=== PATIENT | male | born 1950 | race Caucasian/White ===

== ENCOUNTER → 2016-12-31 | Outpatient (CLI) | payer MEDICARE, BC ==
[2016-12-31 12:16] VITALS: BP 145/52; PULSE 52; RESP 18; TEMP 97.7
--- NOTE | 2016-12-31 12:39 | P.PN ---
Progress Note - Text This is a 66-year-old male with history of lumbar spondylosis and chronic lower back pain. The pain radiates down both legs to the knee level bilaterally. The patient was diagnosed recently with legionnaire disease and he had to stay in the hospital for 6 days. His pain is well controlled with [place] 7.5 mg 4 times a day. He does not show any drug-seeking behavior at this time he also denies any increasing sedation or any suicidal thoughts. I will give him prescription for 2 months of his [place] today and we will see him then. PQRS measures: 1-Patient's medications are documented in the chart. 2-Tobacco use is negative, counseling given 3-Patient has had a pneumococcal vaccine. 4-Advanced care planning discussed 5-Opioid contract signed with the patient. 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 8-Patient's weight was measured, and body mass index ABOVE the normal limits, and counseling was done. Patient instructed to follow up with PCP. 9-Patient WAS NOT identified as an unhealthy alcohol user.
== END | disposition home or self-care (01) ==
LOC: PNWHC3 11:53
PROVIDERS: ATTEND Anesthesiology
DX: M47.896 Other spondylosis, lumbar region (principal); Z79.899 Other long term (current) drug therapy
CPT/HCPCS: 99211

== ENCOUNTER → 2017-02-25 | Outpatient (CLI) | payer MEDICARE, BC ==
[2017-02-25 12:17] VITALS: BP 135/80; PULSE 57; RESP 16; TEMP 98.3
--- NOTE | 2017-02-25 12:27 | P.PN ---
Progress Note - Text This is a 67-year-old male with history of chronic lower back pain with radiation to the lower extremities down to the knee level bilaterally. Patient is diagnosed with lumbar spondylosis and lumbar degenerative disc disease. He has a history of severe infections after surgeries and the last one was after his back surgery which caused sepsis and patient had to stay in the ICU for quite sometime afterwards. His pain at this point is well controlled with [place] up to 4 times a day. He denies any side effects to [place] he also denies any suicidal thoughts. He does not show any drug-seeking behavior. He denies any bowel or bladder dysfunction. The patient has been stable on his pain medications and that's why I'm going to give him prescription for 2 months of [place].
== END ==
LOC: PNWHC3 11:48
PROVIDERS: ATTEND Anesthesiology
DX: M51.36 Other intervertebral disc degeneration, lumbar region (principal); M47.816 Spondylosis without myelopathy or radiculopathy, lumbar region
CPT/HCPCS: 99211

== ENCOUNTER → 2017-04-22 | Outpatient (CLI) | payer MEDICARE, BC ==
[2017-04-22 11:47] VITALS: BP 102/61; PULSE 61; RESP 20
--- NOTE | 2017-04-22 12:12 | P.PN ---
Progress Note - Text This is a 67-year-old male with history of lumbar failed back surgery syndrome the patient's pain starts from his mid back and down to the upper thighs. The patient denies any paresthesia in the lower extremities or any weakness. He denies any bowel or bladder dysfunction. The patient denies any weight loss or any nocturnal pain. The patient is prone to infections and he had severe infection after his back surgery and had to be admitted to the ICU for few weeks. The patient is afraid of getting any injections in his back cause of this risk of infection. His pain is relatively managed by [place] 7.5 mg 3 times a day. The patient does not show any drug-seeking behavior he also does not show any oversedation symptoms. He came with his today and he denies any suicidal thoughts or depression. I'll give the patient 2 prescriptions for 90 pills of [place] each and we'll see him back 2 months from now.
== END | disposition home or self-care (01) ==
LOC: PNWHC3 11:27
PROVIDERS: ATTEND Anesthesiology
DX: M54.9 Dorsalgia, unspecified (principal); Z98.890 Other specified postprocedural states
CPT/HCPCS: 99211

== ENCOUNTER → 2017-06-17 | Outpatient (CLI) | payer MEDICARE, BC ==
[2017-06-17 11:59] VITALS: BP 122/72; PULSE 62; RESP 20; TEMP 98.3
--- NOTE | 2017-06-17 12:09 | P.PN ---
Progress Note - Text Patient returns for followup for back pain with radiation to legs. Last year, patient recently underwent surgery for an infection in his back at [facility] and was admitted to inpatient rehab for several weeks and is now concerned to have any interventional procedures for his back pain secondary to this severe infection. That said, he is having worsening knee pain and is going to see Dr. Allen this coming Saturday. Patient denies adverse drug effects from medications. Today, pt denies new-onset weakness, bowel/bladder incontinence, or any other signs or symptoms of cauda equina syndrome. There are no signs of acute intoxication, and no indications of medication diversion or overuse. In addition to above, 13-point review of systems is also negative for chest pain , shortness of breath, changes in vision, changes in hearing, new onset weakness , abdominal pain, diarrhea, extreme fatigue, malaise, fever, skin changes, homicidal or suicidal ideation, or bowel or bladder incontinence. Vital Signs: Reviewed in EMR Gen: WDWN, AAOx3, NAD, morbidly obese, uses cane for walking HEENT: NCAT, EOMI, hearing grossly normal Pulm: resp unlabored Abd: soft, NT, ND, obese Neck: supple, trachea midline ROM in flexion lumbar spine: reduced ROM in extension lumbar spine: reduced Lumbar paravertebral tenderness: +, R > L Facet loading: ++ bilateral SI joint tenderness: neg bilaterally Jose's test: + R side Straight leg raise: not performed Neuro: CN II-XII grossly intact, muscle strength lower extremities PRESERVED Imaging: Reviewed in EMR Assessment: 1. lumbar spondylosis without myelopathy 2. morbid obesity 3. chronic pain syndrome Plan: 1. Explanation: Opioid and psychological risk scores were reviewed. Diagnoses , prognoses, and multiple treatment options including but not limited to physical therapy, interventional therapies, adjuvant medical therapies, narcotic medication therapies, and surgery were discussed with the patient and all questions were answered to the patient's satisfaction. 2. Opioid agreement: Patient has previously signed narcotic agreement, and was orally counseled to not overuse, abuse, divert, or cell medications, and to take them as prescribed by only 1 healthcare provider. The patient was also counseled to store opioid medications in a safe and preferably locked location. Patient was also counseled against driving while using narcotic medications and also to not use alcohol or any illicit or recreational drugs. The patient verbalized understanding that lack of compliance with any of the above and likely result in failure to renew narcotic prescriptions, possible discharge from the clinic, and possible legal ramifications thereafter if indicated. 3. Counseling: The patient was counseled extensively on BODY MASS INDEX, EXERCISE. Specifically, the patient was instructed regarding the importance of weight control and exercise in the context of both chronic pain and overall health. 4. Procedures: None 5. Consultations: None 6. Investigations: None 7. Medications: [place] 7.5 #90 with one refill 8. Disposition: f/u for re-eval in 8 weeks PQRS measures: 1-Patient's medications are documented in the chart. 2-Tobacco use is negative 3-Patient has not had a pneumococcal vaccine. 4-Advanced care planning discussed, patient unable to give. 5-Opioid contract signed with the patient. 6-Pain positive, follow-up visit or procedure scheduled 7-Patient's blood pressure measured and documented, and patient will follow up with the primary care due to hypertension. 8-Patient's weight was measured, and body mass index ABOVE the normal limits, and counseling was done. Patient instructed to follow up with PCP. 9-Patient WAS NOT identified as an unhealthy alcohol user.
== END | disposition home or self-care (01) ==
LOC: PNWHC3 11:34
PROVIDERS: ATTEND Anesthesiology
DX: M47.816 Spondylosis without myelopathy or radiculopathy, lumbar region (principal); E66.01 Morbid (severe) obesity due to excess calories; G89.4 Chronic pain syndrome; Z79.899 Other long term (current) drug therapy; Z79.891 Long term (current) use of opiate analgesic
CPT/HCPCS: 80307; G0480 ×2; G0463; 80356; 80364; 99211

== ENCOUNTER → 2017-06-28 | Outpatient (CLI) | payer MEDICARE, BC ==
--- NOTE | 2017-06-28 11:25 | US ---
"EXAMINATION TYPE: US gallbladder DATE OF EXAM: 06/28/2017 COMPARISON: NONE CLINICAL HISTORY: Cholecystitis. RUQ pain x 3 days EXAM MEASUREMENTS: Liver Length: 16.6 cm Gallbladder Wall: 0.30 cm CBD: 0.80 cm Right Kidney: 11.7 x 4.3 x 4.3 cm Pancreas: Obscured by bowel gas Liver: Increased attenuation Gallbladder: Cholelithiasis visualized in neck non mobile Evidence for sonographic Wu's sign: Yes CBD: dilated Right Kidney: No hydronephrosis or masses seen Cholelithiasis visualized in gallbladder neck non mobile The pancreas is obscured. The liver is normal in size without evidence of biliary dilatation. There is increased attenuation of the liver and is likely fatty infiltrated. There are nonmobile gallstones within the neck of the gallbladder. The gallbladder wall measures 3 mm . The distal common hepatic duct measures 5 mm. There is a positive sonographic Wu's sign. The right kidney is normal. IMPRESSION: CHOLELITHIASIS AND POSSIBLE ACUTE CHOLECYSTITIS. A Yellow message has been communicated to Cuate Mcguire MD via the [employer] | Critical Result sy stem on 06/28/2017 11:22 AM, Message ID [id number]."
== END | disposition home or self-care (01) ==
LOC: RADUSMAIN 09:56
PROVIDERS: ATTEND Internal Medicine Interventional Cardiology
DX: K80.20 Calculus of gallbladder without cholecystitis without obstruction (principal)
CPT/HCPCS: 76705

== ENCOUNTER → 2017-07-01 | Outpatient (CLI) | payer MEDICARE, BC | END | disposition home or self-care (01) | LOC: LABPAT 13:17 | PROVIDERS: ATTEND Orthopaedic Surgery | DX: Z01.812 Encounter for preprocedural laboratory examination (principal) | CPT/HCPCS: 87070 ==

== ENCOUNTER 2017-07-16 08:00 | Inpatient (IN) | payer MEDICARE, BC ==
[2017-08-09 11:01] VITALS: BMI 49.8
--- NOTE | 2017-08-12 09:34 | HP ---
HISTORY AND PHYSICAL CHIEF COMPLAINT: Left knee pain. 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 He notes his knee gives out. He has had previous injections with minimal relief. He is taking [place] and ambulating with a cane. PAST MEDICAL HISTORY: Significant for atrial fibrillation, hypertension, arthritis, and obesity. PAST SURGICAL HISTORY: Significant for previous lumbar surgery. CURRENT MEDICATIONS: 1. Gabapentin. 2. Lopressor. 3. Cyclobenzaprine. 4. Lotensin. 5. Spironolactone. 6. Coumadin. 7. [place]. ALLERGIES: He has a sensitivity to OXYCONTIN, however, no candace drug allergies. FAMILY HISTORY: Significant for heart disease and cancer. SOCIAL HISTORY: Negative for current tobacco or alcohol use. REVIEW OF SYSTEMS: Sixteen-point review of systems otherwise reviewed and is noncontributory. PHYSICAL EXAMINATION: On examination, the patient is approximately 5 feet, 7 inches, 315 pounds of endomorphic habitus. HEENT exam is nonfocal. Neck is supple. He has painless passive motion of the left hip. Straight leg raise is negative. Active motion left knee is - 12 to 105 degrees of flexion. He has a moderate effusion. He is tender about the medial joint line. Collaterals are stable, Leonor's negative. Austyn's is equivocal. His distal neurovascular exam appears intact in the left lower extremity. Weightbearing notch lateral and Merchant views of the left knee obtained in the office show severe medial and patellofemoral compartment narrowing. IMPRESSION: 1. Left knee severe medial and patellofemoral compartment osteoarthrosis. 2. Increased body mass index. 3. History of atrial fibrillation. RECOMMENDATIONS: I talked to the patient at length regarding his treatment options. At this point, he opts to proceed with surgery. We will plans to proceed with total knee arthroplasty. Risks and benefits were discussed at length in layman's terms. We will institute his Coumadin therapy postoperatively. The patient underwent preoperative medical evaluation by Dr. Adame. MMYAAL / HILARY: [id number] /
[2017-08-13] MEDS ORDERED: ceFAZolin 3 GM in SODIUM CHLORIDE 0.9% 100 ML IVPB ONE (05:00)
[2017-08-13] MEDS ORDERED: TRANEXAMIC ACID 1,000 MG in SODIUM CHLORIDE 0.9% 100 ML IVPB ONE ×4 (05:00)
[2017-08-13] MEDS ORDERED: ACETAMINOPHEN TAB 500 MG TAB PO ONE (05:00)
[2017-08-13] MEDS ORDERED: MELOXICAM 7.5 MG TAB PO ONE (05:00)
[2017-08-13] MEDS ORDERED: DEXAMETHASONE SOD PHOSPHATE 10 MG/ML 1 ML VIAL IV ONE (05:25)
[2017-08-13] MEDS ORDERED: ONDANSETRON 4 MG/2 ML VIAL IVP ONE (05:25)
[2017-08-13] MEDS ORDERED: SCOPOLAMINE 1.5MG/72HR PATCH TRANSDERM ONE (05:25)
[2017-08-13] MEDS ORDERED: MIDAZOLAM 2 MG/2 ML VIAL IV PRN (05:25)
[2017-08-13] MEDS: LACTATED RINGERS 1,000 ML IV SCH (11:38)
[2017-08-13] MEDS ORDERED: LIDOCAINE 1% 20 ML VIAL (10MG/ML) FOR IV START INTRADERMA ONE (11:39)
[2017-08-13 12:14] LABS: INR 1.3 (<1.2); Prothrombin Time 12.4 sec (9.0-12.0)
[2017-08-13] MEDS ORDERED: ROPIVACAINE 246.25 MG, EPINEPHrine 0.5 MG, KETOROLAC 30 MG, cloNIDine HCL/PF 80 MCG, WA... MISCELLANE ONE ×5 (14:15)
[2017-08-13] MEDS ORDERED: MAGNESIUM HYDROXIDE 2,400 MG/10 ML CUP PO PRN (14:22)
[2017-08-13] MEDS ORDERED: HYDROcodone/APAP 7.5-325MG 1 EACH TAB PO PRN (14:22)
[2017-08-13] MEDS ORDERED: NALOXONE 0.4 MG/ML 1 ML VIAL IV PRN (14:22)
[2017-08-13] MEDS ORDERED: hydrOXYzine PAMOATE 25 MG CAP PO PRN (14:22)
[2017-08-13] MEDS ORDERED: ONDANSETRON 4 MG/2 ML VIAL IVP PRN (14:22)
[2017-08-13] MEDS ORDERED: PHENYLEPHRINE-0.9% NACL SYG 1 MG/10 ML SYRINGE ONE (14:28)
[2017-08-13] MEDS ORDERED: MIDAZOLAM 2 MG/2 ML VIAL ONE (14:28)
[2017-08-13] MEDS ORDERED: ePHEDrine SULFATE/0.9% NACL/PF 50 MG/5 ML SYRINGE IV ONE (14:28)
[2017-08-13] MEDS ORDERED: fentaNYL (PF) 50 MCG/ML 2 ML AMP ONE (14:28)
[2017-08-13] MEDS ORDERED: LIDOCAINE 1% INJ 10MG/ML (20 ML MDV) ONE (14:28)
[2017-08-13] MEDS ORDERED: PROPOFOL 10 MG/ML 20 ML VIAL IV ONE (14:28)
[2017-08-13] MEDS ORDERED: SUCCINYLCHOLINE CHLORIDE VIAL 200 MG/10 ML VIAL IV ONE (14:28)
[2017-08-13] MEDS ORDERED: ROPIVACAINE 1,100 MG, SODIUM CHLORIDE 0.9% 330 ML MISCELLANE PRN ×2 (14:54)
--- NOTE | 2017-08-13 14:55 | P.ONQ ---
Anesthesiology Proc Note - PNB - Peripheral Nerve Block Performed Left Adductor Canal Indication: Acute Post-Operative Pain, Dx/Pain Location, Requested by physician (Dr Terry) Sedation Type: Sedate with meaningful contact maintained Preparation: Sterile Dressing Position: Supine Catheter: Indwelling Needle Types: Other (see comment) (Gideon) Needle Size: 100mm (4") Needle Gauge: 18 Technique: Ultrasound Injectate: 0.5% Ropivacaine (see comment for volume) (22cc) Blood Aspirated: No Pain Paresthesia on Injection Noted: No Resistance on Injection: Normal Events: Uneventful and Well Tolerated
[2017-08-13] MEDS ORDERED: LACTATED RINGERS 1,000 ML IV ONE ×2 (15:17→16:32)
--- NOTE | 2017-08-13 17:13 | P.OP ---
Date of Procedure: 08/13/17 Preoperative Diagnosis: Left knee severe tricompartmental osteoarthrosis-primary Postoperative Diagnosis: Same Procedure(s) Performed: Left total knee apvyrzkyjfzr-vkfloqhq-bmgvrorlxte/rotating platform Implants: Depuy TC3 size 5 cemented femoral component, size 4 cemented tibial component, 10 mm articular surface, 38 mm cemented patellar component. Anesthesia: GETA, regional, local Surgeon: Matthieu Terry Pediatric Oncologist #1: Everardo Franco Estimated Blood Loss (ml): 100 Pathology: other (Bone fragments) Condition: stable Disposition: PACU Indications for Procedure: The patient's a 67-year-old male who presents with progressive left knee pain secondary to osteoarthrosis despite conservative measures. A discussion of the risks and benefits of operative intervention versus continued conservative measures was made with the patient. He opted to proceed with surgery. Operative risks to include infection, neurovascular injury, development of blood clots, possible component loosening, possible component failure need for subsequent procedures was discussed. With his high body mass, he was instructed he was at higher risk for complication. Informed consent was obtained. Operative Findings: As below Description of Procedure: The patient was brought to the operating room, and after induction of general anesthesia the left lower extremity was prepped and draped in normal fashion. The tourniquet was inflated to 270 mmHg. A longitudinal incision extending 3 finger breaths above this. Pole of patella extending to the medial aspect the tibial tubercle was then made. The skin and subcutaneous tissues were divided sharply. Electrocautery was used for hemostasis. A medial parapatellar arthrotomy was performed. The medial soft tissues to include the superficial and deep portions of the medial collateral ligament as well as the medial hamstring tendons were elevated subperiosteally. I did carefully remove the proximal medial tibial osteophytes. The patella was everted. A portion of the retropatellar fat pad was excised. The anterior cruciate ligament was sacrificed. A starting hole was made in the distal femur 1 cm anterior to the posterior cruciate ligament origin. An intramedullary guide was then gently inserted planning on 5 valgus distal cut with 9 mm distal resection. The cutting block was pinned in place. The distal cut was then made. The posterior referencing sizing guide was utilized. A felt size 5 was most appropriate. 3 of external rotation was built into the system and verified off the trans-epicondylar axis and the posterior condyles. The cutting block was pinned in place. The anterior, posterior, and chamfer cuts were then made. The bone fragments were removed. The box cutting guide was then placed. The box cut was made with a sagittal saw. The bone fragment was removed in one piece. The trial size 5 femoral components placed and was fully seated. There was good anterior to posterior and medial to lateral fit. The trial was then removed. Attention was then paid towards preparing the proximal tibia. An extra medullary guide was utilized in line with the tibial shaft and second metatarsal distally. I planned on 0 posterior slope. Upon on 2 mm resection from the medial compartment. The cutting block was pinned in place. The proximal tibial cut was then made. The bone was removed one fragment. This is felt to be inadequate therefore an additional 2 mm was resected utilizing the cutting block. The tibia sized most appropriate size 4. The remnants of the medial and lateral menisci were excised the capsule junction with electrocautery. The posterior osteophytes of the distal femur were carefully removed with curved osteotome. The tibia was prepared in the appropriate rotation with the appropriate drill and keel punch. I planned on additional 30 mm of tibial stem. The trial component was then placed. It was fully seated. The femoral components placed along with a 10 mm articular surface. I was able to obtain full flexion and extension with good stability with varus and valgus stress. It was a rotating platform articular surface. Attention was then paid towards preparing the patella. A patella reamer was utilized taking this down to 14 mm bone stock. A good flush cut was made. The patella sized most appropriately 30 mm. Peg holes were drilled. The trial components placed. The knee was taken through range of motion. I had good patellofemoral tracking with no hands technique. The trial components were then removed. The bony surfaces were prepared with pulsatile lavage and dried. The posterior soft tissues were injected with ropivacaine. The tibial component was then cemented in placed and was fully seated. Excess cement was removed. The femoral component cemented placed and was fully seated. Excess cement was removed. The trial articular surface was placed and the knee was put in full extension. The patella component was cemented in place. After the cement had sufficiently hardened, the knee was again taken through range of motion. Again I was able to obtain full flexion and extension with good stability with varus and valgus stress. The trial articular surface was removed and the final 10 mm articular surface placed. Care was taken to avoid any soft tissue interposition. Pulsatile lavage was again utilized. The medial parapatellar arthrotomy was closed with #2 Ethibond suture. The tourniquet was deflated with approximately 70 minutes total tourniquet time. Final hemostasis was obtained with electrocautery. The subcutaneous tissues were reapproximated with interrupted 2 -0 Vicryl sutures. The skin was reprepped with 3-0 subcuticular strata fix suture. Skin tape and adhesive was applied. A sterile dressing was applied. The patient was awoken from general anesthesia and transferred to recovery room in good condition. Blood loss was estimated at 100 mL. No complications were incurred. Sponge and needle counts were correct at the end the case.
[2017-08-13] MEDS: HYDROmorphone 1 MG/ML 1 ML SYRINGE IVP PRN ×3 (17:32→22:46)
--- NOTE | 2017-08-13 17:53 | XR ---
EXAMINATION TYPE: XR knee limited LT DATE OF EXAM: 08/13/2017 COMPARISON: NONE HISTORY: Postop knee surgery TECHNIQUE: 2 views FINDINGS: There is a left knee prosthesis. Components appear in anatomic position. There is an anteri or drain. IMPRESSION: No complicating process seen.
[2017-08-13] MEDS: HYDROcodone/APAP 7.5-325MG 1 EACH TAB PO PRN (20:22)
[2017-08-13] MEDS: GABAPENTIN 300 MG CAP PO SCH (22:37)
[2017-08-13] MEDS: METOPROLOL TARTRATE 50 MG TAB PO SCH (22:37)
[2017-08-13] MEDS: SENNOSIDES-DOCUSATE SODIUM 1 EACH TAB PO SCH (22:40)
[2017-08-13] MEDS: ceFAZolin 3 GM in SODIUM CHLORIDE 0.9% 100 ML IVPB SCH (23:06)
[2017-08-14] MEDS: HYDROcodone/APAP 7.5-325MG 1 EACH TAB PO PRN ×3 (03:46→17:42)
[2017-08-14] MEDS: LACTATED RINGERS 1,000 ML IV SCH (05:48)
[2017-08-14] MEDS: ceFAZolin 3 GM in SODIUM CHLORIDE 0.9% 100 ML IVPB SCH (05:48)
[2017-08-14] MEDS: ALBUTEROL NEBULIZED 2.5 MG/3 ML INHALATION PRN ×2 (07:07→19:58)
[2017-08-14] MEDS: traMADol 50 MG TAB PO PRN ×3 (07:41→20:26)
[2017-08-14 07:46] LABS: Basophils % (A) 0 %; CH 28.7; CHCM 31.1; Eosinophils % (A) 0 %; HCT 42.6 % (39.0-53.0); HDW 2.38; Hypochromasia Slight; Luc % (Auto) 1; Lymphocytes % (A) 5 %; MCH 28.4 pg (25.0-35.0); MCHC 30.5 g/dL (31.0-37.0); MCV 92.9 fL (80.0-100.0); Mean Platelet Volume 8.1; Monocytes # (A) 1.1 k/uL (0-1.0); Monocytes % (A) 6 %; Neutrophils # (A) 17.3 k/uL (1.3-7.7); Neutrophils % (A) 88 %; RBC 4.58 m/uL (4.30-5.90); RDW 14.8 % (11.5-15.5); WBC 19.6 k/uL (3.8-10.6); WBC (Perox) 18.84
[2017-08-14 07:59] LABS: INR 1.2 (<1.2); Prothrombin Time 12.3 sec (9.0-12.0)
--- NOTE | 2017-08-14 08:26 | P.PN ---
Progress Note - Text The patient is status post left adductor canal catheter placement. The catheter was placed for postoperative pain control, status post total left arthroplasty. Ropivacaine 0.2% is infusing at 8 mLs per hour. The patient has no complaints of left lower extremity numbness or weakness. Patient's VAS score is 0-1 -10. Assessment: Patient's adductor canal catheter is in place and working appropriately. Plan: continue infusion and adjust it as needed.
[2017-08-14] MEDS: HYDROmorphone 1 MG/ML 1 ML SYRINGE IVP PRN ×2 (09:10→15:52)
[2017-08-14] MEDS: GABAPENTIN 300 MG CAP PO SCH ×2 (09:20→20:22)
[2017-08-14] MEDS: METOPROLOL TARTRATE 50 MG TAB PO SCH ×4 (09:20→22:12)
[2017-08-14] MEDS: FAMOTIDINE 20 MG TAB PO SCH (09:20)
[2017-08-14] MEDS: TAMSULOSIN 0.4 MG CAP.ER.24H PO SCH ×2 (09:20→14:03)
[2017-08-14 11:27] VITALS: RESP 16
--- NOTE | 2017-08-14 11:29 | P.PN ---
Subjective Principal diagnosis: Status post left total knee arthroplasty Patient is seen today resting in his hospital chair, he appears comfortable. Patient's is present. He states the pain is controlled at this time. He has ambulated with therapy. Urinary catheters been discontinued. Patient denies any lightheadedness, headaches, chest pain, shortness of breath, fever or chills, abdominal discomfort. Objective - Vital Signs Vital signs: Vital Signs Temp 98.1 F 08/14/17 11:25 Pulse 70 08/14/17 11:25 Resp 16 08/14/17 11:25 BP 122/83 08/14/17 11:25 Pulse Ox 97 08/14/17 07:35 Intake & Output 08/13/17 08/14/17 08/14/17 18:59 06:59 18:59 Intake Total 2500 600 236 Output Total 855 530 450 Balance 1645 70 -214 Weight 146.51 kg Intake: IV 2500 600 Lactated Ringers 1,000 ml 600 @ 50 mls/hr IV .Q20H GIANA Rx#:[id number] Oral 236 Output: Drainage 175 250 Left Knee 175 250 Urine 350 280 450 Uretheral (Miranda) 280 450 Estimated Blood Loss 330 Other: Voiding Method Indwelling Catheter Indwelling Catheter - Exam Left lower extremity: Incision is clean, dry and intact. No ecchymosis present around the knee itself. Calf soft, no tenderness with palpation. Plantar flexion, dorsiflexion , EHL, FHL are intact. Sensory exam to light touch throughout the extremity is intact. Dorsal pedis pulses 2+ - Labs CBC & Chem 7: 08/14/17 06:58 Labs: Abnormal Lab Results - Last 24 Hours (Table) 08/13/17 08/14/17 08/14/17 Range/Units 11:32 06:58 06:58 WBC 19.6 H (3.8-10.6) k/uL MCHC 30.5 L (31.0-37.0) g/dL Neutrophils # 17.3 H (1.3-7.7) k/uL Monocytes # 1.1 H (0-1.0) k/uL PT 12.4 H 12.3 H (9.0-12.0) sec INR 1.3 H 1.2 H (<1.2) Assessment and Plan Plan: Assessment: 1. Postop day #1 status post left total knee arthroplasty Plan: 1. Pain control, continue use of oral medication 2. Continue therapy and use of CPM 3. Encourage incentive spirometry 4. Daily dressing changes/ice and elevate 5. GI and DVT prophylaxis, continue use of Coumadin 6. Medical recommendations 7. Discharge planning: Patient may be discharged home today, likely tomorrow Time with Patient: Less than 30
--- NOTE | 2017-08-14 11:31 | P.DS ---
Providers Date of admission: 08/13/17 10:44 Expected date of discharge: 08/15/17 Attending physician: Matthieu Terry Consults: 08/13/17 14:27 Consult Physician Routine Consulting Provider: Jan Trejo Consult Reason/Comments: Medical Management Do you want consulting provider notified?: Yes Primary care physician: La Adame Hospital Course: Date of admission: 08/13/2017 Date of discharge: 08/15/2017 Admission diagnosis: Status post left total knee arthroplasty Discharge diagnosis: Same Attending physician: Dr. Terry Surgical procedures: Left total knee arthroplasty Brief history: Patient is a 67-year-old male with a history of progressive primary left knee has arthritis. At this point patient has failed conservative treatment measures and has opted to proceed with a elective left total knee arthroplasty. Hospital course: Details of patient's surgery can be found in operative report. Patient tolerated the procedure well and was subsequently transported to orthopedic floor. Patient's orthopeidc and medical care was provided daily. Patient had daily laboratory tests performed for evaluation of overall blood counts. Patient had daily physical therapy to include strengthening range of motion as well as education with walker ambulation. Patient had daily CPM usage as part of their physical therapy program. Patient was treated with Coumadin for their postoperative DVT prophylaxis during their inpatient stay. Patient was noted to have a relatively uneventful postoperative course. Patient reported satisfactory pain control with oral pain medications by postoperative day 0. Patient showed satisfactory progress with physical therapy. Patient moved steadily through the program and had no difficulty meeting the goals by postoperative day 2. Given patient's otherwise satisfactory course and having met physical therapy goals, plan is to discharge patient home on postoperative day 2. Discharge condition/disposition: Patient will be discharged home in stable condition. Discharge medications: Instructions are given on resumption of patient's normal daily medications per primary care recommendation, in addition patient will be prescribed [place] 7.5 mg/325 mg, tramadol 50 mg, Colace 100 mg. Discharge instructions: 1. Wound care and infection precautions, keep incision dry and covered while showering, no lotions, creams, moisturizers. No soaking, tubs, pools, hottubs. Do not scrub over the incision. 2. Weight-bear as tolerated with walker / cane until follow-up. 3. Ice and elevate when necessary. Do not exceed 20 minutes per hour with ice pack. 4. Utilize compression sleeve until seen at first follow up appointment. 5. Visiting nursing care. 6. Home physical therapy including home CPM. 7. Pain meds and anticoagulants per prescription. 8. Pain medication has potential to cause constipation. Increase oral fluid and fiber intake. Contact primary care provider if you have not had a bowel movement within 48 hours after discharge 9. No anti-inflammatory medication until discussed at first post operative visit, this including Motrin, Aleve, Mobic, Diclofenac. 10. Follow up in office at 2 weeks postop with Sarath Franco PA-C 11. Follow up with your primary care doctor 7-10 days after discharge. 12. Contact [facility] with any questions, . Procedures: Left total knee arthroplasty Patient Condition at Discharge: Good Plan - Discharge Summary New Discharge Prescriptions: New Docusate [Colace] 100 mg PO DAILY #30 capsule HYDROcodone/APAP 7.5-325MG [[place] 7.5] 1 - 2 each PO Q6HR PRN #60 tab PRN Reason: Pain traMADol HCl [Ultram] 50 mg PO Q6H PRN #40 tab PRN Reason: Pain No Action Tamsulosin [Flomax] 0.4 mg PO BID@0700,1300 Gabapentin [Neurontin] 300 mg PO BID Metoprolol Tartrate [Lopressor] 50 mg PO TID Spironolactone-Hctz 25-25Mg [Aldactazide 25-25 MG] 1 tab PO DAILY Cyclobenzaprine [Flexeril] 10 mg PO HS Warfarin [Coumadin] 5 mg PO HS Cholecalciferol [Vitamin D3] 1,000 unit PO DAILY Albuterol Nebulized [Ventolin Nebulized] 2.5 mg INHALATION RT-BID PRN PRN Reason: Shortness Of Breath Benazepril HCl [Lotensin] 40 mg PO DAILY Ascorbic Acid [Vitamin C] 1,000 mg PO DAILY Discharge Medication List Albuterol Nebulized [Ventolin Nebulized] 2.5 mg INHALATION RT-BID PRN 05/24/15 [ History] Cholecalciferol [Vitamin D3] 1,000 unit PO DAILY 05/24/15 [History] Cyclobenzaprine [Flexeril] 10 mg PO HS 05/24/15 [History] Gabapentin [Neurontin] 300 mg PO BID 05/24/15 [History] Metoprolol Tartrate [Lopressor] 50 mg PO TID 05/24/15 [History] Spironolactone-Hctz 25-25Mg [Aldactazide 25-25 MG] 1 tab PO DAILY 05/24/15 [ History] Tamsulosin [Flomax] 0.4 mg PO BID@0700,1300 05/24/15 [History] Warfarin [Coumadin] 5 mg PO HS 05/24/15 [History] Benazepril HCl [Lotensin] 40 mg PO DAILY 10/21/15 [History] Ascorbic Acid [Vitamin C] 1,000 mg PO DAILY 08/09/17 [History] Docusate [Colace] 100 mg PO DAILY #30 capsule 08/15/17 [Rx] HYDROcodone/APAP 7.5-325MG [[place] 7.5] 1 - 2 each PO Q6HR PRN #60 tab 08/15/17 [ Rx] traMADol HCl [Ultram] 50 mg PO Q6H PRN #40 tab 08/15/17 [Rx] Follow up Appointment(s)/Referral(s): [facility], [NON-STAFF] - Everardo Franco PAC [PHYSICIAN [employer]ITIES MANAGER] - 08/30/17 1:50 pm Activity/Diet/Wound Care/Special Instructions: Orthopedic Discharge Instructions: 1. Wound care and infection precautions, [keep incision dry and covered while showering], no lotions, creams, moisturizers. No soaking, pools, hot tubs. Do not scrub over incision. 2. Weight-bear [as tolerated] with walker / cane until follow-up. 3. Ice and elevate when necessary. Do not exceed 20 minutes per hour with ice pack. 4. Utilize compression sleeve until seen at first follow up appointment. 5. Visiting nursing care. 6. Home physical therapy [including home CPM]. 7. Pain meds and anticoagulants per prescription. 8. Pain medication has potential to cause constipation. Increase oral fluid and fiber intake. Contact primary care provider if you have not had a bowel movement within 48 hours after discharge. 9. No anti-inflammatory medication until discussed at first post operative visit, this including Motrin, Aleve, Mobic, Diclofenac. 10. Follow up in office at 2 weeks postop with Sarath Franco PA-C 11. Follow up with your primary care doctor 7-10 days after discharge. 12. Contact [facility] with any questions, . Discharge Disposition: HOME WITH HOME HEALTH SERVICES
--- NOTE | 2017-08-14 15:21 | P.CONS ---
History of Present Illness - Reason for Consult Leukocytosis, atrial fibrillation - History of Present Illness Patient is 67-year-old male came in for elective left knee arthroplasty, patient does have history of atrial fibrillation rate controlled without any beta blockers. R any other rate control medications patient is" and 5 mg at home which is being held for surgery. Patient will be resumed on Coumadin today patient denied any fever, chills, nausea, vomiting, dysuria patient does have leukocytosis secondary to surgery no other labs are available Will opt and a basic metabolic profile and CBC tomorrow repeat INR tomorrow patient will be restarted back on family runs of Coumadin medications were reviewed and holding of antihypertensive medications to prevent perioperative hypotension. Review of Systems REVIEW OF SYSTEMS: CONSTITUTIONAL: No fever, no malaise, no fatigue. HEENT: No recent visual problems or hearing problems. Denied any sore throat. CARDIOVASCULAR: No chest pain, orthopnea, PND, no palpitations, no syncope. PULMONARY: No shortness of breath, no cough, no hemoptysis. GASTROINTESTINAL: No diarrhea, no nausea, no vomiting, no abdominal pain. Normoactive bowel sounds. NEUROLOGICAL: No headaches, no weakness, no numbness. HEMATOLOGICAL: Denies any bleeding or petechiae. GENITOURINARY: Denies any burning micturition, frequency, or urgency. MUSCULOSKELETAL/RHEUMATOLOGICAL: Denies any joint pain, swelling, or any muscle pain. ENDOCRINE: Denies any polyuria or polydipsia. The rest of the 14-point review of systems is negative. Past Medical History Past Medical History: Atrial Fibrillation, Coronary Artery Disease (CAD), Heart Failure, Hypertension, Prostate Disorder, Rheumatoid Arthritis (RA), Sleep Apnea /CPAP/BIPAP Additional Past Medical History / Comment(s): CARDIOMYOPATHY, History of Any Multi-Drug Resistant Organisms: None Reported Past Surgical History: Back Surgery, Cholecystectomy, Heart Catheterization, Tonsillectomy Additional Past Surgical History / Comment(s): britton cataract-LENS IMPLANTS,right HAND SX, DETACTHED RETINA LT EYE- tc 10/2016 Past Anesthesia/Blood Transfusion Reactions: No Reported Reaction Past Psychological History: No Psychological Hx Reported Smoking Status: Former smoker Past Alcohol Use History: Occasional Additional Past Alcohol Use History / Comment(s): SMOKED CIGARS- X 25 YEARS QUIT 1998 Past Drug Use History: None Reported - Past Family History Father Family Medical History: Cancer Additional Family Medical History / Comment(s): lung cancer,brain tumor Mother Family Medical History: Cancer, Myocardial Infarction ([place]) Additional Family Medical History / Comment(s): skin cancer Medications and Allergies Home Medications Medication Instructions Recorded Confirmed Type Albuterol Nebulized [Ventolin 2.5 mg INHALATION RT-BID PRN 05/24/15 08/13/17 History Nebulized] Cholecalciferol [Vitamin D3] 1,000 unit PO DAILY 05/24/15 08/13/17 History Cyclobenzaprine [Flexeril] 10 mg PO HS 05/24/15 08/13/17 History Gabapentin [Neurontin] 300 mg PO BID 05/24/15 08/13/17 History Metoprolol Tartrate [Lopressor] 50 mg PO TID 05/24/15 08/13/17 History Spironolactone-Hctz 25-25Mg 1 tab PO DAILY 05/24/15 08/13/17 History [Aldactazide 25-25 MG] Tamsulosin [Flomax] 0.4 mg PO BID@0700,1300 05/24/15 08/13/17 History Warfarin [Coumadin] 5 mg PO HS 05/24/15 08/13/17 History Benazepril HCl [Lotensin] 40 mg PO DAILY 10/21/15 08/13/17 History Ascorbic Acid [Vitamin C] 1,000 mg PO DAILY 08/09/17 08/13/17 History Hydrocodone/Acetaminophen [[place] 1 tab PO TID PRN #90 tab 08/12/17 08/13/17 Rx 7.5-325] Allergies Allergy/AdvReac Type Severity Reaction Status Date / Time oxycodone HCl AdvReac Confusion Verified 08/13/17 15:51 [From OxyContin] Physical Exam Vitals: Vital Signs Temp Pulse Pulse Pulse Resp BP Pulse Ox 08/14/17 14:46 98.0 F 72 16 110/71 95 08/14/17 11:25 98.1 F 70 16 122/83 08/14/17 07:35 98.3 F 66 18 116/72 97 08/14/17 07:19 92 08/14/17 07:07 92 08/14/17 04:00 16 08/14/17 01:28 98.0 F 81 17 129/78 96 08/14/17 00:00 16 08/13/17 20:20 97 113/57 08/13/17 20:05 106 H 108/65 08/13/17 20:00 16 08/13/17 19:50 90 104/60 08/13/17 19:35 97 124/71 08/13/17 19:20 107 H 127/69 08/13/17 19:19 93 L 08/13/17 19:05 94 142/82 08/13/17 18:50 98 103/86 08/13/17 18:35 98.3 F 96 16 124/92 96 08/13/17 18:00 97 18 1365/64 93 L 08/13/17 17:45 93 16 129/65 92 L 08/13/17 17:30 97 16 128/60 92 L 08/13/17 17:15 97.2 F L 90 20 134/66 92 L Intake and Output 08/14/17 08/14/17 08/14/17 06:59 14:59 22:59 Intake Total 400 236 Output Total 530 450 Balance -130 -214 Intake: IV 400 Lactated Ringers 1,000 ml 400 @ 50 mls/hr IV .Q20H [facility] Rx#:[id number] Oral 236 Output: Drainage 250 Left Knee 250 Urine 280 450 Uretheral (Miranda) 280 450 Other: Voiding Method Indwelling Catheter PHYSICAL EXAMINATION: GENERAL: The patient is alert and oriented x3, not in any acute distress. Well developed, well nourished. HEENT: Pupils are round and equally reacting to light. EOMI. No scleral icterus. No conjunctival pallor. Normocephalic, atraumatic. No pharyngeal erythema. No thyromegaly. CARDIOVASCULAR: S1 and S2 present. No murmurs, rubs, or gallops. PULMONARY: Chest is clear to auscultation, no wheezing or crackles. ABDOMEN: Soft, nontender, nondistended, normoactive bowel sounds. No palpable organomegaly. MUSCULOSKELETAL: Deferred to orthopedic surgery. EXTREMITIES: No cyanosis, clubbing, or pedal edema. NEUROLOGICAL: Gross neurological examination did not reveal any focal deficits. SKIN: No rashes. Results CBC & Chem 7: 08/14/17 06:58 Labs: Abnormal Lab Results - Last 24 Hours (Table) 08/14/17 08/14/17 Range/Units 06:58 06:58 WBC 19.6 H (3.8-10.6) k/uL MCHC 30.5 L (31.0-37.0) g/dL Neutrophils # 17.3 H (1.3-7.7) k/uL Monocytes # 1.1 H (0-1.0) k/uL PT 12.3 H (9.0-12.0) sec INR 1.2 H (<1.2) Assessment and Plan Plan: #1 leukocytosis: There are no signs or symptoms of infection probably reactive in nature secondary to surgery no further intervention at this point of time. #2 atrial fibrillation presently rate controlled. Continue same dose of Coumadin at 5 mg as reordered again. #3 hypertension hold off and if his medications to prevent perioperative hypotension. #4 patient was history of can start failure not in acute exacerbation a lot of any chest x-ray IV fluids will be discussed in your. #5 morbid obesity and sleep apnea uses CPAP machine which need to be continued. 6 Benign prostatic hypertrophy
[2017-08-14] MEDS ORDERED: WARFARIN 5 MG TAB PO SCH (18:00)
[2017-08-14] MEDS ORDERED: WARFARIN 7.5 MG TAB PO ONE (18:00)
[2017-08-14] MEDS: SENNOSIDES-DOCUSATE SODIUM 1 EACH TAB PO SCH (20:22)
[2017-08-15] MEDS: HYDROcodone/APAP 7.5-325MG 1 EACH TAB PO PRN ×3 (01:08→13:27)
[2017-08-15] MEDS: traMADol 50 MG TAB PO PRN ×2 (06:01→12:15)
[2017-08-15 07:18] VITALS: BP 122/70; TEMP 97.4
[2017-08-15] MEDS: ALBUTEROL NEBULIZED 2.5 MG/3 ML INHALATION PRN (07:25)
[2017-08-15 07:44] LABS: CHCM 32.1; HCT 37.8 % (39.0-53.0); HDW 2.41; HGB 12.1 gm/dL (13.0-17.5); MCV 90.9 fL (80.0-100.0); Mean Platelet Volume 7.7; RBC 4.16 m/uL (4.30-5.90); RDW 14.6 % (11.5-15.5); WBC 12.4 k/uL (3.8-10.6)
[2017-08-15 07:49] LABS: INR 1.3 (<1.2); Prothrombin Time 12.4 sec (9.0-12.0)
[2017-08-15 07:50] VITALS: PULSE 84
[2017-08-15] MEDS: TAMSULOSIN 0.4 MG CAP.ER.24H PO SCH ×2 (07:52→12:15)
[2017-08-15] MEDS: METOPROLOL TARTRATE 50 MG TAB PO SCH (07:53)
[2017-08-15] MEDS: GABAPENTIN 300 MG CAP PO SCH (07:54)
[2017-08-15] MEDS: FAMOTIDINE 20 MG TAB PO SCH (07:54)
[2017-08-15 07:55] LABS: Anion Gap 8 mmol/L; Blood Urea Nitrogen 23 mg/dL (9-20); Calcium 8.7 mg/dL (8.4-10.2); Carbon Dioxide 25 mmol/L (22-30); Chloride 102 mmol/L (98-107); Glucose 88 mg/dL (74-99); Non-African American GFR(MDRD) >60 (>60 ml/min/1.73 sqM); Potassium 4.8 mmol/L (3.5-5.1); Sodium 135 mmol/L (137-145)
[2017-08-15] MEDS ORDERED: SPIRONOLACTONE-HCTZ 25-25MG 1 EACH TAB PO SCH (09:00)
--- NOTE | 2017-08-15 10:36 | P.PN ---
Subjective Principal diagnosis: Status post left total knee arthroplasty Patient is seen today resting in his hospital chair, he appears comfortable. Patient's is present. He states the pain is controlled at this time. Patient denies any lightheadedness, headaches, chest pain, shortness of breath, fever or chills, abdominal discomfort. Objective - Vital Signs Vital signs: Vital Signs Temp 97.4 F L 08/15/17 07:00 Pulse 84 08/15/17 07:35 Resp 16 08/15/17 07:00 BP 122/70 08/15/17 07:00 Pulse Ox 98 08/15/17 07:00 Intake & Output 08/14/17 08/15/17 08/15/17 18:59 06:59 18:59 Intake Total 336 850 Output Total 700 600 Balance -364 250 Intake: IV 100 Lactated Ringers 1,000 ml 100 @ 50 mls/hr IV .Q20H [facility] Rx#:[id number] Oral 236 850 Output: Urine 700 600 Uretheral (Miranda) 450 Other: Voiding Method Indwelling Catheter # Voids 2 - Exam Left lower extremity: Incision is clean, dry and intact. No ecchymosis present around the knee itself. Calf soft, no tenderness with palpation. Plantar flexion, dorsiflexion , EHL, FHL are intact. Sensory exam to light touch throughout the extremity is intact. Dorsal pedis pulses 2+ - Labs CBC & Chem 7: 08/15/17 06:49 08/15/17 06:49 Labs: Abnormal Lab Results - Last 24 Hours (Table) 08/15/17 08/15/17 08/15/17 Range/Units 06:49 06:49 06:49 WBC 12.4 H (3.8-10.6) k/uL RBC 4.16 L (4.30-5.90) m/uL Hgb 12.1 L (13.0-17.5) gm/dL Hct 37.8 L (39.0-53.0) % PT 12.4 H (9.0-12.0) sec INR 1.3 H (<1.2) Sodium 135 L (137-145) mmol/L BUN 23 H (9-20) mg/dL Assessment and Plan Plan: Assessment: 1. Postop day #2 status post left total knee arthroplasty Plan: 1. Pain control, continue use of oral medication 2. Continue therapy and use of CPM 3. Encourage incentive spirometry 4. Daily dressing changes/ice and elevate 5. GI and DVT prophylaxis, continue use of Coumadin 6. Medical recommendations 7. Discharge planning: Patient will be discharged home today Time with Patient: Less than 30
--- NOTE | 2017-08-15 13:52 | P.PN ---
Subjective Patient is 67-year-old male came in for elective left knee arthroplasty, no overnight events and patient is being discharged in discharge medication to constipation was reviewed. Patient denied any chest pain, nausea, vomiting, dysuria. Objective - Vital Signs Vital signs: Vital Signs Temp 97.4 F L 08/15/17 07:00 Pulse 84 08/15/17 07:35 Resp 16 08/15/17 07:00 BP 122/70 08/15/17 07:00 Pulse Ox 98 08/15/17 07:00 Intake & Output 08/14/17 08/15/17 08/15/17 18:59 06:59 18:59 Intake Total 336 850 Output Total 700 600 Balance -364 250 Intake: IV 100 Lactated Ringers 1,000 ml 100 @ 50 mls/hr IV .Q20H [facility] Rx#:[id number] Oral 236 850 Output: Urine 700 600 Uretheral (Miranda) 450 Other: Voiding Method Indwelling Catheter # Voids 2 - Exam GENERAL: The patient is alert and oriented x3, not in any acute distress. Well developed, well nourished. HEENT: Pupils are round and equally reacting to light. EOMI. No scleral icterus. No conjunctival pallor. Normocephalic, atraumatic. No pharyngeal erythema. No thyromegaly. CARDIOVASCULAR: S1 and S2 present. No murmurs, rubs, or gallops. PULMONARY: Chest is clear to auscultation, no wheezing or crackles. ABDOMEN: Soft, nontender, nondistended, normoactive bowel sounds. No palpable organomegaly. MUSCULOSKELETAL: Deferred to orthopedic surgery. EXTREMITIES: No cyanosis, clubbing, or pedal edema. NEUROLOGICAL: Gross neurological examination did not reveal any focal deficits. SKIN: No rashes. - Labs CBC & Chem 7: 08/15/17 06:49 08/15/17 06:49 Labs: Abnormal Lab Results - Last 24 Hours (Table) 08/15/17 08/15/17 08/15/17 Range/Units 06:49 06:49 06:49 WBC 12.4 H (3.8-10.6) k/uL RBC 4.16 L (4.30-5.90) m/uL Hgb 12.1 L (13.0-17.5) gm/dL Hct 37.8 L (39.0-53.0) % PT 12.4 H (9.0-12.0) sec INR 1.3 H (<1.2) Sodium 135 L (137-145) mmol/L BUN 23 H (9-20) mg/dL Assessment and Plan Plan: #1 leukocytosis: There are no signs or symptoms of infection probably reactive in nature secondary to surgery no further intervention at this point of time. #2 atrial fibrillation presently rate controlled. Continue same dose of Coumadin at 5 mg and INR in about 3 days #3 hypertension hold off and if his medications to prevent perioperative hypotension. #5 morbid obesity and sleep apnea uses CPAP machine which need to be continued. 6 Benign prostatic hypertrophy
== END 2017-08-15 13:50 | disposition home health service (06) | DRG 470 ==
LOC: 2ORMAIN 08-13 10:44 → 3SUR 08-13 17:22
PROVIDERS: ADMIT Orthopaedic Surgery; ATTEND Orthopaedic Surgery
PROC: 0SRD0J9 Replacement of Left Knee Joint with Synthetic Substitute, Cemented, Open Approach (ICD-10-PCS; principal; 2017-08-13 13:00)
DX: M17.12 Unilateral primary osteoarthritis, left knee (principal); I11.0 Hypertensive heart disease with heart failure; I42.9 Cardiomyopathy, unspecified; I50.9 Heart failure, unspecified; D72.829 Elevated white blood cell count, unspecified; G47.30 Sleep apnea, unspecified; I25.10 Atherosclerotic heart disease of native coronary artery without angina pectoris; I48.91 Unspecified atrial fibrillation; M06.9 Rheumatoid arthritis, unspecified; Z96.1 Presence of intraocular lens; M19.90 Unspecified osteoarthritis, unspecified site; Z79.01 Long term (current) use of anticoagulants; Z79.899 Other long term (current) drug therapy; Z80.1 Family history of malignant neoplasm of trachea, bronchus and lung; Z80.8 Family history of malignant neoplasm of other organs or systems; Z82.49 Family history of ischemic heart disease and other diseases of the circulatory system; Z87.891 Personal history of nicotine dependence
CPT/HCPCS: 80048; 85025; 85027; 85610; 88300; 94640

== ENCOUNTER → 2017-08-12 | Outpatient (CLI) | payer MEDICARE, BC ==
[2017-08-12 13:42] LABS: Basophils # (A) 0.1 k/uL (0-0.2); Basophils % (A) 1 %; CH 28.2; CHCM 30.9; Eosinophils # (A) 0.3 k/uL (0-0.7); Eosinophils % (A) 2 %; HCT 45.5 % (39.0-53.0); HDW 2.42; HGB 14.4 gm/dL (13.0-17.5); Hypochromasia Slight; Luc # (Auto) 0.13; Luc % (Auto) 1; Lymphocytes # (A) 1.2 k/uL (1.0-4.8); Lymphocytes % (A) 10 %; MCHC 31.6 g/dL (31.0-37.0); MCV 91.8 fL (80.0-100.0); Monocytes # (A) 0.6 k/uL (0-1.0); Monocytes % (A) 5 %; Neutrophils # (A) 10.2 k/uL (1.3-7.7); Neutrophils % (A) 82 %; RBC 4.96 m/uL (4.30-5.90); RDW 13.7 % (11.5-15.5); WBC 12.5 k/uL (3.8-10.6); WBC (Perox) 12.25
[2017-08-12 13:58] LABS: INR 1.2 (<1.2); Prothrombin Time 11.8 sec (9.0-12.0)
[2017-08-12 14:14] LABS: Potassium 4.7 mmol/L (3.5-5.1)
== END | disposition home or self-care (01) ==
LOC: LABPAT 12:45
PROVIDERS: ATTEND Orthopaedic Surgery
DX: Z01.812 Encounter for preprocedural laboratory examination (principal); M17.12 Unilateral primary osteoarthritis, left knee; Z79.01 Long term (current) use of anticoagulants
CPT/HCPCS: 80051; 85025; 85610; 85730

== ENCOUNTER → 2017-08-12 | Outpatient (CLI) | payer MEDICARE, BC ==
[2017-08-12 13:34] VITALS: BP 115/71; PULSE 75; RESP 16; TEMP 98.2
--- NOTE | 2017-08-12 13:49 | P.PN ---
Progress Note - Text Patient returns for followup for back pain with radiation to legs. Last year, patient recently underwent surgery for an infection in his back at [facility] and was admitted to inpatient rehab for several weeks and is now concerned to have any interventional procedures for his back pain secondary to this severe infection. That said, patient is having R TKA tomorrow with Dr. Terry and is here for follow-up for medical management. Patient denies adverse drug effects from medications. Today, pt denies new-onset weakness, bowel/bladder incontinence, or any other signs or symptoms of cauda equina syndrome. There are no signs of acute intoxication, and no indications of medication diversion or overuse. In addition to above, 13-point review of systems is also negative for chest pain , shortness of breath, changes in vision, changes in hearing, new onset weakness , abdominal pain, diarrhea, extreme fatigue, malaise, fever, skin changes, homicidal or suicidal ideation, or bowel or bladder incontinence. Vital Signs: Reviewed in EMR Gen: WDWN, AAOx3, NAD, morbidly obese, uses cane for walking HEENT: NCAT, EOMI, hearing grossly normal Pulm: resp unlabored Abd: soft, NT, ND, obese Neck: supple, trachea midline ROM in flexion lumbar spine: reduced ROM in extension lumbar spine: reduced Lumbar paravertebral tenderness: +, R > L Facet loading: ++ bilateral SI joint tenderness: neg bilaterally Neuro: CN II-XII grossly intact, muscle strength lower extremities PRESERVED; decreased ROM R knee secondary to pain Imaging: Reviewed in EMR Assessment: 1. lumbar spondylosis without myelopathy 2. morbid obesity 3. chronic pain syndrome 4. knee OA Plan: 1. Explanation: Opioid and psychological risk scores were reviewed. Diagnoses , prognoses, and multiple treatment options including but not limited to physical therapy, interventional therapies, adjuvant medical therapies, narcotic medication therapies, and surgery were discussed with the patient and all questions were answered to the patient's satisfaction. 2. Opioid agreement: Patient has previously signed narcotic agreement, and was orally counseled to not overuse, abuse, divert, or cell medications, and to take them as prescribed by only 1 healthcare provider. The patient was also counseled to store opioid medications in a safe and preferably locked location. Patient was also counseled against driving while using narcotic medications and also to not use alcohol or any illicit or recreational drugs. The patient verbalized understanding that lack of compliance with any of the above and likely result in failure to renew narcotic prescriptions, possible discharge from the clinic, and possible legal ramifications thereafter if indicated. 3. Counseling: The patient was counseled extensively on BODY MASS INDEX, EXERCISE. Specifically, the patient was instructed regarding the importance of weight control and exercise in the context of both chronic pain and overall health. 4. Procedures: None 5. Consultations: None 6. Investigations: None 7. Medications: [place] 7.5 #120 for first month (told patient not to get medications from Dr. Terry) and #90 for second month 8. Disposition: f/u for re-eval in 8 weeks PQRS measures: 1-Patient's medications are documented in the chart. 2-Tobacco use is negative 3-Patient has not had a pneumococcal vaccine. 4-Advanced care planning discussed, patient unable to give. 5-Opioid contract signed with the patient. 6-Pain positive, follow-up visit or procedure scheduled 7-Patient's blood pressure measured and documented, and patient will follow up with the primary care due to hypertension. 8-Patient's weight was measured, and body mass index ABOVE the normal limits, and counseling was done. Patient instructed to follow up with PCP. 9-Patient WAS NOT identified as an unhealthy alcohol user.
== END | disposition home or self-care (01) ==
LOC: PNWHC3 13:20
PROVIDERS: ATTEND Anesthesiology
DX: M47.816 Spondylosis without myelopathy or radiculopathy, lumbar region (principal); E66.01 Morbid (severe) obesity due to excess calories; M17.9 Osteoarthritis of knee, unspecified; G89.4 Chronic pain syndrome; Z79.899 Other long term (current) drug therapy
CPT/HCPCS: 99211

== ENCOUNTER → 2017-10-07 | Outpatient (CLI) | payer MEDICARE, BC ==
[2017-10-07 12:21] VITALS: BP 119/65; PULSE 75; RESP 16; TEMP 97.8
--- NOTE | 2017-10-08 05:35 | P.PN ---
Subjective Progress Note Date: 10/07/17 This is 67 years old male with a history of severe and chronic pain,with lumbar spondylosis, and osteoarthritis of the left knee, status post left total knee replacement done in August 2017, patient continued to have low back pain and knee pain, he is on [place] 7.5/325 every 8 hours, and he is taking prescription for Neurontin 300 mg twice a day and Flexeril 10 mg daily at bedtime from his primary care, he was given prescription for Ultram 50 mg every [address] Mcleod to treat his knee pain after the knee replacement surgery, he denies any side effect of the medication he denies any excessive drowsiness or sleepiness and he denies any suicidal ideation and he reported the current medication helping him to control his pain Objective - Vital Signs Vital signs: Vital Signs Temp 97.8 F 10/07/17 12:17 Pulse 75 10/07/17 12:17 Resp 16 10/07/17 12:17 BP 119/65 10/07/17 12:17 Pulse Ox 95 10/07/17 12:17 Intake & Output 10/07/17 10/07/17 10/08/17 06:59 18:59 06:59 Weight 145.15 kg - Exam Physical Examinations : 1-Constitutiona : Cooperative , not in acute distress . 2-HEENT : nech ; supple , no Lymphadenopathy , normal thyroid size . eyes : no ptosis , no icterus, no photophobia . ENT : normal of hearing , normal oropharynx , no Thrush . 3- Respiratory : Chest clear to auscultations Bilaterally , no wheezing , no Rhonchi . 4- Cardiovascular : regular rate and rhythem , S1 , S2 , no S3 , no S4. 5- Gastrointestinal : abdomen soft no tenderness , bowel sounds positive all four quadrents , no organomegally . 6- Genitourinary : Defferred . 7- neurologic : Cranial nerve II to XII intact , no focal neurological deffecit . 8-psychatric : alert , oriented X 3 , appropriate affect , intact judgment and insight . 9-Lymphatic : no Lymphadenopathy . 10- musculoskeltal : , Lumber spine = normal moter stegnth lower extremities ,thigh and legs .5/5 Assessment and Plan Assessment: Assessment and plan= chronic low back pain secondary to lumbar degenerative disc disease , lumbar spondylosis with lumbar facet arthropathy , Chronic left knee pain status post left total knee arthroplasty chronic and current use of high-risk medication (opioids) Patient denies any side effects of the current pain medication and the current treatment/medication ML and the patient to do activity of daily living , Diagnoses, prognosis, treatment options, including but not limited to physical therapy, medication management, interventional therapies, and surgery, were discussed with the patient All the questions answered Patient signed the narcotic agreement, and he was orally counseled, not to overuse, not to abuse, not to Divert , not tp sell pain medication, and to take it as prescribed only, Patient was counseled not to drive or operate heavy equipment while using narcotic medication, and advised not to use alcohol or any Illicit drugs while using the narcotis, the patient's verbalized understanding that lack of compliance with any of the above instructions and will likely to cause discharge from the pain service, not to renew his narcotic prescriptions Medication managements= patient will be given prescription refills for 1-[place] 7.5/325 every 8 hours dispense 90 with 1 refill 2-patient getting prescription refill for Neurontin 300 mg twice a day and Flexeril 10 mg daily at bedtime from his primary care Interventional pain management = none Follow-up= 2 months ,
== END ==
LOC: PNWHC3 11:33
PROVIDERS: ATTEND Specialist
DX: M51.36 Other intervertebral disc degeneration, lumbar region (principal); M47.816 Spondylosis without myelopathy or radiculopathy, lumbar region; M46.86 Other specified inflammatory spondylopathies, lumbar region; M25.562 Pain in left knee; Z79.891 Long term (current) use of opiate analgesic; Z96.652 Presence of left artificial knee joint; Z79.899 Other long term (current) drug therapy
CPT/HCPCS: 99211

== ENCOUNTER → 2017-12-03 | Outpatient (CLI) | payer MEDICARE, BC ==
--- NOTE | 2017-12-03 13:08 | P.PN ---
Subjective Progress Note Date: 12/03/17 This is follow-up visit for this patient with a history of severe and chronic low back pain secondary to lumbar degenerative disc diseases , and also patient had severe left knee pain status post left total knee replacement, 2 months ago, of left knee pain and also severe low back pain patient had electives of the lumbar spine and had surgical interventions on his lumbar spine Patients currently on 1- norco 7.5/325 every 6 hours 2- neurontin 300 mg twice a 3- flexeril 10 mg q hs Patient denies any side effects of the medication, denies excessive drowsiness or sleepiness, denies suicidal ideation, and reports that the current pain medication is helping To control the pain and improve activity of daily living Patient denies any motor or sensory deficit , patient denies any fever or night sweats, denies any change in the bowel movements or urination Physical Examinations : 1-Constitutiona : Cooperative , not in acute distress . 2-HEENT : nech ; supple , no Lymphadenopathy , no Thyromegaly , normal thyroid size . eyes : no ptosis , no icterus, no photophobia . ENT : normal of hearing , normal oropharynx , no Thrush . 3- Respiratory : Chest clear to auscultations Bilaterally , no wheezing , no Rhonchi . 4- Cardiovascular : irregular rate and rhythem , S1 , S2 , no S3 , no S4. 5- Gastrointestinal : abdomen soft no tenderness , bowel sounds positive all four quadrents , no organomegally . 6- Genitourinary : Defferred . 7- neurologic : Cranial nerve II to XII intact , no focal neurological deffecit . 8-psychatric : alert , oriented X 3 , appropriate affect , intact judgment and insight . 9-Lymphatic : no Lymphadenopathy . 10- musculoskeltal : exams of the Lumber spine = motor strength lower extremities ,thigh and legs .5/5 deep tendon reflexes : normal Knee Jerk , normal ankle Jerk . lumber facet Loading Test positive strait leg raising test positive at 30 degree , RT ,LT , Fabere test positive RT and positive LT . Range of motion: Range of motion in flexion of the lumbar spine 30 degrees Range of motion range of motion of extension of the lumbar spine 10 Sever tenderness over the Sacroiliac joint on the Right , and Left side flexsion ,and extension of the left knee associated with pain Assessment and plan = Chronic low back pain secondary to lumbar degenerative disc disease , lumbar spondylosis with facet arthropathy without myelopathy , chronic and current use of high-risk medication (Opioids). The patient was counseled about risk of opioid use, psychological risk associated with opioids and was orally counseled to not overuse , divert,or sell dictations to take medications as prescribed only , and to restore medication in safe location , and the patient counseled against driving while using narcotic medications, and also not to use alcohol or any illicit recreational drugs, the patient's verbalized understanding that the lack of compliance will result in failure to renew narcotic prescription and possible discharge from the clinic - diagnoses, prognosis, and treatment options including but not limited to physical therapy, surgical interventions, interventional therapies , and medication management including narcotics and adjuvant medication were discussed with the patient and all the questions answered , refill for him 0.5/325 every 6 hours dispense 90 with 1 refill given Objective - Vital Signs Vital signs: Vital Signs Temp Pulse 95 12/03/17 12:36 Resp 20 12/03/17 12:36 BP 119/58 12/03/17 12:36 Pulse Ox 97 12/03/17 12:36 Intake & Output 12/02/17 12/03/17 12/03/17 18:59 06:59 18:59 Weight 147.418 kg
[2017-12-04 23:04] VITALS: BP 119/58; PULSE 95; RESP 20
== END | disposition home or self-care (01) ==
LOC: PNWHC3 11:53
PROVIDERS: ATTEND Specialist
DX: M51.36 Other intervertebral disc degeneration, lumbar region (principal); M47.816 Spondylosis without myelopathy or radiculopathy, lumbar region; M46.86 Other specified inflammatory spondylopathies, lumbar region; M25.562 Pain in left knee; Z96.652 Presence of left artificial knee joint; Z79.891 Long term (current) use of opiate analgesic; Z79.899 Other long term (current) drug therapy
CPT/HCPCS: 99211

== ENCOUNTER → 2018-01-27 | Outpatient (CLI) | payer MEDICARE, BC ==
[2018-01-27 13:50] VITALS: BP 140/87; PULSE 115; RESP 20
--- NOTE | 2018-01-27 14:42 | P.PN ---
Subjective Progress Note Date: 01/27/18 This is follow-up visit for this patient with a history of severe and chronic low back pain secondary to lumbar degenerative disc disease, lumbar facet arthropathy, patient currently on [place] 7.5/325 every 6 hours , Flexeril 10 mg once a day (prescription from Dr Mckeon ) , and Neurontin 300 mg 3 times a day ( prescription from Dr. Mckeon ) Patient denies any side effects of the medication, denies excessive drowsiness or sleepiness, denies suicidal ideation, and reports that the current pain medication is helping To control the pain and improve activity of daily living . Patient denies any motor or sensory deficit, denies change in bowel movement or urination, patient denies any fever or night sweats and patient here for follow-up visit and medication refill Objective - Vital Signs Vital signs: Vital Signs Temp Pulse 115 H 01/27/18 13:40 Resp 20 01/27/18 13:40 BP 140/87 01/27/18 13:40 Pulse Ox 95 01/27/18 13:40 Intake & Output 01/26/18 01/27/18 01/27/18 18:59 06:59 18:59 Weight 149.685 kg - Exam Physical Examinations : 1-Constitutiona : Cooperative , not in acute distress . 2-HEENT : nech ; supple , no Lymphadenopathy , normal thyroid size . eyes : no ptosis , no icterus, no photophobia . ENT : normal of hearing , normal oropharynx , no Thrush . 3- Respiratory : Chest clear to auscultations Bilaterally , no wheezing , no Rhonchi . 4- Cardiovascular : regular rate and rhythem , S1 , S2 , no S3 , no S4. 5- Gastrointestinal : abdomen soft no tenderness , bowel sounds positive all four quadrents , no organomegally . 6- Genitourinary : Defferred . 7- neurologic : Cranial nerve II to XII intact , no focal neurological deffecit . 8-psychatric : alert , oriented X 3 , appropriate affect , intact judgment and insight . 9-Lymphatic : no Lymphadenopathy . 10- musculoskeltal : cervical spine = motor stregnth in the deltoid and biceps, , Lumber spine = normal moter stegnth lower extremities ,thigh and legs .5/5 deep tendon reflexes : normal Knee Jerk , normal ankle Jerk . lumber facet Loading Test positive strait leg raising test positive at 30 degree Right , positve at 30 degree Left Fabere test positive Right and positive Left Assessment and Plan Plan: Assessment and plan= chronic low back pain secondary to lumbar degenerative disc disease , lumbar spondylosis with lumbar facet arthropathy , chronic and current use of high-risk medication (opioids) Patient denies any side effects of the current pain medication and the current treatment/medication ML and the patient to do activity of daily living , Diagnoses, prognosis, treatment options, including but not limited to physical therapy, medication management, interventional therapies, and surgery, were discussed with the patient All the questions answered Patient signed the narcotic agreement, and he was orally counseled, not to overuse, not to abuse, not to Divert , not tp sell pain medication, and to take it as prescribed only, Patient was counseled not to drive or operate heavy equipment while using narcotic medication, and advised not to use any Illicit drugs while using the narcotis, the patient's verbalized understanding that lack of compliance with any of the above instructions and will likely to cause discharge from the pain service, not to renew his narcotic prescriptions Medication managements= patient will be given prescription refills for [place] 7.5/325 every 6 hours dispense 90 with 1 refill Also patient counseled about weight loss surgery goes patient extremely/ morbidly obese and he could benefit from bariatric surgery, this could , improve his low back pain , Time with Patient: Less than 30
== END | disposition home or self-care (01) ==
LOC: PNWHC3 13:13
PROVIDERS: ATTEND Specialist
DX: G89.29 Other chronic pain (principal); M51.36 Other intervertebral disc degeneration, lumbar region; M47.816 Spondylosis without myelopathy or radiculopathy, lumbar region; M46.86 Other specified inflammatory spondylopathies, lumbar region; Z79.899 Other long term (current) drug therapy; Z79.891 Long term (current) use of opiate analgesic
CPT/HCPCS: 99211

== ENCOUNTER → 2018-03-24 | Outpatient (CLI) | payer MEDICARE, BC ==
[2018-03-24 14:05] VITALS: BP 119/67; PULSE 86; RESP 20
--- NOTE | 2018-03-24 14:28 | P.PN ---
Subjective Progress Note Date: 03/24/18 This is follow-up visit for this patient with a history of severe and chronic low back pain secondary to lumbar degenerative disc disease, lumbar facet arthropathy, and failed back surgery syndrome and lumbar area , patient had the lumbar laminectomy surgery a few years ago and he developed an infection as a complication of the surgery and he has been on antibiotics for 2 months , he continued to have severe low back pain with radiation to the lower extremities , and continue to take Coumadin patient currently on [place] 7.5/325 every 6 hours ( Neurontin 300 mg 3 times a day and Flexeril 10 mg daily prescription from Dr. Mckeon ) Patient denies any side effects of the medication, denies excessive drowsiness or sleepiness, denies suicidal ideation, and reports that the current pain medication is helping To control the pain and improve activity of daily living . Patient denies any motor or sensory deficit, denies change in bowel movement or urination, patient denies any fever or night sweats and patient here for follow-up visit and medication refill Objective - Vital Signs Vital signs: Vital Signs Temp Pulse 86 03/24/18 14:01 Resp 20 03/24/18 14:01 BP 119/67 03/24/18 14:01 Pulse Ox 95 03/24/18 14:01 Intake & Output 03/23/18 03/24/18 03/24/18 18:59 06:59 18:59 Weight 149.685 kg - Exam Physical Examinations : 1-Constitutiona : Cooperative , not in acute distress . 2-HEENT : nech ; supple , no Lymphadenopathy , normal thyroid size . eyes : no ptosis , no icterus, no photophobia . ENT : normal of hearing , normal oropharynx , no Thrush . 3- Respiratory : Chest clear to auscultations Bilaterally , no wheezing , no Rhonchi . 4- Cardiovascular : irregular rate and rhythem , S1 , S2 , no S3 , no S4. 5- Gastrointestinal : abdomen soft no tenderness , bowel sounds positive all four quadrents , no organomegally . 6- Genitourinary : Defferred . 7- neurologic : Cranial nerve II to XII intact , no focal neurological deffecit . 8-psychatric : alert , oriented X 3 , appropriate affect , intact judgment and insight . 9-Lymphatic : no Lymphadenopathy . 10- musculoskeltal : , Lumber spine = normal moter stegnth lower extremities ,thigh and legs .5/5 deep tendon reflexes : normal Knee Jerk , normal ankle Jerk . lumber facet Loading Test positive strait leg raising test positive at 30 degree Right , positve at 30 degree Left Fabere test positive Right and positive Left Assessment and Plan Plan: Assessment and plan= chronic low back pain secondary to lumbar degenerative disc disease , lumbar spondylosis with lumbar facet arthropathy , failed back surgery syndrome and lumbar area chronic and current use of high-risk medication (opioids) Patient denies any side effects of the current pain medication and the current treatment/medication ML and the patient to do activity of daily living , Diagnoses, prognosis, treatment options, including but not limited to physical therapy, medication management, interventional therapies, and surgery, were discussed with the patient All the questions answered Patient signed the narcotic agreement, and he was orally counseled, not to overuse, not to abuse, not to Divert , not tp sell pain medication, and to take it as prescribed only, Patient was counseled not to drive or operate heavy equipment while using narcotic medication, and advised not to use alcohol or any Illicit drugs while using the narcotis, the patient's verbalized understanding that lack of compliance with any of the above instructions and will likely to cause discharge from the pain service, not to renew his narcotic prescriptions Medication managements= patient will be given prescription refills for [place] 7.502/18/1950 every 6 hours dispense 90 with 1 refill He'll continue to get prescription refill for neurontin 300 mg 3 times a day, and Flexeril 10 mg daily, Patient was counseled extensively about weight loss program/surgery, explained to the patient that his pain will improve funerals weight, patient is not a good candidate to have interventional pain procedures at this point because he is currently on Coumadin and he had a history of infection in the lumbar spine after the lumbar laminectomy surgery , Time with Patient: Less than 30
== END | disposition home or self-care (01) ==
LOC: PNWHC3 13:04
PROVIDERS: ATTEND Specialist
DX: G89.29 Other chronic pain (principal); M54.5 Low back pain; M96.1 Postlaminectomy syndrome, not elsewhere classified; M51.36 Other intervertebral disc degeneration, lumbar region; M47.816 Spondylosis without myelopathy or radiculopathy, lumbar region; M46.86 Other specified inflammatory spondylopathies, lumbar region; Z98.890 Other specified postprocedural states; Z79.891 Long term (current) use of opiate analgesic; Z76.0 Encounter for issue of repeat prescription
CPT/HCPCS: 99211

== ENCOUNTER → 2018-05-19 | Outpatient (CLI) | payer MEDICARE, BC ==
[2018-05-19 14:31] VITALS: BP 137/86; PULSE 93; RESP 18
--- NOTE | 2018-05-19 15:02 | P.PAINPG ---
Subjective Progress Note Date: 05/19/18 This is follow-up visit for this patient with a history of severe and chronic low back pain secondary to lumbar failed back surgery syndrome, lumbar facet arthropathy, Patient currently on Coumadin for A. fib, and patient had a history of infection in the lumbar area after his lumbar laminectomy surgery The patient currently on Pride 7.5/325 every 8 hours , Flexeril 10 mg daily and Neurontin 300 mg 3 times a day Patient denies any side effect of the medication , patient denies any excessive drowsiness or sleepiness, patient denies any suicidal ideation, Patient reported that the current medication is helping to control the pain and improve the activity of daily livings, Patient denies any motor or sensory deficit, denies any change in the bowel movement or urination, patient denies any fever or night sweats. Patient here today for follow-up visit and medication refill Objective - Vital Signs Vital signs: Vital Signs Temp Pulse 93 05/19/18 14:27 Resp 18 05/19/18 14:27 BP 137/86 05/19/18 14:27 Pulse Ox 96 05/19/18 14:27 Intake & Output 05/18/18 05/19/18 05/19/18 18:59 06:59 18:59 Weight 147.418 kg - EENT EENT Comment(s): Physical Examinations : 1-Constitutiona : Cooperative , not in acute distress . 2-HEENT : nech ; supple , no Lymphadenopathy , normal thyroid size . eyes : no ptosis , no icterus , no photophobia . ENT : normal of hearing , normal oropharynx , no Thrush . 3- Respiratory : Chest clear to auscultations Bilaterally , no wheezing , no Rhonchi . 4- Cardiovascular : regular rate and rhythem , S1 , S2 , no S3 , no S4. 5- Gastrointestinal : abdomen soft no tenderness , bowel sounds , no organomegally . 6- Genitourinary : Defferred . 7- neurologic : Cranial nerve II to XII intact , no focal neurological deffecit . 8-psychatric : alert , oriented X 3 , appropriate affect , intact judgment and insight . 9-Lymphatic : no Lymphadenopathy . 10- musculoskeltal : , Lumber spine = normal moter stegnth lower extremities ,thigh and legs .5/5 deep tendon reflexes : normal Knee Jerk , normal ankle Jerk . lumber facet Loading Test positive strait leg raising test positive at 30 degree Right , positve at 30 degree Left Fabere test positive Right and positive Left PQRS Measure Charge Sheet Measure #130: Documentation of Current Meds in Medical Chart: Patient's medications documented in chart Measure #226: Tobacco Use: Screen & Cessation Intervention: Pt screened for tobacco use AND intervention given Measure #111: Pneumonia Vaccination: Pneumococcal vaccine administered or previously received Measure #47: Advance Care Plan: Advance care planning discussed & documented, plan or surrogate given Measure #412: Opioid Treatment Agreement: Documented signed opioid trtmnt agreemnt min once during opioid trtmnt Measure #408: Opioid Therapy Follow-up Evaluation: Patient had f/u eval minimum every 3 months during opioid therapy Measure #317: Preventitive Care & Scrn High Bld Press & F/U: Normal blood pressure, f/u not required Measure #128: Body Mass Index (BMI) Screening & Follow-up: BMI documented ABOVE normal parameters - f/u documented Measure #131: Pain Assessment & Follow-up: Pain positive & plan documented, Follow-up scheduled Measure #431: Unhealthy Alcohol Use Preventative Care & Scrn: Patient not identified as an unhealthy alcohol user PQRS Narrative: Smoking Status Former smoker Do You Want the Pneumonia No Vaccine AT THIS TIME? Narcotic Agreement Date Signed 10/26/15 Blood Pressure 137/86 Pain Intensity [Lower Back] 5 Scale Used Numeric (1 - 10) Hx Alcohol Use (MH) Yes: OCC. Home Medications: Ambulatory Orders Albuterol Nebulized [Ventolin Nebulized] 2.5 mg INHALATION RT-BID PRN 05/24/15 Cholecalciferol [Vitamin D3] 1,000 unit PO DAILY 05/24/15 Cyclobenzaprine [Flexeril] 10 mg PO HS 05/24/15 Gabapentin [Neurontin] 300 mg PO BID 05/24/15 Metoprolol Tartrate [Lopressor] 50 mg PO TID 05/24/15 Spironolactone-Hctz 25-25Mg [Aldactazide 25-25 MG] 1 tab PO DAILY 05/24/15 Tamsulosin [Flomax] 0.4 mg PO BID@0700,1300 05/24/15 Warfarin [Coumadin] 5 mg PO HS 05/24/15 Benazepril HCl [Lotensin] 40 mg PO DAILY 10/21/15 Ascorbic Acid [Vitamin C] 1,000 mg PO DAILY 08/09/17 Docusate [Colace] 100 mg PO DAILY #30 capsule 08/15/17 HYDROcodone/APAP 7.5-325MG [Pride 7.5-325] 1 tab PO Q6HR PRN #90 tab 05/19/18 HYDROcodone/APAP 7.5-325MG [Pride 7.5-325] 1 tab PO Q6HR PRN #90 tab 05/19/18 Controlled Substance Measures - Controlled Substance Measures Is patient prescribed a controlled substance at discharge?: Yes When asked, does pt state using other controlled substances?: No If prescribed controlled substance>3 days was MAPS reviewed?: Yes If Rx opioid, was Start Talking consent form obtained?: Yes If opioid is for acute pain is fill amount 7 days or less?: No Was information provided regarding opioid addiction?: Yes
--- NOTE | 2018-05-19 15:07 | P.PN ---
Progress Note - Text Progress Note Date: 05/19/18 This is none done to the note dictated earlier= Assessment and plan= chronic low back pain secondary to lumbar failed back surgery syndrome , lumbar spondylosis with lumbar facet arthropathy . chronic and current use of high-risk medication (opioids) Patient denies any side effects of the current pain medication and the current treatment/medication helping the patient to do activity of daily living , Diagnoses, prognosis, treatment options, including but not limited to physical therapy, medication management, interventional therapies, and surgery, were discussed with the patient All the questions answered The narcotic consent was signed and patient agreed and understood the side effects and complications of opioid treatment. Patient signed the narcotic agreement, and was orally counseled, not to overuse, not to abuse, not to Divert , not tp sell pain medication, and to take it as prescribed only, Patient was counseled not to drive or operate heavy equipment while using narcotic medication, and advised not to use alcohol or any Illicit drugs while using the narcotis, the patient's verbalized understanding that lack of compliance with any of the above instructions, will likely to cause discharge from, the pain service, not to renew his narcotic prescriptions Medication managements= patient will be given prescription refills for [place] 7.5/325 every 6 hours dispense 90 with 1 refill Patient had a history of infection in the lumbar spine after his lumbar laminectomy surgery , any steroid injection in the lumbar area , it has the potential for lumbar infection of this reason we will try to avoid any interventions, also patient high-risk for pain management interventions because he had a history of atrial fibrillation and is currently on Coumadin ,
== END | disposition home or self-care (01) ==
LOC: PNWHC3 13:06
PROVIDERS: ATTEND Specialist
DX: G89.29 Other chronic pain (principal); M54.5 Low back pain; M96.1 Postlaminectomy syndrome, not elsewhere classified; M47.816 Spondylosis without myelopathy or radiculopathy, lumbar region; M46.86 Other specified inflammatory spondylopathies, lumbar region; I48.91 Unspecified atrial fibrillation; Z79.01 Long term (current) use of anticoagulants; Z98.890 Other specified postprocedural states; Z79.51 Long term (current) use of inhaled steroids; Z79.891 Long term (current) use of opiate analgesic; Z79.899 Other long term (current) drug therapy
CPT/HCPCS: 99211

== ENCOUNTER → 2018-07-14 | Outpatient (CLI) | payer MEDICARE, BC ==
--- NOTE | 2018-07-14 12:24 | P.PN ---
Progress Note - Text Progress Note Date: 07/14/18 Progress Note - Text Patient returns for followup for back pain with radiation to legs. Patient has had previous lumbar laminectomy and also reoperation secondary to infection. Patient does not want to proceed with any interventional procedures and is currently stable on his [place] 2-4 times a day as needed. Patient states VAS is a 4 out of 10 in severity rating into his legs bilaterally. Patient does not admit to any new symptoms. Today, pt denies new-onset weakness, bowel/bladder incontinence, or any other signs or symptoms of cauda equina syndrome. There are no signs of acute intoxication, and no indications of medication diversion or overuse. In addition to above, 13-point review of systems is also negative for chest pain , shortness of breath, changes in vision, changes in hearing, new onset weakness , abdominal pain, diarrhea, extreme fatigue, malaise, fever, skin changes, homicidal or suicidal ideation, or bowel or bladder incontinence. Vital Signs: Reviewed in EMR Gen: WDWN, AAOx3, NAD, morbidly obese, uses cane for walking HEENT: NCAT, EOMI, hearing grossly normal Pulm: resp unlabored Abd: soft, NT, ND, obese Neck: supple, trachea midline ROM in flexion lumbar spine: reduced ROM in extension lumbar spine: reduced Lumbar paravertebral tenderness: +, R > L Facet loading: ++ bilateral SI joint tenderness: neg bilaterally Gait: Antalgic gait Neuro: CN II-XII grossly intact, muscle strength lower extremities PRESERVED; decreased ROM R knee secondary to pain Imaging: Reviewed in EMR Assessment: 1. lumbar spondylosis without myelopathy 2. Lumbar postlaminectomy syndrome 3. chronic pain syndrome 4. knee OA 5. Morbid obesity Plan: 1. Explanation: Opioid and psychological risk scores were reviewed. Diagnoses , prognoses, and multiple treatment options including but not limited to physical therapy, interventional therapies, adjuvant medical therapies, narcotic medication therapies, and surgery were discussed with the patient and all questions were answered to the patient's satisfaction. 2. Opioid agreement: Patient has previously signed narcotic agreement, and was orally counseled to not overuse, abuse, divert, or cell medications, and to take them as prescribed by only 1 healthcare provider. The patient was also counseled to store opioid medications in a safe and preferably locked location. Patient was also counseled against driving while using narcotic medications and also to not use alcohol or any illicit or recreational drugs. The patient verbalized understanding that lack of compliance with any of the above and likely result in failure to renew narcotic prescriptions, possible discharge from the clinic, and possible legal ramifications thereafter if indicated. 3. Counseling: The patient was counseled extensively on BODY MASS INDEX, EXERCISE. Specifically, the patient was instructed regarding the importance of weight control and exercise in the context of both chronic pain and overall health. 4. Procedures: None 5. Consultations: None 6. Investigations: Maps reviewed and appropriate with patient history, and UDS to be done this patient visit 7. Medications: [place] 7.5 90 tablets with one refill 8. Disposition: f/u for re-eval in 8 weeks PQRS measures: 1-Patient's medications are documented in the chart. 2-Tobacco use is negative 3-Patient has not had a pneumococcal vaccine. 4-Advanced care planning discussed, patient unable to give. 5-Opioid contract signed with the patient. 6-Pain positive, follow-up visit or procedure scheduled 7-Patient's blood pressure measured and documented, and patient will follow up with the primary care due to hypertension. 8-Patient's weight was measured, and body mass index ABOVE the normal limits, and counseling was done. Patient instructed to follow up with PCP. 9-Patient WAS NOT identified as an unhealthy alcohol user.
[2018-07-14 12:25] VITALS: BP 122/68; PULSE 92; RESP 20
== END | disposition home or self-care (01) ==
LOC: PNWHC3 11:53
PROVIDERS: ATTEND Anesthesiology
DX: G89.4 Chronic pain syndrome (principal); M47.816 Spondylosis without myelopathy or radiculopathy, lumbar region; M96.1 Postlaminectomy syndrome, not elsewhere classified; M17.9 Osteoarthritis of knee, unspecified; E66.01 Morbid (severe) obesity due to excess calories; Z68.43 Body mass index [BMI] 50.0-59.9, adult; Z79.891 Long term (current) use of opiate analgesic
CPT/HCPCS: 80307; G0482; G0463; 99211

== ENCOUNTER → 2018-09-08 | Outpatient (CLI) | payer MEDICARE, BC ==
[2018-09-08 12:22] VITALS: BP 104/69; PULSE 82; RESP 16
--- NOTE | 2018-09-08 12:37 | P.PN ---
Subjective Progress Note Date: 09/08/18 This is a 68-year-old gentleman with history of failed back surgery syndrome and chronic lower back pain with radiation to both hips. He also has osteoarthritis in the right knee and he is waiting to have any joint replacement. His lower back pain is well controlled with 3 pills a day of [place] 7.5 mg. His last urine drug screen tested positive for alcohol and opioids. Today, pt denies new-onset weakness, bowel/bladder incontinence, or any other signs or symptoms of cauda equina syndrome. There are no signs of acute intoxication, and no indications of medication diversion or overuse. In addition to above, 13-point review of systems is also negative for chest pain , shortness of breath, changes in vision, changes in hearing, new onset weakness , abdominal pain, diarrhea, extreme fatigue, malaise, fever, skin changes, homicidal or suicidal ideation, or bowel or bladder incontinence. Vital Signs: Reviewed in EMR Gen: WDWN, AAOx3, NAD, morbidly obese, uses cane for walking HEENT: NCAT, EOMI, hearing grossly normal Pulm: resp unlabored Abd: soft, NT, ND, obese Neck: supple, trachea midline ROM in flexion lumbar spine: reduced ROM in extension lumbar spine: reduced Lumbar paravertebral tenderness: +, R > L Facet loading: ++ bilateral SI joint tenderness: neg bilaterally Gait: Antalgic gait Neuro: CN II-XII grossly intact, muscle strength lower extremities PRESERVED; decreased ROM R knee secondary to pain Imaging: Reviewed in EMR Assessment: 1. lumbar spondylosis without myelopathy 2. Lumbar postlaminectomy syndrome 3. chronic pain syndrome 4. knee OA 5. Morbid obesity Plan: 1. Explanation: Opioid and psychological risk scores were reviewed. Diagnoses , prognoses, and multiple treatment options including but not limited to physical therapy, interventional therapies, adjuvant medical therapies, narcotic medication therapies, and surgery were discussed with the patient and all questions were answered to the patient's satisfaction. 2. Opioid agreement: Patient has previously signed narcotic agreement, and was orally counseled to not overuse, abuse, divert, or cell medications, and to take them as prescribed by only 1 healthcare provider. The patient was also counseled to store opioid medications in a safe and preferably locked location. Patient was also counseled against driving while using narcotic medications and also to not use alcohol or any illicit or recreational drugs. The patient verbalized understanding that lack of compliance with any of the above and likely result in failure to renew narcotic prescriptions, possible discharge from the clinic, and possible legal ramifications thereafter if indicated. The patient was warned again and placed using any alcohol with his opioid treatment and he states that usually he is not a drinker and he has no explanation for last test results with positive alcohol in the urine drug screen , however her being more careful in the future. 3. Counseling: The patient was counseled extensively on BODY MASS INDEX, EXERCISE. Specifically, the patient was instructed regarding the importance of weight control and exercise in the context of both chronic pain and overall health. 4. Procedures: None 5. Consultations: None 6. Investigations: Maps reviewed and appropriate with patient history, and UDS to be done this patient visit 7. Medications: [place] 7.5 90 tablets with one refill 8. Disposition: f/u for re-eval in 8 weeks PQRS measures: 1-Patient's medications are documented in the chart. 2-Tobacco use is negative 3-Patient has not had a pneumococcal vaccine. 4-Advanced care planning discussed, patient unable to give. 5-Opioid contract signed with the patient. 6-Pain positive, follow-up visit or procedure scheduled 7-Patient's blood pressure measured and documented, and patient will follow up with the primary care due to hypertension. 8-Patient's weight was measured, and body mass index ABOVE the normal limits, and counseling was done. Patient instructed to follow up with PCP. 9-Patient WAS NOT identified as an unhealthy alcohol user. Objective - Vital Signs Vital signs: Vital Signs Temp Pulse 82 09/08/18 12:11 Resp 16 09/08/18 12:11 BP 104/69 09/08/18 12:11 Pulse Ox 94 L 09/08/18 12:11 Intake & Output 09/07/18 09/08/18 09/08/18 18:59 06:59 18:59 Weight 149.685 kg
== END | disposition home or self-care (01) ==
LOC: PNWHC3 11:32
PROVIDERS: ATTEND Anesthesiology
DX: G89.4 Chronic pain syndrome (principal); M96.1 Postlaminectomy syndrome, not elsewhere classified; M47.816 Spondylosis without myelopathy or radiculopathy, lumbar region; M17.9 Osteoarthritis of knee, unspecified; E66.01 Morbid (severe) obesity due to excess calories; Z68.43 Body mass index [BMI] 50.0-59.9, adult; Z79.891 Long term (current) use of opiate analgesic
CPT/HCPCS: 99211

== ENCOUNTER → 2018-11-03 | Outpatient (CLI) | payer MEDICARE, BC ==
[2018-11-03 12:26] VITALS: BP 129/83; PULSE 78; RESP 16
--- NOTE | 2018-11-03 12:52 | P.PN ---
Subjective Progress Note Date: 11/03/18 Principal diagnosis: Lumbar postlaminectomy syndrome Asif presents today for follow-up visit. He continues to have low back pain going down his left leg. He has had this pain for a few years and had lumbar spinal fusion. He continues to have pain over the left side of his hip going down into his left thigh. He reports he has minimal weakness in the left leg. He uses [place] 7.5 g 3 times per day as needed. He denies any side effects from the current medications. He reports the medication has significantly improved his pain and allow him to do activities of daily living. He continues to do physical therapy and is rehabbing his left knee. He had total knee replacement about 18 months ago. Objective - Vital Signs Vital signs: Vital Signs Temp Pulse 78 11/03/18 12:16 Resp 16 11/03/18 12:16 BP 129/83 11/03/18 12:16 Pulse Ox 94 L 11/03/18 12:16 Intake & Output 11/02/18 11/03/18 11/03/18 18:59 06:59 18:59 Weight 147.418 kg - Exam PHYSICAL EXAM: Constitutional: Awake and alert no distress, morbidly obese Cardiovascular exam: Regular rate, no lower extremity edema, palpable pulses bilaterally Respiratory exam: No audible wheezing, no accessory muscle usage Abdominal exam: Soft nontender Muscular skeletal exam: - Cervical spine: Nontender to palpation bilaterally. Range of motion is not limited. Spurling is negative bilateral. Facet loading is negative bilaterally - Lumbar spine: Decreased lumbar lordosis. Skin incisions are well-healed. Minimal tenderness to palpation bilateral. Patient has diminished range of motion in flexion and extension as well as lateral sidebending. Straight leg raise is positive on the left. Facet loading is negative. Tender over the left over the SI joints. Unable to perform Sidney gains on's test, SI Joint compression negative. Neuro exam: Normal sensation bilateral upper and lower extremities. Deep tendon reflexes are absent on the left knee secondary to knee surgery. 1+ left Achilles 1+ right leg Psychiatric exam: Cooperative, good insight Assessment and Plan Assessment: #1 lumbar postlaminectomy syndrome #2 lumbar radiculopathy #3 morbid obesity #4 opioid dependence Plan: Plan is to continue current medication regimen. I discussed the patient the risks and benefits of using opioid medications including dependence and the risk of overdose and . Patient signed a narcotics contract. The patient has signed an opioid start talking form. I discussed the patient a narcotics agreement and discussed that over the last year injection he had a call positive in his urine. On today's visit we will repeat the urine drug screen. I advised the patient that if we have multiple inconsistencies on his urine drug screens that we will no longer be able to prescribe him narcotic medications. I have refilled his medications for 2 months time. please follow-up on the results of the urine drug screen on the next visit
== END ==
LOC: PNWHC3 11:40
PROVIDERS: ATTEND Hospitalist
DX: M96.1 Postlaminectomy syndrome, not elsewhere classified (principal); M54.16 Radiculopathy, lumbar region; E66.01 Morbid (severe) obesity due to excess calories; Z79.891 Long term (current) use of opiate analgesic
CPT/HCPCS: 80307; G0482; G0463; 99211

== ENCOUNTER → 2019-01-01 | Outpatient (CLI) | payer MEDICARE, BC ==
[2019-01-01 11:21] VITALS: BP 122/79; PULSE 96; RESP 20
--- NOTE | 2019-01-01 11:59 | P.PAINPG ---
Subjective Progress Note Date: 01/01/19 This is follow-up visit for this patient with a history of severe and chronic low back pain secondary to lumbar failed back surgery syndrome, lumbar facet arthropathy, Patient currently on Coumadin for A. fib, and patient had a history of infection in the lumbar area after his lumbar laminectomy surgery The patient currently on [place] 7.5/325 every 8 hours , Flexeril 10 mg daily and Neurontin 300 mg twice a day Patient denies any side effect of the medication , patient denies any excessive drowsiness or sleepiness, patient denies any suicidal ideation, Patient reported that the current medication is helping to control the pain and improve the activity of daily livings, Patient denies any motor or sensory deficit, denies any change in the bowel movement or urination, patient denies any fever or night sweats. Patient here today for follow-up visit and medication refill Physical Examinations : 1-Constitutiona : Cooperative , not in acute distress . 2-HEENT : nech ; supple , no Lymphadenopathy , normal thyroid size . eyes : no ptosis , no icterus , no photophobia . ENT : normal of hearing , normal oropharynx , no Thrush . 3- Respiratory : Chest clear to auscultations Bilaterally , no wheezing , no Rhonchi . 4- Cardiovascular : regular rate and rhythem , S1 , S2 , no S3 , no S4. 5- Gastrointestinal : abdomen soft no tenderness , bowel sounds , no organomegally . 6- Genitourinary : Defferred . 7- neurologic : Cranial nerve II to XII intact , no focal neurological deffecit . 8-psychatric : alert , oriented X 3 , appropriate affect , intact judgment and insight . 9-Lymphatic : no Lymphadenopathy . 10- musculoskeltal : , Lumber spine = normal moter stegnth lower extremities ,thigh and legs .5/5 deep tendon reflexes : normal Knee Jerk , normal ankle Jerk . lumber facet Loading Test positive strait leg raising test positive at 30 degree Right , positve at 30 degree Left Fabere test positive Right and positive Left Assessment and plan= chronic low back pain secondary to lumbar degenerative postlaminectomy pain syndrome , lumbar spondylosis with lumbar facet arthropathy . chronic and current use of high-risk medication (opioids) Patient denies any side effects of the current pain medication and the current treatment/medication helping the patient to do activity of daily living , Diagnoses, prognosis, treatment options, including but not limited to physical therapy, medication management, interventional therapies, and surgery, were discussed with the patient All the questions answered The narcotic consent was signed and patient agreed and understood the side effects and complications of opioid treatment. Patient signed the narcotic agreement, and was orally counseled, not to overuse, not to abuse, not to Divert , not tp sell pain medication, and to take it as prescribed only, Patient was counseled not to drive or operate heavy equipment while using narcotic medication, and advised not to use alcohol or any Illicit drugs while using the narcotis. understanding that lack of compliance with any of the above instructions, will likely to cause discharge from, the pain service, not to renew his narcotic prescriptions MAPS Reviwed and it was apropriate . Medication managements= patient will be given prescription refills for [place] 7.5/325 every 8 hours dispense 90 with 1 refill, and Neurontin 300 mg twice a day dispense 60 with 1 refill Flexeril 10 mg daily at bedtime dispense 30 with one refill Patient scheduled to have diagnostic medial branch block lumbar area at L3 4/ L4-5 /L5-S1 , we used 25-gauge needle for the diagnostic test and as the patient does not have to hold his Coumadin, patient at increased risk of stroke . We'll hold only 1 time only have to do the radiofrequency , Objective - Vital Signs Vital signs: Vital Signs Temp Pulse 96 01/01/19 11:12 Resp 20 01/01/19 11:12 BP 122/79 01/01/19 11:12 Pulse Ox 94 L 01/01/19 11:12 Intake & Output 12/31/18 01/01/19 01/01/19 18:59 06:59 18:59 Weight 149.685 kg Assessment and Plan Time with Patient: Less than 30 PQRS Measure Charge Sheet Measure #130: Documentation of Current Meds in Medical Chart: Patient's medications documented in chart Measure #226: Tobacco Use: Screen & Cessation Intervention: Pt not a tobacco user Measure #111: Pneumonia Vaccination: Pneumococcal vaccine NOT administered or previously given Measure #47: Advance Care Plan: Advance care planning discussed & documented, pt chose/unable to give Measure #412: Opioid Treatment Agreement: Documented signed opioid trtmnt agreemnt min once during opioid trtmnt Measure #408: Opioid Therapy Follow-up Evaluation: Patient had f/u eval minimum every 3 months during opioid therapy Measure #317: Preventitive Care & Scrn High Bld Press & F/U: Normal blood pressure, f/u not required Measure #128: Body Mass Index (BMI) Screening & Follow-up: BMI documented ABOVE normal parameters - f/u documented Measure #131: Pain Assessment & Follow-up: Pain positive & plan documented, Follow-up scheduled Measure #431: Unhealthy Alcohol Use Preventative Care & Scrn: Patient not identified as an unhealthy alcohol user PQRS Narrative: Smoking Status Former smoker Do You Want the Pneumonia No Vaccine AT THIS TIME? Narcotic Agreement Date Signed 11/03/18 Blood Pressure 122/79 Pain Intensity [Bilateral 4 Lower Back] Hx Alcohol Use (MH) Yes: OCC. Home Medications: Ambulatory Orders Albuterol Nebulized [Ventolin Nebulized] 2.5 mg INHALATION RT-BID PRN 05/24/15 Cholecalciferol [Vitamin D3] 1,000 unit PO DAILY 05/24/15 Metoprolol Tartrate [Lopressor] 50 mg PO TID 05/24/15 Spironolactone-Hctz 25-25Mg [Aldactazide 25-25 MG] 1 tab PO DAILY 05/24/15 Tamsulosin [Flomax] 0.4 mg PO BID@0700,1300 05/24/15 Warfarin [Coumadin] 5 mg PO HS 05/24/15 Benazepril HCl [Lotensin] 40 mg PO DAILY 10/21/15 Ascorbic Acid [Vitamin C] 1,000 mg PO DAILY 08/09/17 Docusate [Colace] 100 mg PO DAILY #30 capsule 08/15/17 Cyclobenzaprine [Flexeril] 10 mg PO HS #30 tab 01/01/19 Gabapentin [Neurontin] 300 mg PO BID #60 cap 01/01/19 HYDROcodone/APAP 7.5-325MG [[place] 7.5-325] 1 tab PO Q6HR PRN #90 tab 01/01/19 HYDROcodone/APAP 7.5-325MG [[place] 7.5-325] 1 tab PO Q8H PRN 30 Days #90 tab Controlled Substance Measures - Controlled Substance Measures Is patient prescribed a controlled substance at discharge?: Yes When asked, does pt state using other controlled substances?: Yes If prescribed controlled substance>3 days was MAPS reviewed?: Yes If Rx opioid, was Start Talking consent form obtained?: Yes If opioid is for acute pain is fill amount 7 days or less?: No Was information provided regarding opioid addiction?: Yes
== END | disposition home or self-care (01) ==
LOC: PNWHC3 10:40
PROVIDERS: ATTEND Specialist
DX: G89.29 Other chronic pain (principal); M96.1 Postlaminectomy syndrome, not elsewhere classified; M47.816 Spondylosis without myelopathy or radiculopathy, lumbar region; M46.96 Unspecified inflammatory spondylopathy, lumbar region; I48.91 Unspecified atrial fibrillation; Z87.891 Personal history of nicotine dependence; Z98.890 Other specified postprocedural states; Z79.891 Long term (current) use of opiate analgesic; Z79.01 Long term (current) use of anticoagulants; Z79.899 Other long term (current) drug therapy
CPT/HCPCS: 99211

== ENCOUNTER → 2019-02-26 | Outpatient (CLI) | payer MEDICARE, BC ==
--- NOTE | 2019-02-26 11:28 | P.PN ---
Subjective Progress Note Date: 02/26/19 This is a 69-year-old gentleman with history of chronic lower back pain with radiation to the lower extremities down to the feet with numbness and tingling in no specific radicular distribution. The patient has been on Coumadin and recently was found to have cardiac valve problems and he is going to see his sack maker next week to decide the next step. The patient has been using [place] and interventional pain procedures to help control his pain. Today, pt denies new-onset weakness, bowel/bladder incontinence, or any other signs or symptoms of cauda equina syndrome. There are no signs of acute intoxication, and no indications of medication diversion or overuse. In addition to above, 13-point review of systems is also negative for chest pain, shortness of breath, changes in vision, changes in hearing, new onset weakness, abdominal pain, diarrhea, extreme fatigue, malaise, fever, skin changes, homicidal or suicidal ideation, or bowel or bladder incontinence. Vital Signs: Reviewed in EMR Gen: AAOx3, NAD HEENT: PERRLA,hearing grossly normal Pulm: resp unlabored Neck: supple, trachea midline Neuro exam of the lower extremities: Axial, normal muscle strength bilaterally Straight leg raising test: Jose's test: Range of motion of the lumbar spine: Facet loading test: Tenderness in the paravertebral musculature: Mild in the lumbar paravertebral area bilaterally Straight leg raising test negative bilaterally Neuro: CN II-XII grossly intact, Imaging: Reviewed in EMR/chart Assessment: Morbid obesity Coronary artery disease Coumadin therapy Lumbar postlaminectomy pain syndrome Plan: 1. Explanation: Opioid and psychological risk scores were reviewed. Diagnoses, prognoses, and multiple treatment options including but not limited to physical therapy, interventional therapies, adjuvant medical therapies, narcotic medication therapies, and surgery were discussed with the patient and all questions were answered to the patient's satisfaction. 2. Opioid agreement: Signed with the patient and the patient is warned not to use opioids while driving or before driving and not to combine opioids with benzodiazepines or alcohol. 3. Counseling: The patient was counseled extensively on SMOKING CESSATION, BODY MASS INDEX, EXERCISE. Specifically, the patient was instructed regarding the importance of smoking cessation, obesity, and exercise in the context of both chronic pain and overall health. 4. Procedures: The patient may benefit from getting caudal epidural steroid injection under fluoroscopic guidance 5. Consultations: None 6. Investigations: None 7. Medications: [place] 7.5 mg 3 times a day. 8. Disposition: Return to clinic in 8 weeks after the above-mentioned procedure as soon as possible 9. Maps were reviewed and were appropriate. Controlled Substance Measures Is patient prescribed a controlled substance at discharge?: Yes When asked, does pt state using other controlled substances?: No If prescribed controlled substance>3 days was MAPS reviewed?: Yes If Rx opioid, was Start Talking consent form obtained?: Yes If opioid is for acute pain is fill amount 7 days or less?: No Was information provided regarding opioid addiction?: Yes Objective - Vital Signs Vital signs: Intake & Output 02/25/19 02/26/19 02/26/19 18:59 06:59 18:59 Weight 149.685 kg
[2019-02-26 11:48] VITALS: RESP 18
[2019-02-26 11:58] VITALS: BP 135/67; PULSE 84
== END | disposition home or self-care (01) ==
LOC: PNWHC3 10:59
PROVIDERS: ATTEND Anesthesiology
DX: G89.29 Other chronic pain (principal); M96.1 Postlaminectomy syndrome, not elsewhere classified; E66.01 Morbid (severe) obesity due to excess calories; I25.10 Atherosclerotic heart disease of native coronary artery without angina pectoris; Z79.891 Long term (current) use of opiate analgesic; Z79.899 Other long term (current) drug therapy; Z79.01 Long term (current) use of anticoagulants; Z68.43 Body mass index [BMI] 50.0-59.9, adult
CPT/HCPCS: 99211

== ENCOUNTER 2019-03-16 08:16 | Day surgery (SDC) | payer MEDICARE, BC ==
[2019-03-11 14:32] VITALS: BMI 51.7
[2019-03-16 09:00] VITALS: RESP 16; TEMP 96.1
--- NOTE | 2019-03-16 09:49 | P.EN ---
Patient presented today for a caudal epidural steroid injection. He did not want sedation. When we rolled him over to his stomach on the procedure table patient was unable to lay there for even a second. He became dusky and was in excruciating pain and was very uncomfortable and requested to go off the table. No procedure was done today. Offered him sedation but he felt even with sedation he would not be able to stomach and associated general anesthetic. I explained to him that that was not a good option. He understood and was willing to forego the procedure. We'll see him back in the clinic
[2019-03-16 11:14] VITALS: BP 130/64; PULSE 87
== END 2019-03-16 10:09 | disposition home or self-care (01) ==
LOC: ORPAIN 08:16
PROVIDERS: ATTEND Hospitalist
DX: M96.1 Postlaminectomy syndrome, not elsewhere classified (principal); Z53.29 Procedure and treatment not carried out because of patient's decision for other reasons; E66.01 Morbid (severe) obesity due to excess calories; Z68.43 Body mass index [BMI] 50.0-59.9, adult

== ENCOUNTER → 2019-03-26 | Outpatient (CLI) | payer MEDICARE, BC ==
--- NOTE | 2019-03-27 15:22 | US ---
EXAMINATION TYPE: US scrotum with doppler. Grayscale and color Doppler Duplex imaging performed of chris gao scrotum. DATE OF EXAM: 03/26/2019 COMPARISON: NONE CLINICAL HISTORY: N50.819 testicular pain. Pain right groin and testicle for 1 -2 months EXAM MEASUREMENTS: TESTICLES: Right Testicle: 2.6 x 1.7 x 2.3 cm Left Testicle: 4.7 x 3.3 x 3.2 cm EPIDIDYMIS HEAD: Right Epididymis: 0.8 cm Left Epididymis: 1.6 cm Doppler performed to assess for testicular vascularity; color flow, vascular waveforms are present bi laterally Presence of hydroceles: fluid collection lateral to right testicle = 2.8cm and left testicle = 5.7c m *Right testicle appears small compared to left testicle IMPRESSION: Discordant testicular sizes, right testicular atrophy. There is a left-sided hydrocele.
== END | disposition home or self-care (01) ==
LOC: RADUSWWP 16:10
PROVIDERS: ATTEND Internal Medicine
DX: N50.0 Atrophy of testis (principal); N43.3 Hydrocele, unspecified; N50.819 Testicular pain, unspecified
CPT/HCPCS: 76870; 93975

== ENCOUNTER → 2019-04-23 | Outpatient (CLI) | payer MEDICARE, BC ==
[2019-04-23 11:11] VITALS: BP 91/58; PULSE 70; RESP 18
--- NOTE | 2019-04-29 08:18 | P.PN ---
Subjective Progress Note Date: 04/23/19 This is follow-up visit for this patient with a history of severe and chronic low back pain secondary to lumbar failed back surgery syndrome, lumbar spondylosis with facet arthropathy, Patient currently on Coumadin for A. fib, patient was scheduled to have a caudal epidural steroid injection at the procedure was canceled because patient became dusky when he was placed in prone position, and [facility] about his oxygenation The patient currently on [place] 7.5/325 every 8 hours , and Neurontin 300 mg every 8 hours Patient denies any side effect of the medication , patient denies any excessive drowsiness or sleepiness, patient denies any suicidal ideation, Patient reported that the current medication is helping to control the pain and improve the activity of daily livings, Patient denies any motor or sensory deficit, denies any change in the bowel movement or urination, patient denies any fever or night sweats. Patient here today for follow-up visit and medication refill Physical Examinations : 1-Constitutiona : Cooperative , not in acute distress . 2-HEENT : nech ; supple , no Lymphadenopathy , normal thyroid size . eyes : no ptosis , no icterus, no photophobia . ENT : normal of hearing , normal oropharynx , no Thrush . 3- Respiratory : Chest clear to auscultations Bilaterally , no wheezing , no Rhonchi . 4- Cardiovascular : regular rate and rhythem , S1 , S2 , no S3 , no S4. 5- Gastrointestinal : abdomen soft no tenderness , bowel sounds , no organomegally . 6- Genitourinary : Defferred . 7- neurologic : Cranial nerve II to XII intact , no focal neurological deffecit . 8-psychatric : alert , oriented X 3 , appropriate affect , intact judgment and insight . 9-Lymphatic : no Lymphadenopathy . 10- musculoskeltal : , Lumber spine = normal moter stegnth lower extremities ,thigh and legs .5/5 deep tendon reflexes : normal Knee Jerk , normal ankle Jerk . lumber facet Loading Test positive strait leg raising test positive at 30 degree Right , positve at 30 degree Left Fabere test positive Right and positive Left Assessment and plan= chronic low back pain secondary to lumbar postlaminectomy pain syndrome , lumbar spondylosis with lumbar facet arthropathy . chronic and current use of high-risk medication (opioids) Patient denies any side effects of the current pain medication and the current treatment/medication helping the patient to do activity of daily living , Diagnoses, prognosis, treatment options, including but not limited to physical therapy, medication management, interventional therapies, and surgery, were discussed with the patient All the questions answered The narcotic consent was signed and patient agreed and understood the side effects and complications of opioid treatment. Patient signed the narcotic agreement, and was orally counseled, not to overuse, not to abuse, not to Divert , not tp sell pain medication, and to take it as prescribed only, Patient was counseled not to drive or operate heavy equipment while using n arcotic medication, and advised not to use alcohol or any Illicit drugs while using the narcotis. understanding that lack of compliance with any of the above instructions, will likely to cause discharge from, the pain service, not to renew his narcotic prescriptions MAPS Reviwed and it was apropriate . Medication managements= patient will be given prescription refills for [place] 7.5/325 every 8 hours dispense 90 with 1 refill, and Neurontin 300 mg every 8 hours, with 1 refill Interventions= patient will be scheduled to have caudal epidural steroid injection with lysis of epidural adhesions PQRS Measure Charge Sheet Measure #130: Documentation of Current Meds in Medical Chart: Patient's medications documented in chart Measure #226: Tobacco Use: Screen & Cessation Intervention: Pt not a tobacco user Measure #111: Pneumonia Vaccination: Pneumococcal vaccine administered or previously given Measure #47: Advance Care Plan: Advance care planning discussed & documented, pt chose/unable to give Measure #412: Opioid Treatment Agreement: Documented signed opioid trtmnt agreemnt min once during opioid trtmnt Measure #408: Opioid Therapy Follow-up Evaluation: Patient had f/u eval minimum every 3 months during opioid therapy Measure #317: Preventitive Care & Scrn High Bld Press & F/U: Normal blood pressure, f/u not required Measure #128: Body Mass Index (BMI) Screening & Follow-up: BMI documented ABOVE normal parameters - f/u documented Measure #131: Pain Assessment & Follow-up: Pain positive & plan documented, Follow-up scheduled Measure #431: Unhealthy Alcohol Use Preventative Care & Scrn: Patient not identified as an unhealthy alcohol user PQRS Narrative: Objective - Vital Signs Vital signs: Vital Signs Temp Pulse 70 04/23/19 11:02 Resp 18 04/23/19 11:02 BP 91/58 04/23/19 11:02 Pulse Ox
== END ==
LOC: PNWHC3 10:43
PROVIDERS: ATTEND Specialist
DX: G89.29 Other chronic pain (principal); M96.1 Postlaminectomy syndrome, not elsewhere classified; M47.816 Spondylosis without myelopathy or radiculopathy, lumbar region; M46.96 Unspecified inflammatory spondylopathy, lumbar region; Z79.899 Other long term (current) drug therapy; Z79.891 Long term (current) use of opiate analgesic
CPT/HCPCS: 99211

== ENCOUNTER → 2019-06-18 | Outpatient (CLI) | payer MEDICARE, BC ==
[2019-06-18 13:10] VITALS: BP 117/80; PULSE 92; RESP 18
--- NOTE | 2019-06-19 13:38 | P.PAINPG ---
Subjective Progress Note Date: 06/18/19 This is follow-up visit for this patient with a history of severe and chronic low back pain secondary to lumbar failed back surgery syndrome, lumbar spondylosis with facet arthropathy, Patient currently on Coumadin for A. fib, patient was scheduled to have a caudal epidural steroid injection at the procedure was canceled because patient became dusky when he was placed in prone position, and there was concern about his oxygenation. Dr. Lee has scheduled for him to have the procedure very attempted on July 08. Today his pain is primarily in his lower back radiating to bilateral posterior thighs and calf's. Pain is worse with standing for greater than 10 minutes. The patient currently on [place] 7.5/325 every 8 hours , and Neurontin 300 mg every 8 hours Patient denies any side effect of the medication , patient denies any excessive drowsiness or sleepiness, patient denies any suicidal ideation, Patient reported that the current medication is helping to control the pain and improve the activity of daily livings, Patient denies any motor or sensory deficit, denies any change in the bowel movement or urination, patient denies any fever or night sweats. Physical exam: Vitals: Reviewed in EMR GENERAL: Well appearing, in no acute distress, morbidly obese, cane by his side. PSYCH: Mood and affect is appropriate. Awake, alert, and oriented SKIN: Skin color, texture, turgor normal, no rashes or lesions HEENT: Normocephalic, atraumatic. EOM intact CV: No pedal edema RESP: Respirations are unlabored, no audible wheezing GI: Abdomen non-distended MUSCULOSKELETAL: Bilateral lower extremity strength is normal and symmetric. No atrophy or tone abnormalities are noted. Lumbar spine: Straight leg raising in the sitting position is positive for radicular pain to 20 in bilateral lower extremities. Pain to palpation over the lumbar spine and paraspinous muscles bilaterally. Extremely limited lumbar flexion and extension, positive for pain with facet loading and back extension/rotation. Buttocks: pain to palpation over the PSIS, bilateral Sidney test positive Extremities: Peripheral joint ROM is full and pain free without obvious instability or laxity in all four extremities. No edema or skin discolorations noted. Gait: Gait is slow, antalgic NEUR: Bilateral lower extremity coordination and muscle stretch reflexes are physiologic and symmetric. Negative clonus bilaterally. No loss of sensation is noted. Assessment and plan= chronic low back pain secondary to lumbar postlaminectomy pain syndrome , lumbar spondylosis with lumbar facet arthropathy . chronic and current use of high-risk medication (opioids) Patient denies any side effects of the current pain medication and the current treatment/medication helping the patient to do activity of daily living , Diagnoses, prognosis, treatment options, including but not limited to physical therapy, medication management, interventional therapies, and surgery, were discussed with the patient All the questions answered The narcotic consent was signed and patient agreed and understood the side effects and complications of opioid treatment. Patient signed the narcotic agreement, and was orally counseled, not to overuse, not to abuse, not to Divert , not to sell pain medication, and to take it as prescribed only, Patient was counseled not to drive or operate heavy equipment while using narcotic medication, and advised not to use alcohol or any Illicit drugs while using the narcotics. understanding that lack of compliance with any of the above instructions, will likely to cause discharge from, the pain service, not to renew his narcotic prescriptions MAPS Reviewed and it was appropriate . Medication managements= patient will be given prescription refills for Custer 7.5/325 every 8 hours dispense 90 with 1 refill, and Neurontin 300 mg every 8 hours, with 1 refill Interventions= patient is scheduled to have caudal epidural steroid injection with lysis of epidural adhesions. He is currently on Coumadin which will have to be stopped 5 days before the procedure. The patient was instructed of this. Patient was educated on the importance of weight loss and exercise. Objective - Vital Signs Vital signs: Vital Signs Temp Pulse 92 06/18/19 13:02 Resp 18 06/18/19 13:02 BP 117/80 06/18/19 13:02 Pulse Ox 95 06/18/19 13:02 PQRS Measure Charge Sheet Measure #130: Documentation of Current Meds in Medical Chart: Patient's medications documented in chart Measure #47: Advance Care Plan: Advance care planning discussed & documented, pt chose/unable to give Measure #412: Opioid Treatment Agreement: Documented signed opioid trtmnt agreemnt min once during opioid trtmnt Measure #408: Opioid Therapy Follow-up Evaluation: Patient had f/u eval minimum every 3 months during opioid therapy Measure #317: Preventitive Care & Scrn High Bld Press & F/U: Normal blood pressure, f/u not required Measure #128: Body Mass Index (BMI) Screening & Follow-up: BMI documented ABOVE normal parameters - f/u documented Measure #131: Pain Assessment & Follow-up: Pain positive & plan documented, Follow-up scheduled Measure #431: Unhealthy Alcohol Use Preventative Care & Scrn: Patient not identified as an unhealthy alcohol user PQRS Narrative: Smoking Status Former smoker Narcotic Agreement Date Signed 11/03/18 Blood Pressure 117/80 Pain Intensity [Bilateral Hip] 4 Scale Used Numeric (1 - 10) Hx Alcohol Use (MH) Yes: OCC. Home Medications: Ambulatory Orders Albuterol Nebulized [Ventolin Nebulized] 2.5 mg INHALATION RT-BID PRN 05/24/15 Cholecalciferol [Vitamin D3 (25 Mcg = 1000 Iu)] 1,000 unit PO DAILY 05/24/15 Metoprolol Tartrate [Lopressor] 150 mg PO BID 05/24/15 Spironolactone-Hctz 25-25Mg [Aldactazide 25-25 MG] 1 tab PO DAILY 05/24/15 Tamsulosin [Flomax] 0.4 mg PO BID@0700,1300 05/24/15 Warfarin [Coumadin] 5 mg PO SUTUWETHFRSA 05/24/15 Benazepril HCl [Lotensin] 40 mg PO DAILY 10/21/15 Ascorbic Acid [Vitamin C] 1,000 mg PO DAILY 08/09/17 Furosemide [Lasix] 40 mg PO DAILY 02/26/19 Montelukast [Singulair] 10 mg PO DAILY 02/26/19 Atorvastatin [Lipitor] 20 mg PO DAILY 03/11/19 Budesonide-Formot 160-4.5 Mcg [Symbicort 160-4.5 Mcg Inhaler] 2 puff INHALATION BID 03/11/19 Ferrous Sulfate [Feosol] 325 mg PO DAILY 03/11/19 Omeprazole 20 mg PO DAILY 03/11/19 Warfarin [Coumadin] 7.5 mg PO MO 03/11/19 Cyclobenzaprine [Flexeril] 10 mg PO BID #60 tab 06/18/19 Gabapentin [Neurontin] 300 mg PO TID #90 cap 06/18/19 HYDROcodone/APAP 7.5-325MG [Custer 7.5-325] 1 tab PO Q8HR PRN #90 tab 06/18/19 HYDROcodone/APAP 7.5-325MG [Custer 7.5] 1 each PO Q8H PRN #90 tab 06/18/19 Controlled Substance Measures - Controlled Substance Measures Is patient prescribed a controlled substance at discharge?: Yes When asked, does pt state using other controlled substances?: No If prescribed controlled substance>3 days was MAPS reviewed?: Yes If Rx opioid, was Start Talking consent form obtained?: Yes If opioid is for acute pain is fill amount 7 days or less?: No Was information provided regarding opioid addiction?: Yes
== END | disposition home or self-care (01) ==
LOC: PNWHC3 11:54
PROVIDERS: ATTEND Anesthesiology
DX: G89.29 Other chronic pain (principal); M96.1 Postlaminectomy syndrome, not elsewhere classified; M47.816 Spondylosis without myelopathy or radiculopathy, lumbar region; M46.96 Unspecified inflammatory spondylopathy, lumbar region; Z87.891 Personal history of nicotine dependence; Z79.01 Long term (current) use of anticoagulants; Z79.891 Long term (current) use of opiate analgesic; Z79.899 Other long term (current) drug therapy
CPT/HCPCS: 99211

== ENCOUNTER 2019-07-08 07:19 | Day surgery (SDC) | payer MEDICARE, BC ==
[2019-07-03 12:19] VITALS: BMI 51.3
[2019-07-08] MEDS ORDERED: LIDOCAINE 1% 20 ML VIAL (10MG/ML) FOR IV START INTRADERMA ONE (07:45)
[2019-07-08] MEDS ORDERED: LACTATED RINGERS 1,000 ML IV ONE (07:45)
[2019-07-08 07:54] VITALS: TEMP 98.4
--- NOTE | 2019-07-08 09:02 | P.PCN ---
Date of Procedure: 07/08/19 Procedure(s) Performed: Patient was scheduled for caudal with lysis of adhesions today. Previous procedure was canceled because he became blue and uncomfortable while prone. Today the same procedure was scheduled. Patient thought that he would be more comfortable. Able to ambulate to the fluoroscopy table. However after he went prone he again turn blue. He also was in a tremendous amount of pain. Furthermore on examination of the caudal space he appears to have a chronic wound in the area. His family has been taking care of this but he has not shown this physician. Given both because of the patient and the chronic wound, the procedure was canceled. He will follow up in clinic for a medication refill. Cece Hernandez MD
[2019-07-08] MEDS ORDERED: IV FLUID CONTINUATION 600 ML IV ONE (09:05)
[2019-07-08 09:08] VITALS: BP 103/63; PULSE 87; RESP 18
== END 2019-07-08 09:31 | disposition home or self-care (01) ==
LOC: ORPAIN 07:19
PROVIDERS: ATTEND Student in an Organized Health Care Education/Training Program
DX: G96.12 Meningeal adhesions (cerebral) (spinal) (principal); M54.16 Radiculopathy, lumbar region; Z53.8 Procedure and treatment not carried out for other reasons; I48.91 Unspecified atrial fibrillation; I25.10 Atherosclerotic heart disease of native coronary artery without angina pectoris; I11.0 Hypertensive heart disease with heart failure; I50.9 Heart failure, unspecified; G47.30 Sleep apnea, unspecified; I42.9 Cardiomyopathy, unspecified; Z87.09 Personal history of other diseases of the respiratory system; Z79.01 Long term (current) use of anticoagulants; Z88.5 Allergy status to narcotic agent
CPT/HCPCS: 62264

== ENCOUNTER → 2019-07-24 | Outpatient (CLI) | payer MEDICARE, BC ==
[2019-07-24 17:20] LABS: African American GFR (CKD) 50.6 (60.0-200.0); BUN/Creat Ratio 18.75 Ratio (12.00-20.00); Calcium 9.4 mg/dL (8.7-10.3); Magnesium 2.1 mg/dL (1.5-2.4); Non-African American GFR(CKD) 43.6 (60.0-200.0); Potassium 3.7 mmol/L (3.5-5.5)
== END | disposition home or self-care (01) ==
LOC: LABWHC1 07:54
PROVIDERS: ATTEND Nurse Practitioner Adult Health
DX: I10 Essential (primary) hypertension (principal)
CPT/HCPCS: 36415; 80048; 83735

== ENCOUNTER → 2019-08-13 | Outpatient (CLI) | payer MEDICARE, BC ==
[2019-08-13 12:35] VITALS: BP 106/60; PULSE 90; RESP 18
--- NOTE | 2019-08-13 13:01 | P.PAINPG ---
Subjective Progress Note Date: 08/13/19 This is follow-up visit for this patient with a history of severe and chronic low back pain secondary to lumbar failed back surgery syndrome, lumbar spondylosis with facet arthropathy, Patient currently on Coumadin for A. fib, patient was scheduled to have a caudal epidural steroid injection at the procedure was canceled because patient became dusky when he was placed in prone position, and there was concern about his oxygenation. Today his pain is primarily in his lower back radiating to bilateral posterior thighs and calf's. Pain is worse with standing for greater than 10 minutes. The patient currently on [place] 7.5/325 every 8 hours , and Neurontin 300 mg every 8 hours Patient denies any side effect of the medication , patient denies any excessive drowsiness or sleepiness, patient denies any suicidal ideation, Patient reported that the current medication is not helping to control the pain and improve the activity of daily livings, the pain medication helping only partially Patient denies any motor or sensory deficit, denies any change in the bowel movement or urination, patient denies any fever or night sweats. Objective - Exam Physical Examinations : -Constitutiona : Cooperative , not in acute distress . -HEENT : nech : supple , no Lymphadenopathy , normal thyroid size . eyes : no ptosis , no icterus, no photophobia . - neurologic : Cranial nerve II to XII intact , no focal neurological deffecit . -psychatric : alert , oriented X 3 , appropriate affect , intact judgment and insight . -Lymphatic : no Lymphadenopathy . - musculoskeltal : Lumber spine moter stegnth lower extremities ,thigh and legs 4/5 Right side , 4/5 Left side deep tendon reflexes : normal Knee Jerk , normal ankle Jerk positive lumber facet Loading Test Range of motion of the lumbar spine Flexion 30 degrees, extension 10 degrees strait leg raising test , positive at 30 degree Fabere test positive RT Sever tenderness over the Sacroiliac joint on the R Assessment and Plan Plan: Assessment and plan= chronic low back pain secondary to lumbar failed back surgery syndrome . We were not able to do caudal epidural steroid injection with lysis of adhesions because patient became dusky and blue ,when we put him in prone position chronic and current use of high-risk medication (opioids) Patient continued to have pain on the current Patient denies any side effects of the current pain medication and the current treatment/medication helping the patient to do activity of daily living , Diagnoses, prognosis, treatment options, including but not limited to physical therapy, medication management, interventional therapies, and surgery, were discussed with the patient All the questions answered The narcotic consent was signed and patient agreed and understood the side effects and complications of opioid treatment. Patient signed the narcotic agreement, and was orally counseled, not to overuse, not to abuse, not to Divert , not tp sell pain medication, and to take it as prescribed only, Patient was counseled not to drive or operate heavy equipment while using narcotic medication, and advised not to use alcohol or any Illicit drugs while using the narcotis. understanding that lack of compliance with any of the above instructions, will likely to cause discharge from, the pain service, not to renew his narcotic prescriptions MAPS Reviwed and it was apropriate . Medication managements= patient will be given prescription refills for Flexeril 10 mg twice a day and Neurontin 600 mg 3 times a day, and we will increase Pl[place] to 10/325 every 8 hours. , Time with Patient: Less than 30 PQRS Measure Charge Sheet Measure #130: Documentation of Current Meds in Medical Chart: Patient's medications documented in chart Measure #226: Tobacco Use: Screen & Cessation Intervention: Pt not a tobacco user Measure #111: Pneumonia Vaccination: Pneumococcal vaccine NOT administered or previously given Measure #47: Advance Care Plan: Advance care planning discussed & documented, pt chose/unable to give Measure #412: Opioid Treatment Agreement: Documented signed opioid trtmnt agreemnt min once during opioid trtmnt Measure #408: Opioid Therapy Follow-up Evaluation: Patient had f/u eval minimum every 3 months during opioid therapy Measure #317: Preventitive Care & Scrn High Bld Press & F/U: Normal blood pressure, f/u not required Measure #128: Body Mass Index (BMI) Screening & Follow-up: BMI documented ABOVE normal parameters - f/u documented Measure #131: Pain Assessment & Follow-up: Pain positive & plan documented, Follow-up scheduled Measure #431: Unhealthy Alcohol Use Preventative Care & Scrn: Patient not identified as an unhealthy alcohol user PQRS Narrative: Smoking Status Former smoker Narcotic Agreement Date Signed 11/03/18 Hx Alcohol Use (MH) Yes: OCC. Home Medications: Ambulatory Orders Albuterol Nebulized [Ventolin Nebulized] 2.5 mg INHALATION RT-BID PRN 05/24/15 Cholecalciferol [Vitamin D3 (25 Mcg = 1000 Iu)] 1,000 unit PO DAILY 05/24/15 Metoprolol Tartrate [Lopressor] 100 mg PO TID 05/24/15 Spironolactone-Hctz 25-25Mg [Aldactazide 25-25 MG] 1 tab PO DAILY 05/24/15 Tamsulosin [Flomax] 0.4 mg PO BID@0700,1300 05/24/15 Benazepril HCl [Lotensin] 40 mg PO DAILY 10/21/15 Ascorbic Acid [Vitamin C] 1,000 mg PO DAILY 08/09/17 Furosemide [Lasix] 40 mg PO DAILY 02/26/19 Montelukast [Singulair] 10 mg PO DAILY 02/26/19 Atorvastatin [Lipitor] 20 mg PO DAILY 03/11/19 Budesonide-Formot 160-4.5 Mcg [Symbicort 160-4.5 Mcg Inhaler] 2 puff INHALATION BID 03/11/19 Ferrous Sulfate [Feosol] 325 mg PO DAILY 03/11/19 Omeprazole 20 mg PO DAILY 03/11/19 Cyclobenzaprine [Flexeril] 10 mg PO BID #60 tab 06/18/19 Gabapentin [Neurontin] 300 mg PO TID #90 cap 06/18/19 HYDROcodone/APAP 7.5-325MG [[place] 7.5-325] 1 tab PO Q4H PRN 07/03/19 Warfarin Sodium [Coumadin] 7.5 mg PO SUTUWETHFRSA 07/03/19 Warfarin [Coumadin] 11.25 mg PO MO 07/03/19 Controlled Substance Measures - Controlled Substance Measures Is patient prescribed a controlled substance at discharge?: Yes When asked, does pt state using other controlled substances?: No If prescribed controlled substance>3 days was MAPS reviewed?: Yes If Rx opioid, was Start Talking consent form obtained?: Yes If opioid is for acute pain is fill amount 7 days or less?: No Was information provided regarding opioid addiction?: Yes
== END | disposition home or self-care (01) ==
LOC: PNWHC3 11:26
PROVIDERS: ATTEND Specialist
DX: G89.29 Other chronic pain (principal); M96.1 Postlaminectomy syndrome, not elsewhere classified; M47.816 Spondylosis without myelopathy or radiculopathy, lumbar region; M46.96 Unspecified inflammatory spondylopathy, lumbar region; Z87.891 Personal history of nicotine dependence; Z79.01 Long term (current) use of anticoagulants; Z79.891 Long term (current) use of opiate analgesic; Z79.899 Other long term (current) drug therapy
CPT/HCPCS: 99211

== ENCOUNTER → 2019-09-08 | Outpatient (CLI) | payer MEDICARE, BC ==
[2019-09-08 11:12] LABS: Potassium 3.8 mmol/L (3.5-5.1)
[2019-09-08 11:14] LABS: HCT 43.4 % (39.0-53.0); HGB 14.1 gm/dL (13.0-17.5); MCHC 32.5 g/dL (31.0-37.0); MCV 89.1 fL (80.0-100.0); Mean Platelet Volume 6.3; Platelet Count 257 k/uL (150-450); RBC 4.87 m/uL (4.30-5.90); RDW 14.4 % (11.5-15.5); WBC 12.5 k/uL (3.8-10.6)
== END | disposition home or self-care (01) ==
LOC: LABPAT 09:22
PROVIDERS: ATTEND Internal Medicine Interventional Cardiology
DX: Z01.812 Encounter for preprocedural laboratory examination (principal); I50.22 Chronic systolic (congestive) heart failure
CPT/HCPCS: 36415; 80051; 82565; 84520; 85027

== ENCOUNTER → 2019-09-16 | Outpatient (CLI) | payer MEDICARE, BC | END | disposition home or self-care (01) | LOC: CPPFTMAIN 13:28 | PROVIDERS: ATTEND Internal Medicine Critical Care Medicine | DX: J44.9 Chronic obstructive pulmonary disease, unspecified (principal) | CPT/HCPCS: 94060; 94726; 94729 ==

== ENCOUNTER → 2019-09-17 | Day surgery (SDC) | payer MEDICARE, BC ==
[2019-09-16 08:59] VITALS: BMI 51.7
[~2019-09-17] MED LIST: ALPRAZolam 0.25 MG TAB PO PRN; ALPRAZolam 0.5 MG TAB PO PRN; ASPIRIN 325 MG TAB PO ONE; ATORVASTATIN 80 MG TAB PO ONE; HEPARIN SODIUM 1,000 UN/ML (10ML VL) IV ONE; HEPARIN SODIUM 1,000 UN/ML (10ML VL) ONE; HYDROmorphone 0.5 MG/0.5 ML SYRINGE IVP STA; IOPAMIDOL-370 125ML BTL INJ ONE; LIDOCAINE 1% INJ 10MG/ML (20 ML MDV) ONE; LIDOCAINE 1% INJ 10MG/ML (20 ML MDV) SQ ONE; MIDAZOLAM 2 MG/2 ML VIAL IVP ONE; NITROGLYCERIN SL TABS 0.4 MG TAB SUBLINGUAL PRN; RX INFO: IV CONTRAST WAS GIVEN 1 EACH MISC MISCELLANE PRN; SODIUM CHLORIDE 0.9% 1,000 ML IV SCH; SODIUM CHLORIDE 0.9% 1,000 ML in EMPTY BAG 1 BAG IV ONE; VERAPAMIL 2.5 MG/ML 2 ML AMP ONE; hydrALAZINE HCL 20 MG/ML 1 ML VIAL IVP STA
[2019-09-17 07:04] VITALS: TEMP 97.8
[2019-09-17 07:21] LABS: INR 1.6 (<1.2); Prothrombin Time 15.6 sec (9.0-12.0)
[2019-09-17] MEDS: VERAPAMIL SYRINGE (5 MG/10 ML) INTRAARTER ONE ×2 (08:02→08:12)
--- NOTE | 2019-09-17 08:27 | P.PCN ---
Date of Procedure: 09/17/19 Operative Findings: CARDIAC CATHETERIZATION PERFORMING PHYSICIAN: Cuate Mcguire MD, RPVI PROCEDURE PERFORMED: 1. Selective right and left coronary angiogram 2. Left heart catheterization INDICATION: This is a 69-year-old gentleman with chronic persistent atrial fibrillation who was diagnosed with cardiomyopathy. He underwent myocardial perfusion imaging stress test for increasing in the shortness of breath. That showed moderate ischemia involving the anterior wall of the LAD. Because of that heart catheterization was advised COMPLICATION: None APPROACH: Right radial artery LEVEL OF SEDATION: Moderate sedation length of 18 minutes PROCEDURE DESCRIPTION: After obtaining an informed consent, the patient was brought to cardiac geotechnical laboratory technician. Local anesthesia was performed using lidocaine subcutaneously. The right radial artery was cannulated using Seldinger technique, the guidewire passed easily, following that we advanced a 5-Qatari sheath dilator assembly, the wire and dilator were removed and sheath was flushed. Following that, 2 mg of verapamil along with 5000 unit heparin were given. Selective right and left coronary angiogram using a 6-Qatari JR4 and JL 3.5 catheters. Following that we did left heart catheterization using 6-Qatari pigtail catheter. The procedure was completed there was no complication. SELECTIVE CORONARY ANGIOGRAM: The right coronary artery: Is a large caliber vessel and a dominant vessel. Its angiographically normal distally bifurcates into PDA and PLV branches and both appeared to be angiographically normal. Left main: It is angiographically normal. Bifurcates into left circumflex and left anterior descending artery The left circumflex: Is a large caliber vessel. Its a codominant vessel. The left circumflex in the proximal and midportion appears to be angiographically normal and gives rises into the first and second obtuse marginal branches both appeared to be angiographically normal. Distally bifurcates into PDA and PLV branches and the PDA branch has mild disease only. The left anterior descending artery: Is angiographically normal. It does gives rises into the first and second diagonal branches and both appeared to be angiographically normal. HEMODYNAMICS: The LVEDP was about 24 mmHg. CONCLUSION: 1. 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 Elevated left ventricular end-diastolic pressure POSTPROCEDURE MANAGEMENT: Medical treatment Follow-up with the patient
[2019-09-17 08:44] VITALS: RESP 18
[2019-09-17 10:14] VITALS: BP 145/81; PULSE 74
== END ==
LOC: CATHCVL 05:42
PROVIDERS: ATTEND Internal Medicine Interventional Cardiology
DX: I25.10 Atherosclerotic heart disease of native coronary artery without angina pectoris (principal); I42.9 Cardiomyopathy, unspecified; I49.3 Ventricular premature depolarization; I48.19 Other persistent atrial fibrillation; I10 Essential (primary) hypertension; Z72.0 Tobacco use; E78.5 Hyperlipidemia, unspecified; G47.33 Obstructive sleep apnea (adult) (pediatric); E66.01 Morbid (severe) obesity due to excess calories; Z68.43 Body mass index [BMI] 50.0-59.9, adult; E78.00 Pure hypercholesterolemia, unspecified; Z79.01 Long term (current) use of anticoagulants; Z79.899 Other long term (current) drug therapy
CPT/HCPCS: 93458; 85610; J2250; J2001; J1644; Q9967

== ENCOUNTER → 2019-10-08 | Outpatient (CLI) | payer MEDICARE, BC ==
[2019-10-08 13:55] VITALS: BP 122/87; PULSE 70; RESP 18
--- NOTE | 2019-10-08 15:32 | P.PAINPG ---
Subjective Progress Note Date: 10/08/19 This is a follow-up visit for this 69-year-old male patient with a history of severe and chronic low back pain secondary to lumbar failed back surgery syndrome, lumbar spondylosis with facet arthropathy, Patient currently on Coumadin for A. fib, patient was scheduled to have a caudal epidural steroid injection at the procedure was canceled because patient became dusky when he was placed in prone position, and there was concern about his oxygenation. Today his pain is primarily in his right lower back and right lateral hip, radiating down lateral thigh, not past the knee.. Pain is worse with standing for greater than 10 minutes, better with sitting and medications. Pain is rated as 4-10/10.. The patient currently on Randolph 10/325 every 8 hours , and Neurontin 300 mg every 8 hours. Randolph was increased from 7.5 mg to 10 mg at the last visit. Patient denies any side effect of the medication , patient denies any excessive drowsiness or sleepiness, patient denies any suicidal ideation, Patient reported that the current medication is helping to control the pain and improve the activity of daily livings. Of note, he is morbidly obese, and reports that he has lost 25 pounds over the last few months. Patient denies any motor or sensory deficit, denies any change in the bowel movement or urination, patient denies any fever or night sweats. Review of systems is negative for chest pain, new onset weakness, numbness/tingling, abdominal pain, malaise, fever, night sweats, chills, homicidal or suicidal ideation, or bowel or bladder incontinence. He does endorse chronic shortness of breath and occasional dizziness. Physical exam: Vitals: Reviewed in EMR GENERAL: Well appearing, in no acute distress, morbidly obese PSYCH: Mood and affect is appropriate. Awake, alert, and oriented SKIN: Skin color, texture, turgor normal, no rashes or lesions HEENT: Normocephalic, atraumatic. EOM intact CV: No pedal edema RESP: Respirations are unlabored, no audible wheezing GI: Abdomen obese MUSCULOSKELETAL: Bilateral lower extremity strength is normal and symmetric. No atrophy or tone abnormalities are noted. Lumbar spine: No pain to palpation over the lumbar spine and paraspinous muscles. Tenderness to palpation over right iliac crest Buttocks: No pain to palpation over the PSIS, tenderness to palpation over right greater trochanter Extremities: Peripheral joint ROM is full and pain free without obvious instability or laxity in all four extremities. No edema or skin discolorations noted. Gait: Gait is slow, antalgic, he walks with a cane NEUR: No loss of sensation is noted. Cranial nerves are grossly intact. Assessment and Plan Plan: Assessment and plan= chronic low back pain secondary to lumbar failed back surgery syndrome . We were not able to do caudal epidural steroid injection with lysis of adhesions because patient became dusky when we put him in prone position chronic and current use of high-risk medication (opioids) Patient denies any side effects of the current pain medication and the current treatment/medication helping the patient to do activity of daily living , Diagnoses, prognosis, treatment options, including but not limited to physical therapy, medication management, interventional therapies, and surgery, were discussed with the patient All the questions answered The narcotic consent was signed and patient agreed and understood the side effects and complications of opioid treatment. Patient signed the narcotic agreement, and was orally counseled, not to overuse, not to abuse, not to Divert , not to sell pain medication, and to take it as prescribed only, Patient was counseled not to drive or operate heavy equipment while using narcotic medication, and advised not to use alcohol or any Illicit drugs while using the narcotics. understanding that lack of compliance with any of the above instructions, will likely to cause discharge from, the pain service, not to renew his narcotic prescriptions MAPS Reviewed and it was appropriate . Urine drug screen was ordered today. Medication managements= patient will be given prescription refills for Flexeril 10 mg twice a day, Randolph 10/325 every 8 hours, Neurontin was increased to 600 mg 3 times a day, titration schedule was provided. Patient was counseled on the importance of continued diet and exercise and weight loss. Procedures: We will schedule right greater trochanter bursa injection. Patient does not need to hold Coumadin for this procedure. We will plan on doing the procedure in the supine position as he cannot tolerate the prone position. PQRS Measure Charge Sheet Measure #130: Documentation of Current Meds in Medical Chart: Patient's medications documented in chart Measure #226: Tobacco Use: Screen & Cessation Intervention: Pt not a tobacco user Measure #111: Pneumonia Vaccination: Pneumococcal vaccine administered or previously received Measure #47: Advance Care Plan: Advance care planning discussed & documented, pt chose/unable to give Measure #412: Opioid Treatment Agreement: Documented signed opioid trtmnt agreemnt min once during opioid trtmnt Measure #408: Opioid Therapy Follow-up Evaluation: Patient had f/u eval minimum every 3 months during opioid therapy Measure #317: Preventitive Care & Scrn High Bld Press & F/U: Pre-hypertensive or hypertensive BP documented, pt will f/u with PCP Measure #128: Body Mass Index (BMI) Screening & Follow-up: BMI documented ABOVE normal parameters - f/u documented Measure #131: Pain Assessment & Follow-up: Pain positive & plan documented, Follow-up scheduled Measure #431: Unhealthy Alcohol Use Preventative Care & Scrn: Patient not identified as an unhealthy alcohol user PQRS Narrative: Smoking Status Former smoker Narcotic Agreement Date Signed 11/03/18 Pain Intensity [Lower Back] 4 Scale Used Numeric (1 - 10) Hx Alcohol Use (MH) Yes: OCC. Home Medications: Ambulatory Orders Albuterol Nebulized [Ventolin Nebulized] 2.5 mg INHALATION RT-BID PRN 05/24/15 Cholecalciferol [Vitamin D3 (25 Mcg = 1000 Iu)] 1,000 unit PO DAILY 05/24/15 Metoprolol Tartrate [Lopressor] 100 mg PO TID 05/24/15 Spironolactone-Hctz 25-25Mg [Aldactazide 25-25 MG] 1 tab PO QAM 05/24/15 Tamsulosin [Flomax] 0.4 mg PO BID@0700,1300 05/24/15 Ascorbic Acid [Vitamin C] 1,000 mg PO DAILY 08/09/17 Furosemide [Lasix] 40 mg PO QAM 02/26/19 Montelukast [Singulair] 10 mg PO DAILY 02/26/19 Atorvastatin [Lipitor] 20 mg PO QAM 03/11/19 Budesonide-Formot 160-4.5 Mcg [Symbicort 160-4.5 Mcg Inhaler] 2 puff INHALATION BID 03/11/19 Ferrous Sulfate [Iron (65 MG Elemental)] 325 mg PO DAILY 03/11/19 Omeprazole 20 mg PO QAM 03/11/19 Cyclobenzaprine [Flexeril] 10 mg PO BID #60 tab 08/13/19 Gabapentin [Neurontin] 300 mg PO TID #90 cap 08/13/19 HYDROcodone/APAP 10-325MG [Randolph 10-325] 1 tab PO Q8H PRN #90 tab 08/13/19 Warfarin [Coumadin] 2.5 mg PO MO 10/05/19 Warfarin [Coumadin] 5 mg PO SUTUWETHFRSA 10/05/19 Controlled Substance Measures - Controlled Substance Measures Is patient prescribed a controlled substance at discharge?: Yes When asked, does pt state using other controlled substances?: No If prescribed controlled substance>3 days was MAPS reviewed?: Yes If Rx opioid, was Start Talking consent form obtained?: Yes If opioid is for acute pain is fill amount 7 days or less?: No Was information provided regarding opioid addiction?: Yes
== END | disposition home or self-care (01) ==
LOC: PNWHC3 12:43
PROVIDERS: ATTEND Anesthesiology
DX: G89.29 Other chronic pain (principal); M96.1 Postlaminectomy syndrome, not elsewhere classified; Z87.891 Personal history of nicotine dependence; Z79.51 Long term (current) use of inhaled steroids; Z79.891 Long term (current) use of opiate analgesic; Z79.01 Long term (current) use of anticoagulants; Z79.899 Other long term (current) drug therapy; Z51.81 Encounter for therapeutic drug level monitoring
CPT/HCPCS: 80307; G0482; G0463; 99211

== ENCOUNTER 2019-10-14 08:47 | Day surgery (SDC) | payer MEDICARE, BC ==
[2019-10-13 08:50] VITALS: BMI 50.9
[2019-10-14 10:12] VITALS: TEMP 97.8
[2019-10-14] MEDS ORDERED: LACTATED RINGERS 1,000 ML IV ONE (10:21)
[2019-10-14] MEDS ORDERED: IV FLUID CONTINUATION 800 ML IV ONE (11:13)
--- NOTE | 2019-10-14 11:14 | P.PCN ---
Date of Procedure: 10/14/19 Procedure(s) Performed: Pre OP diagnoses=Right trochanteric bursitis . Postoperative diagnosis= Right trochanteric bursitis. Operation=Right trochanteric bursa steroid injection under fluoroscopy guidance.(The fluoroscopy images on file in Radiology department ) Anesthesia= local infiltration with lidocaine 1% 2 mL only (no IV sedation was given ). Complications= none . Description of the procedure= patient had history of severe low back pain and hip pain secondary to right trochanteric bursitis for this reason patient was a good candidate to have right trochanteric bursa steroid injection which hopefully it will help his pain, risks and benefits of the procedure including but not limited to risk of infection and bleeding and not complete pain relief and ALLERGIC reaction to medication discussed with the patient and the alternative also discussed with the patient and he agreed with the preceding taken to the operating room placed in prone position or standard monitors applied, the right hip area prepped with chlorhexidine 3 times, and under sterile technique using 25-gauge needle for skin and subcutaneous tissue infiltration was first admitted the right trochanteric bursa injection at 25- gauge Quincke-type spinal needle advanced slowly under fluoroscopy and placed in the right trochanteric bursa needle placement confirmed with AP and lateral view and after appropriate needle placement confirmed under fluoroscopy 5 ML of Ropivacaine 0.5% mixed with 80 mg of Depo-Medrol injected after negative aspiration for heme and there was no CSF and there was no paresthesia during the injection and needle removed and a dressing applied , patient tolerated the procedure well without any complication and he will follow up with the pain clinic in a few weeks and patient discharged home in stable condition
--- NOTE | 2019-10-14 11:43 | FL ---
EXAMINATION TYPE: FL guided pain mgmt statistic DATE OF EXAM: 10/14/2019 CLINICAL HISTORY: Low back and hip pain. TECHNIQUE: Fluoroscopy. COMPARISON: None. FINDINGS: Fluoroscopic guidance was provided during pain relief procedure performed by Dr. Houser . A total of 5 seconds of fluoroscopic time was utilized during the procedure and 1 spot images are acquired. Image acquired shows needle localization over an iliac bone. IMPRESSION: As Above.
[2019-10-14 11:46] VITALS: BP 97/63; PULSE 76; RESP 18
== END 2019-10-14 11:49 | disposition home or self-care (01) ==
LOC: ORPAIN 08:47
PROVIDERS: ATTEND Specialist
DX: M70.61 Trochanteric bursitis, right hip (principal); M96.1 Postlaminectomy syndrome, not elsewhere classified; I48.91 Unspecified atrial fibrillation; Z79.01 Long term (current) use of anticoagulants; Z88.5 Allergy status to narcotic agent
CPT/HCPCS: 77002; 20610; J1030

== ENCOUNTER 2019-10-28 08:33 | Day surgery (SDC) | payer MEDICARE, BC ==
[2019-10-28 10:15] VITALS: BP 112/62; PULSE 69; RESP 20; TEMP 97.3
== END 2019-10-28 10:31 | disposition home or self-care (01) ==
LOC: ORPAIN 08:33
PROVIDERS: ATTEND Anesthesiology
DX: M70.61 Trochanteric bursitis, right hip (principal); Z53.8 Procedure and treatment not carried out for other reasons; Z79.01 Long term (current) use of anticoagulants

== ENCOUNTER → 2019-12-03 | Outpatient (CLI) | payer MEDICARE, BC ==
[2019-12-03 12:23] VITALS: BP 109/70; PULSE 76; RESP 18
--- NOTE | 2019-12-04 08:04 | P.PAINPG ---
Subjective Progress Note Date: 12/03/19 This is a follow-up visit for this 69-year-old male patient with a history of severe and chronic low back pain secondary to lumbar failed back surgery syndrome, lumbar spondylosis with facet arthropathy, greater trochanter bursitis Patient currently on Coumadin for A. fib, patient underwent greater trochanter bursa injection on 10/14/2019, with no significant benefit. He was told to obtain hip x-rays and returns today for follow-up. Unfortunately, he cannot undergo procedures in the prone position due to prior episode of desaturation with prone positioning. Today his pain is primarily in his right lower back and right lateral hip, radiating down lateral thigh, not past the knee. Pain is worse with standing, walking, better with sitting, heat, ice and medications. Pain is rated as 6/10. The patient currently on Kelliher 10/325 every 8 hours , and Neurontin 600 mg every 8 hours, Flexeril 10 mg twice a day Patient denies any side effect of the medication , patient denies any excessive drowsiness or sleepiness, patient denies any suicidal ideation, Patient reported that the current medication is helping to control the pain and improve the activity of daily livings. Of note, he is morbidly obese, and reports that he is trying to lose weight. Patient denies any motor or sensory deficit, denies any change in the bowel movement or urination, patient denies any fever or night sweats. Review of systems is negative for chest pain, new onset weakness, numb ness/tingling, abdominal pain, malaise, fever, night sweats, chills, homicidal or suicidal ideation, or bowel or bladder incontinence. He does endorse chronic shortness of breath. Physical exam: Vitals: Reviewed in EMR GENERAL: Well appearing, in no acute distress, morbidly obese, sitting in wheelchair PSYCH: Mood and affect is appropriate. Awake, alert, and oriented SKIN: Skin color, texture, turgor normal, no rashes or lesions HEENT: Normocephalic, atraumatic. EOM intact CV: No pedal edema RESP: Respirations are unlabored, no audible wheezing GI: Abdomen obese MUSCULOSKELETAL: Bilateral lower extremity strength is normal and symmetric. No atrophy or tone abnormalities are noted. Lumbar spine: No pain to palpation over the lumbar spine and paraspinous muscles. Buttocks: No pain to palpation over the PSIS, FADIR test is positive on right side Extremities: Right hip adduction and abduction is limited due to pain. No edema or skin discolorations noted. Gait: Gait is slow, antalgic, he walks with a cane NEUR: No loss of sensation is noted. Cranial nerves are grossly intact. Imaging: Right hip x-ray done on 11/17/2019 shows probable moderate osteoarthritic changes in the right hip Assessment and Plan Plan: Assessment and plan= chronic low back pain secondary to lumbar failed back surgery syndrome . We were not able to do caudal epidural steroid injection with lysis of adhesions because patient became dusky when we put him in prone position chronic and current use of high-risk medication (opioids) Patient denies any side effects of the current pain medication and the current treatment/medication helping the patient to do activity of daily living , Diagnoses, prognosis, treatment options, including but not limited to physical therapy, medication management, interventional therapies, and surgery, were discussed with the patient All the questions answered The narcotic consent was signed and patient agreed and understood the side effects and complications of opioid treatment MAPS Reviewed and it was appropriate . Urine drug screen was reviewed today. Medication managements= patient will be given prescription refills for Flexeril 10 mg twice a day, Kelliher 10/325 every 8 hours, Neurontin 600 mg 3 times a day Patient was counseled on the importance of continued diet and exercise and weight loss. Procedures: We will schedule right intra-articular hip injection. Patient does not need to hold Coumadin for this procedure. We will plan on doing the procedure in the supine position as he cannot tolerate the prone position. Follow-up: For above-mentioned procedure and in 8 weeks for medication management PQRS Measure Charge Sheet Measure #130: Documentation of Current Meds in Medical Chart: Patient's medications documented in chart Measure #226: Tobacco Use: Screen & Cessation Intervention: Pt not a tobacco user Measure #111: Pneumonia Vaccination: Pneumococcal vaccine administered or previously received Measure #47: Advance Care Plan: Advance care planning discussed & documented, pt chose/unable to give Measure #412: Opioid Treatment Agreement: Documented signed opioid trtmnt agr eemnt min once during opioid trtmnt Measure #408: Opioid Therapy Follow-up Evaluation: Patient had f/u eval minimum every 3 months during opioid therapy Measure #317: Preventitive Care & Scrn High Bld Press & F/U: Blood pressure within normal limits, no follow-up required Measure #128: Body Mass Index (BMI) Screening & Follow-up: BMI documented ABOVE normal parameters - f/u documented Measure #131: Pain Assessment & Follow-up: Pain positive & plan documented, Follow-up scheduled Measure #431: Unhealthy Alcohol Use Preventative Care & Scrn: Patient not identified as an unhealthy alcohol user PQRS Measure Charge Sheet PQRS Narrative: Smoking Status Former smoker Narcotic Agreement Date Signed 11/03/18 Hx Alcohol Use (MH) Yes: OCC. Home Medications: Ambulatory Orders Albuterol Nebulized [Ventolin Nebulized] 2.5 mg INHALATION RT-BID PRN 05/24/15 Cholecalciferol [Vitamin D3 (25 Mcg = 1000 Iu)] 1,000 unit PO DAILY 05/24/15 Metoprolol Tartrate [Lopressor] 100 mg PO TID 05/24/15 Spironolactone-Hctz 25-25Mg [Aldactazide 25-25 MG] 1 tab PO QAM 05/24/15 Tamsulosin [Flomax] 0.4 mg PO BID@0700,1300 05/24/15 Ascorbic Acid [Vitamin C] 1,000 mg PO DAILY 08/09/17 Furosemide [Lasix] 40 mg PO QAM 02/26/19 Montelukast [Singulair] 10 mg PO DAILY 02/26/19 Atorvastatin [Lipitor] 20 mg PO QAM 03/11/19 Budesonide-Formot 160-4.5 Mcg [Symbicort 160-4.5 Mcg Inhaler] 2 puff INHALATION BID 03/11/19 Ferrous Sulfate [Iron (65 MG Elemental)] 65 mg PO DAILY 03/11/19 Omeprazole 20 mg PO QAM 03/11/19 Cyclobenzaprine [Flexeril] 10 mg PO BID #60 tab 08/13/19 Gabapentin [Neurontin] 300 mg PO TID #90 cap 08/13/19 Warfarin [Coumadin] 2.5 mg PO MO 10/05/19 Warfarin [Coumadin] 5 mg PO SUTUWETHFRSA 10/05/19 HYDROcodone/APAP 10-325MG [Kelliher 10-325] 1 tab PO Q8H PRN 10/28/19 Controlled Substance Measures - Controlled Substance Measures Is patient prescribed a controlled substance at discharge?: Yes When asked, does pt state using other controlled substances?: No If prescribed controlled substance>3 days was MAPS reviewed?: Yes If Rx opioid, was Start Talking consent form obtained?: Yes If opioid is for acute pain is fill amount 7 days or less?: No Was information provided regarding opioid addiction?: Yes
== END | disposition home or self-care (01) ==
LOC: PNWHC3 11:52
PROVIDERS: ATTEND Anesthesiology
DX: G89.29 Other chronic pain (principal); M96.1 Postlaminectomy syndrome, not elsewhere classified; Z79.891 Long term (current) use of opiate analgesic; Z87.891 Personal history of nicotine dependence; Z79.51 Long term (current) use of inhaled steroids; Z79.01 Long term (current) use of anticoagulants
CPT/HCPCS: 99211

== ENCOUNTER 2019-12-22 15:53 | Inpatient (IN) | payer MEDICARE, BC ==
[2019-12-22 17:45] LABS: HCT 42.8 % (39.0-53.0); HGB 13.5 gm/dL (13.0-17.5); MCH 28.3 pg (25.0-35.0); MCHC 31.4 g/dL (31.0-37.0); Mean Platelet Volume 7.2; Platelet Count 229 k/uL (150-450); RBC 4.76 m/uL (4.30-5.90); RDW 14.6 % (11.5-15.5); WBC 11.4 k/uL (3.8-10.6)
[2019-12-22 17:56] LABS: Calcium 8.8 mg/dL (8.4-10.2); Potassium 4.1 mmol/L (3.5-5.1)
[2019-12-22] MEDS ORDERED: ALBUTEROL NEBULIZED 2.5 MG/3 ML INHALATION PRN (18:10)
[2019-12-22 18:26] LABS: Creatine Kinase MB 1.5 ng/mL (0.0-2.4); Troponin I 0.025 ng/mL (0.000-0.034)
[2019-12-22 19:07] LABS: INR 2.6 (<1.2)
[2019-12-22 19:08] LABS: Prothrombin Time 25.1 sec (9.0-12.0)
[2019-12-22] MEDS: WARFARIN 5 MG TAB PO SCH (19:18)
[2019-12-22] MEDS: SYMBICORT 160-4.5 MCG INHALER INHALATION SCH (20:26)
[2019-12-22] MEDS: GABAPENTIN 300 MG CAP PO SCH (21:19)
[2019-12-22] MEDS: METOPROLOL TARTRATE 50 MG TAB PO SCH (21:19)
[2019-12-22] MEDS: CYCLOBENZAPRINE 10 MG TAB PO SCH (21:19)
[2019-12-22] MEDS: FUROSEMIDE 10 MG/ML 4 ML VIAL IV SCH (21:19)
[2019-12-23] MEDS: HYDROcodone/APAP 10-325MG 1 EACH TAB PO PRN ×3 (00:09→17:08)
[2019-12-23] MEDS: TAMSULOSIN 0.4 MG CAP.ER.24H PO SCH ×2 (06:01→12:10)
[2019-12-23 06:13] LABS: HCT 43.4 % (39.0-53.0); HGB 13.5 gm/dL (13.0-17.5); MCH 28.1 pg (25.0-35.0); MCHC 31.1 g/dL (31.0-37.0); MCV 90.5 fL (80.0-100.0); Mean Platelet Volume 7.3; Platelet Count 250 k/uL (150-450); RDW 14.7 % (11.5-15.5); WBC 10.7 k/uL (3.8-10.6)
[2019-12-23 06:45] LABS: Calcium 8.9 mg/dL (8.4-10.2); Potassium 3.9 mmol/L (3.5-5.1)
[2019-12-23] MEDS ORDERED: PANTOPRAZOLE 40 MG TABLET PO SCH (07:30)
[2019-12-23] MEDS: ALBUTEROL NEBULIZED 2.5 MG/3 ML INHALATION PRN ×2 (08:44→20:53)
[2019-12-23] MEDS: SYMBICORT 160-4.5 MCG INHALER INHALATION SCH ×2 (08:44→20:53)
[2019-12-23] MEDS ORDERED: ASCORBIC ACID 500 MG TAB PO SCH (09:00)
[2019-12-23 09:42] LABS: INR 2.5 (<1.2); Prothrombin Time 24.7 sec (9.0-12.0)
[2019-12-23] MEDS: ATORVASTATIN 20 MG TAB PO SCH (09:46)
[2019-12-23] MEDS: CHOLECALCIFEROL 1,000 UNIT TAB PO SCH (09:47)
[2019-12-23] MEDS: FUROSEMIDE 10 MG/ML 4 ML VIAL IV SCH ×2 (09:47→20:58)
[2019-12-23] MEDS: GABAPENTIN 300 MG CAP PO SCH ×3 (09:48→20:58)
[2019-12-23] MEDS: METOPROLOL TARTRATE 50 MG TAB PO SCH (09:48)
[2019-12-23] MEDS: SPIRONOLACTONE-HCTZ 25-25MG 1 EACH TAB PO SCH (09:52)
[2019-12-23] MEDS: MONTELUKAST 10 MG TAB PO SCH (09:52)
--- NOTE | 2019-12-23 10:21 | P.HPIM ---
History of Present Illness This is a pleasant 69 years old male with past medical history of her failure, atrial fibrillation on Coumadin, asthma, coronary artery disease, sleep apnea on CPAP, rheumatoid arthritis, prostate problem. Chronic kidney disease stage III. Obesity. Patient presents because of some dyspnea, associated with bloating and increased leg swelling over 2-3 weeks.. He went to see his midlevel provider Dr. Everett yesterday and he referred him to the hospital. Patient denies chest pain or abdominal pain or nausea vomiting. Patient is on chronic hypoxic respiratory failure on 4 L oxygen via nasal cannula. Vitals stable. WBC is 10.7 K, INR is 2.5. Creatinine is 1.4, With baseline 1.2-1.6. Review of Systems CONSTITUTIONAL: No fever, no malaise, no fatigue. HEENT: No recent visual problems or hearing problems. Denied any sore throat. CARDIOVASCULAR: No orthopnea, PND, no palpitations, no syncope. PULMONARY: no hemoptysis. GASTROINTESTINAL: No diarrhea, no nausea, no vomiting, no abdominal pain. Normoactive bowel sounds. NEUROLOGICAL: No headaches, no weakness, no numbness. HEMATOLOGICAL: Denies any bleeding or petechiae. GENITOURINARY: Denies any burning micturition, frequency, or urgency. MUSCULOSKELETAL/RHEUMATOLOGICAL: Denies any joint pain, swelling, or any muscle pain. ENDOCRINE: Denies any polyuria or polydipsia. Past Medical History Past Medical History: Atrial Fibrillation, Asthma, Coronary Artery Disease (CAD), Heart Failure, Hypertension, Prostate Disorder, Rheumatoid Arthritis (RA), Sleep Apnea/CPAP/BIPAP Additional Past Medical History / Comment(s): O2 at HS 2L, states "leaky valves" CARDIOMYOPATHY, left knee surgery, Legionerres dx 2016, History of Any Multi-Drug Resistant Organisms: MRSA Date of last positivie culture/infection: 2014 MDRO Source:: back Past Surgical History: Back Surgery, Cholecystectomy, Heart Catheterization, Orthopedic Surgery, Tonsillectomy Additional Past Surgical History / Comment(s): britton cataract-LENS IMPLANTS,right HAND SX, DETACTHED RETINA LT EYE- Left knee sx. cardioversion, PAIN CLINIC PROCEDURES Past Anesthesia/Blood Transfusion Reactions: No Reported Reaction Past Psychological History: No Psychological Hx Reported Smoking Status: Former smoker Past Alcohol Use History: Rare Additional Past Alcohol Use History / Comment(s): chews tobacco occasionally. SMOKED CIGARS- X 25 YEARS QUIT 1998 Past Drug Use History: None Reported - Past Family History Father Family Medical History: Cancer Additional Family Medical History / Comment(s): lung cancer,brain tumor Mother Family Medical History: Cancer, Myocardial Infarction ([place]) Additional Family Medical History / Comment(s): skin cancer Medications and Allergies Home Medications Medication Instructions Recorded Confirmed Type Cholecalciferol [Vitamin D3 (25 1,000 unit PO BID@1200,2100 05/24/15 12/22/19 History Mcg = 1000 Iu)] Spironolactone-Hctz 25-25Mg 1 tab PO QAM 05/24/15 12/22/19 History [Aldactazide 25-25 MG] Tamsulosin [Flomax] 0.4 mg PO BID@0700,1200 05/24/15 12/22/19 History Furosemide [Lasix] 40 mg PO QAM 02/26/19 12/22/19 History Montelukast [Singulair] 10 mg PO HS 02/26/19 12/22/19 History Atorvastatin [Lipitor] 20 mg PO QAM 03/11/19 12/22/19 History Budesonide-Formot 160-4.5 Mcg 2 puff INHALATION RT-BID 03/11/19 12/22/19 History [Symbicort 160-4.5 Mcg Inhaler] Ferrous Sulfate [Iron (65 MG 325 mg PO DAILY@1200 03/11/19 12/22/19 History Elemental)] Warfarin [Coumadin] 5 mg PO SUMOTUTHFRSA 10/05/19 12/22/19 History Warfarin [Coumadin] 7.5 mg PO WE 10/05/19 12/22/19 History HYDROcodone/APAP 10-325MG [[place] 1 tab PO Q8H PRN 10/28/19 12/22/19 History 10-325] Albuterol Sulfate [Ventolin HFA] 2 puff INHALATION RT-Q6H PRN 12/22/19 12/22/19 History Cyclobenzaprine [Flexeril] 10 mg PO BID@1200,2100 12/22/19 12/22/19 History Gabapentin 600 mg PO Q8H 12/22/19 12/22/19 History Metoprolol Tartrate [Lopressor] 100 mg PO TID 12/22/19 12/22/19 History Allergies Allergy/AdvReac Type Severity Reaction Status Date / Time oxycodone HCl AdvReac Confusion Verified 12/22/19 18:10 [From OxyContin] Physical Exam Vitals: Vital Signs Temp Pulse Pulse Resp BP Pulse Ox 12/23/19 08:51 88 12/23/19 08:40 80 12/23/19 08:22 81 123/76 12/23/19 07:58 97.3 F L 75 18 97/65 98 12/23/19 04:00 87 18 121/81 96 12/23/19 00:00 97.5 F L 66 19 110/70 98 12/22/19 20:00 98 F 63 19 141/85 98 Intake and Output 12/22/19 12/23/19 12/23/19 22:59 06:59 14:59 Intake Total 480 Output Total 1000 Balance -1000 480 Intake: Oral 480 Output: Urine 1000 Other: Voiding Method Toilet Toilet Urinal Urinal # Voids 1 Weight 160.77 kg 156.5 kg GENERAL: The patient is alert and oriented x3, not in any acute distress. Obese HEENT: Pupils are round and equally reacting to light. EOMI. No scleral icterus. No conjunctival pallor. Normocephalic, atraumatic. No pharyngeal erythema. No thyromegaly. CARDIOVASCULAR: S1 and S2 present. No murmurs, rubs, or gallops. -PULMONARY: Chest is clear to auscultation, no wheezing or crackles. Bilateral basal crepitation ABDOMEN: Soft, nontender, nondistended, normoactive bowel sounds. No palpable organomegaly. MUSCULOSKELETAL: No joint swelling or deformity. -EXTREMITIES: No cyanosis, clubbing,. Bilateral leg swelling with pitting edema NEUROLOGICAL: Gross neurological examination did not reveal any focal deficits. SKIN: No rashes. No petechiae Results CBC & Chem 7: 12/23/19 05:28 12/23/19 05:28 Labs: Abnormal Lab Results - Last 24 Hours (Table) 12/22/19 12/22/19 12/22/19 Range/Units 17:30 17:30 17:30 WBC 11.4 H (3.8-10.6) k/uL PT 25.1 H (9.0-12.0) sec INR 2.6 H (<1.2) Carbon Dioxide (22-30) mmol/L BUN 28 H (9-20) mg/dL Creatinine 1.35 H (0.66-1.25) mg/dL Glucose 116 H (74-99) mg/dL 12/23/19 12/23/19 12/23/19 Range/Units 05:28 05:28 09:18 WBC 10.7 H (3.8-10.6) k/uL PT 24.7 H (9.0-12.0) sec INR 2.5 H (<1.2) Carbon Dioxide 35 H (22-30) mmol/L BUN 27 H (9-20) mg/dL Creatinine 1.47 H (0.66-1.25) mg/dL Glucose 144 H (74-99) mg/dL Thrombosis Risk Factor Assmnt - Choose All That Apply Any of the Below Risk Factors Present?: Yes Each Factor Represents 1 point: Obesity (BMI >25) Other Risk Factors: Yes Each Risk Factor Represents 2 Points: Age 61-74 years Other congenital or acquired thrombophilia - If yes, enter type in comment: No Thrombosis Risk Factor Assessment Total Risk Factor Score: 3 Thrombosis Risk Factor Assessment Level: Moderate Risk Assessment and Plan Assessment: Acute and chronic systolic heart failure Atrial fibrillation, on Coumadin Chronic kidney disease, stage III History of coronary artery disease Sleep apnea on CPAP Rheumatoid arthritis Prostate disorder Assessment Plan: This is a pleasant 69 years old male who presents with CHF. Continue with diuretic. Cardiology consult. Monitor electrolytes. Check a bladder scan Labs and medication were reviewed.. Continue same treatment. Continue with symptomatic treatment. Resume home medication. Monitor lytes and vitals. DVT and GI prophylaxis. Further recommendations of the clinical course of the patient DVT prophylaxis: Warfarin GI Prophylaxis: Pepcid PT/OT: Pending
[2019-12-23] MEDS: FERROUS SULFATE 325 MG TAB PO SCH (12:10)
[2019-12-23] MEDS: CYCLOBENZAPRINE 10 MG TAB PO SCH ×2 (12:10→20:58)
[2019-12-23] MEDS ORDERED: MORPHINE SULFATE 4 MG/ML SYRINGE IVP PRN (12:12)
--- NOTE | 2019-12-23 12:48 | P.PN ---
Subjective Progress Note Date: 12/23/19 This is a 69-year-old gentleman who follows regularly with Dr. Everett in the office. He has known history of morbid obesity, persistent atrial fibrillation on oral anticoagulation with Coumadin, nonischemic cardiomyopathy, hypertension, he chews tobacco, patient underwent a cardiac catheterization in September 2019 which revealed minimal disease in the left circumflex. Patient developed bilateral lower extremity edema as well as significant increase in his abdominal girth and was experiencing progressively worsening shortness of breath, positive PND and orthopnea. For this reason he went to see Dr. Everett in the office and was subsequently admitted to the hospital for treatment of acute congestive heart failure. Patient was initiated on IV Lasix, he has diuresed well through the night last night, his weight today is down 4 kg from admission. Blood pressure 112/60 with a heart rate in the 80s, 97% on 3 L of oxygen. White blood cell count 10.7, hemoglobin 13.5, platelet count 250. Pro time 24.7 with an INR of 2.5. Sodium 141, potassium 3.9, BUN 27, creatinine 1.4. We will check a TSH level on the patient, obtain a morning EKG, change his beta joseph over to metoprolol succinate 100mg PO BID. continue to monitor the intake and output along with daily weights and daily lytes BUN and creatinine. Objective - Vital Signs Vital signs: Vital Signs Temp 97.7 F 12/23/19 12:00 Pulse 88 12/23/19 12:00 Resp 18 12/23/19 12:00 BP 113/59 12/23/19 12:00 Pulse Ox 97 12/23/19 12:00 Intake & Output 12/22/19 12/23/19 12/23/19 18:59 06:59 18:59 Intake Total 1280 Output Total 1000 Balance -1000 1280 Weight 160.77 kg 156.5 kg Intake: Oral 1280 Output: Urine 1000 Other: Voiding Method Toilet Toilet Urinal # Voids 1 - Exam PHYSICAL EXAMINATION: GENERAL: 69-year-old gentleman in no acute distress at the time of my examination HEENT: Head is atraumatic, normocephalic. Pupils equal, round. Sclera anicteric. Conjunctiva are clear. Mucous membranes of the mouth are moist. Neck is supple. There is no elevated jugular venous pressure. No carotid bruit is heard. HEART EXAMINATION: S1 and S2 irregularly irregular CHEST EXAMINATION: With reveal diminished air entry to bilateral bases ABDOMEN: Soft, obese, nontender. Bowel sounds are heard. No organomegaly noted. EXTREMITIES: 2+ peripheral pulses with 2-3+ evidence of peripheral edema and no calf tenderness noted. NEUROLOGIC patient is awake, alert and oriented 3 . . - Labs CBC & Chem 7: 12/23/19 05:28 12/23/19 05:28 Labs: Abnormal Lab Results - Last 24 Hours (Table) 12/22/19 12/22/19 12/22/19 Range/Units 17:30 17:30 17:30 WBC 11.4 H (3.8-10.6) k/uL PT 25.1 H (9.0-12.0) sec INR 2.6 H (<1.2) Carbon Dioxide (22-30) mmol/L BUN 28 H (9-20) mg/dL Creatinine 1.35 H (0.66-1.25) mg/dL Glucose 116 H (74-99) mg/dL 12/23/19 12/23/19 12/23/19 Range/Units 05:28 05:28 09:18 WBC 10.7 H (3.8-10.6) k/uL PT 24.7 H (9.0-12.0) sec INR 2.5 H (<1.2) Carbon Dioxide 35 H (22-30) mmol/L BUN 27 H (9-20) mg/dL Creatinine 1.47 H (0.66-1.25) mg/dL Glucose 144 H (74-99) mg/dL Assessment and Plan Plan: Assessment and plan #1 systolic congestive heart failure acute on chronic #2 nonischemic cardiomyopathy, patient underwent a cardiac catheterization in September of last year which revealed minimal disease in his left circumflex artery. #3 morbid obesity #4 hypertension #5 use of chewing tobacco and cigars #6 persistent atrial fibrillation on Coumadin for anticoagulation #7 obstructive sleep apnea Plan We will continue current dose of IV Lasix, discontinue the metoprolol tartrate and start the patient on metoprolol succinate 100 mg by mouth twice a day, check a TSH level, obtain morning EKG. Continue to monitor intake and output along with daily weights and daily lytes BUN and creatinine, daily PT/INR. DNP note has been reviewed, I agree with a documented findings and plan of care. Patient was seen and examined.
--- NOTE | 2019-12-23 13:03 | XR ---
EXAMINATION TYPE: XR shoulder complete LT DATE OF EXAM: 12/23/2019 COMPARISON: NONE HISTORY: Pain TECHNIQUE: Three views are submitted. FINDINGS: The osseous structures are intact. There is no acute fracture or dislocation. Arthropathy of the AC joint.. IMPRESSION: 1. AC joint arthropathy
[2019-12-23] MEDS: WARFARIN 5 MG TAB PO SCH (17:09)
[2019-12-23] MEDS ORDERED: WARFARIN 5 MG TAB PO SCH (18:00)
[2019-12-23] MEDS ORDERED: WARFARIN 2 MG TAB PO SCH (18:00)
[2019-12-23] MEDS ORDERED: WARFARIN 7.5 MG TAB PO SCH (18:00)
[2019-12-23] MEDS: FAMOTIDINE 20 MG/2 ML VIAL IV SCH (20:58)
[2019-12-23] MEDS: METOPROLOL SUCCINATE (ER) 100 MG TAB.ER.24H PO SCH (20:58)
[2019-12-23] MEDS ORDERED: POLYETHYLENE GLYCOL 3350 17 GM POWD.PACK PO PRN (21:39)
[2019-12-24] MEDS: HYDROcodone/APAP 10-325MG 1 EACH TAB PO PRN ×2 (03:52→23:22)
[2019-12-24] MEDS: TAMSULOSIN 0.4 MG CAP.ER.24H PO SCH ×2 (06:00→12:35)
[2019-12-24 06:31] LABS: Basophils # (A) 0.3 k/uL (0-0.2); Basophils % (A) 3 %; Eosinophils # (A) 0.3 k/uL (0-0.7); Eosinophils % (A) 3 %; HCT 44.6 % (39.0-53.0); HGB 13.9 gm/dL (13.0-17.5); INR 2.8 (<1.2); Lymphocytes % (A) 9 %; MCH 28.2 pg (25.0-35.0); MCHC 31.2 g/dL (31.0-37.0); MCV 90.4 fL (80.0-100.0); Mean Platelet Volume 7.2; Monocytes # (A) 0.9 k/uL (0-1.0); Monocytes % (A) 7 %; Neutrophils # (A) 8.7 k/uL (1.3-7.7); Neutrophils % (A) 76 %; Platelet Count 264 k/uL (150-450); Prothrombin Time 27.3 sec (9.0-12.0); RBC 4.94 m/uL (4.30-5.90); RDW 14.6 % (11.5-15.5); WBC 11.4 k/uL (3.8-10.6)
[2019-12-24 06:54] LABS: Calcium 8.9 mg/dL (8.4-10.2); Potassium 4.5 mmol/L (3.5-5.1)
[2019-12-24] MEDS: ALBUTEROL NEBULIZED 2.5 MG/3 ML INHALATION PRN ×2 (07:24→19:41)
[2019-12-24] MEDS: SYMBICORT 160-4.5 MCG INHALER INHALATION SCH ×2 (07:24→19:41)
[2019-12-24] MEDS: GABAPENTIN 300 MG CAP PO SCH ×3 (08:20→20:56)
[2019-12-24] MEDS: SPIRONOLACTONE-HCTZ 25-25MG 1 EACH TAB PO SCH (08:20)
[2019-12-24] MEDS: CHOLECALCIFEROL 1,000 UNIT TAB PO SCH (08:20)
[2019-12-24] MEDS: ATORVASTATIN 20 MG TAB PO SCH (08:20)
[2019-12-24] MEDS: METOPROLOL SUCCINATE (ER) 100 MG TAB.ER.24H PO SCH ×2 (08:20→20:56)
[2019-12-24] MEDS: MONTELUKAST 10 MG TAB PO SCH (08:20)
[2019-12-24] MEDS: FAMOTIDINE 20 MG/2 ML VIAL IV SCH (08:20)
[2019-12-24] MEDS: FUROSEMIDE 10 MG/ML 4 ML VIAL IV SCH ×2 (08:21→20:56)
[2019-12-24] MEDS: SENNOSIDES-DOCUSATE SODIUM 1 EACH TAB PO PRN ×2 (08:23→18:08)
[2019-12-24 08:47] LABS: Appearance,Urine Clear (Clear); Bilirubin,Urine Negative (Negative); Blood,Urine Negative (Negative); Color,Urine Yellow; Glucose,Urine (UA) Negative (Negative); Ketones,Urine Negative (Negative); Leukocyte Esterase,Urine Negative (Negative); Nitrite,Urine Negative (Negative); Protein,Urine Negative (Negative); Specific Gravity,Urine 1.016 (1.001-1.035); Urobilinogen,Urine <2.0 mg/dL (<2.0)
--- NOTE | 2019-12-24 11:46 | P.PN ---
Subjective This is a pleasant 69 years old male with past medical history of her failure, atrial fibrillation on Coumadin, asthma, coronary artery disease, sleep apnea on CPAP, rheumatoid arthritis, prostate problem. Chronic kidney disease stage III. Obesity. Patient presents because of some dyspnea, associated with bloating and increased leg swelling over 2-3 weeks.. 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 Everett yesterday and he referred him to the hospital. Patient denies chest pain or abdominal pain or nausea vomiting. Patient is on chronic hypoxic respiratory failure on 4 L oxygen via nasal cannula. Vitals stable. WBC is 10.7 K, INR is 2.5. Creatinine is 1.4, With baseline 1.2-1.6. 12/24/2019 Patient feels better,he is dyspneic but less than yesterday, he has less leg swelling. Patient looks like in negative balance. He still complaining from left shoulder pain with limitation in raising his arm above his head. Shoulder x-ray: Acromioclavicular joint arthropathy. Vitals are stable and he is saturating 94% on room air. His WBC is 11.4 K, INR is 2.8. Creatinine 1.4 which is at baseline. Electrolytes are within normal limits. Urine analysis is negative. TSH is high at 7.0, while free T4 is normal. ProBNP is 1770. Troponin is negative at 0.025. Patient is on Lasix 40 mg intravenously and is on warfarin. Patient is aware of his chronic kidney disease stage III. Review of Systems CONSTITUTIONAL: No fever, no malaise, no fatigue. HEENT: No recent visual problems or hearing problems. Denied any sore throat. CARDIOVASCULAR: No orthopnea, PND, no palpitations, no syncope. PULMONARY: no hemoptysis. GASTROINTESTINAL: No diarrhea, no nausea, no vomiting, no abdominal pain. Normoactive bowel sounds. NEUROLOGICAL: No headaches, no weakness, no numbness. HEMATOLOGICAL: Denies any bleeding or petechiae. GENITOURINARY: Denies any burning micturition, frequency, or urgency. MUSCULOSKELETAL/RHEUMATOLOGICAL: Denies any joint pain, swelling, or any muscle pain. ENDOCRINE: Denies any polyuria or polydipsia. Active Medications Generic Name Dose Route Start Last Admin Trade Name Freq PRN Reason Stop Dose Admin Hydrocodone Bitart/Acetaminophen 1 each 12/23/19 12:04 12/24/19 03:52 [place] 10 PO 1 each Q6H PRN Administration Moderate Pain Albuterol Sulfate 2.5 mg 12/22/19 18:33 12/24/19 07:24 Ventolin Nebulized INHALATION 2.5 mg RT-Q6H PRN Administration Shortness Of Breath Atorvastatin Calcium 20 mg 12/23/19 09:00 12/24/19 08:20 Lipitor PO 20 mg QAM GIANA Administration Budesonide/Formoterol Fumarate 2 puff 12/22/19 20:00 12/24/19 07:24 Symbicort 160-4.5 Mcg Inhaler INHALATION 2 puff RT-BID GIANA Administration Cholecalciferol 1,000 unit 12/23/19 09:00 12/24/19 08:20 Vitamin D3 (25 Mcg = 1000 Iu) PO 1,000 unit DAILY GIANA Administration Cyclobenzaprine HCl 10 mg 12/22/19 21:00 12/23/19 20:58 Flexeril PO 10 mg BID@1200,2100 GIANA Administration Famotidine 20 mg 12/23/19 21:00 12/24/19 08:20 Pepcid IV 20 mg DAILY GIANA Administration Ferrous Sulfate 325 mg 12/23/19 12:00 12/23/19 12:10 Feosol PO 325 mg DAILY@1200 GIANA Administration Furosemide 40 mg 12/22/19 21:00 12/24/19 08:21 Lasix IV 40 mg Q12HR GIANA Administration Gabapentin 600 mg 12/22/19 22:00 12/24/19 08:20 Neurontin PO 600 mg TID GIANA Administration HCTZ/Spironolactone 1 each 12/23/19 09:00 12/24/19 08:20 Aldactazide 25-25mg PO 1 each QAM GIANA Administration Metoprolol Succinate 100 mg 12/23/19 21:00 12/24/19 08:20 Toprol Xl PO 100 mg BID GIANA Administration Montelukast Sodium 10 mg 12/23/19 09:00 12/24/19 08:20 Singulair PO 10 mg DAILY GIANA Administration Morphine Sulfate 4 mg 12/23/19 12:12 12/23/19 18:55 Morphine Sulfate (Inj) IVP 4 mg Q4HR PRN Administration Pain Polyethylene Glycol 17 gm 12/23/19 21:39 Miralax PO DAILY PRN Constipation Senna/Docusate Sodium 1 each 12/23/19 21:39 12/24/19 08:23 Senokot-S PO 1 each BID PRN Administration Constipation Tamsulosin HCl 0.4 mg 12/23/19 07:00 12/24/19 06:00 Flomax PO 0.4 mg BID@0700,1300 [facility] Administration Warfarin Sodium 5 mg 12/22/19 18:30 12/23/19 17:09 Coumadin PO 5 mg SuMoTuThFrSa@1800 [facility] Administration Protocol Warfarin Sodium 5 mg 12/23/19 18:00 12/23/19 17:11 Coumadin PO 5 mg We@1800 [facility] Administration Protocol Warfarin Sodium 2 mg 12/23/19 18:00 12/23/19 17:09 Coumadin PO 2 mg We@1800 [facility] Administration Protocol Objective - Vital Signs Vital signs: Vital Signs Temp 97.8 F 12/24/19 11:25 Pulse 57 L 12/24/19 11:25 Resp 20 12/24/19 11:25 BP 120/81 12/24/19 11:25 Pulse Ox 94 L 12/24/19 11:25 Intake & Output 12/23/19 12/24/19 12/24/19 18:59 06:59 18:59 Intake Total 1880 230 Output Total 1400 300 Balance 1880 -1400 -70 Weight 152.4 kg Intake: Oral 1880 230 Output: Urine 1400 300 Other: Voiding Method Toilet Toilet # Voids 1 - Exam GENERAL: The patient is alert and oriented x3, not in any acute distress. Obese HEENT: Pupils are round and equally reacting to light. EOMI. No scleral icterus. No conjunctival pallor. Normocephalic, atraumatic. No pharyngeal erythema. No thyromegaly. CARDIOVASCULAR: S1 and S2 present. No murmurs, rubs, or gallops. -PULMONARY: Chest is clear to auscultation, no wheezing or crackles. Bilateral basal crepitation ABDOMEN: Soft, nontender, nondistended, normoactive bowel sounds. No palpable organomegaly. MUSCULOSKELETAL: No joint swelling or deformity. -EXTREMITIES: No cyanosis, clubbing,. Bilateral leg swelling with pitting edema NEUROLOGICAL: Gross neurological examination did not reveal any focal deficits. SKIN: No rashes. No petechiae - Labs CBC & Chem 7: 12/24/19 05:22 12/24/19 05:22 Labs: Abnormal Lab Results - Last 24 Hours (Table) 12/23/19 12/24/19 12/24/19 Range/Units 05:28 05:22 05:22 WBC (3.8-10.6) k/uL Neutrophils # (1.3-7.7) k/uL Basophils # (0-0.2) k/uL PT 27.3 H (9.0-12.0) sec INR 2.8 H (<1.2) Chloride 96 L (98-107) mmol/L Carbon Dioxide 37 H (22-30) mmol/L BUN 26 H (9-20) mg/dL Creatinine 1.46 H (0.66-1.25) mg/dL Glucose 144 H (74-99) mg/dL TSH 7.010 H (0.465-4.680) mIU/L 12/24/19 Range/Units 05:22 WBC 11.4 H (3.8-10.6) k/uL Neutrophils # 8.7 H (1.3-7.7) k/uL Basophils # 0.3 H (0-0.2) k/uL PT (9.0-12.0) sec INR (<1.2) Chloride (98-107) mmol/L Carbon Dioxide (22-30) mmol/L BUN (9-20) mg/dL Creatinine (0.66-1.25) mg/dL Glucose (74-99) mg/dL TSH (0.465-4.680) mIU/L Assessment and Plan Assessment: Acute and chronic systolic heart failure Atrial fibrillation, on Coumadin Chronic kidney disease, stage III Subclinical hypothyroidism History of coronary artery disease Sleep apnea on CPAP Rheumatoid arthritis Prostate disorder Assessment Plan: This is a pleasant 69 years old male who presents with CHF. Continue with diuretic. Cardiology consult. Monitor electrolytes. Check a bladder scan Labs and medication were reviewed.. Continue same treatment. Continue with symptomatic treatment. Resume home medication. Monitor lytes and vitals. DVT and GI prophylaxis. Further recommendations of the clinical course of the patient DVT prophylaxis: Warfarin GI Prophylaxis: Pepcid PT/OT: Pending
[2019-12-24] MEDS: CYCLOBENZAPRINE 10 MG TAB PO SCH ×2 (12:35→20:56)
[2019-12-24] MEDS: FERROUS SULFATE 325 MG TAB PO SCH (12:35)
[2019-12-24 14:24] VITALS: BMI 51.8
--- NOTE | 2019-12-24 17:45 | P.PN ---
Subjective Patient is a 69-year-old male with a past medical history of atrial fibrillation, nonischemic cardiomyopathy, hypertension and CAD who presented with complaints of worsening shortness of breath, PND and orthopnea. He was admitted for treatment of an acute CHF exacerbation. Yesterday we switched him to metoprolol 100 mg by mouth twice a day. He seems to have tolerated this well. He has been diuresing on IV Lasix, putting out quite a bit of urine but his weight does not reflect this. Patient seen and examined sitting up in the chair. States his breathing is getting better. He has been up walking around, denies any dizziness. Still has a lot of edema. No chest pain. Labs reviewed, WBC 11.4,, BUN 26, creatinine 1.46, stable from yesterday INR therapeutic, TSH was abnormal at 7 Patient is afebrile, pulse in the 50s, respirations 20, blood pressure 113/68, oxygen saturation 93% on room air Patient seen and examined resting comfortably in the chair, in no acute distress Breath sounds diminished bilaterally Heart is irregularly irregular, no audible murmurs 1+ pitting edema bilaterally Left arm is swollen as well Impression Acute on chronic Systolic CHF, diuresing on IV Lasix Nonischemic cardiomyopathy Mild nonobstructive CAD Obesity Hypertension, blood pressure well controlled Dyslipidemia Persistent atrial fibrillation, anticoagulated with Coumadin, rate controlled LILLIE Abnormal TSH Plan Continue IV Lasix, continue Lipitor, continue metoprolol 100 mg twice a day, continue spironolactonehydrochlorothiazide Anticoagulation with Coumadin Continue to monitor I AND O, daily weights, low sodium diet Management of abnormal TSH by medicine team Objective - Vital Signs Vital signs: Vital Signs Temp 98.4 F 12/24/19 15:17 Pulse 53 L 12/24/19 15:17 Resp 20 12/24/19 15:17 BP 113/68 12/24/19 15:17 Pulse Ox 93 L 12/24/19 15:17 Intake & Output 12/23/19 12/24/19 12/24/19 18:59 06:59 18:59 Intake Total 1880 460 Output Total 1800 3750 Balance 1880 -1800 -3290 Weight 152.4 kg 152.4 kg Intake: Oral 1879 460 Output: Urine 1800 3750 Other: Voiding Method Toilet Toilet # Voids 1 1 - Labs CBC & Chem 7: 12/24/19 05:22 12/24/19 05:22 Labs: Abnormal Lab Results - Last 24 Hours (Table) 12/24/19 12/24/19 12/24/19 Range/Units 05:22 05:22 05:22 WBC 11.4 H (3.8-10.6) k/uL Neutrophils # 8.7 H (1.3-7.7) k/uL Basophils # 0.3 H (0-0.2) k/uL PT 27.3 H (9.0-12.0) sec INR 2.8 H (<1.2) Chloride 96 L (98-107) mmol/L Carbon Dioxide 37 H (22-30) mmol/L BUN 26 H (9-20) mg/dL Creatinine 1.46 H (0.66-1.25) mg/dL Glucose 144 H (74-99) mg/dL
[2019-12-24] MEDS: WARFARIN 5 MG TAB PO SCH (18:06)
[2019-12-25] MEDS: TAMSULOSIN 0.4 MG CAP.ER.24H PO SCH ×2 (06:28→12:29)
[2019-12-25 07:57] LABS: INR 2.8 (<1.2); Prothrombin Time 27.4 sec (9.0-12.0)
[2019-12-25 08:05] LABS: Calcium 9.1 mg/dL (8.4-10.2); Potassium 3.9 mmol/L (3.5-5.1)
[2019-12-25] MEDS: GABAPENTIN 300 MG CAP PO SCH ×3 (08:17→21:00)
[2019-12-25] MEDS: FUROSEMIDE 10 MG/ML 4 ML VIAL IV SCH (08:17)
[2019-12-25] MEDS: HYDROcodone/APAP 10-325MG 1 EACH TAB PO PRN ×3 (08:18→21:00)
[2019-12-25] MEDS: FAMOTIDINE 20 MG TAB PO SCH (08:18)
[2019-12-25] MEDS: MONTELUKAST 10 MG TAB PO SCH (08:18)
[2019-12-25] MEDS: CHOLECALCIFEROL 1,000 UNIT TAB PO SCH (08:19)
[2019-12-25] MEDS: METOPROLOL SUCCINATE (ER) 100 MG TAB.ER.24H PO SCH ×2 (08:19→21:00)
[2019-12-25] MEDS: ATORVASTATIN 20 MG TAB PO SCH (08:19)
[2019-12-25] MEDS: SPIRONOLACTONE-HCTZ 25-25MG 1 EACH TAB PO SCH (08:19)
[2019-12-25 08:27] LABS: Basophils # (A) 0.3 k/uL (0-0.2); Basophils % (A) 2 %; Eosinophils # (A) 0.3 k/uL (0-0.7); Eosinophils % (A) 3 %; HCT 46.9 % (39.0-53.0); HGB 14.5 gm/dL (13.0-17.5); Lymphocytes # (A) 1.3 k/uL (1.0-4.8); Lymphocytes % (A) 12 %; MCHC 30.9 g/dL (31.0-37.0); MCV 90.6 fL (80.0-100.0); Mean Platelet Volume 7.3; Monocytes # (A) 0.9 k/uL (0-1.0); Monocytes % (A) 8 %; Neutrophils # (A) 8.4 k/uL (1.3-7.7); Neutrophils % (A) 74 %; Platelet Count 279 k/uL (150-450); RBC 5.17 m/uL (4.30-5.90); RDW 14.6 % (11.5-15.5); WBC 11.4 k/uL (3.8-10.6)
[2019-12-25] MEDS: ALBUTEROL NEBULIZED 2.5 MG/3 ML INHALATION PRN ×2 (09:18→20:16)
[2019-12-25] MEDS: SYMBICORT 160-4.5 MCG INHALER INHALATION SCH ×2 (09:18→20:16)
[2019-12-25] MEDS: CYCLOBENZAPRINE 10 MG TAB PO SCH ×2 (12:29→21:00)
[2019-12-25] MEDS: FERROUS SULFATE 325 MG TAB PO SCH (12:29)
[2019-12-25] MEDS ORDERED: LIDOCAINE 2% INJ 20 MG/ML (20 ML MDV) SQ ONE (13:00)
[2019-12-25] MEDS ORDERED: methylPREDNISolone ACETATE 80 MG/ML 1 ML VIAL INTRABURSA ONE (13:00)
--- NOTE | 2019-12-25 15:13 | P.CNOR ---
History of Present Illness - [facility] Consult date: 12/25/19 Consult reason: other (Left shoulder pain) History of present illness: The patient is a pleasant 69-year-old male with a significant history of heart failure, CAD, A. fib, rheumatoid arthritis, hypertension, and prostate disease who presented to the hospital in systolic heart failure. He is currently being managed by internal medicine and cardiology. Orthopedics was consulted due to left shoulder pain and decreased motion. He states that his left shoulder pain started approximately 2 weeks ago and has continued to worsen. He denies any previous injury or issue with the shoulder in the past. X-rays have been taken of the shoulder reveal AC arthritis. Today, the patient states that his pain is quite severe in the shoulder and he is unable to raise his arm overhead. He denies any other joint issues at this time. Denies numbness and tingling in the hand and arm. He is status post left total knee arthroplasty by Dr. Terry in the past. Review of Systems Constitutional: Denies chills, Denies fever Cardiovascular: Reports shortness of breath, Denies chest pain Respiratory: Denies cough Gastrointestinal: Denies abdominal pain, Denies diarrhea, Denies nausea, Denies vomiting Musculoskeletal: left: shoulder pain, shoulder stiffness, shoulder swelling Past Medical History Past Medical History: Atrial Fibrillation, Asthma, Coronary Artery Disease (CAD), Heart Failure, Hypertension, Prostate Disorder, Rheumatoid Arthritis (RA), Sleep Apnea/CPAP/BIPAP Additional Past Medical History / Comment(s): O2 at HS 2L, states "leaky valves" CARDIOMYOPATHY, left knee surgery, Legionerres dx 2016, History of Any Multi-Drug Resistant Organisms: MRSA Year Discovered:: 2014 MDRO Source:: back Past Surgical History: Back Surgery, Cholecystectomy, Heart Catheterization, Orthopedic Surgery, Tonsillectomy Additional Past Surgical History / Comment(s): britton cataract-LENS IMPLANTS,right HAND SX, DETACTHED RETINA LT EYE- Left knee sx. cardioversion, PAIN CLINIC PROCEDURES Past Anesthesia/Blood Transfusion Reactions: No Reported Reaction Past Psychological History: No Psychological Hx Reported Smoking Status: Former smoker Past Alcohol Use History: Rare Additional Past Alcohol Use History / Comment(s): chews tobacco occasionally. SMOKED CIGARS- X 25 YEARS QUIT 1998 Past Drug Use History: None Reported - Past Family History Father Family Medical History: Cancer Additional Family Medical History / Comment(s): lung cancer,brain tumor Mother Family Medical History: Cancer, Myocardial Infarction ([place]) Additional Family Medical History / Comment(s): skin cancer Medications and Allergies Home Medications Medication Instructions Recorded Confirmed Type Cholecalciferol [Vitamin D3 (25 1,000 unit PO BID@1200,2100 05/24/15 12/22/19 Hi story Mcg = 1000 Iu)] Spironolactone-Hctz 25-25Mg 1 tab PO QAM 05/24/15 12/22/19 History [Aldactazide 25-25 MG] Tamsulosin [Flomax] 0.4 mg PO BID@0700,1200 05/24/15 12/22/19 History Furosemide [Lasix] 40 mg PO QAM 02/26/19 12/22/19 History Montelukast [Singulair] 10 mg PO HS 02/26/19 12/22/19 History Atorvastatin [Lipitor] 20 mg PO QAM 03/11/19 12/22/19 History Budesonide-Formot 160-4.5 Mcg 2 puff INHALATION RT-BID 03/11/19 12/22/19 History [Symbicort 160-4.5 Mcg Inhaler] Ferrous Sulfate [Iron (65 MG 325 mg PO DAILY@1200 03/11/19 12/22/19 History Elemental)] Warfarin [Coumadin] 5 mg PO SUMOTUTHFRSA 10/05/19 12/22/19 History Warfarin [Coumadin] 7.5 mg PO WE 10/05/19 12/22/19 History HYDROcodone/APAP 10-325MG [[place] 1 tab PO Q8H PRN 10/28/19 12/22/19 History 10-325] Albuterol Sulfate [Ventolin HFA] 2 puff INHALATION RT-Q6H PRN 12/22/19 12/22/19 History Cyclobenzaprine [Flexeril] 10 mg PO BID@1200,2100 12/22/19 12/22/19 History Gabapentin 600 mg PO Q8H 12/22/19 12/22/19 History Metoprolol Tartrate [Lopressor] 100 mg PO TID 12/22/19 12/22/19 History Allergies Allergy/AdvReac Type Severity Reaction Status Date / Time oxycodone HCl AdvReac Confusion Verified 12/22/19 18:10 [From OxyContin] Physical Examination The patient is a pleasant 69-year-old male who is in no acute distress. He is alert and oriented 3. There is pain over the subacromial region and anterior shoulder to palpation. There is subacromial impingement. Hawkin's is positive. Neer negative. Range of motion reveals abduction is to 90. Extension is 10. Flexion is to 90. There is no anterior instability of the shoulder. Negative shoulder apprehension. Full, painless range of motion of the elbow, forearm, wrist and hand. Circulatory status is intact. Neurovascular status is intact. Neurosensory is intact. Results - Labs Labs: Abnormal Lab Results - Last 24 Hours (Table) 12/25/19 12/25/19 12/25/19 Range/Units 06:18 06:18 06:18 WBC 11.4 H (3.8-10.6) k/uL MCHC 30.9 L (31.0-37.0) g/dL Neutrophils # 8.4 H (1.3-7.7) k/uL Basophils # 0.3 H (0-0.2) k/uL PT 27.4 H (9.0-12.0) sec INR 2.8 H (<1.2) Chloride 96 L (98-107) mmol/L Carbon Dioxide 32 H (22-30) mmol/L BUN 27 H (9-20) mg/dL Creatinine 1.50 H (0.66-1.25) mg/dL Glucose 136 H (74-99) mg/dL H & H 12/22/19 12/23/19 12/24/19 Range/Units 17:30 05:28 05:22 Hgb 13.5 13.5 13.9 (13.0-17.5) gm/dL Hct 42.8 43.4 44.6 (39.0-53.0) % 12/25/19 Range/Units 06:18 Hgb 14.5 (13.0-17.5) gm/dL Hct 46.9 (39.0-53.0) % Coagulation 12/22/19 12/23/19 12/24/19 Range/Units 17:30 09:18 05:22 INR 2.6 H 2.5 H 2.8 H (<1.2) 12/25/19 Range/Units 06:18 INR 2.8 H (<1.2) Result Diagrams: 12/25/19 06:18 12/25/19 06:18 - Diagnostic results Shoulder x-ray: image reviewed (3 views of the left shoulder reveal AC arthritis) Assessment and Plan (1) Bursitis of left shoulder Current Visit: Yes Status: Acute Code(s): M75.52 - BURSITIS OF LEFT SHOULDER SNOMED Code(s): 175453843 (2) Left shoulder pain Current Visit: Yes Status: Acute Code(s): M25.512 - PAIN IN LEFT SHOULDER SNOMED Code(s): 35351224 (3) Tendonitis of left rotator cuff Current Visit: Yes Status: Acute Code(s): M75.82 - OTHER SHOULDER LESIONS, LEFT SHOULDER SNOMED Code(s): 11927508617644382 Plan: The clinical and x-ray findings were discussed at length with the patient. The natural history of this problem is discussed and treatment plan is outlined. Alternatives for treatment were discussed including medication; steroidal versus non-steroidal, corticosteroid injection, physical therapy, bracing and surgical treatment.We have discussed operative versus non-operative treatment. The pros and cons of each treatment are discussed along with potential complications. Non-operative treatment is recommended to include modification of activities and oral medications as well as periodic corticosteroid injections. The patient opts to proceed with a left shoulder subacromial corticosteroid injection today. Patient is to be reasonable with progressive activities to tolerance. Avoid activities that put the shoulder at risk. Continue gentle ROM of the shoulder to prevent stiffness. Further work up may be indicated if the patient fails to make improvement. The patient may be discharged from an orthopedic standpoint, he may follow-up with either our office or Dr. Terry upon discharge if the shoulder remains painful. Bedside procedure: A bedside timeout procedure was performed with myself and the patient and his . The left anterior shoulder was prepped with alcohol. 80 mg of Depo- Medrol (2 mL) and 2 mL of 2% lidocaine were injected into the left shoulder using sterile technique. The patient tolerated the procedure well. The patient may apply ice tonight if the shoulder becomes painful. Monitor for increased pain, erythema, warmth, fever, chills, etc and contact us with the development o f these.
--- NOTE | 2019-12-25 16:16 | P.PN ---
Subjective This is a pleasant 69 years old male with past medical history of her failure, atrial fibrillation on Coumadin, asthma, coronary artery disease, sleep apnea on CPAP, rheumatoid arthritis, prostate problem. Chronic kidney disease stage III. Obesity. Patient presents because of some dyspnea, associated with bloating and increased leg swelling over 2-3 weeks.. He went to see his inspector balance wheel motion Dr. Everett yesterday and he referred him to the hospital. Patient denies chest pain or abdominal pain or nausea vomiting. Patient is on chronic hypoxic respiratory failure on 4 L oxygen via nasal cannula. Vitals stable. WBC is 10.7 K, INR is 2.5. Creatinine is 1.4, With baseline 1.2-1.6. 12/24/2019 Patient feels better,he is dyspneic but less than yesterday, he has less leg swelling. Patient looks like in negative balance. He still complaining from left shoulder pain with limitation in raising his arm above his head. Shoulder x-ray: Acromioclavicular joint arthropathy. Vitals are stable and he is saturating 94% on room air. His WBC is 11.4 K, INR is 2.8. Creatinine 1.4 which is at baseline. Electrolytes are within normal limits. Urine analysis is negative. TSH is high at 7.0, while free T4 is normal. ProBNP is 1770. Troponin is negative at 0.025. Patient is on Lasix 40 mg intravenously and is on warfarin. Patient is aware of his chronic kidney disease stage III. 12/25/2019 Patient breathing easier today, his legs are still swollen to some degree, however patient is able to sit in chair without oxygen. Patient is not tachypneic. Cartilage team switch him to Lasix 40 mg daily and make an adjustment to his medication regimen and. Orthopedic input is appreciated, patient received lidocaine injection into his joint and with steroids. Vitals are stable. Labs reviewed. Objective - Vital Signs Vital signs: Vital Signs Temp 98.4 F 12/25/19 15:20 Pulse 97 12/25/19 15:20 Resp 20 12/25/19 15:48 BP 130/66 12/25/19 15:20 Pulse Ox 93 L 12/25/19 15:20 Intake & Output 12/24/19 12/25/19 12/25/19 18:59 06:59 18:59 Intake Total 460 240 Output Total 3750 850 1300 Balance -0413 -685 -2649 Weight 152.4 kg 153.3 kg Intake: Oral 460 240 Output: Urine 0030 850 1300 Other: Voiding Method Toilet Toilet # Voids 1 - Exam GENERAL: The patient is alert and oriented x3, not in any acute distress. Obese HEENT: Pupils are round and equally reacting to light. EOMI. No scleral icterus. No conjunctival pallor. Normocephalic, atraumatic. No pharyngeal erythema. No thyromegaly. CARDIOVASCULAR: S1 and S2 present. No murmurs, rubs, or gallops. -PULMONARY: Chest is clear to auscultation, no wheezing or crackles. Bilateral basal crepitation ABDOMEN: Soft, nontender, nondistended, normoactive bowel sounds. No palpable organomegaly. MUSCULOSKELETAL: No joint swelling or deformity. -EXTREMITIES: No cyanosis, clubbing,. Bilateral leg swelling with pitting edema NEUROLOGICAL: Gross neurological examination did not reveal any focal deficits. SKIN: No rashes. No petechiae - Labs CBC & Chem 7: 12/25/19 06:18 12/25/19 06:18 Labs: Abnormal Lab Results - Last 24 Hours (Table) 12/25/19 12/25/19 12/25/19 Range/Units 06:18 06:18 06:18 WBC 11.4 H (3.8-10.6) k/uL MCHC 30.9 L (31.0-37.0) g/dL Neutrophils # 8.4 H (1.3-7.7) k/uL Basophils # 0.3 H (0-0.2) k/uL PT 27.4 H (9.0-12.0) sec INR 2.8 H (<1.2) Chloride 96 L (98-107) mmol/L Carbon Dioxide 32 H (22-30) mmol/L BUN 27 H (9-20) mg/dL Creatinine 1.50 H (0.66-1.25) mg/dL Glucose 136 H (74-99) mg/dL Assessment and Plan Assessment: Acute and chronic systolic heart failure acute left shoulder bursitis Atrial fibrillation, on Coumadin Chronic kidney disease, stage III Subclinical hypothyroidism History of coronary artery disease Sleep apnea on CPAP Rheumatoid arthritis Prostate disorder Assessment Plan: This is a pleasant 69 years old male who presents with CHF. Continue with diuretic. Follow-up recommendation by Cardiology consult. Monitor electrolytes. Check a bladder scan. Follow-up recommendation by orthopedic team Labs and medication were reviewed.. Continue same treatment. Continue with symptomatic treatment. Resume home medication. Monitor lytes and vitals. DVT and GI prophylaxis. Further recommendations of the clinical course of the hipolito turner DVT prophylaxis: Warfarin GI Prophylaxis: Pepcid PT/OT: Pending
[2019-12-25 16:53] LABS: T4, Free (Free Thyroxine) 1.29 ng/dL (0.78-2.19)
[2019-12-25] MEDS: WARFARIN 5 MG TAB PO SCH (17:47)
--- NOTE | 2019-12-25 22:27 | P.PN ---
Subjective Patient is resting comfortably in a chair no shortness of breath and dizziness lightheadedness or palpitations He looks better luck comfortable than yesterday On examination Breath sounds are clear few scattered rhonchi and crackles at the bases Heart sounds irregular with normal no murmurs or gallops rubs Extremities are warm edema Blood pressure 130s systolic Suggest Reduce Lasix 40 mg IV once daily Continue current medications are the changes Watch for any additional episodes of hypertension Objective - Vital Signs Vital signs: Vital Signs Temp 97.8 F 12/25/19 20:00 Pulse 63 12/25/19 20:28 Resp 20 12/25/19 20:00 BP 143/79 12/25/19 20:00 Pulse Ox 92 L 12/25/19 20:00 Intake & Output 12/25/19 12/25/19 12/26/19 06:59 18:59 06:59 Intake Total 420 Output Total 850 1300 Balance -850 -880 Weight 153.3 kg Intake: Oral 420 Output: Urine 850 1300 Other: Voiding Method Toilet Toilet Toilet - Labs CBC & Chem 7: 12/25/19 06:18 12/25/19 06:18 Labs: Abnormal Lab Results - Last 24 Hours (Table) 12/25/19 12/25/19 12/25/19 Range/Units 06:18 06:18 06:18 WBC 11.4 H (3.8-10.6) k/uL MCHC 30.9 L (31.0-37.0) g/dL Neutrophils # 8.4 H (1.3-7.7) k/uL Basophils # 0.3 H (0-0.2) k/uL PT 27.4 H (9.0-12.0) sec INR 2.8 H (<1.2) Chloride 96 L (98-107) mmol/L Carbon Dioxide 32 H (22-30) mmol/L BUN 27 H (9-20) mg/dL Creatinine 1.50 H (0.66-1.25) mg/dL Glucose 136 H (74-99) mg/dL TSH (0.465-4.680) mIU/L 12/25/19 Range/Units 06:18 WBC (3.8-10.6) k/uL MCHC (31.0-37.0) g/dL Neutrophils # (1.3-7.7) k/uL Basophils # (0-0.2) k/uL PT (9.0-12.0) sec INR (<1.2) Chloride (98-107) mmol/L Carbon Dioxide (22-30) mmol/L BUN (9-20) mg/dL Creatinine (0.66-1.25) mg/dL Glucose (74-99) mg/dL TSH 5.360 H (0.465-4.680) mIU/L
[2019-12-25 23:01] VITALS: RESP 18
[2019-12-26] MEDS: TAMSULOSIN 0.4 MG CAP.ER.24H PO SCH ×2 (06:51→12:17)
[2019-12-26 06:57] LABS: Basophils # (A) 0.1 k/uL (0-0.2); Basophils % (A) 1 %; Eosinophils # (A) 0.2 k/uL (0-0.7); Eosinophils % (A) 1 %; HGB 14.4 gm/dL (13.0-17.5); Lymphocytes % (A) 8 %; MCH 27.8 pg (25.0-35.0); MCHC 31.3 g/dL (31.0-37.0); Mean Platelet Volume 7.1; Monocytes # (A) 0.6 k/uL (0-1.0); Monocytes % (A) 5 %; Neutrophils # (A) 11.2 k/uL (1.3-7.7); Neutrophils % (A) 84 %; Platelet Count 280 k/uL (150-450); RBC 5.17 m/uL (4.30-5.90); RDW 14.2 % (11.5-15.5); WBC 13.3 k/uL (3.8-10.6)
[2019-12-26 07:05] LABS: INR 2.8 (<1.2); Prothrombin Time 26.8 sec (9.0-12.0)
[2019-12-26 07:22] LABS: Calcium 9.2 mg/dL (8.4-10.2)
[2019-12-26] MEDS: SYMBICORT 160-4.5 MCG INHALER INHALATION SCH ×2 (08:31→20:23)
[2019-12-26] MEDS: ALBUTEROL NEBULIZED 2.5 MG/3 ML INHALATION PRN (08:31)
[2019-12-26] MEDS ORDERED: FUROSEMIDE 10 MG/ML 4 ML VIAL IV SCH (09:00)
[2019-12-26] MEDS: CHOLECALCIFEROL 1,000 UNIT TAB PO SCH (09:03)
[2019-12-26] MEDS: FAMOTIDINE 20 MG TAB PO SCH (09:03)
[2019-12-26] MEDS: ATORVASTATIN 20 MG TAB PO SCH (09:03)
[2019-12-26] MEDS: GABAPENTIN 300 MG CAP PO SCH ×2 (09:03→17:40)
[2019-12-26] MEDS: SPIRONOLACTONE-HCTZ 25-25MG 1 EACH TAB PO SCH (09:03)
[2019-12-26] MEDS: MONTELUKAST 10 MG TAB PO SCH (09:03)
[2019-12-26] MEDS: METOPROLOL SUCCINATE (ER) 100 MG TAB.ER.24H PO SCH ×2 (09:03→17:40)
[2019-12-26 12:16] VITALS: BP 119/84; PULSE 71; TEMP 98
[2019-12-26] MEDS: CYCLOBENZAPRINE 10 MG TAB PO SCH (12:17)
[2019-12-26] MEDS: FERROUS SULFATE 325 MG TAB PO SCH (12:17)
--- NOTE | 2019-12-26 14:07 | P.PN ---
Subjective This is a pleasant 69 years old male with past medical history of her failure, atrial fibrillation on Coumadin, asthma, coronary artery disease, sleep apnea on CPAP, rheumatoid arthritis, prostate problem. Chronic kidney disease stage III. Obesity. Patient presents because of some dyspnea, associated with bloating and increased leg swelling over 2-3 weeks.. He went to see his production utility worker Dr. Everett yesterday and he referred him to the hospital. Patient denies chest pain or abdominal pain or nausea vomiting. Patient is on chronic hypoxic respiratory failure on 4 L oxygen via nasal cannula. Vitals stable. WBC is 10.7 K, INR is 2.5. Creatinine is 1.4, With baseline 1.2-1.6. 12/24/2019 Patient feels better,he is dyspneic but less than yesterday, he has less leg swelling. Patient looks like in negative balance. He still complaining from left shoulder pain with limitation in raising his arm above his head. Shoulder x-ray: Acromioclavicular joint arthropathy. Vitals are stable and he is saturating 94% on room air. His WBC is 11.4 K, INR is 2.8. Creatinine 1.4 which is at baseline. Electrolytes are within normal limits. Urine analysis is negative. TSH is high at 7.0, while free T4 is normal. ProBNP is 1770. Troponin is negative at 0.025. Patient is on Lasix 40 mg intravenously and is on warfarin. Patient is aware of his chronic kidney disease stage III. 12/25/2019 Patient breathing easier today, his legs are still swollen to some degree, however patient is able to sit in chair without oxygen. Patient is not tachypneic. Cartilage team switch him to Lasix 40 mg daily and make an adjustment to his medication regimen and. Orthopedic input is appreciated, patient received lidocaine injection into his joint and with steroids. Vitals are stable. Labs reviewed. 12/26/2019 Patient is still improving gradually and today he feels better, actually he was asking me if he is going home today. No chest pain. No other new complaints. His total have bilateral leg swelling. He had injection in his left shoulder yesterday and he tried to exercise it better today however he still complaining of from pain, continue with pain management and he can use ice packs. He is hemodynamically stable and is saturating 96% on room air. His WBC is 13.3 K but he has chronic leukocytosis and it is within range. INR is stable at 2.8. And creatinine back to normal at 1.2 today. TSH is 5.3 and free T4 is 1.29, it looks like the patient has subclinical hypothyroidism, patient does not need thyroid hormone replacement Therapy upon my evaluation Patient medically family discharge home once is cleared by cardiology team Objective - Vital Signs Vital signs: Vital Signs Temp 98 F 12/26/19 12:00 Pulse 71 12/26/19 12:00 Resp 18 12/26/19 08:00 BP 119/84 12/26/19 12:00 Pulse Ox 96 12/26/19 12:00 Intake & Output 12/25/19 12/26/19 12/26/19 18:59 06:59 18:59 Intake Total 420 840 Output Total 1300 1200 Balance -880 -1200 840 Weight 153.6 kg Intake: Oral 420 840 Output: Urine 1300 1200 Other: Voiding Method Toilet Toilet # Voids 1 - Exam GENERAL: The patient is alert and oriented x3, not in any acute distress. Obese HEENT: Pupils are round and equally reacting to light. EOMI. No scleral icterus. No conjunctival pallor. Normocephalic, atraumatic. No pharyngeal erythema. No thyromegaly. CARDIOVASCULAR: S1 and S2 present. No murmurs, rubs, or gallops. -PULMONARY: Chest is clear to auscultation, no wheezing or crackles. Bilateral basal crepitation ABDOMEN: Soft, nontender, nondistended, normoactive bowel sounds. No palpable organomegaly. MUSCULOSKELETAL: No joint swelling or deformity. -EXTREMITIES: No cyanosis, clubbing,. Bilateral leg swelling with pitting edema NEUROLOGICAL: Gross neurological examination did not reveal any focal deficits. SKIN: No rashes. No petechiae - Labs CBC & Chem 7: 12/26/19 06:17 12/26/19 06:17 Labs: Abnormal Lab Results - Last 24 Hours (Table) 12/25/19 12/26/19 12/26/19 Range/Units 06:18 06:17 06:17 WBC 13.3 H (3.8-10.6) k/uL Neutrophils # 11.2 H (1.3-7.7) k/uL PT (9.0-12.0) sec INR (<1.2) Carbon Dioxide 31 H (22-30) mmol/L BUN 27 H (9-20) mg/dL Glucose 184 H (74-99) mg/dL TSH 5.360 H (0.465-4.680) mIU/L 12/26/19 Range/Units 06:17 WBC (3.8-10.6) k/uL Neutrophils # (1.3-7.7) k/uL PT 26.8 H (9.0-12.0) sec INR 2.8 H (<1.2) Carbon Dioxide (22-30) mmol/L BUN (9-20) mg/dL Glucose (74-99) mg/dL TSH (0.465-4.680) mIU/L Assessment and Plan Assessment: Acute and chronic systolic heart failure , improving acute left shoulder bursitis, status post steroid injection by orthopedic team Atrial fibrillation, on Coumadin Chronic kidney disease, stage III Subclinical hypothyroidism History of coronary artery disease Sleep apnea on CPAP Rheumatoid arthritis Prostate disorder Assessment Plan: This is a pleasant 69 years old male who presents with CHF. Continue with diuretic. Follow-up recommendation by Cardiology consult. Monitor electrolytes. . Follow-up recommendation by orthopedic team. Patient is aware of his follow-up appointments with Dr. Everett on 01/05 and orthopedic team as needed Labs and medication were reviewed.. Continue same treatment. Continue with symptomatic treatment. Resume home medication. Monitor lytes and vitals. DVT and GI prophylaxis. Further recommendations of the clinical course of the patient DVT prophylaxis: Warfarin GI Prophylaxis: Pepcid PT/OT: Pending
--- NOTE | 2019-12-26 17:07 | P.PN ---
Subjective This is Consuelo Gonzalez PA-C dictating a progress note on this patient The patient was interviewed and examined by me as well as by Dr. Edmondson Case discussed with Dr. Edmondson and he agrees with the plan of care HPI/interval history Patient is a 69-year-old male with a past medical history of atrial fibrillation, nonischemic cardiomyopathy, hypertension and CAD who presented with complaints of worsening shortness of breath, PND and orthopnea. He was admitted for treatment of an acute CHF exacerbation. He has been diuresing on IV Lasix. He should seen and examined sitting in the chair. States his breathing has improved and he is feeling much better. He states he is putting out quite a bit of urine although his weight remains the same today as yesterday. EXAMINATION Patient is afebrile, pulse 70s, respirations 18, blood pressure 119/84, oxygen saturation 96% on room air Patient seen and examined resting comfortably in the chair, in no acute distress Breath sounds diminished bilaterally Heart is irregularly irregular, no audible murmurs 1+ pitting edema bilaterally REVIEW OF LABS, ECG WBC 13.3, hemoglobin 14.4, platelets 280, potassium 4.0, BUN 27, creatinine 1.22 IMPRESSION / ASSESSMENT: Acute on chronic Systolic CHF, symptoms improving however he still has not lost any weight Nonischemic cardiomyopathy Mild nonobstructive CAD Obesity Hypertension, blood pressure stable Dyslipidemia Persistent atrial fibrillation, anticoagulated with Coumadin, rate controlled LILLIE PLAN: continue IV Lasix 40 mg daily Continue metoprolol 100 mg by mouth twice a day for rate control Anticoagulation with Coumadin Continue to monitor I AND O, daily weights, low sodium diet Objective - Vital Signs Vital signs: Vital Signs Temp 98 F 12/26/19 12:00 Pulse 71 12/26/19 12:00 Resp 18 12/26/19 08:00 BP 119/84 12/26/19 12:00 Pulse Ox 96 12/26/19 12:00 Intake & Output 12/25/19 12/26/19 12/26/19 18:59 06:59 18:59 Intake Total 420 840 Output Total 1300 1200 Balance -880 -1200 840 Weight 153.6 kg Intake: Oral 420 840 Output: Urine 1300 1200 Other: Voiding Method Toilet Toilet # Voids 1 - Labs CBC & Chem 7: 12/26/19 06:17 12/26/19 06:17 Labs: Abnormal Lab Results - Last 24 Hours (Table) 12/25/19 12/26/19 12/26/19 Range/Units 06:18 06:17 06:17 WBC 13.3 H (3.8-10.6) k/uL Neutrophils # 11.2 H (1.3-7.7) k/uL PT (9.0-12.0) sec INR (<1.2) Carbon Dioxide 31 H (22-30) mmol/L BUN 27 H (9-20) mg/dL Glucose 184 H (74-99) mg/dL TSH 5.360 H (0.465-4.680) mIU/L 12/26/19 Range/Units 06:17 WBC (3.8-10.6) k/uL Neutrophils # (1.3-7.7) k/uL PT 26.8 H (9.0-12.0) sec INR 2.8 H (<1.2) Carbon Dioxide (22-30) mmol/L BUN (9-20) mg/dL Glucose (74-99) mg/dL TSH (0.465-4.680) mIU/L
[2019-12-26] MEDS: WARFARIN 5 MG TAB PO SCH (17:40)
== END 2019-12-26 19:15 | disposition home or self-care (01) | DRG 291 ==
LOC: 3SCARD 16:11
PROVIDERS: ADMIT Internal Medicine; ATTEND Internal Medicine
DX: I13.0 Hypertensive heart and chronic kidney disease with heart failure and stage 1 through stage 4 chronic kidney disease, or unspecified chronic kidney disease (principal); I50.23 Acute on chronic systolic (congestive) heart failure; Z68.43 Body mass index [BMI] 50.0-59.9, adult; J96.11 Chronic respiratory failure with hypoxia; I48.19 Other persistent atrial fibrillation; I42.8 Other cardiomyopathies; I25.10 Atherosclerotic heart disease of native coronary artery without angina pectoris; M06.9 Rheumatoid arthritis, unspecified; N42.9 Disorder of prostate, unspecified; N18.3 Chronic kidney disease, stage 3 (moderate); J45.909 Unspecified asthma, uncomplicated; G47.33 Obstructive sleep apnea (adult) (pediatric); E66.01 Morbid (severe) obesity due to excess calories; M75.52 Bursitis of left shoulder; M19.012 Primary osteoarthritis, left shoulder; E03.9 Hypothyroidism, unspecified; D72.829 Elevated white blood cell count, unspecified; E78.5 Hyperlipidemia, unspecified; Z71.3 Dietary counseling and surveillance; Z79.01 Long term (current) use of anticoagulants; Z79.899 Other long term (current) drug therapy; Z79.51 Long term (current) use of inhaled steroids; Z99.81 Dependence on supplemental oxygen; Z86.14 Personal history of Methicillin resistant Staphylococcus aureus infection; Z96.652 Presence of left artificial knee joint; Z98.890 Other specified postprocedural states; Z86.19 Personal history of other infectious and parasitic diseases; Z90.49 Acquired absence of other specified parts of digestive tract; Z98.42 Cataract extraction status, left eye; Z98.41 Cataract extraction status, right eye; Z96.1 Presence of intraocular lens; Z87.891 Personal history of nicotine dependence; Z88.5 Allergy status to narcotic agent; Z80.1 Family history of malignant neoplasm of trachea, bronchus and lung; Z80.8 Family history of malignant neoplasm of other organs or systems; Z82.49 Family history of ischemic heart disease and other diseases of the circulatory system
CPT/HCPCS: 80048; 81003; 82550; 82553; 83880; 84439; 84443; 84484; 85025; 85027; 85610; 94640; 94760

== ENCOUNTER → 2020-02-03 | Outpatient (CLI) | payer MEDICARE, BC ==
[2020-02-03 13:47] VITALS: BP 132/97; PULSE 66; RESP 18
--- NOTE | 2020-02-03 14:22 | P.PAINPG ---
Subjective Progress Note Date: 02/03/20 Asif is a 70-year-old gentleman who presents today for follow-up for his low back pain. He continues to have pain across his low back radiating into both legs. He has numbness and tingling in both legs at times. He is able to ambulate for short periods of time secondary to his back pain as well as his shortness of breath secondary to COPD and congestive heart failure. He was just recently discharged from the hospital secondary to his congestive heart failure. He also was seen in the hospital by orthopedic surgeon for his left shoulder. He reports that the pain is significantly improved and no longer bothers him. He continues use pain medication without any side effects. He uses oxygen at night as well as a CPAP machine for obstructive sleep apnea. He reports the pain medication significantly improve his overall function and do not cause any harm. He denies any side effects from the current medications. Objective - Vital Signs Vital signs: Vital Signs Temp Pulse 66 02/03/20 13:40 Resp 18 02/03/20 13:40 BP 132/97 02/03/20 13:40 Pulse Ox Intake & Output 02/02/20 02/03/20 02/03/20 18:59 06:59 18:59 Weight 148.778 kg - Exam General: Awake and alert oriented 3 no distress, obese Respiratory exam: No audible wheezing no accessory muscle usage Cardiovascular exam: regular rate, palpable bilateral pulses, no lower extremity edema Abdominal exam: No distention nontender to palpation Cervical spine: Normal alignment, Spurling's negative, facet loading negative, Insurance Claims Examiner strength is 5/5, barron negative Lumbar spine: Loss of lumbar lordosis, normal alignment, tender to palpation over bilateral paraspinal muscles, facet loading is positive bilaterally. Straight leg raise is negative. Limited range of motion due to pain with flexion, extension and side bending. Sacroiliac joints: Nontender to palpation, SALVADOR is negative, [place] negative Neuro exam: Normal sensation in bilateral upper extremities, deep tendon reflexes are 2+ bilateral upper extremities. Normal sensation in bilateral lower extremities. Deep tendon reflexes are 1+ in lower extremities Psych exam: Cooperative, appropriate mood Assessment and Plan Assessment: #1 lumbar spondylosis without myelopathy #2 lumbar degenerative disc disease #3 lumbar radiculopathy #4 obesity Plan: At this point continue the current medication regimen is not making any changes. We have reviewed the patient's maps, opioid start talking form is on file. Time with Patient: Less than 30 PQRS Measure Charge Sheet Measure #130: Documentation of Current Meds in Medical Chart: Patient's medications documented in chart Measure #226: Tobacco Use: Screen & Cessation Intervention: Pt screened for tobacco use AND intervention given Measure #111: Pneumonia Vaccination: Pneumococcal vaccine administered or previously received Measure #47: Advance Care Plan: Advance care planning discussed & documented, plan or surrogate given Measure #412: Opioid Treatment Agreement: Documented signed opioid trtmnt agreemnt min once during opioid trtmnt Measure #317: Preventitive Care & Scrn High Bld Press & F/U: Normal blood pressure, f/u not required Measure #128: Body Mass Index (BMI) Screening & Follow-up: BMI documented ABOVE normal parameters - f/u documented Measure #131: Pain Assessment & Follow-up: Pain positive & plan documented Measure #431: Unhealthy Alcohol Use Preventative Care & Scrn: Patient not identified as an unhealthy alcohol user PQRS Narrative: Smoking Status Former smoker Narcotic Agreement Date Signed 12/03/19 Blood Pressure 132/97 Pain Intensity [Lower Back] 4 Scale Used Numeric (1 - 10) Hx Alcohol Use (MH) Yes: OCC. Home Medications: Ambulatory Orders Cholecalciferol [Vitamin D3 (25 Mcg = 1000 Iu)] 1,000 unit PO BID@1200,2100 05/24/15 Spironolactone-Hctz 25-25Mg [Aldactazide 25-25 MG] 1 tab PO QAM 05/24/15 Tamsulosin [Flomax] 0.4 mg PO BID@0700,1200 05/24/15 Montelukast [Singulair] 10 mg PO HS 02/26/19 Atorvastatin [Lipitor] 20 mg PO QAM 03/11/19 Budesonide-Formot 160-4.5 Mcg [Symbicort 160-4.5 Mcg Inhaler] 2 puff INHALATION RT-BID 03/11/19 Ferrous Sulfate [Iron (65 MG Elemental)] 325 mg PO DAILY@1200 03/11/19 Warfarin [Coumadin] 5 mg PO SUMOTUTHFRSA 10/05/19 Warfarin [Coumadin] 7.5 mg PO WE 10/05/19 HYDROcodone/APAP 10-325MG [Boss 10-325] 1 tab PO Q8H PRN 10/28/19 Albuterol Sulfate [Ventolin HFA] 2 puff INHALATION RT-Q6H PRN 12/22/19 Cyclobenzaprine [Flexeril] 10 mg PO BID@1200,2100 12/22/19 Gabapentin 600 mg PO Q8H 12/22/19 Furosemide [Lasix] 40 mg PO QAM #30 tab 12/26/19 Metoprolol Succinate (ER) [Toprol XL] 100 mg PO BID #60 tab.er.24h 12/26/19 Polyethylene Glycol 3350 [Miralax] 17 gm PO DAILY PRN #2 powd.pack 12/26/19 Sennosides-Docusate Sodium [Senokot-S] 1 each PO BID PRN #8 tab 12/26/19 Controlled Substance Measures - Controlled Substance Measures Is patient prescribed a controlled substance at discharge?: Yes When asked, does pt state using other controlled substances?: No If prescribed controlled substance>3 days was MAPS reviewed?: Yes If Rx opioid, was Start Talking consent form obtained?: Yes If opioid is for acute pain is fill amount 7 days or less?: No Was information provided regarding opioid addiction?: Yes
== END | disposition home or self-care (01) ==
LOC: PNWHC3 13:25
PROVIDERS: ATTEND Hospitalist
DX: M51.16 Intervertebral disc disorders with radiculopathy, lumbar region (principal); M47.26 Other spondylosis with radiculopathy, lumbar region; E66.9 Obesity, unspecified; Z68.43 Body mass index [BMI] 50.0-59.9, adult; Z87.891 Personal history of nicotine dependence; Z79.51 Long term (current) use of inhaled steroids; Z79.899 Other long term (current) drug therapy; Z79.01 Long term (current) use of anticoagulants; Z79.891 Long term (current) use of opiate analgesic
CPT/HCPCS: 99211

== ENCOUNTER → 2020-04-18 | Outpatient (CLI) | payer MEDICARE, BC ==
--- NOTE | 2020-04-18 10:12 | P.PAINPG ---
Subjective Progress Note Date: 04/18/20 THIS ENCOUNTER WAS PERFORMED A TELEMEDICINE VISIT VIA SECURE TWO-WAY VIDEO AND AUDIO TO MINIMIZE RISK AND TRANSMISSION OF COVID-19Gloria Gold is a 70-year-old gentleman who presents for follow-up for his low back pain. He continues to have pain across his low back radiating into both legs. He has numbness and tingling in both legs at times, mostly in feet- he has recently been diagnosed with diabetes. He is able to ambulate for short periods of time secondary to his back pain as well as his shortness of breath secondary to COPD and congestive heart failure. He continues use pain medication without any side effects. He uses oxygen at night as well as a CPAP machine for obstructive sleep apnea. He reports the pain medication significantly improve his overall function and do not cause any harm. He denies any side effects from the current medications. Current pain located in low back, radiating to bilateral lower extremities, rated as 7-10/10, described as stabbing, worse witth walking, standing, at night, better with medications and rest. He continues to exercise. Review of systems is negative for chest pain, new onset weakness, numbness/tingling, abdominal pain, malaise, fever, night sweats, chills, homicidal or suicidal ideation, or bowel or bladder incontinence. He does have chronic SOB from COPD and CHF. Objective Physical exam : Constitutional: Healthy appearing, well developed, alert, in no acute distress Psychiatric: Judgement and insight intact, alert and oriented Mood and Affect: mood normal, affect appropriate Head and Face: Inspection: normocephalic atraumatic, extraocular movement intact Respiratory: Breathing non-labored nondyspneic Skin: Head and Neck: skin with no lesions of rash Gait: Able to walk without assistive device Neurologic: Sensation reduced in b/l feet per patient Assessment and Plan Assessment: #1 lumbar spondylosis without myelopathy #2 lumbar degenerative disc disease #3 lumbar radiculopathy #4 obesity, obstructive sleep apnea #5 congestive heart failure and COPD #6 diabetes Plan: At this point continue the current medication regimen. I refilled his prescriptions for Henderson and gabapentin without refills last week, as we were unable to reach the patient for his scheduled appointment. Today, I will provide Prescriptions refills for Henderson 10/73501 tablets and gabapentin 600 mg90 tablets Maps reviewed and appropriate, opioid start talking form is on file. Follow-up: In 8 weeks for medication management PQRS Measure Charge Sheet PQRS Narrative: Smoking Status Former smoker Narcotic Agreement Date Signed 12/03/19 Hx Alcohol Use (MH) Yes: OCC. Home Medications: Ambulatory Orders Cholecalciferol [Vitamin D3 (25 Mcg = 1000 Iu)] 1,000 unit PO BID@1200,2100 05/24/15 Spironolactone-Hctz 25-25Mg [Aldactazide 25-25 MG] 1 tab PO QAM 05/24/15 Tamsulosin [Flomax] 0.4 mg PO BID@0700,1200 05/24/15 Montelukast [Singulair] 10 mg PO HS 02/26/19 Atorvastatin [Lipitor] 20 mg PO QAM 03/11/19 Budesonide-Formot 160-4.5 Mcg [Symbicort 160-4.5 Mcg Inhaler] 2 puff INHALATION RT-BID 03/11/19 Ferrous Sulfate [Iron (65 MG Elemental)] 325 mg PO DAILY@1200 03/11/19 Warfarin [Coumadin] 2.5 mg PO MO 10/05/19 Warfarin [Coumadin] 5 mg PO SUTUWETHFRSA 10/05/19 Albuterol Sulfate [Ventolin HFA] 2 puff INHALATION RT-Q6H PRN 12/22/19 Furosemide [Lasix] 40 mg PO QAM #30 tab 12/26/19 Metoprolol Succinate (ER) [Toprol XL] 100 mg PO BID #60 tab.er.24h 12/26/19 Polyethylene Glycol 3350 [Miralax] 17 gm PO DAILY PRN #2 powd.pack 12/26/19 Sennosides-Docusate Sodium [Senokot-S] 1 each PO BID PRN #8 tab 12/26/19 Cyclobenzaprine [Flexeril] 10 mg PO BID@1200,2100 #60 tab 02/29/20 Gabapentin [Neurontin] 600 mg PO TID 04/15/20 HYDROcodone/APAP 10-325MG [Henderson 10-325] 1 tab PO Q8H PRN 04/15/20 Controlled Substance Measures - Controlled Substance Measures Is patient prescribed a controlled substance at discharge?: Yes When asked, does pt state using other controlled substances?: No If prescribed controlled substance>3 days was MAPS reviewed?: Yes If Rx opioid, was Start Talking consent form obtained?: Yes If opioid is for acute pain is fill amount 7 days or less?: No Was information provided regarding opioid addiction?: Yes
== END | disposition home or self-care (01) ==
LOC: PNWHC3 04-08 07:22
PROVIDERS: ATTEND Anesthesiology
DX: Z53.9 Procedure and treatment not carried out, unspecified reason (principal)

== ENCOUNTER → 2020-06-08 | Outpatient (CLI) | payer MEDICARE, BC ==
--- NOTE | 2020-06-09 07:21 | P.PAINPG ---
Subjective Progress Note Date: 06/08/20 This is follow-up visit for this patient with a history of severe and chronic low back pain secondary to lumbar failed back surgery syndrome, lumbar spondylosis with facet arthropathy, Patient currently on Coumadin for A. fib, we will not able to do interventional pain management, secondary to hypoxemia and when patient placed in prone position, and there was concern about his oxygenation. Today his pain is primarily in his lower back radiating to bilateral posterior thighs and calf's. Pain is worse with standing for greater than 10 minutes. The patient currently on [place] 10/325 every 8 hours , and Neurontin 600 mg every 8 hours Patient denies any side effect of the medication , patient denies any excessive drowsiness or sleepiness, patient denies any suicidal ideation, Patient reported that the current medication is not helping to control the pain and improve the activity of daily livings, the pain medication helping only partially Patient denies any motor or sensory deficit, denies any change in the bowel movement or urination, patient denies any fever or night sweats. Objective - Vital Signs Vital signs: Vital Signs Temp Pulse 83 06/08/20 09:36 Resp 16 06/08/20 09:36 BP 138/69 06/08/20 09:36 Pulse Ox 95 06/08/20 09:36 - Exam -Constitutiona : Cooperative , not in acute distress . -HEENT : nech : supple , no Lymphadenopathy , normal thyroid size . eyes : no ptosis , no icterus, no photophobia . - neurologic : Cranial nerve II to XII intact , no focal neurological deffecit . -psychatric : alert , oriented X 3 , appropriate affect , intact judgment and insight . -Lymphatic : no Lymphadenopathy . - musculoskeltal : Lumber spine moter stegnth lower extremities ,thigh and legs 4/5 Right side , 4/5 Left side deep tendon reflexes : normal Knee Jerk , normal ankle Jerk positive lumber facet Loading Test Range of motion of the lumbar spine Flexion 30 degrees, extension 10 degrees strait leg raising test , positive at 30 degree Fabere test positive RT Sever tenderness over the Sacroiliac joint on the Bilateral Assessment and Plan Plan: #1 lumbar spondylosis without myelopathy #2 lumbar degenerative disc disease #3 lumbar radiculopathy #4 obesity, obstructive sleep apnea #5 congestive heart failure and COPD #6 diabetes Plan: At this point continue the current medication regimen. I refilled his prescri ptions for [place] 10/325 tab every 8 hours dispense 90 with 1 refill and gabapentin 600 mg 3 times a day dispense 90 with 1 refill , Flexeril 10 mg twice a day dispense 60 with 1 refill A narcotic agreement re-signed today and urine drug screen was ordered today Maps reviewed and appropriate, opioid start talking form is on file. Follow-up: In 8 weeks for medication management Time with Patient: Less than 30 PQRS Measure Charge Sheet Measure #130: Documentation of Current Meds in Medical Chart: Patient's medications documented in chart Measure #226: Tobacco Use: Screen & Cessation Intervention: Pt not a tobacco user Measure #111: Pneumonia Vaccination: Pneumococcal vaccine administered or previously received Measure #47: Advance Care Plan: Advance care planning discussed & documented, pt chose/unable to give Measure #412: Opioid Treatment Agreement: Documented signed opioid trtmnt agreemnt min once during opioid trtmnt Measure #408: Opioid Therapy Follow-up Evaluation: Patient had f/u eval minimum every 3 months during opioid therapy Measure #317: Preventitive Care & Scrn High Bld Press & F/U: Normal blood pressure, f/u not required Measure #128: Body Mass Index (BMI) Screening & Follow-up: BMI documented ABOVE normal parameters - f/u documented Measure #131: Pain Assessment & Follow-up: Pain positive & plan documented Measure #431: Unhealthy Alcohol Use Preventative Care & Scrn: Patient identified as unhealthy alcohol user; counseling given PQRS Narrative: Smoking Status Former smoker Narcotic Agreement Date Signed 06/08/20 Blood Pressure 138/69 Pain Intensity [Lower Back] 4 Scale Used Numeric (1 - 10) Hx Alcohol Use (MH) Yes: OCC. Home Medications: Ambulatory Orders Cholecalciferol [Vitamin D3 (25 Mcg = 1000 Iu)] 1,000 unit PO BID@1200,2100 05/24/15 Spironolactone-Hctz 25-25Mg [Aldactazide 25-25 MG] 1 tab PO QAM 05/24/15 Tamsulosin [Flomax] 0.4 mg PO BID@0700,1200 05/24/15 Montelukast [Singulair] 10 mg PO HS 02/26/19 Atorvastatin [Lipitor] 20 mg PO QAM 03/11/19 Budesonide-Formot 160-4.5 Mcg [Symbicort 160-4.5 Mcg Inhaler] 2 puff INHALATION RT-BID 03/11/19 Ferrous Sulfate [Iron (65 MG Elemental)] 325 mg PO DAILY@1200 03/11/19 Warfarin [Coumadin] 2.5 mg PO MO 10/05/19 Warfarin [Coumadin] 5 mg PO SUTUWETHFRSA 10/05/19 Albuterol Sulfate [Ventolin HFA] 2 puff INHALATION RT-Q6H PRN 12/22/19 Furosemide [Lasix] 40 mg PO QAM #30 tab 12/26/19 Metoprolol Succinate (ER) [Toprol XL] 100 mg PO BID #60 tab.er.24h 12/26/19 Polyethylene Glycol 3350 [Miralax] 17 gm PO DAILY PRN #2 powd.pack 12/26/19 Sennosides-Docusate Sodium [Senokot-S] 1 each PO BID PRN #8 tab 12/26/19 Gabapentin 600 mg PO TID 30 Days #90 tab 04/18/20 HYDROcodone/APAP 10-325MG [[place] 10-325] 1 tab PO Q8H PRN 30 Days #90 tab 04/18/20 Omeprazole [PriLOSEC] 20 mg PO 1200 06/01/20 Cyclobenzaprine [Flexeril] 10 mg PO BID PRN 06/08/20 Controlled Substance Measures - Controlled Substance Measures Is patient prescribed a controlled substance at discharge?: Yes When asked, does pt state using other controlled substances?: No If prescribed controlled substance>3 days was MAPS reviewed?: Yes If Rx opioid, was Start Talking consent form obtained?: Yes If opioid is for acute pain is fill amount 7 days or less?: No Was information provided regarding opioid addiction?: Yes
[2020-06-10 09:23] VITALS: BP 138/69; PULSE 83; RESP 16
== END | disposition home or self-care (01) ==
LOC: PNWHC3 08:54
PROVIDERS: ATTEND Specialist
DX: M51.16 Intervertebral disc disorders with radiculopathy, lumbar region (principal); M47.26 Other spondylosis with radiculopathy, lumbar region; E66.9 Obesity, unspecified; G47.33 Obstructive sleep apnea (adult) (pediatric); I50.9 Heart failure, unspecified; J44.9 Chronic obstructive pulmonary disease, unspecified; E11.9 Type 2 diabetes mellitus without complications; Z68.43 Body mass index [BMI] 50.0-59.9, adult; Z87.891 Personal history of nicotine dependence; Z79.899 Other long term (current) drug therapy; Z79.51 Long term (current) use of inhaled steroids; Z79.01 Long term (current) use of anticoagulants; Z79.891 Long term (current) use of opiate analgesic
CPT/HCPCS: 80307; G0482; G0463; 99211

== ENCOUNTER → 2020-07-14 | Outpatient (CLI) | payer MEDICARE, BC ==
[2020-07-14 14:59] VITALS: RESP 16; BMI 49.8
[2020-07-14 15:24] LABS: HCT 49.2 % (39.0-53.0); HGB 15.2 gm/dL (13.0-17.5); MCH 27.7 pg (25.0-35.0); MCHC 30.9 g/dL (31.0-37.0); MCV 89.7 fL (80.0-100.0); Platelet Count 285 k/uL (150-450); RBC 5.48 m/uL (4.30-5.90); WBC 14.6 k/uL (3.8-10.6)
[2020-07-14 15:42] VITALS: BP 113/68; PULSE 105; TEMP 98.3
[2020-07-14 19:02] LABS: African American GFR (CKD) 64.5 (60.0-200.0); Albumin 4.4 g/dL (3.80-4.90); Albumin/Globulin Ratio 1.63 (1.60-3.17); Anion Gap 9.4 mmol/L (4.00-12.00); BUN/Creat Ratio 16.92 Ratio (12.00-20.00); Calcium 9.8 mg/dL (8.7-10.3); Carbon Dioxide 32.6 mmol/L (21.6-31.8); Globulin 2.7 g/dL (1.6-3.3); Non-African American GFR(CKD) 55.7 (60.0-200.0); Potassium 3.6 mmol/L (3.5-5.5); Total Bilirubin 0.6 mg/dL (0.3-1.2); Total Protein 7.1 g/dL (6.2-8.2)
[2020-07-14 19:11] LABS: Folate, Serum 7.8 ng/mL
--- NOTE | 2020-07-14 19:18 | P.HPBAR ---
Bariatric H&P - History & Physicial H&P Date: 07/14/20 History & Physicial: Visit/CC: Initial Patient initial contact: Initial weight: 144.242 kg Initial weight in pounds: 318.00 Height: 5 ft 7 in Initial BMI: 49.8 Last weight: Current weight: 144.242 kg Current weight in pounds: 318.00 Current BMI: 49.8 [place] body weight (based on NIH guidelines): 67.132 kg Excess body weight loss: 0.0% The patient is a 70 year-old M who presents for Bariatric Assessment. Patient presents today for new patient bariatric evaluation. He is present today with his . He went to a recent seminar that I presented. He is most interested in sleeve gastrectomy. Patient suffers from hypertension, A. fib, heart disease, chronic back pain, hypercholesterolemia, type 2 diabetes, asthma, mild reflux symptoms. Denies DVT or dysphagia. BMI 49. Does use chewing tobacco but no inhaled tobacco use. Patient sees cardiology and pulmonary. Surgical history includes back, lap irma, and hand. No history of EGD. Review of Systems The patient denies any acute changes in vision or hearing, no dysphagia or odynophagia, no chest pain or shortness of breath, no dysuria or hematuria, no headache, no runny nose, no rectal bleeding or melena, no unexplained weight loss Past Medical History Past Medical History: Atrial Fibrillation, Asthma, Coronary Artery Disease (CAD), Heart Failure, Diabetes Mellitus, Hypertension, Prostate Disorder, Rheumatoid Arthritis (RA), Sleep Apnea/CPAP/BIPAP Additional Past Medical History / Comment(s): O2 at HS 2L, states "leaky valves" CARDIOMYOPATHY, left knee surgery, Legionerres dx 2016, diet controlled diabetic, checks sugar couple times daily History of Any Multi-Drug Resistant Organisms: MRSA Year Discovered:: 2014 MDRO Source:: back Past Surgical History: Back Surgery, Cholecystectomy, Heart Catheterization, Orthopedic Surgery, Tonsillectomy Additional Past Surgical History / Comment(s): britton cataract-LENS IMPLANTS,right HAND SX, DETACHED RETINA LT EYE- Left knee sx. cardioversion, PAIN CLINIC PROCEDURES Past Anesthesia/Blood Transfusion Reactions: No Reported Reaction Past Psychological History: No Psychological Hx Reported Smoking Status: Unknown if ever smoked Past Alcohol Use History: Rare Additional Past Alcohol Use History / Comment(s): chews tobacco occasionally. SMOKED CIGARS- X 25 YEARS QUIT 1998 Past Drug Use History: None Reported - Past Family History Father Family Medical History: Cancer Additional Family Medical History / Comment(s): lung cancer,brain tumor Mother Family Medical History: Cancer, Myocardial Infarction (MA) Additional Family Medical History / Comment(s): skin cancer Surgical - Exam Vital Signs Resp 16 07/14/20 14:57 Physical exam: General: Well-developed, well-nourished HEENT: Normocephalic, sclerae nonicteric Abdomen: Nontender, nondistended Extremities: No edema Neuro: Alert and oriented Results - Labs 07/14/20 15:02 07/14/20 15:02 Abnormal Lab Results - Last 24 Hours (Table) 07/14/20 07/14/20 Range/Units 15:02 15:02 WBC 14.6 H (3.8-10.6) k/uL MCHC 30.9 L (31.0-37.0) g/dL Carbon Dioxide 32.6 H (21.6-31.8) mmol/L Est GFR (CKD-EPI)NonAf 55.7 L (60.0-200.0) Glucose 131 H (70-110) mg/dL Iron 49 L (65-175) ug/dL Diabetes panel 07/14/20 Range/Units 15:02 Sodium 142 (135-145) mmol/L Potassium 3.6 (3.5-5.5) mmol/L Chloride 100 (96-109) mmol/L Carbon Dioxide 32.6 H (21.6-31.8) mmol/L BUN 22.0 (9.0-27.0) mg/dL Creatinine 1.3 (0.6-1.5) mg/dL Glucose 131 H (70-110) mg/dL Calcium 9.8 (8.7-10.3) mg/dL AST 27 (14-35) U/L ALT 45 (10-49) U/L Alkaline Phosphatase 71 (41-126) U/L Total Protein 7.1 (6.2-8.2) g/dL Albumin 4.40 (3.80-4.90) g/dL Calcium panel 07/14/20 Range/Units 15:02 Calcium 9.8 (8.7-10.3) mg/dL Albumin 4.40 (3.80-4.90) g/dL Pituitary panel 07/14/20 Range/Units 15:02 Sodium 142 (135-145) mmol/L Potassium 3.6 (3.5-5.5) mmol/L Chloride 100 (96-109) mmol/L Carbon Dioxide 32.6 H (21.6-31.8) mmol/L BUN 22.0 (9.0-27.0) mg/dL Creatinine 1.3 (0.6-1.5) mg/dL Glucose 131 H (70-110) mg/dL Calcium 9.8 (8.7-10.3) mg/dL Adrenal panel 07/14/20 Range/Units 15:02 Sodium 142 (135-145) mmol/L Potassium 3.6 (3.5-5.5) mmol/L Chloride 100 (96-109) mmol/L Carbon Dioxide 32.6 H (21.6-31.8) mmol/L BUN 22.0 (9.0-27.0) mg/dL Creatinine 1.3 (0.6-1.5) mg/dL Glucose 131 H (70-110) mg/dL Calcium 9.8 (8.7-10.3) mg/dL Total Bilirubin 0.6 (0.3-1.2) mg/dL AST 27 (14-35) U/L ALT 45 (10-49) U/L Alkaline Phosphatase 71 (41-126) U/L Total Protein 7.1 (6.2-8.2) g/dL Albumin 4.40 (3.80-4.90) g/dL Bariatric Assessment & Plan (1) Morbid obesity with BMI of 45.0-49.9, adult Narrative/Plan: 70-year-old male with complaints of morbid obesity. Interested in sleeve gastrectomy. Risks and benefits of the surgical options reviewed in detail with the patient today. All questions answered. We'll obtain cardiac and pulmonary clearance in addition to his primary care physician clearance. Will proceed with upper endoscopy in the near future and outpatient follow-up with me in the office following that. Status: Acute Bariatric Checklist Checklist: Plan: Checklist: EGD: 1. Hiatal hernia: 2. H. Pylori: HgbA1c: Vitamin D: Smoking: Former smoker Primary care physician referral: DR. DIANA Psychiatry clearance: Cardiology clearance: Sleep study: Diet journal: VTE risk score: VTE risk level: Rehab needs at discharge:
== END | disposition home or self-care (01) ==
LOC: BARWHC3 14:39
PROVIDERS: ATTEND Surgery
DX: E66.01 Morbid (severe) obesity due to excess calories (principal); K90.89 Other intestinal malabsorption; E55.9 Vitamin D deficiency, unspecified; Z68.42 Body mass index [BMI] 45.0-49.9, adult; Z87.891 Personal history of nicotine dependence; Z90.49 Acquired absence of other specified parts of digestive tract
CPT/HCPCS: 84425; 80053; 82607; 82746; 83540; 85027; 93005; 36415; G0463; 99211

== ENCOUNTER → 2020-08-03 | Outpatient (CLI) | payer MEDICARE, BC ==
[2020-08-03 09:33] VITALS: BP 109/74; PULSE 82; RESP 18; TEMP 98.4
--- NOTE | 2020-08-03 09:54 | P.PN ---
Subjective Progress Note Date: 08/03/20 This is follow-up visit for this patient with a history of severe and chronic low back pain secondary to lumbar failed back surgery syndrome, lumbar spondylosis with facet arthropathy, Patient currently on Coumadin for A. fib, we will not able to do interventional pain management, secondary to hypoxemia and when patient placed in prone position, and there was concern about his oxygenation. Today his pain is primarily in his lower back radiating to bilateral posterior thighs and calf's. Pain is worse with standing for greater than 10 minutes. The patient currently on [place] 10/325 every 8 hours , and Neurontin 600 mg every 8 hours , Flexeril 10 mg twice a Patient denies any side effect of the medication , patient denies any excessive drowsiness or sleepiness, patient denies any suicidal ideation, Patient reported that the current medication is not helping to control the pain and improve the activity of daily livings, the pain medication helping only partially Patient denies any motor or sensory deficit, denies any change in the bowel movement or urination, patient denies any fever or night sweats. -Constitutiona : Cooperative , not in acute distress . -HEENT : nech : supple , no Lymphadenopathy , normal thyroid size . eyes : no ptosis , no icterus, no photophobia . - neurologic : Cranial nerve II to XII intact , no focal neurological deffecit . -psychatric : alert , oriented X 3 , appropriate affect , intact judgment and insight . -Lymphatic : no Lymphadenopathy . - musculoskeltal : Lumber spine moter stegnth lower extremities ,thigh and legs 4/5 Right side , 4/5 Left side deep tendon reflexes : normal Knee Jerk , normal ankle Jerk positive lumber facet Loading Test Range of motion of the lumbar spine Flexion 30 degrees, extension 10 degrees strait leg raising test , positive at 30 degree Fabere test positive RT and positive left Sever tenderness over the Sacroiliac joint on the Bilateral Assessment and Plan #1 lumbar spondylosis without myelopathy #2 lumbar degenerative disc disease #3 lumbar radiculopathy #4 obesity, obstructive sleep apnea #5 congestive heart failure and COPD #6 diabetes At this point continue the current medication regimen. I refilled his prescriptions for [place] 10/325 tab every 8 hours dispense 90 with 1 refill and gabapentin 600 mg 3 times a day dispense 90 with 1 refill , Flexeril 10 mg twice a day dispense 60 with 1 refill Maps reviewed and appropriate, opioid start talking form is on file. Follow-up: In 8 weeks for medication management Patient in the process of getting bariatric surgery in the near future Time with Patient: Less than 30 PQRS Measure Charge Sheet Measure #130: Documentation of Current Meds in Medical Chart: Patient's medications documented in chart Measure #226: Tobacco Use: Screen & Cessation Intervention: Pt not a tobacco user Measure #111: Pneumonia Vaccination: Pneumococcal vaccine administered or previously received Measure #47: Advance Care Plan: Advance care planning discussed & documented, pt chose/unable to give Measure #412: Opioid Treatment Agreement: Documented signed opioid trtmnt agreemnt min once during opioid trtmnt Measure #408: Opioid Therapy Follow-up Evaluation: Patient had f/u eval minimum every 3 months during opioid therapy Measure #317: Preventitive Care & Scrn High Bld Press & F/U: Normal blood pressure, f/u not required Measure #128: Body Mass Index (BMI) Screening & Follow-up: BMI documented ABOVE normal parameters - f/u documented Measure #131: Pain Assessment & Follow-up: Pain positive & plan documented Measure #431: Unhealthy Alcohol Use Preventative Care & Scrn: Patient identified as unhealthy alcohol user; counseling given PQRS Narrative: - Controlled Substance Measures Is patient prescribed a controlled substance at discharge?: Yes When asked, does pt state using other controlled substances?: No If prescribed controlled substance>3 days was MAPS reviewed?: Yes If Rx opioid, was Start Talking consent form obtained?: Yes If opioid is for acute pain is fill amount 7 days or less?: No Was information provided regarding opioid addiction?: Yes Objective - Vital Signs Vital signs: Vital Signs Temp 98.4 F 08/03/20 09:30 Pulse 82 08/03/20 09:30 Resp 18 08/03/20 09:30 BP 109/74 08/03/20 09:30 Pulse Ox 94 L 08/03/20 09:30
== END | disposition home or self-care (01) ==
LOC: PNWHC3 09:22
PROVIDERS: ATTEND Specialist
DX: M47.26 Other spondylosis with radiculopathy, lumbar region (principal); M51.16 Intervertebral disc disorders with radiculopathy, lumbar region; G47.33 Obstructive sleep apnea (adult) (pediatric); J44.9 Chronic obstructive pulmonary disease, unspecified; I50.9 Heart failure, unspecified; E66.9 Obesity, unspecified; E11.9 Type 2 diabetes mellitus without complications
CPT/HCPCS: 99211

== ENCOUNTER → 2020-09-28 | Outpatient (CLI) | payer MEDICARE, BC ==
[2020-09-28 12:20] VITALS: BP 159/116; PULSE 91; RESP 14; TEMP 98
--- NOTE | 2020-09-28 12:23 | P.PAINPG ---
Subjective Progress Note Date: 09/28/20 Asif presents for follow-up today. He reports his been doing pretty well with the current medication regimen. He reports his VAS today is about 4-10. He still having over soreness in his back but nothing too bad. His pain which is worse is standing or walking or bending and better with rest. Medication has improved his overall function. He has started to lose weight he lost about 30 pounds over last few months. He was evaluated for bariatric surgery but feels that he is a little too old his heart doctor does not believe is a very good idea. So he started working on the dietary restrictions provided to him by the clinic. He feels a little bit better. He'll continue with that. We discussed this in detail again. Objective - Vital Signs Vital signs: Vital Signs Temp 98.0 F 09/28/20 12:14 Pulse 91 09/28/20 12:14 Resp 14 09/28/20 12:14 BP 159/116 09/28/20 12:14 Pulse Ox 92 L 09/28/20 12:14 Intake & Output 09/27/20 09/28/20 09/28/20 18:59 06:59 18:59 Weight 140.614 kg - Exam General: Awake and alert oriented 3 no distress Respiratory exam: No audible wheezing no accessory muscle usage Cardiovascular exam: regular rate, palpable bilateral pulses, no lower extremity edema Abdominal exam: No distention nontender to palpation Cervical spine: Normal alignment, Spurling's negative, facet loading negative, Radiation Control Specialist strength is 5/5, barron negative Lumbar spine: Loss of lumbar lordosis, normal alignment, tender to palpation over bilateral paraspinal muscles, facet loading is positive bilaterally. Straight leg raise is negative. Limited range of motion due to pain with flexion, extension and side bending. Sacroiliac joints: Nontender to palpation, [place] is negative, [place] negative Neuro exam: Normal sensation in bilateral upper extremities, deep tendon reflexes are 2+ bilateral upper extremities. Normal sensation in bilateral lower extremities. Deep tendon reflexes are 2+ in lower extremities Psych exam: Cooperative, appropriate mood Assessment and Plan Assessment: #1 lumbar spondylosis without myelopathy #2 lumbar radiculopathy #3 obesity #4 chronic opioid dependence Plan: At this time we'll continue the current medications. I'll not make any changes. We'll see him back in 8-9 weeks. Maps were checked, urine drug screen is inappropriate. PQRS Measure Charge Sheet Measure #130: Documentation of Current Meds in Medical Chart: Patient's medications documented in chart Measure #226: Tobacco Use: Screen & Cessation Intervention: Pt screened for tobacco use AND intervention given Measure #111: Pneumonia Vaccination: Pneumococcal vaccine administered or previously received Measure #47: Advance Care Plan: Advance care planning discussed & documented, plan or surrogate given Measure #412: Opioid Treatment Agreement: Documented signed opioid trtmnt agreemnt min once during opioid trtmnt Measure #408: Opioid Therapy Follow-up Evaluation: Patient had f/u eval minimum every 3 months during opioid therapy Measure #317: Preventitive Care & Scrn High Bld Press & F/U: Pre-hypertensive or hypertensive BP documented, pt will f/u with PCP Measure #128: Body Mass Index (BMI) Screening & Follow-up: BMI documented ABOVE normal parameters - f/u documented Measure #131: Pain Assessment & Follow-up: Pain positive & plan documented Measure #431: Unhealthy Alcohol Use Preventative Care & Scrn: Patient not identified as an unhealthy alcohol user PQRS Narrative: Smoking Status Former smoker Narcotic Agreement Date Signed 06/08/20 Blood Pressure 159/116 Pain Intensity [Bilateral 6 Lower Back] Scale Used Numeric (1 - 10) Hx Alcohol Use (MH) Yes: OCC. Home Medications: Ambulatory Orders Cholecalciferol [Vitamin D3 (25 Mcg = 1000 Iu)] 1,000 unit PO BID@1200,2100 05/24/15 Spironolactone-Hctz 25-25Mg [Aldactazide 25-25 MG] 1 tab PO QAM 05/24/15 Tamsulosin [Flomax] 0.4 mg PO BID@0700,1200 05/24/15 Montelukast [Singulair] 10 mg PO HS 02/26/19 Atorvastatin [Lipitor] 20 mg PO QAM 03/11/19 Budesonide-Formot 160-4.5 Mcg [Symbicort 160-4.5 Mcg Inhaler] 2 puff INHALATION RT-BID 03/11/19 Ferrous Sulfate [Iron (65 MG Elemental)] 325 mg PO DAILY@1200 03/11/19 Warfarin [Coumadin] 2.5 mg PO MO 10/05/19 Warfarin [Coumadin] 5 mg PO SUTUWETHFRSA 10/05/19 Albuterol Sulfate [Ventolin HFA] 2 puff INHALATION RT-Q6H PRN 12/22/19 Furosemide [Lasix] 40 mg PO QAM #30 tab 12/26/19 Metoprolol Succinate (ER) [Toprol XL] 100 mg PO BID #60 tab.er.24h 12/26/19 Sennosides-Docusate Sodium [Senokot-S] 1 each PO BID PRN #8 tab 12/26/19 polyethylene glycoL 3350 [Miralax] 17 gm PO DAILY PRN #2 powd.pack 12/26/19 Omeprazole [PriLOSEC] 20 mg PO 1200 06/01/20 Cyclobenzaprine [Flexeril] 10 mg PO BID PRN 30 Days #60 tab 09/28/20 Gabapentin 600 mg PO TID 30 Days #90 tab 09/28/20 HYDROcodone/APAP 10-325MG [[place] 10-325] 1 tab PO Q8H PRN 30 Days #90 tab 09/28/20 HYDROcodone/APAP 10-325MG [[place] 10-325] 1 tab PO Q8HR PRN 30 Days #90 tab 09/28/20 Controlled Substance Measures - Controlled Substance Measures Is patient prescribed a controlled substance at discharge?: Yes When asked, does pt state using other controlled substances?: No If prescribed controlled substance>3 days was MAPS reviewed?: Yes If Rx opioid, was Start Talking consent form obtained?: Yes If opioid is for acute pain is fill amount 7 days or less?: No Was information provided regarding opioid addiction?: Yes
== END | disposition home or self-care (01) ==
LOC: PNWHC3 11:51
PROVIDERS: ATTEND Hospitalist
DX: M47.26 Other spondylosis with radiculopathy, lumbar region (principal); E66.9 Obesity, unspecified; F11.20 Opioid dependence, uncomplicated; Z87.891 Personal history of nicotine dependence; Z79.899 Other long term (current) drug therapy; Z79.01 Long term (current) use of anticoagulants; Z79.1 Long term (current) use of non-steroidal anti-inflammatories (NSAID)
CPT/HCPCS: 99211

== ENCOUNTER → 2020-11-23 | Outpatient (CLI) | payer MEDICARE, BC ==
[2020-11-23 12:18] VITALS: BP 156/92; PULSE 77; RESP 18; TEMP 97.7
--- NOTE | 2020-11-23 12:27 | P.PN ---
Subjective Progress Note Date: 11/23/20 This is follow-up visit for this patient with a history of severe and chronic low back pain secondary to lumbar failed back surgery syndrome, lumbar spondylosis with facet arthropathy, Patient currently on Coumadin for A. fib, we will not able to do interventional pain management, secondary to hypoxemia ,and when patient placed in prone position, and there was concern about his oxygenation. Today his pain is primarily in his lower back radiating to bilateral posterior thighs and calf's. Pain is worse with standing for greater than 10 minutes. The patient currently on [place] 10/325 every 8 hours , and Neurontin 600 mg every 8 hours , Flexeril 10 mg twice a day Patient denies any side effect of the medication , patient denies any excessive drowsiness or sleepiness, patient denies any suicidal ideation, Patient reported that the current medication is not helping to control the pain and improve the activity of daily livings, the pain medication helping only partially Patient denies any motor or sensory deficit, denies any change in the bowel movement or urination, patient denies any fever or night sweats. Objective - Vital Signs Vital signs: Vital Signs Temp 97.7 F 11/23/20 12:08 Pulse 77 11/23/20 12:08 Resp 18 11/23/20 12:08 BP 156/92 11/23/20 12:08 Pulse Ox 95 11/23/20 12:08 Intake & Output 11/22/20 11/23/20 11/23/20 18:59 06:59 18:59 Weight 140.614 kg - Exam Physical examination -Constitutiona : Cooperative , not in acute distress . -HEENT : nech : supple , no Lymphadenopathy , normal thyroid size . eyes : no ptosis , no icterus, no photophobia . - neurologic : Cranial nerve II to XII intact , no focal neurological deffecit . -psychatric : alert , oriented X 3 , appropriate affect , intact judgment and insight . -Lymphatic : no Lymphadenopathy . - musculoskeltal : Lumber spine moter stegnth lower extremities ,thigh and legs 4/5 Right side , 4/5 Left side deep tendon reflexes : normal Knee Jerk , normal ankle Jerk positive lumber facet Loading Test Range of motion of the lumbar spine Flexion 30 degrees, extension 10 degrees strait leg raising test , positive at 30 degree Fabere test positive RT Sever tenderness over the Sacroiliac joint on the Bilateral physical examination Assessment and Plan Plan: Assessment and Plan 1- lumbar spondylosis without myelopathy 2- lumbar degenerative disc disease 3-lumbar radiculopathy 4- obesity, obstructive sleep apnea 5- congestive heart failure and COPD 6-diabetes I will continue the current medication regimen. I refilled his prescriptions for [place] 10/325 tab every 8 hours dispense 90 with 1 refill ,and gabapentin 600 mg 3 times a day dispense 90 with 1 refill , Flexeril 10 mg twice a day dispense 60 with 1 refill Maps reviewed and appropriate, opioid start talking form is on file. Follow-up: In 8 weeks for medication management Time with Patient: Less than 30 PQRS Measure Charge Sheet Measure #130: Documentation of Current Meds in Medical Chart: Patient's medications documented in chart Measure #226: Tobacco Use: Screen & Cessation Intervention: Pt not a tobacco user Measure #111: Pneumonia Vaccination: Pneumococcal vaccine administered or previously received Measure #47: Advance Care Plan: Advance care planning discussed & documented, pt chose/unable to give Measure #412: Opioid Treatment Agreement: Documented signed opioid trtmnt agreemnt min once during opioid trtmnt Measure #408: Opioid Therapy Follow-up Evaluation: Patient had f/u eval minimum every 3 months during opioid therapy Measure #317: Preventitive Care & Scrn High Bld Press & F/U: Elevated blood pressure, 156/92 Measure #128: Body Mass Index (BMI) Screening & Follow-up: BMI documented ABOVE normal parameters - f/u documented Measure #131: Pain Assessment & Follow-up: Pain positive & plan documented Measure #431: Unhealthy Alcohol Use Preventative Care & Scrn: Patient identified as unhealthy alcohol user; counseling given PQRS Narrative: Time with Patient: Less than 30
== END | disposition home or self-care (01) ==
LOC: PNWHC3 11:49
PROVIDERS: ATTEND Specialist
DX: M47.26 Other spondylosis with radiculopathy, lumbar region (principal); M51.36 Other intervertebral disc degeneration, lumbar region; E66.9 Obesity, unspecified; G47.33 Obstructive sleep apnea (adult) (pediatric); J44.9 Chronic obstructive pulmonary disease, unspecified; I50.9 Heart failure, unspecified; E11.9 Type 2 diabetes mellitus without complications
CPT/HCPCS: 99211

== ENCOUNTER → 2021-01-18 | Outpatient (CLI) | payer MEDICARE, BC ==
[2021-01-18 10:21] VITALS: BP 151/79; PULSE 89; RESP 16; TEMP 97.7
--- NOTE | 2021-01-18 14:39 | P.PN ---
Subjective Progress Note Date: 01/18/21 This is a follow-up visit for this 71 years old male with a history of severe and chronic low back pain, was diagnosed with failed back surgery syndrome, and lumbar spondylosis with lumbar facet arthropathy, patient currently on Coumadin secondary to atrial fibrillation, previously we attempted to do interventional pain management, procedure risk and patient was in prone position and he developed severe hypoxia, and procedure was canceled , Patient continued to have severe low back pain with radiation to the lower extremity bilaterally, to the posterior aspect of both legs the pain increases with any activity, patient currently on [place] 10/325 every 8 hours when necessary, Neurontin 600 mg every 8 hours, and Flexeril 10 mg twice a day, denies any side effect of the medication he denies any excessive drowsiness or sleepiness and he reported the current medication helping to control his pain Physical examination -Constitutiona : Cooperative , not in acute distress . -HEENT : nech : supple , no Lymphadenopathy , normal thyroid size . eyes : no ptosis , no icterus, no photophobia . - neurologic : Cranial nerve II to XII intact , no focal neurological deffecit . -psychatric : alert , oriented X 3 , appropriate affect , intact judgment and insight . -Lymphatic : no Lymphadenopathy . - musculoskeltal : Lumber spine moter stegnth lower extremities ,thigh and legs 4/5 Right side , 4/5 Left side deep tendon reflexes : normal Knee Jerk , normal ankle Jerk positive lumber facet Loading Test Range of motion of the lumbar spine Flexion 30 degrees, extension 10 degrees strait leg raising test , positive at 30 degree Fabere test positive RT Sever tenderness over the Sacroiliac joint on the Bilateral physical examination Assessment and Plan 1- lumbar spondylosis without myelopathy 2- lumbar degenerative disc disease 3-lumbar radiculopathy 4- obesity, obstructive sleep apnea 5- congestive heart failure and COPD 6-diabetes I will continue the current medication regimen. I refilled his prescriptions for [place] 10/325 tab every 8 hours dispense 90 with 1 refill ,and gabapentin 600 mg 3 times a day dispense 90 with 1 refill , Flexeril 10 mg twice a day dispense 60 with 1 refill Maps reviewed and appropriate, opioid start talking form is on file. Follow-up: In 8 weeks for medication management Time with Patient: Less than 30 PQRS Measure Charge Sheet Measure #130: Documentation of Current Meds in Medical Chart: Patient's medications documented in chart Measure #226: Tobacco Use: Screen & Cessation Intervention: Pt not a tobacco user Measure #111: Pneumonia Vaccination: Pneumococcal vaccine administered or previously received Measure #47: Advance Care Plan: Advance care planning discussed & documented, pt chose/unable to give Measure #412: Opioid Treatment Agreement: Documented signed opioid trtmnt agreemnt min once during opioid trtmnt Measure #408: Opioid Therapy Follow-up Evaluation: Patient had f/u eval minimum every 3 months during opioid therapy Measure #317: Preventitive Care & Scrn High Bld Press & F/U: Elevated blood pressure, 151/79 Measure #128: Body Mass Index (BMI) Screening & Follow-up: BMI documented ABOVE normal parameters - f/u documented Measure #131: Pain Assessment & Follow-up: Pain positive & plan documented Measure #431: Unhealthy Alcohol Use Preventative Care & Scrn: Patient identified as unhealthy alcohol user; counseling given PQRS Narrative: Time with Patient: Less than 30 Objective - Vital Signs Vital signs: Vital Signs Temp 97.7 F 01/18/21 10:14 Pulse 89 01/18/21 10:14 Resp 16 01/18/21 10:14 BP 151/79 01/18/21 10:14 Pulse Ox 96 01/18/21 10:14 Intake & Output 01/17/21 01/18/21 01/18/21 18:59 06:59 18:59 Weight 138.346 kg
== END | disposition home or self-care (01) ==
LOC: PNWHC3 09:53
PROVIDERS: ATTEND Specialist
DX: M51.16 Intervertebral disc disorders with radiculopathy, lumbar region (principal); M47.26 Other spondylosis with radiculopathy, lumbar region; E66.9 Obesity, unspecified; G47.33 Obstructive sleep apnea (adult) (pediatric); I50.9 Heart failure, unspecified; J44.9 Chronic obstructive pulmonary disease, unspecified; E11.9 Type 2 diabetes mellitus without complications; Z79.01 Long term (current) use of anticoagulants; Z79.891 Long term (current) use of opiate analgesic; Z79.899 Other long term (current) drug therapy
CPT/HCPCS: 80307; G0482; G0463; 99212

== ENCOUNTER → 2021-03-20 | Outpatient (CLI) | payer MEDICARE, BC ==
[2021-03-20 10:40] VITALS: BP 112/70; PULSE 84; RESP 16; TEMP 97.7
--- NOTE | 2021-03-20 10:51 | P.PN ---
Subjective Progress Note Date: 03/20/21 This is a follow-up visit for this 71 years old male with a history of severe ,and chronic low back pain, was diagnosed with failed back surgery syndrome, and lumbar spondylosis with lumbar facet arthropathy, patient currently on Coumadin secondary to atrial fibrillation, previously we attempted to do interventional pain management, procedure risk and patient was in prone position and he developed severe hypoxia, and procedure was canceled , Patient continued to have severe low back pain with radiation to the lower extremity bilaterally, to the posterior aspect of both legs , and also he is complaining of severe knee pain bilaterally, the pain increases with any activity, patient currently on [place] 10/325 every 8 hours when necessary, Neurontin 600 mg every 8 hours, and Flexeril 10 mg twice a day, denies any side effect of the medication he denies any excessive drowsiness or sleepiness and he reported the current medication helping to control his pain Physical examination -Constitutiona : Cooperative , not in acute distress . -HEENT : nech : supple , no Lymphadenopathy , normal thyroid size . eyes : no ptosis , no icterus, no photophobia . - neurologic : Cranial nerve II to XII intact , no focal neurological deffecit . -psychatric : alert , oriented X 3 , appropriate affect , intact judgment and insight . -Lymphatic : no Lymphadenopathy . - musculoskeltal : Lumber spine moter stegnth lower extremities ,thigh and legs 4/5 Right side , 4/5 Left side deep tendon reflexes : normal Knee Jerk , normal ankle Jerk positive lumber facet Loading Test Range of motion of the lumbar spine Flexion 30 degrees, extension 10 degrees strait leg raising test , positive at 30 degree Fabere test positive RT Sever tenderness over the Sacroiliac joint on the Bilateral physical examination Assessment and Plan 1- lumbar spondylosis without myelopathy 2- lumbar degenerative disc disease 3-lumbar radiculopathy 4- morbid obesity 5- congestive heart failure and COPD 6-diabetes 7-obstructive sleep apnea. 8-bilateral knee arthralgia I will continue the current medication regimen. I refilled his prescriptions for [place] 10/325 tab every 8 hours dispense 90 with 1 refill ,and gabapentin 600 mg 3 times a day dispense 90 with 1 refill , Flexeril 10 mg twice a day dispense 60 with 1 refill Maps reviewed and appropriate, opioid start talking form is on file. Urine drug screen reviewed and it was appropriate Patient will follow up with his orthopedic surgeon Dr. Mcleod for evaluation regarding his knee pain Follow-up: In 8 weeks for medication management Time with Patient: Less than 30 PQRS Measure Charge Sheet Measure #130: Documentation of Current Meds in Medical Chart: Patient's medications documented in chart Measure #226: Tobacco Use: Screen & Cessation Intervention: Pt not a tobacco user Measure #111: Pneumonia Vaccination: Pneumococcal vaccine administered or previously received Measure #47: Advance Care Plan: Advance care planning discussed & documented, pt chose/unable to give Measure #412: Opioid Treatment Agreement: Documented signed opioid trtmnt agreemnt min once during opioid trtmnt Measure #408: Opioid Therapy Follow-up Evaluation: Patient had f/u eval minimum every 3 months during opioid therapy Measure #317: Preventitive Care & Scrn High Bld Press & F/U: 112/70 Measure #128: Body Mass Index (BMI) Screening & Follow-up: BMI documented ABOVE normal parameters - f/u documented Measure #131: Pain Assessment & Follow-up: Pain positive & plan documented Measure #431: Unhealthy Alcohol Use Preventative Care & Scrn: Patient identified as unhealthy alcohol user; counseling given PQRS Narrative: Objective - Vital Signs Vital signs: Vital Signs Temp 97.7 F 03/20/21 10:37 Pulse 84 03/20/21 10:37 Resp 16 03/20/21 10:37 BP 112/70 03/20/21 10:37 Pulse Ox 97 03/20/21 10:37
== END ==
LOC: PNWHC3 09:58
PROVIDERS: ATTEND Specialist
DX: M47.26 Other spondylosis with radiculopathy, lumbar region (principal); M51.16 Intervertebral disc disorders with radiculopathy, lumbar region; E66.01 Morbid (severe) obesity due to excess calories; J44.9 Chronic obstructive pulmonary disease, unspecified; I50.9 Heart failure, unspecified; E11.9 Type 2 diabetes mellitus without complications; G47.33 Obstructive sleep apnea (adult) (pediatric); Z68.42 Body mass index [BMI] 45.0-49.9, adult; Z96.653 Presence of artificial knee joint, bilateral; Z79.891 Long term (current) use of opiate analgesic; Z79.899 Other long term (current) drug therapy; Z79.84 Long term (current) use of oral hypoglycemic drugs; Z87.891 Personal history of nicotine dependence
CPT/HCPCS: 99211

== ENCOUNTER → 2021-05-15 | Outpatient (CLI) | payer MEDICARE, BC ==
[2021-05-15 10:31] VITALS: BP 117/78; PULSE 91; RESP 18; TEMP 97.5
--- NOTE | 2021-05-15 11:02 | P.PN ---
Subjective Progress Note Date: 05/15/21 This is a follow-up visit for this 71 years old male with a history of severe ,and chronic low back pain, was diagnosed with failed back surgery syndrome, and lumbar spondylosis with lumbar facet arthropathy, patient currently on Coumadin secondary to atrial fibrillation, previously we attempted to do interventional pain management, procedure risk and patient was in prone position and he developed severe hypoxia, and procedure was canceled , Patient continued to have severe low back pain with radiation to the lower extremity bilaterally, to the posterior aspect of both legs , and also he is complaining of severe knee pain bilaterally, the pain increases with any activity, patient currently on [place] 10/325 every 8 hours when necessary, Neurontin 600 mg every 8 hours, and Flexeril 10 mg twice a day, denies any side effect of the medication he denies any excessive drowsiness or sleepiness and he reported the current medication helping to control his pain Physical examination -Constitutiona : Cooperative , not in acute distress . -HEENT : nech : supple , no Lymphadenopathy , normal thyroid size . eyes : no ptosis , no icterus, no photophobia . - neurologic : Cranial nerve II to XII intact , no focal neurological deffecit . -psychatric : alert , oriented X 3 , appropriate affect , intact judgment and insight . -Lymphatic : no Lymphadenopathy . - musculoskeltal : Lumber spine moter stegnth lower extremities ,thigh and legs 4/5 Right side , 4/5 Left side deep tendon reflexes : normal Knee Jerk , normal ankle Jerk positive lumber facet Loading Test Range of motion of the lumbar spine Flexion 30 degrees, extension 10 degrees strait leg raising test , positive at 30 degree Fabere test positive RT Sever tenderness over the Sacroiliac joint on the Bilateral physical examination Assessment and Plan 1- lumbar spondylosis without myelopathy 2- lumbar degenerative disc disease 3-lumbar radiculopathy 4- morbid obesity 5- congestive heart failure and COPD 6-diabetes 7-obstructive sleep apnea. 8-bilateral knee arthralgia I will continue the current medication regimen. I refilled his prescriptions for [place] 10/325 tab every 8 hours dispense 90 with 1 refill ,and gabapentin 600 mg 3 times a day dispense 90 with 1 refill , Flexeril 10 mg twice a day dispense 60 with 1 refill Maps reviewed and appropriate, opioid start talking form is on file. Urine drug screen reviewed and it was appropriate Patient will follow up with his orthopedic surgeon Dr. Mcleod for evaluation regarding his knee pain Follow-up: In 8 weeks for medication management Time with Patient: Less than 30 PQRS Measure Charge Sheet Measure #130: Documentation of Current Meds in Medical Chart: Patient's medications documented in chart Measure #226: Tobacco Use: Screen & Cessation Intervention: Pt not a tobacco user Measure #111: Pneumonia Vaccination: Pneumococcal vaccine administered or previously received Measure #47: Advance Care Plan: Advance care planning discussed & documented, pt chose/unable to give Measure #412: Opioid Treatment Agreement: Documented signed opioid trtmnt agreemnt min once during opioid trtmnt Measure #408: Opioid Therapy Follow-up Evaluation: Patient had f/u eval minimum every 3 months during opioid therapy Measure #317: Preventitive Care & Scrn High Bld Press & F/U: 117/78 Measure #128: Body Mass Index (BMI) Screening & Follow-up: BMI documented ABOVE normal parameters - f/u documented Measure #131: Pain Assessment & Follow-up: Pain positive & plan documented Measure #431: Unhealthy Alcohol Use Preventative Care & Scrn: Patient identified as unhealthy alcohol user; counseling given PQRS Narrative: Objective - Vital Signs Vital signs: Vital Signs Temp 97.5 F L 05/15/21 10:27 Pulse 91 05/15/21 10:27 Resp 18 05/15/21 10:27 BP 117/78 05/15/21 10:27 Pulse Ox 91 L 05/15/21 10:27 Intake & Output 05/14/21 05/15/21 05/15/21 18:59 06:59 18:59 Weight 136.078 kg
== END ==
LOC: PNWHC3 10:01
PROVIDERS: ATTEND Specialist
DX: M47.26 Other spondylosis with radiculopathy, lumbar region (principal); M51.16 Intervertebral disc disorders with radiculopathy, lumbar region; E66.01 Morbid (severe) obesity due to excess calories; I50.9 Heart failure, unspecified; J44.9 Chronic obstructive pulmonary disease, unspecified; E11.9 Type 2 diabetes mellitus without complications; G47.33 Obstructive sleep apnea (adult) (pediatric); M25.562 Pain in left knee; M25.561 Pain in right knee; Z68.42 Body mass index [BMI] 45.0-49.9, adult; Z88.6 Allergy status to analgesic agent; Z87.891 Personal history of nicotine dependence; Z79.84 Long term (current) use of oral hypoglycemic drugs; Z79.51 Long term (current) use of inhaled steroids
CPT/HCPCS: 99211

== ENCOUNTER → 2021-07-10 | Outpatient (CLI) | payer MEDICARE, BC ==
--- NOTE | 2021-07-10 09:19 | P.PAINPG ---
Subjective Progress Note Date: 07/10/21 This is a follow-up visit for this 71 years old male with a history of severe ,and chronic low back pain, was diagnosed with failed back surgery syndrome, and lumbar spondylosis with lumbar facet arthropathy, patient currently on Coumadin secondary to atrial fibrillation, previously we attempted to do interventional pain management, procedure risk and patient was in prone position and he developed severe hypoxia, and procedure was canceled , And continue says her low back pain with radiation to lower extremities. Specifically the posterior aspect of both legs. He also severe knee pain that increases with activity. He is currently on [place] 10 mg Q8H when necessary, gabapentin 600 mg every 8 hours, Flexeril 10 mg twice a day. Overall his pain is still quite bad. Pain is in the low back with radiation into the legs. Overall he is doing his best to control his sodium is sugar level as well. Describes significant neuropathy in the feet, I told him the best way to manage that is to control his blood sugar as best as he can.. denies any side effect of the medication he denies any excessive drowsiness or sleepiness and he reported the current medication helping to control his pain Physical examination -Constitutiona : Cooperative , not in acute distress . -HEENT : nech : supple , no Lymphadenopathy , normal thyroid size . eyes : no ptosis , no icterus, no photophobia . - neurologic : Cranial nerve II to XII intact , no focal neurological deffecit . -psychatric : alert , oriented X 3 , appropriate affect , intact judgment and insight . -Lymphatic : no Lymphadenopathy . - musculoskeltal : Lumber spine moter stegnth lower extremities ,thigh and legs 4/5 Right side , 4/5 Left side deep tendon reflexes : normal Knee Jerk , normal ankle Jerk positive lumber facet Loading Test Range of motion of the lumbar spine Flexion 30 degrees, extension 10 degrees strait leg raising test , positive at 30 degree Fabere test positive RT Sever tenderness over the Sacroiliac joint on the Bilateral physical examination Assessment and Plan 1- lumbar spondylosis without myelopathy 2- lumbar degenerative disc disease 3-lumbar radiculopathy 4- morbid obesity 5- congestive heart failure and COPD 6-diabetes 7-obstructive sleep apnea. 8-bilateral knee arthralgia I will continue the current medication regimen. I refilled his prescriptions for [place] 10/325 tab every 8 hours dispense 90 with 1 refill ,and gabapentin 600 mg 3 times a day dispense 90 with 1 refill , Flexeril 10 mg twice a day dispense 60 with 1 refill Maps reviewed and appropriate, opioid start talking form is on file. Urine drug screen reviewed and it was appropriate Follow-up: In 8 weeks for medication management and refill. I have spent 25 minutes on patient care today. The time was used to review the medical records including relevant urine studies and prescription history, review of the available imaging, evaluation and examination of the patient, coordination of care with the medical staff and if applicable referring physicians, as well as creation of the medical record. PQRS Measure Charge Sheet Measure #130: Documentation of Current Meds in Medical Chart: Patient's medications documented in chart Measure #226: Tobacco Use: Screen & Cessation Intervention: Pt not a tobacco user Measure #111: Pneumonia Vaccination: Pneumococcal vaccine administered or previously received Measure #47: Advance Care Plan: Advance care planning discussed & documented, pt chose/unable to give Measure #412: Opioid Treatment Agreement: Documented signed opioid trtmnt agreemnt min once during opioid trtmnt Measure #408: Opioid Therapy Follow-up Evaluation: Patient had f/u eval minimum every 3 months during opioid therapy Measure #317: Preventitive Care & Scrn High Bld Press & F/U: 117/78 Measure #128: Body Mass Index (BMI) Screening & Follow-up: BMI documented ABOVE normal parameters - f/u documented Measure #131: Pain Assessment & Follow-up: Pain positive & plan documented Measure #431: Unhealthy Alcohol Use Preventative Care & Scrn: Patient identified as unhealthy alcohol user; counseling given PQRS Measure Charge Sheet PQRS Narrative: Smoking Status Former smoker Narcotic Agreement Date Signed 06/08/20 Hx Alcohol Use (MH) Yes: OCC. Home Medications: Ambulatory Orders Cholecalciferol [Vitamin D3 (25 Mcg = 1000 Iu)] 1,000 unit PO BID@1200,2100 05/24/15 Spironolactone-Hctz 25-25Mg [Aldactazide 25-25 MG] 1 tab PO QAM 05/24/15 Tamsulosin [Flomax] 0.4 mg PO BID@0700,1200 05/24/15 Montelukast [Singulair] 10 mg PO HS 02/26/19 Atorvastatin [Lipitor] 20 mg PO QAM 03/11/19 Budesonide-Formot 160-4.5 Mcg [Symbicort 160-4.5 Mcg Inhaler] 2 puff INHALATION RT-BID 03/11/19 Ferrous Sulfate [Iron (65 MG Elemental)] 325 mg PO DAILY@1200 03/11/19 Warfarin [Coumadin] 5 mg PO HS 10/05/19 Albuterol Sulfate [Ventolin HFA] 2 puff INHALATION RT-Q6H PRN 12/22/19 Furosemide [Lasix] 40 mg PO QAM #30 tab 12/26/19 Metoprolol Succinate (ER) [Toprol XL] 100 mg PO BID #60 tab.er.24h 12/26/19 Sennosides-Docusate Sodium [Senokot-S] 1 each PO BID PRN #8 tab 12/26/19 polyethylene glycoL 3350 [Miralax] 17 gm PO DAILY PRN #2 powd.pack 12/26/19 Omeprazole [PriLOSEC] 20 mg PO 1200 06/01/20 metFORMIN HCL [Glucophage] 500 mg PO QAM 01/17/21 Cyclobenzaprine [Flexeril] 10 mg PO BID PRN 30 Days #60 tab 07/10/21 Gabapentin 600 mg PO TID 30 Days #90 tab 07/10/21 HYDROcodone/APAP 10-325MG [Ary 10-325] 1 tab PO Q8H PRN 30 Days #90 tab 07/10/21 HYDROcodone/APAP 10-325MG [[place] 10-325] 1 tab PO Q8HR PRN 30 Days #90 tab 07/10/21 Controlled Substance Measures - Controlled Substance Measures Is patient prescribed a controlled substance at discharge?: Yes When asked, does pt state using other controlled substances?: No If prescribed controlled substance>3 days was MAPS reviewed?: Yes If Rx opioid, was Start Talking consent form obtained?: Yes If opioid is for acute pain is fill amount 7 days or less?: No Was information provided regarding opioid addiction?: No
[2021-07-10 09:50] VITALS: BP 109/69; PULSE 73; RESP 18; TEMP 97.6
== END ==
LOC: PNWHC3 08:37
PROVIDERS: ATTEND Anesthesiology
DX: M51.16 Intervertebral disc disorders with radiculopathy, lumbar region (principal); M47.26 Other spondylosis with radiculopathy, lumbar region; E66.01 Morbid (severe) obesity due to excess calories; I50.9 Heart failure, unspecified; J44.9 Chronic obstructive pulmonary disease, unspecified; E11.9 Type 2 diabetes mellitus without complications; G47.33 Obstructive sleep apnea (adult) (pediatric); M25.561 Pain in right knee; M25.562 Pain in left knee; Z87.891 Personal history of nicotine dependence; Z79.84 Long term (current) use of oral hypoglycemic drugs; Z68.42 Body mass index [BMI] 45.0-49.9, adult; Z79.01 Long term (current) use of anticoagulants; Z88.5 Allergy status to narcotic agent
CPT/HCPCS: 99211

== ENCOUNTER → 2021-09-04 | Outpatient (CLI) | payer MEDICARE, BC ==
[2021-09-04 09:24] VITALS: BP 134/84; PULSE 89; RESP 16; TEMP 96.5
--- NOTE | 2021-09-04 09:41 | P.PAINPG ---
Subjective Progress Note Date: 09/04/21 Principal diagnosis: Lumbar back pain Mr. Murcia is a 71 -year-old pleasant male came to the [facility] pain clinic for prescription refill . Patient has ongoing pain for many years. Patient describes pain is aching, burning, tingling throbbing, constant type of pain. Pain is radiating to bilateral lower extremity. Patient rated pain levels are 7-8 out of 10 in severity. With the help of medications pain levels are 6 out of 10 in severity. Patient refuses to go for any interventional procedures at this time. Patient discontinued Flexeril as not noticed any benefit with the medication. Sometimes he is also not noticing any advantage of taking gabapentin. Activities making pain worse. Medications, resting, helping in relieving patient's pain. Patient pain some days better than others. Overall activities decreased secondary to pain. Because of the pain sometimes patient is feeling lack of sleep, interest, and energy. Denied any bowel or bladder problems at this time. Patient is using long stick for walking support. Patient denies any suicidal or homicidal ideations intent or plan. Patient denies any auditory or visual hallucinations. Patient denied any red flag symptoms related to pain. 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 Sensation grossly intact Lower extremity: Normal strength, and decreased range of motion secondary to pain Lumbar spine: Paravertebral tenderness: positive Lumbar facet load test : positive Strait leg raising test: Not done Sacroiliac joint tenderness: Positive Thigh thrust test: Positive SI joint compression test: Positive Fabere test: Positive - Constitutional Constitutional Comment(s): 10 point review of symptoms negative except as mentioned in the history of present illness. Assessment and Plan Assessment: Lumbar spondylosis without myelopathy Myofascial pain syndrome, and chronic pain syndrome Secondary related joint dysfunction Morbid obesity Peripheral neuropathy Plan: 1 Opioid, and psychological risk tools, and scores were reviewed. Diagnoses, prognosis, and multiple treatment options including but not limited to physical therapy, interventional therapy, adjunct medication therapy, narcotic medication, and surgical options were discussed with the patient. And all questions were answered to the patient's satisfaction. #2 Opioid agreement: Patient was discussed regarding the medication side effects, and complications associated with narcotic use. Also counsels against driving while using narcotic medications, and also against using any alcohol or illicit or recreational drugs in conjunction with opioids. Patient understood the consequences. Patient has signed narcotic agreement and was again asked to re-read this document and will be given a copy to take home if requested. This document outlines the policies of the [facility]. It specifically counsels the patient to not misuse, overuse, abuse, divert, or sell medications, and to take them as prescribed by only one healthcare provider and store the medications in a safe and preferably locked location. This document also counsels against driving while using narcotic medications and also against using any alcohol or illicit or recreational drugs in conjunction with opioids. The patient verbalized understanding to staff that lack of compliance with any of the above will likely result in failure to renew narcotic prescriptions, possible discharge from the clinic, and possible legal ramifications thereafter. #3 Patient was counseled on importance of regular exercise. Including agustín chi, aerobic exercises as tolerated. Which helps for chronic pain, and overall well- being. Patient also counseled regarding importance of weight control rolling chronic pain, and overall other health issues. By altering diet habits, minimizing sugar intake, and processed foods helps in minimizing Inflammation. Also discussed with the patient regarding intermittent fasting. Patient counseled regarding smoking associated with chronic pain, worsening inflammation, and smoking effects on liver, and medication metabolism. And encouraged to stop smoking. #4 consultation: Bariatric surgical consultation but patient refused #5 investigations: MAPS , urine drug test- reviewed #6 interventional procedures: Patient refused. #7 medications #1 [place] 10/325 by mouth every 8 hours to every 12 hours as needed dispense 90 with no refill #2 Lyrica 100 mg by mouth every 12 hours dispense 60 with no refill, patient had gabapentin 14 pills at home, recommended to take 1 pill in the afternoon to prevent withdrawal symptoms if needed for at least a week, then recommended to discontinue gabapentin. #3 naloxone 4 mg intranasal for respiratory depression dis pense #2. Discussed with the patient how to use by family member if needed #4 discontinue gabapentin as it is not helping #5 discontinue Flexeril-not helping, and patient is not taking Medication side effects, complications, long-term consequences discussed with the patient. Patient recommended to contact the pain clinic if noticed any issues with given medications. #8 morphine milligrams equivalents dose ( MME) per day: 30. #9 TENS unit's, and percussion massage device #10 disposition scheduled to follow up with pain clinic in 4 weeks duration . Time with Patient: Less than 30 PQRS Measure Charge Sheet Measure #130: Documentation of Current Meds in Medical Chart: Patient's medications documented in chart Measure #226: Tobacco Use: Screen & Cessation Intervention: Pt screened for tobacco use AND intervention given Measure #111: Pneumonia Vaccination: Pneumococcal vaccine administered or previously received Measure #47: Advance Care Plan: Advance care planning discussed & documented, plan or surrogate given Measure #412: Opioid Treatment Agreement: Documented signed opioid trtmnt agreemnt min once during opioid trtmnt Measure #408: Opioid Therapy Follow-up Evaluation: Patient had f/u eval minimum every 3 months during opioid therapy Measure #317: Preventitive Care & Scrn High Bld Press & F/U: Pre-hypertensive or hypertensive BP documented, pt will f/u with PCP Measure #128: Body Mass Index (BMI) Screening & Follow-up: BMI documented ABOVE normal parameters - f/u documented Measure #131: Pain Assessment & Follow-up: Pain positive & plan documented Measure #431: Unhealthy Alcohol Use Preventative Care & Scrn: Patient not identified as an unhealthy alcohol user Mode of Arrival: Ambulatory - Pain Location Lower Back Non-Pharmacological Interventions: Heat, Ice, Inactivity, Massage, Sitting Pharmacological Interventions: PRN Medication, Topical Medication PQRS Narrative: Smoking Status Former smoker Narcotic Agreement Date Signed 06/08/20 Blood Pressure 134/84 Pain Intensity [Lower Back] 10 Scale Used Numeric (1 - 10) Hx Alcohol Use (MH) Yes: rare Home Medications: Ambulatory Orders Cholecalciferol [Vitamin D3 (25 Mcg = 1000 Iu)] 1,000 unit PO BID@1200,2100 05/24/15 Spironolactone-Hctz 25-25Mg [Aldactazide 25-25 MG] 1 tab PO QAM 05/24/15 Tamsulosin [Flomax] 0.4 mg PO BID@0700,1200 05/24/15 Montelukast [Singulair] 10 mg PO HS 02/26/19 Atorvastatin [Lipitor] 20 mg PO QAM 03/11/19 Budesonide-Formot 160-4.5 Mcg [Symbicort 160-4.5 Mcg Inhaler] 2 puff INHALATION RT-BID 03/11/19 Ferrous Sulfate [Iron (65 MG Elemental)] 325 mg PO DAILY@1200 03/11/19 Warfarin [Coumadin] 5 mg PO HS 10/05/19 Albuterol Sulfate [Ventolin HFA] 2 puff INHALATION RT-Q6H PRN 12/22/19 Furosemide [Lasix] 40 mg PO QAM #30 tab 12/26/19 Metoprolol Succinate (ER) [Toprol XL] 100 mg PO BID #60 tab.er.24h 12/26/19 Sennosides-Docusate Sodium [Senokot-S] 1 each PO BID PRN #8 tab 12/26/19 polyethylene glycoL 3350 [Miralax] 17 gm PO DAILY PRN #2 powd.pack 12/26/19 Omeprazole [PriLOSEC] 20 mg PO 1200 06/01/20 metFORMIN HCL [Glucophage] 500 mg PO QAM 01/17/21 Cyclobenzaprine [Flexeril] 10 mg PO BID PRN 30 Days #60 tab 07/10/21 Gabapentin 600 mg PO TID 30 Days #90 tab 07/10/21 HYDROcodone/APAP 10-325MG [[place] 10-325] 1 tab PO Q8H PRN 30 Days #90 tab 07/10/21 HYDROcodone/APAP 10-325MG [[place] 10-325] 1 tab PO Q8HR PRN 30 Days #90 tab 07/10/21 Controlled Substance Measures - Controlled Substance Measures Is patient prescribed a controlled substance at discharge?: Yes When asked, does pt state using other controlled substances?: Yes If prescribed controlled substance>3 days was MAPS reviewed?: Yes If Rx opioid, was Start Talking consent form obtained?: Yes If opioid is for acute pain is fill amount 7 days or less?: No Was information provided regarding opioid addiction?: Yes
== END ==
LOC: PNWHC3 08:52
DX: M47.816 Spondylosis without myelopathy or radiculopathy, lumbar region (principal); M79.18 Myalgia, other site; G89.4 Chronic pain syndrome; E66.01 Morbid (severe) obesity due to excess calories; G62.9 Polyneuropathy, unspecified; Z68.42 Body mass index [BMI] 45.0-49.9, adult; Z88.5 Allergy status to narcotic agent; Z87.891 Personal history of nicotine dependence
CPT/HCPCS: 99212

== ENCOUNTER → 2021-10-02 | Outpatient (CLI) | payer MEDICARE, BC ==
[2021-10-02 09:42] VITALS: BP 125/81; PULSE 85; RESP 18; TEMP 96.6
--- NOTE | 2021-10-02 11:12 | P.PN ---
Subjective Progress Note Date: 10/02/21 Asif is a 71-year-old male presenting in the clinic for follow-up appointment and medication refill. He has a history of lumbar spondylosis and arthropathy and bilateral lower extremity neuropathy. He describes it as a constant aching burning sensation in his lower extremities. Reports his pain is worse with activity and changes in the weather. Pain is relieved with his medications and rest in his feet and a cool for as well as using frozen water vitals on his feet. Since his last visit he contracted COVID-19 but at this appointment has recovered. His last visit his gabapentin was changed to Lyrica. Reports that the Lyrica is helping his neuropathy better than the gabapentin has. He denies any adverse effects or complications from that medication. He continues to use [place] 10 mg for his pain relief as well. This medication allows him to increase his daily activities without interference from pain. Objective - Exam Physical Examinations : -Constitutiona : Cooperative , not in acute distress . -HEENT : nech : supple , no Lymphadenopathy , normal thyroid size . : eyes : no ptosis , no icterus, no photophobia . - neurologic : Cranial nerve II to XII intact , no focal neurological deffecit . -psychatric : alert , oriented X 3 , appropriate affect , intact judgment and insight . -Lymphatic : no Lymphadenopathy . - musculoskeltal : Lumber spine moter stegnth lower extremities ,thigh and legs 5/5 Right side , 5/5 Left side deep tendon reflexes : normal Knee Jerk , normal ankle Jerk lumber facet Loading Test =positive Right , positive Left Range of motion of the lumbar spine Flexion 30 degrees, extension 10 degrees strait leg raising test = positive at degree Assessment and Plan Assessment: Assessment and plan Assessment: 1- lumbar spondylosis without myelopathy 2- lumbar degenerative disc disease 3-lumbar radiculopathy 4- morbid obesity 5- congestive heart failure and COPD 6-diabetes 7-obstructive sleep apnea. 8-bilateral knee arthralgia 9- history of COVID-19 Plan: Refill [place] 10 mg every 8 hours for 30 days #90 tablets no refills Refill Lyrica 100 mg every 12 hours for 30 days #60 tablets no refills Scheduled follow-up medication appointment in 4 weeks At next visit if patient has continued benefit from the Lyrica and no complications or adverse effects, scheduled patient for 8 week follow-up due to his long distance travel from the clinic. - PQRS measures = - Patient's medications are documented in the chart. -Tobacco use is positive/negative and counseling.Given. -Patient's has not received pneumococcal vaccine. -Advanced care planning discussed, patient not eligible. -Opiate contract signed. -Pain positive and follow-up visit/procedure is scheduled. -Patient's blood pressure measured [ ] , and documented in the record ,and patient will follow up with the primary care. -Patient's weight was measured and body mass index [ ] above the,within the normal limits and counseling was done. and patient instructed to follow-up with the primary care physician. -Patient was not identified as an unhealthy alcohol user Time with Patient: Less than 30
== END ==
LOC: PNWHC3 09:25
PROVIDERS: ATTEND Student in an Organized Health Care Education/Training Program
DX: M51.16 Intervertebral disc disorders with radiculopathy, lumbar region (principal); M47.26 Other spondylosis with radiculopathy, lumbar region; E66.01 Morbid (severe) obesity due to excess calories; I50.9 Heart failure, unspecified; J44.9 Chronic obstructive pulmonary disease, unspecified; E11.9 Type 2 diabetes mellitus without complications; F17.200 Nicotine dependence, unspecified, uncomplicated; G47.33 Obstructive sleep apnea (adult) (pediatric); M25.562 Pain in left knee; M25.561 Pain in right knee; Z86.16 Personal history of COVID-19; Z88.5 Allergy status to narcotic agent
CPT/HCPCS: 80307; G0482; G0463; 99212

== ENCOUNTER → 2021-10-23 | Outpatient (CLI) | payer MEDICARE, BC ==
--- NOTE | 2021-10-23 09:50 | P.PN ---
Subjective Progress Note Date: 10/23/21 Asif is a 71-year-old male presenting in the clinic for follow-up appointment and medication refill. He has a history of lumbar spondylosis and arthropathy and bilateral lower extremity neuropathy. He describes it as a constant aching burning sensation in his lower extremities. Reports his pain is worse with activity and changes in the weather. Pain is relieved with his medications and rest in his feet and a cool for as well as using frozen water bottles on his feet. He is requesting another referral for physical therapy as physical therapy has helped him in the past with increased mobility, increase strength, and reduction in pain. His September visit his gabapentin was changed to Lyrica. Reports that the Lyrica is helping his neuropathy better than the gabapentin has. He denies any adverse effects or complications from that medication. He continues to use [place] 10 mg for his pain relief as well. This medication allows him to increase his daily activities without interference from pain Objective - Exam Physical Examinations : -Constitutiona : Cooperative , not in acute distress . -HEENT : nech : supple , no Lymphadenopathy , normal thyroid size . : eyes : no ptosis , no icterus, no photophobia . - neurologic : Cranial nerve II to XII intact , no focal neurological deffecit . -psychatric : alert , oriented X 3 , appropriate affect , intact judgment and insight . -Lymphatic : no Lymphadenopathy . - musculoskeltal : Lumber spine moter stegnth lower extremities ,thigh and legs 5/5 Right side , 5/5 Left side deep tendon reflexes : normal Knee Jerk , normal ankle Jerk lumber facet Loading Test =positive Right , positive Left Range of motion of the lumbar spine Flexion 30 degrees, extension 10 degrees strait leg raising test = positive at 20 degree Fabere test= positive Right , and positive LT . Sever tenderness over the Sacroiliac joint on the Right , and Left sides Gaenslen test= positive right ,and positive left . Seated flexion test= positive right ,and positive Left . Distraction test= positive bilaterally Sacroiliac compression test= positive bilaterally Assessment and Plan Assessment: Assessment: Assessment and plan Assessment: 1- lumbar spondylosis without myelopathy 2- lumbar degenerative disc disease 3-lumbar radiculopathy 4- morbid obesity 5- congestive heart failure and COPD 6-diabetes 7-obstructive sleep apnea. 8-bilateral knee arthralgia 9- history of COVID-19 Plan: Refill [place] 10 mg every 8 hours for 30 days #90 tablets no refills Refill Lyrica 100 mg every 12 hours for 30 days #60 tablets no refills Scheduled follow-up medication appointment in 8 weeks He could benefit from repeat physical therapy to help increase his activity and strength - PQRS measures = - Patient's medications are documented in the chart. -Tobacco use is negative -Patient's has received pneumococcal vaccine. -Advanced care planning discussed, patient not eligible. -Opiate contract signed. -Pain positive and follow-up visit/procedure is scheduled. -Patient's blood pressure measured 122/78, and documented in the record ,and patient will follow up with the primary care. -Patient's weight was measured and body mass index is above the normal limits and counseling was done. and patient instructed to follow-up with the primary care physician. -Patient was not identified as an unhealthy alcohol user Time with Patient: Less than 30 Time with Patient: Less than 30
[2021-10-23 10:03] VITALS: BP 122/78; PULSE 82; RESP 18; TEMP 96.3
== END ==
LOC: PNWHC3 09:24
PROVIDERS: ATTEND Student in an Organized Health Care Education/Training Program
DX: M47.26 Other spondylosis with radiculopathy, lumbar region (principal); M51.16 Intervertebral disc disorders with radiculopathy, lumbar region; E66.01 Morbid (severe) obesity due to excess calories; G47.33 Obstructive sleep apnea (adult) (pediatric); M25.562 Pain in left knee; M25.561 Pain in right knee; Z86.16 Personal history of COVID-19; Z87.891 Personal history of nicotine dependence; Z88.5 Allergy status to narcotic agent; Z68.42 Body mass index [BMI] 45.0-49.9, adult
CPT/HCPCS: 99211

== ENCOUNTER → 2021-12-18 | Outpatient (CLI) | payer MEDICARE, BC ==
[2021-12-18 11:35] VITALS: BP 107/72; PULSE 76; RESP 18; TEMP 97.7
--- NOTE | 2022-03-01 14:57 | P.PN ---
Subjective Progress Note Date: 12/18/21 Principal diagnosis: A 71 yr old male with a history of severe and chronic low back pain secondary to lumbar degenerative disc diseases and lumbar spondylosis with facet arthropathy presents today for medication refills. Pain level is 8 /10 in intensity, dull/ achy in the lower lumbar spine and sometimes shoots in a sharp/ shooting sensation towards the hips bilaterally. Pain is provoked by sitting, walking, laying in bed. Pain is alleviated with medications, topical medic ations, rest, heat, physical therapy which he completed 1 year ago and sleeping in a recliner, which he has had to do for years. Pt admits to a series of 20 physical therapy stints. Is not interested in surgery. Patient is currently on [place] 10 /325mg TID, Lyrica 100mg BID Patient denies any side effects of the medication(s), denies excessive drowsiness or sleepiness, denies suicidal ideation and reports that the current pain medication is helping to control the pain and improve activities of daily living. Patient denies any motor or sensory deficits. Patient denies any fever or night sweats, denies any change in the bowel movements or urination. Physical Examination: -Constitutional: Cooperative. Not in acute distress . -HEENT: Neck is supple. No lymphadenopathy. No thyromegaly. Normal thyroid size. Eyes: No ptosis , no icterus, no photophobia. ENT: No auditory deficits. Normal oropharynx. No Thrush. - Respiratory: Chest clear to auscultations bilaterally. No wheezing. No rhonchi. - Cardiovascular: Regular rate and rhythm. S1 / S2 , no S3 , no S4. - Gastrointestinal: Abdomen soft no tenderness. Bowel sounds positive in all four quadrants. No organomegaly. - Genitourinary: Deferred. - Neurologic: Cranial nerve II to XII intact. No focal neurological deficits. - Psychatric: Alert & oriented x 3. Matching mood & appropriate affect. Judgment and insight intact. - Lymphatic: No Lymphadenopathy. - Musculoskeletal: Cervical spine: Muscle bulk/ tone/ strength in the bilateral upper extremities normal. Facet loading test cervical area positive. Lumbar spine: Uses walking cane for ambulatory assistance Motor bulk/ tone/ strength lower extremities , thigh and legs: age appropriate Deep tendon reflexes : Normal Knee Jerk. Normal Ankle Jerk . Lumbar Facet Loading Test positive Straight Leg Raise: positive at 30 degree right side/ left side Sidney test: positive right side / left side Range of motion: Flexion of the lumbar spine <60 degrees Range of motion: Extension of the lumbar spine 10 degrees Severe tenderness over the Sacroiliac joint: right side / left side Assessment and plan: Chronic low back pain secondary to lumbar degenerative disc disease , lumbar spondylosis with facet arthropathy without myelopathy Chronic and current use of high-risk medication (Opioids). Refill [place] 10 /325mg #90 with one refill Lyrica 100mg BID with one refill The patient was counseled about risk of opioid use, psychological risk associated with opioids and was orally counseled to not overuse , divert or sell medications. Pt is to store medication in a safe location. The patient is counseled against driving while using narcotic medications and also not to use alcohol or any illicit recreational drugs. Patient verbalized understanding that the lack of compliance will result in failure to renew narcotic prescription(s) as well as possible discharge from the clinic Diagnoses, prognosis and treatment options including but not limited to physical therapy, surgical interventions, interventional therapies and medication management including narcotics and adjuvant medication were discussed. All patient questions answered MAPS reviewed and it was appropriate. I have spent 31 minutes on patient care today. Dr Houser was available by phone for the evaluation of this patient. The time was used to review the medical records including relevant urine studies and Prescription history (M APs), review of the available imaging, evaluation and examination of the patient, coordination of care with the medical staff and if applicable referring physicians, as well as creation of the medical record PQRS Measure Charge Sheet Mode of Arrival: Ambulatory, Cane - Pain Location Lower Back Non-Pharmacological Interventions: Heat, Inactivity, Physical Therapy, Position/Reposition Pharmacological Interventions: PRN Medication PQRS Narrative: Smoking Status Former smoker Narcotic Agreement Date Signed 07/10/21 Blood Pressure 107/72 Pain Intensity [Lower Back] 8 Scale Used Numeric (1 - 10) Hx Alcohol Use (MH) Yes: OCC. Home Medications: Ambulatory Orders Cholecalciferol [Vitamin D3 (25 Mcg = 1000 Iu)] 1,000 unit PO BID@1200,2100 05/24/15 Spironolactone-Hctz 25-25Mg [Aldactazide 25-25 MG] 1 tab PO QAM 05/24/15 Tamsulosin [Flomax] 0.4 mg PO BID@0700,1200 06/23/15 Montelukast [Singulair] 10 mg PO HS 02/26/19 Atorvastatin [Lipitor] 20 mg PO QAM 03/11/19 Ferrous Sulfate [Iron (65 MG Elemental)] 325 mg PO DAILY@1200 03/11/19 Warfarin [Coumadin] 5 mg PO HS 10/05/19 Albuterol Sulfate [Ventolin HFA] 2 puff INHALATION RT-Q6H PRN 12/22/19 Furosemide [Lasix] 40 mg PO QAM #30 tab 12/26/19 Metoprolol Succinate (ER) [Toprol XL] 100 mg PO BID #60 tab.er.24h 12/26/19 Sennosides-Docusate Sodium [Senokot-S] 1 each PO BID PRN #8 tab 12/26/19 polyethylene glycoL 3350 [Miralax] 17 gm PO DAILY PRN #2 powd.pack 12/26/19 Omeprazole [PriLOSEC] 20 mg PO 1200 06/01/20 metFORMIN HCL [Glucophage] 500 mg PO QAM 01/17/21 Dapagliflozin Propanediol [Farxiga] 10 mg PO DAILY 12/14/21 Insulin Aspart [NovoLOG Flexpen] 0 units SQ AC-TID 12/14/21 Insulin Degludec [Tresiba Flextouch U-100 Pen] 17 units SQ HS 12/14/21 Methyl Salicylate/Menth/Camph [Bengay Ultra Strength Cream] 1 applic TOPICAL DIRECTED PRN 12/14/21 Umeclidinium Brm/Vilanterol Tr [Anoro Ellipta 62.5-25 Mcg INH] 1 puff INHALATION DAILY 12/14/21 HYDROcodone/APAP 10-325MG [[place] 10-325] 1 tab PO Q8HR PRN 30 Days #90 tab 02/22/22 HYDROcodone/APAP 10-325MG [[place] 10-325] 1 tab PO TID PRN 30 Days #90 tab 02/22/22 Pregabalin [Lyrica] 100 mg PO Q12H 30 Days #60 cap 02/22/22
== END ==
LOC: PNWHC3 09:14
PROVIDERS: ATTEND Physician Assistant Medical
DX: M51.36 Other intervertebral disc degeneration, lumbar region (principal); M47.816 Spondylosis without myelopathy or radiculopathy, lumbar region; G89.29 Other chronic pain; Z79.891 Long term (current) use of opiate analgesic; Z87.891 Personal history of nicotine dependence; Z88.5 Allergy status to narcotic agent
CPT/HCPCS: 99211

== ENCOUNTER → 2022-02-22 | Outpatient (CLI) | payer MEDICARE, BC ==
--- NOTE | 2022-02-22 11:14 | P.PN ---
Subjective Progress Note Date: 02/22/22 (.) Principal diagnosis: A 72 yr old male with at side with a history of severe and chronic low back pain secondary to lumbar degenerative disc diseases and lumbar spondylosis with facet arthropathy presents today for medication refills. Pain level is 5 out of 10 in intensity, sore and achy in the lower aspects of his lumbar spine with radiation of pain left or right of midline to the paraspinal muscles, to the hips bilaterally into the lower extremities bilaterally. Pain is provoked by walking for periods of 10 minutes or more. Pain is alleviated with medications, any and all topicals, ice, heat, physical therapy in the past, use of a cane for ambulation, massage, repositioning and rest. Patient is currently on [place] 10/325 #90. Lyrica 100 mg #60. Patient denies any side effects of the medication(s), denies excessive drowsiness or sleepiness, denies suicidal ideation and reports that the current pain medication is helping to control the pain and improve activities of daily living. Patient denies any motor or sensory deficits. Patient denies any fever or night sweats, denies any change in the bowel movements or urination. Physical Examination: -Constitutional: Cooperative. Not in acute distress . -HEENT: Neck is supple. No lymphadenopathy. No thyromegaly. Normal thyroid size. Eyes: No ptosis , no icterus, no photophobia. ENT: No auditory deficits. Normal oropharynx. No Thrush. - Respiratory: Chest clear to auscultations bilaterally. No wheezing. No rhonchi. - Cardiovascular: Regular rate and rhythm. S1 / S2 , no S3 , no S4. - Gastrointestinal: Abdomen soft no tenderness. Bowel sounds positive in all four quadrants. No organomegaly. - Genitourinary: Deferred. - Neurologic: Cranial nerve II to XII intact. No focal neurological deficits. - Psychatric: Alert & oriented x 3. Matching mood & appropriate affect. Judgment and insight intact. - Lymphatic: No Lymphadenopathy. - Musculoskeletal: Cervical spine: Muscle bulk/ tone/ strength in the bilateral upper extremities normal. Facet loading test cervical area positive. Lumbar spine: Motor bulk/ tone/ strength lower extremities , thigh and legs : 5/5 Deep tendon reflexes : Normal Knee Jerk. Normal Ankle Jerk . Vertebral body tenderness to palpation over L4, L5 Lumbar Facet Loading Test positive Straight Leg Raise: positive at 30 degrees right side/ left side Gaenslen's Test positive Sacral spine : Severe tenderness over the Sacroiliac joint: right side / left side Range of motion: Flexion of the lumbar spine <60 degrees Range of motion: Extension of the lumbar spine <20 degrees Gaenslen's Test positive Sidney test: positive right side / left side Assessment and plan: Chronic low back pain secondary to lumbar degenerative disc disease , lumbar spondylosis with facet arthropathy without myelopathy Chronic and current use of high-risk medication (Opioids). The patient was counseled about risk of opioid use, psychological risk associated with opioids and was orally counseled to not overuse , divert or sell medications. Pt is to store medication in a safe location. The patient is counseled against driving while using narcotic medications and also not to use alcohol or any illicit recreational drugs. Patient verbalized understanding that the lack of compliance will result in failure to renew narcotic prescription(s) as well as possible discharge from the clinic Diagnoses, prognosis and treatment options including but not limited to physical therapy, surgical interventions, interventional therapies and medication management including narcotics and adjuvant medication were discussed. All patient questions answered MAPS reviewed and it was appropriate. UDS from October 2021 reviewed and consistent. Prescription refill for [place] 10/325 #90 with 1 refill. Lyrica 100 mg #60 with 1 refill. I have spent 31 minutes on patient care today. Dr Houser was available by phone for the evaluation of this patient. The time was used to review the medical records including relevant urine studies and Prescription history (MAPs), review of the available imaging, evaluation and examination of the patient, coordination of care with the medical staff and if applicable referring physicians, as well as creation of the medical record PQRS Measure Charge Sheet PQRS Narrative: Smoking Status Former smoker Narcotic Agreement Date Signed 07/10/21 Hx Alcohol Use (MH) Yes: OCC. Home Medications: Ambulatory Orders Cholecalciferol [Vitamin D3 (25 Mcg = 1000 Iu)] 1,000 unit PO BID@1200,2100 Spironolactone-Hctz 25-25Mg [Aldactazide 25-25 MG] 1 tab PO QAM 05/24/15 Tamsulosin [Flomax] 0.4 mg PO BID@0700,1200 05/24/15 Montelukast [Singulair] 10 mg PO HS 02/26/19 Atorvastatin [Lipitor] 20 mg PO QAM 03/11/19 Ferrous Sulfate [Iron (65 MG Elemental)] 325 mg PO DAILY@1200 03/11/19 Warfarin [Coumadin] 5 mg PO HS 10/05/19 Albuterol Sulfate [Ventolin HFA] 2 puff INHALATION RT-Q6H PRN 12/22/19 Furosemide [Lasix] 40 mg PO QAM #30 tab 12/26/19 Metoprolol Succinate (ER) [Toprol XL] 100 mg PO BID #60 tab.er.24h 12/26/19 Sennosides-Docusate Sodium [Senokot-S] 1 each PO BID PRN #8 tab 12/26/19 polyethylene glycoL 3350 [Miralax] 17 gm PO DAILY PRN #2 powd.pack 12/26/19 Omeprazole [PriLOSEC] 20 mg PO 1200 06/01/20 metFORMIN HCL [Glucophage] 500 mg PO QAM 01/17/21 Dapagliflozin Propanediol [Farxiga] 10 mg PO DAILY 12/14/21 Insulin Aspart [NovoLOG Flexpen] 0 units SQ AC-TID 12/14/21 Insulin Degludec [Tresiba Flextouch U-100 Pen] 17 units SQ HS 12/14/21 Methyl Salicylate/Menth/Camph [Bengay Ultra Strength Cream] 1 applic TOPICAL DIRECTED PRN 12/14/21 Umeclidinium Brm/Vilanterol Tr [Anoro Ellipta 62.5-25 Mcg INH] 1 puff INHALATION DAILY 12/14/21 HYDROcodone/APAP 10-325MG [[place] 10-325] 1 tab PO Q8HR PRN 30 Days #90 tab 02/22/22 HYDROcodone/APAP 10-325MG [[place] 10-325] 1 tab PO TID PRN 30 Days #90 tab 02/22/22 Pregabalin [Lyrica] 100 mg PO Q12H 30 Days #60 cap 02/22/22
[2022-02-22 13:03] VITALS: BP 106/70; PULSE 47; RESP 18; TEMP 97.6
== END ==
LOC: PNWHC3 09:29
PROVIDERS: ATTEND Specialist
DX: M51.36 Other intervertebral disc degeneration, lumbar region (principal); M47.816 Spondylosis without myelopathy or radiculopathy, lumbar region; G89.29 Other chronic pain; Z79.891 Long term (current) use of opiate analgesic; Z87.891 Personal history of nicotine dependence; Z88.5 Allergy status to narcotic agent
CPT/HCPCS: 80307; G0482; G0463; 99212

== ENCOUNTER → 2022-06-14 | Outpatient (CLI) | payer MEDICARE, BC ==
[2022-06-14 11:29] VITALS: BP 122/74; PULSE 73; RESP 18; TEMP 97.7
--- NOTE | 2022-06-14 11:40 | P.PAINPG ---
PQRS Measure Charge Sheet Comment: A 72 yr old male w at side with a history of severe and chronic low back pain secondary to lumbar degenerative disc diseases and lumbar spondylosis with facet arthropathy presents today for medication refills. Pain level is 7/10, sore, achy pain for several yrs since back surgery, ain is dull/ achy/ sharp/ shooting towards the BLEs. Pain is provoked by standing/walking for periods of 10 min or more, or with laying supine. Pain is alleviated with PT two weeks ago, massage therapy integrated with pt, medications, ice, topicals, repositioning and rest. Patient is currently on [place] 10/325mg #90, Lyrica 100mg #90 Patient denies any side effects of the medication(s), denies excessive drowsiness or sleepiness, denies suicidal ideation and reports that the current pain medication is helping to control the pain and improve activities of daily living. Patient denies any motor or sensory deficits. Patient denies any fever or night sweats, denies any change in the bowel movements or urination. Physical Examination: -Constitutional: Cooperative. Not in acute distress . - Neurologic: Cranial nerve II to XII intact. No focal neurological deficits. - Psychatric: Alert & oriented x 3. Matching mood & appropriate affect. Judgment and insight intact. - Musculoskeletal: Cervical spine: Muscle bulk/ tone/ strength in the bilateral upper extremities normal Vertebral body tenderness to palpation over Spurling test positive Distraction test positive Facet loading test positive Thoracic spine Muscle bulk / tone/ strength in the bilateral paraspinal muscles normal Vertebral body tender to palpation over Facet loading test positive Lumbar spine: Motor bulk/ tone/ strength lower extremities , thigh and legs : 5/5 Deep tendon reflexes : Normal Knee Jerk. Normal Ankle Jerk . Vertebral body tenderness to palpation over L4 Lumbar Facet Loading Test positive Straight Leg Raise: positive at 30 degrees right side/ left side Gaenslen's Test positive Sacral spine : Severe tenderness over the Sacroiliac joint: right side / left side Range of motion: Flexion of the lumbar spine <60 degrees Range of motion: Extension of the lumbar spine <20 degrees Gaenslen's Test positive Jose's Test positive Sidney test: positive right side / left side Thigh Thrust Test Sacral Thrust Test Assessment and plan: Chronic low back pain secondary to lumbar degenerative disc disease , lumbar spondylosis with facet arthropathy without myelopathy Risks, benefits of procedure discussed and pt verbalized understanding. Denies anticoagulant use or medical history of diabetes. Chronic and current use of high-risk medication (Opioids). The patient was counseled about risk of opioid use, psychological risk associated with opioids and was orally counseled to not overuse , divert or sell medications. Pt is to store medication in a safe location. The patient is counseled against driving while using narcotic medications and also not to use alcohol or any illicit recreational drugs. Patient verbalized understanding that the lack of compliance will result in failure to renew narcotic prescription(s) as well as possible discharge from the clinic Diagnoses, prognosis and treatment options including but not limited to physical therapy, surgical interventions, interventional therapies and medication management including narcotics and adjuvant medication were discussed. All patient questions answered MAPS reviewed and it was appropriate. Prescription refill for Tropic 10/325mg #90 w 1 refil. Discontinue Lyrica 100mg #90 per pt request. Filled Diclofenac gel & Neurontin 600mg #90 w 1 refil l. Use of medications, titration down of Lyrica, titration up of Neurontin, side effects and adverse reaction discussed and pt/ at side acknowledged understanding. I have spent less than 30 minutes on patient care today. Dr Houser was available by phone for the evaluation of this patient. The time was used to review the medical records including relevant urine studies and Prescription history (MAPs), review of the available imaging, evaluation and examination of the patient, coordination of care with the medical staff and if applicable referring physicians, as well as creation of the medical record PQRS Narrative: Smoking Status Former smoker Narcotic Agreement Date Signed 07/10/21 Hx Alcohol Use (MH) Yes: OCC. Home Medications: Ambulatory Orders Cholecalciferol [Vitamin D3 (25 Mcg = 1000 Iu)] 1,000 unit PO BID@1200,2100 05/24/15 Spironolactone-Hctz 25-25Mg [Aldactazide 25-25 MG] 1 tab PO QAM 05/24/15 Tamsulosin [Flomax] 0.4 mg PO BID@0700,1200 05/24/15 Montelukast [Singulair] 10 mg PO HS 02/26/19 Atorvastatin [Lipitor] 20 mg PO QAM 03/11/19 Ferrous Sulfate [Iron (65 MG Elemental)] 325 mg PO DAILY@1200 03/11/19 Warfarin [Coumadin] 5 mg PO HS 10/05/19 Albuterol Sulfate [Ventolin HFA] 2 puff INHALATION RT-Q6H PRN 12/22/19 Furosemide [Lasix] 40 mg PO QAM #30 tab 12/26/19 Metoprolol Succinate (ER) [Toprol XL] 100 mg PO BID #60 tab.er.24h 12/26/19 Sennosides-Docusate Sodium [Senokot-S] 1 each PO BID PRN #8 tab 12/26/19 polyethylene glycoL 3350 [Miralax] 17 gm PO DAILY PRN #2 powd.pack 12/26/19 Omeprazole [PriLOSEC] 20 mg PO 1200 06/01/20 metFORMIN HCL [Glucophage] 500 mg PO QAM 01/17/21 Dapagliflozin Propanediol [Farxiga] 10 mg PO DAILY 12/14/21 Insulin Aspart [NovoLOG Flexpen] 0 units SQ AC-TID 12/14/21 Insulin Degludec [Tresiba Flextouch U-100 Pen] 17 units SQ HS 12/14/21 Methyl Salicylate/Menth/Camph [Bengay Ultra Strength Cream] 1 applic TOPICAL DIRECTED PRN 12/14/21 Umeclidinium Brm/Vilanterol Tr [Anoro Ellipta 62.5-25 Mcg INH] 1 puff INHALATION DAILY 12/14/21 Diclofenac Sodium Gel [Voltaren Gel] 100 gm TOPICAL QID PRN 30 Days #100 g 06/14/22 Gabapentin [Neurontin] 300 mg PO TID 30 Days #180 cap 06/14/22 HYDROcodone/APAP 10-325MG [[place] 10-325] 1 tab PO Q8HR PRN 30 Days #90 tab 06/14/22 HYDROcodone/APAP 10-325MG [[place] 10-325] 1 tab PO TID PRN 30 Days #90 tab 06/14/22 Controlled Substance Measures - Controlled Substance Measures Is patient prescribed a controlled substance at discharge?: Yes When asked, does pt state using other controlled substances?: No If prescribed controlled substance>3 days was MAPS reviewed?: Yes If Rx opioid, was Start Talking consent form obtained?: Yes Was information provided regarding opioid addiction?: Yes
== END ==
LOC: PNWHC3 09:30
PROVIDERS: ATTEND Specialist
DX: M51.36 Other intervertebral disc degeneration, lumbar region (principal); M47.816 Spondylosis without myelopathy or radiculopathy, lumbar region; G89.29 Other chronic pain; Z88.5 Allergy status to narcotic agent; Z87.891 Personal history of nicotine dependence
CPT/HCPCS: 99211

== ENCOUNTER → 2022-08-09 | Outpatient (CLI) | payer MEDICARE, BC ==
[2022-08-09 09:15] VITALS: BP 149/84; PULSE 71; RESP 71; TEMP 97.8
--- NOTE | 2022-08-09 09:24 | P.PN ---
Subjective Progress Note Date: 08/09/22 This is a 72-year-old gentleman with history of chronic lower back pain with radiation to the lower extremities down to the feet without paresthesia. The patient had lumbar fusion which was complicated by hematoma and infection. This pain for more than 10 years now he has been taking [place] and recently Neurontin with reasonable control of his pain. The patient denies any side effects to these medications. He does have history of atrial fibrillation with treatment with Coumadin. Patient denies new-onset weakness, bowel/bladder incontinence, or any other signs or symptoms of cauda equina syndrome. There are no signs of acute intoxication, and no indications of medication diversion or overuse. In addition to above, 13-point review of systems is also negative for chest pain, shortness of breath, changes in vision, changes in hearing, new onset weakness, abdominal pain, diarrhea, extreme fatigue, malaise, fever, skin changes, homicidal or suicidal ideation, or bowel or bladder incontinence. Vital Signs: Reviewed in EMR Gen: AAOx3, NAD HEENT: PERRLA,hearing grossly normal Pulm: resp unlabored Neck: supple, trachea midline Neuro exam of the lower extremities: Normal strength in the lower extremities bilaterally Straight leg raising test: Negative bilaterally Jose's test: Range of motion of the lumbar spine: Facet loading test: Tenderness in the paravertebral musculature: Positive in the lumbar paravertebral musculature bilaterally Neuro: CN II-XII grossly intact, Imaging: Reviewed in EMR/chart Assessment: Lumbar postlaminectomy pain syndrome and Morbid obesity Atrial fibrillation Treatment with Coumadin Plan: 1. Explanation: When patients on opioids, opioid and psychological risk scores were reviewed. Diagnoses, prognoses, and multiple treatment options including but not limited to physical therapy, interventional therapies, adjuvant medical therapies, narcotic medication therapies, and surgery were discussed with the patient and all questions were answered to the patient's satisfaction. 2. Opioid agreement:When patients are prescribed opoids through our clinic, opioid agreement is signed with the patient and the patient is warned not to use opioids while driving or before driving and not to combine opioids with benzodiazepines or alcohol. 3. Counseling: When patient is smoking or obese, the patient was counseled extensively on SMOKING CESSATION, BODY MASS INDEX, EXERCISE. Specifically, the patient was instructed regarding the importance of smoking cessation, obesity, and exercise in the context of both chronic pain and overall health. 4. Procedures: None for now 5. Consultations: None 6. Investigations: None 7. Medications: Continue [place] 10 mg 3 times a day and Neurontin 300 mg 3 times a day. 8. Disposition: Return to clinic in 8 weeks 9. Maps were reviewed and were appropriate. Controlled Substance Measures Is patient prescribed a controlled substance at discharge?: Yes When asked, does pt state using other controlled substances?: No If prescribed controlled substance>3 days was MAPS reviewed?: Yes If Rx opioid, was Start Talking consent form obtained?: Yes If opioid is for acute pain is fill amount 7 days or less?: No Was information provided regarding opioid addiction?: Yes Objective - Vital Signs Vital signs: Vital Signs Temp 97.8 F 08/09/22 09:08 Pulse 71 08/09/22 09:08 Resp 71 H 08/09/22 09:08 BP 149/84 08/09/22 09:08 Pulse Ox 96 08/09/22 09:08 FiO2 Intake & Output 08/08/22 08/09/22 08/09/22 18:59 06:59 18:59 Weight 122.47 kg
== END ==
LOC: PNWHC3 08:16
PROVIDERS: ATTEND Anesthesiology
DX: M96.1 Postlaminectomy syndrome, not elsewhere classified (principal); E66.01 Morbid (severe) obesity due to excess calories; I48.91 Unspecified atrial fibrillation; Z79.01 Long term (current) use of anticoagulants; Z68.41 Body mass index [BMI] 40.0-44.9, adult; Z88.8 Allergy status to other drugs, medicaments and biological substances; Z87.891 Personal history of nicotine dependence
CPT/HCPCS: 80307; G0482; G0463; 99212

== ENCOUNTER → 2022-10-04 | Outpatient (CLI) | payer MEDICARE, BC ==
[2022-10-04 10:30] VITALS: BP 108/71; PULSE 74; RESP 18
--- NOTE | 2022-10-04 14:59 | P.PAINPG ---
PQRS Measure Charge Sheet Comment: A 72 yr old male w at side with a history of severe and chronic low back pain secondary to lumbar degenerative disc diseases and lumbar spondylosis with facet arthropathy without myelopathy presents today for medication refills. Pain level is currently at 5/10 in intensity, constant, localized in the mid to lower lumbar spine, sharp in character w shooting towards the BLEs. Pain is provoked by walking/ standing for periods of 15 min or more. Pain is alleviated with PT x 4 wks in Jul 2022, massage integrated w PT, use of a cane for ambulatory assistance, heat, ice, medications ([place], Neurontin, Voltaren gel), reclining, repositioning and rest. Patient is currently on [place], Neurontin, Voltaren gel Patient denies any side effects of the medication(s), denies excessive drowsiness or sleepiness, denies suicidal ideation and reports that the current pain medication is helping to control the pain and improve activities of daily living. Patient denies any motor or sensory deficits. Patient denies any fever or night sweats, denies any change in the bowel movements or urination. Physical Examination: -Constitutional: Cooperative. Not in acute distress . - Neurologic: Cranial nerve II to XII intact. No focal neurological deficits. - Psychatric: Alert & oriented x 3. Matching mood & appropriate affect. Judgment and insight intact. - Musculoskeletal: Cervical spine: Muscle bulk/ tone/ strength in the bilateral upper extremities normal Vertebral body tenderness to palpation over Spurling test positive Distraction test positive Facet loading test positive Thoracic spine Muscle bulk / tone/ strength in the bilateral paraspinal muscles normal Vertebral body tender to palpation over Facet loading test positive Lumbar spine: Motor bulk/ tone/ strength lower extremities , thigh and legs : 5/5 Deep tendon reflexes : Normal Knee Jerk. Normal Ankle Jerk . Vertebral body tenderness to palpation over L3, L4, L5 Lumbar Facet Loading Test positive Straight Leg Raise: positive at 30 degrees right side/ left side Gaenslen's Test positive Sacral spine : Severe tenderness over the Sacroiliac joint: right side / left side Range of motion: Flexion of the lumbar spine <60 degrees Range of motion: Extension of the lumbar spine <20 degrees Gaenslen's Test positive Jose's Test positive Sidney test: positive right side / left side Thigh Thrust Test Sacral Thrust Test Assessment and plan: Chronic low back pain secondary to lumbar degenerative disc disease , lumbar spondylosis with facet arthropathy without myelopathy Chronic and current use of high-risk medication (Opioids). The patient was counseled about risk of opioid use, psychological risk associated with opioids and was orally counseled to not overuse , divert or sell medications. Pt is to store medication in a safe location. The patient is counseled against driving while using narcotic medications and also not to use alcohol or any illicit recreational drugs. Patient verbalized understanding that the lack of compliance will result in failure to renew narcotic prescription(s) as well as possible discharge from the clinic Diagnoses, prognosis and treatment options including but not limited to physical therapy, surgical interventions, interventional therapies and medication management including narcotics and adjuvant medication were discussed. All patient questions answered MAPS reviewed and it was appropriate. UDS from 08/09/22 reviewed and consistent Prescription refill for [place] 10/325mg #90, Neurontin 300mg #90, Voltaren gel w 1 RF I have spent less than 30 minutes on patient care today. Dr Houser was available by phone for the evaluation of this patient. The time was used to review the medical records including relevant urine studies and Prescription history (MAPs), review of the available imaging, evaluation and examination of the patient, coordination of care with the medical staff and if applicable referring physicians, as well as creation of the medical record PQRS Narrative: Smoking Status Former smoker Narcotic Agreement Date Signed 08/09/22 Hx Alcohol Use (MH) Yes: OCC. Home Medications: Ambulatory Orders Cholecalciferol [Vitamin D3 (25 Mcg = 1000 Iu)] 1,000 unit PO BID@1200,2100 05/24/15 Spironolactone-Hctz 25-25Mg [Aldactazide 25-25 MG] 1 tab PO QAM 05/24/15 Tamsulosin [Flomax] 0.4 mg PO BID@0700,1200 05/24/15 Montelukast [Singulair] 10 mg PO HS 02/26/19 Atorvastatin [Lipitor] 20 mg PO QAM 03/11/19 Ferrous Sulfate [Iron (65 MG Elemental)] 325 mg PO DAILY@1200 03/11/19 Warfarin [Coumadin] 5 mg PO HS 10/05/19 Albuterol Sulfate [Ventolin HFA] 2 puff INHALATION RT-Q6H PRN 12/22/19 Furosemide [Lasix] 40 mg PO QAM #30 tab 12/26/19 Metoprolol Succinate (ER) [Toprol XL] 100 mg PO BID #60 tab.er.24h 12/26/19 Sennosides-Docusate Sodium [Senokot-S] 1 each PO BID PRN #8 tab 12/26/19 polyethylene glycoL 3350 [Miralax] 17 gm PO DAILY PRN #2 powd.pack 12/26/19 Omeprazole [PriLOSEC] 20 mg PO 1200 06/01/20 metFORMIN HCL [Glucophage] 500 mg PO QAM 01/17/21 Dapagliflozin Propanediol [Farxiga] 10 mg PO DAILY 12/14/21 Insulin Aspart [NovoLOG Flexpen] 0 units SQ AC-TID 12/14/21 Insulin Degludec [Tresiba Flextouch U-100 Pen] 17 units SQ HS 12/14/21 Methyl Salicylate/Menth/Camph [Bengay Ultra Strength Cream] 1 applic TOPICAL DIRECTED PRN 12/14/21 Umeclidinium Brm/Vilanterol Tr [Anoro Ellipta 62.5-25 Mcg INH] 1 puff INHALATION DAILY 12/14/21 Diclofenac Sodium Gel [Voltaren Gel] 100 gm TOPICAL QID PRN 30 Days #100 g 10/04/22 Gabapentin [Neurontin] 300 mg PO TID 30 Days #90 cap 10/04/22 HYDROcodone/APAP 10-325MG [[place] 10-325] 1 tab PO Q8HR PRN 30 Days #90 tab 10/04/22 HYDROcodone/APAP 10-325MG [[place] 10-325] 1 tab PO TID PRN 30 Days #90 tab 10/04/22 Controlled Substance Measures - Controlled Substance Measures Is patient prescribed a controlled substance at discharge?: Yes When asked, does pt state using other controlled substances?: No If prescribed controlled substance>3 days was MAPS reviewed?: Yes If Rx opioid, was Start Talking consent form obtained?: Yes Was information provided regarding opioid addiction?: Yes
== END | disposition home or self-care (01) ==
LOC: PNWHC3 08:35
PROVIDERS: ATTEND Specialist
DX: M47.896 Other spondylosis, lumbar region (principal)
CPT/HCPCS: 99211

== ENCOUNTER → 2022-11-29 | Outpatient (CLI) | payer MEDICARE, BC ==
--- NOTE | 2022-11-29 14:39 | P.PAINPG ---
Subjective Progress Note Date: 11/29/22 Principal diagnosis: Lumbar back pain Mr. Murcia is a 72-year-old pleasant male came to the [facility] pain clinic for prescription refill. Patient has ongoing pain for many years. Patient describes pain is aching, throbbing, constant type of pain. Pain is radiating to lower extremity sometimes. Patient rated pain levels are 6-7 out of 10 in severity. With the help of medications pain levels are 5-10 out of 10 in severity. Activities making pain worse. Medications, resting, heating pad helping in relieving patient's pain. Patient pain some days better than others. Overall activities decreased secondary to pain. Because of the pain sometimes patient is feeling lack of sleep, interest, and energy. Denied any side effects with the medications. Denied any bowel or bladder problems at this time. Patient is not using any for walking support. Patient denies any suicidal or homicidal ideations intent or plan. Patient denies any auditory or visual hallucinations. Patient denied any red flag symptoms related to pain. Not noti sven any history of substance abuse, no history of drug misuse. Denied any red flag symptoms. He tried multiple intervention procedures in the past with minimal pain relief. Objective - Exam General: Well-developed, well-nourished, no acute distress HEENT: Normocephalic, and atraumatic Neck: Supple, no neck swelling Psychiatric: Appropriate mood, and affect AUTOMOTIVE TECHNICIAN: No focal neurological deficits Musculoskeletal: Upper extremity: Normal strength, and range of motion. Sensation grossly intact Lower extremity: Normal strength, and decreased range of motion secondary to pain Lumbar spine: Healed lumbar scar Paravertebral tenderness: positive Lumbar facet load test : positive Sacroiliac joint tenderness: Positive Unable to perform wrist on the SI joint, and straight leg raising test secondary to pain - Constitutional Constitutional Comment(s): 13 point review of symptoms negative except as mentioned in the history of present illness Assessment and Plan Assessment: Lumbar postlaminectomy syndrome Lumbar radiculopathy Lumbar spondylosis without myelopathy chronic pain syndrome, and myofascial pain syndrome Plan: 1 Opioid, and psychological risk tools, and scores were reviewed. Diagnoses, prognosis, and multiple treatment options including but not limited to physical therapy, interventional therapy, adjunct medication therapy, narcotic medication, and surgical options were discussed with the patient. And all questions were answered to the patient's satisfaction. #2 Opioid agreement: Patient was thoroughly discussed regarding the medication side effects, complications associated with narcotic use. Patient recommended do not drive while on narcotic medications, any other sedative medications, and illicit drugs including marijuana. Patient clearly understood. Patient has signed narcotic agreement and was again asked to re-read this document and will be given a copy to take home if requested. This document outlines the policies of the [facility]. It specifically counsels the patient to not misuse, overuse, abuse, divert, or sell medications, and to take them as prescribed by only one healthcare provider and store the medications in a safe and preferably locked location. This document also counsels against driving while using narcotic medications and also against using any alcohol or illicit or recreational drugs in conjunction with opioids. The patient verbalized understanding to staff that lack of compliance with any of the above will likely result in failure to renew narcotic prescriptions, possible discharge from the clinic, and possible legal ramifications thereafter. #3 Patient was counseled on importance of regular exercise. Including agustín chi, aerobic exercises as tolerated. Which helps for chronic pain, and overall well- being. Patient also counseled regarding importance of weight control rolling chronic pain, and overall other health issues. By altering diet habits, minimizing sugar intake, and processed foods helps in minimizing Inflammation. #4 consultation: None #5 investigations: MAPS , urine drug test- reviewed #6 interventional procedures: Patient refused #7 medications #1 [place] 10/325 by mouth every 8 hours as needed dispense 90 with no refill #2 gabapentin 300 mg by mouth every 8 hour dispense 90 with 1 refill #3 diclofenac 1.3%- 100 mg by mouth dispense 3 per month with 1 refill. Apply 1-3 times per day as needed over the affected area #4 naloxone 4 mg intranasal for respiratory depression and dispense #2 Medication side effects, complications, long-term consequences discussed with the patient. Patient recommended to contact the pain clinic if noticed any issues with given medications. #8 morphine milligrams equivalents dose ( MME) per day: 30 #9 TENS unit's, and percussion massage device #10 disposition scheduled to follow up with pain clinic for follow up visit in 7 weeks duration. Time with Patient: Less than 30 PQRS Measure Charge Sheet Measure #130: Documentation of Current Meds in Medical Chart: Patient's medications documented in chart Measure #226: Tobacco Use: Screen & Cessation Intervention: Pt screened for tobacco use AND intervention given Measure #111: Pneumonia Vaccination: Pneumococcal vaccine administered or previo usly received Measure #47: Advance Care Plan: Advance care planning discussed & documented, plan or surrogate given Measure #412: Opioid Treatment Agreement: Documented signed opioid trtmnt agreemnt min once during opioid trtmnt Measure #408: Opioid Therapy Follow-up Evaluation: Patient had f/u eval minimum every 3 months during opioid therapy Measure #317: Preventitive Care & Scrn High Bld Press & F/U: Pre-hypertensive or hypertensive BP documented, pt will f/u with PCP Measure #128: Body Mass Index (BMI) Screening & Follow-up: BMI documented ABOVE normal parameters - f/u documented Measure #131: Pain Assessment & Follow-up: Pain positive & plan documented Measure #431: Unhealthy Alcohol Use Preventative Care & Scrn: Patient not identified as an unhealthy alcohol user PQRS Narrative: Smoking Status Former smoker Narcotic Agreement Date Signed 08/09/22 Hx Alcohol Use (MH) Yes: OCC. Home Medications: Ambulatory Orders Cholecalciferol [Vitamin D3 (25 Mcg = 1000 Iu)] 1,000 unit PO BID@1200,2100 05/24/15 Spironolactone-Hctz 25-25Mg [Aldactazide 25-25 MG] 1 tab PO QAM 05/24/15 Tamsulosin [Flomax] 0.4 mg PO BID@0700,1200 05/24/15 Montelukast [Singulair] 10 mg PO HS 02/26/19 Atorvastatin [Lipitor] 20 mg PO QAM 03/11/19 Ferrous Sulfate [Iron (65 MG Elemental)] 325 mg PO DAILY@1200 03/11/19 Warfarin [Coumadin] 5 mg PO HS 10/05/19 Albuterol Sulfate [Ventolin HFA] 2 puff INHALATION RT-Q6H PRN 12/22/19 Furosemide [Lasix] 40 mg PO QAM #30 tab 12/26/19 Metoprolol Succinate (ER) [Toprol XL] 100 mg PO BID #60 tab.er.24h 12/26/19 Sennosides-Docusate Sodium [Senokot-S] 1 each PO BID PRN #8 tab 12/26/19 polyethylene glycoL 3350 [Miralax] 17 gm PO DAILY PRN #2 powd.pack 12/26/19 Omeprazole [PriLOSEC] 20 mg PO 1200 06/01/20 metFORMIN HCL [Glucophage] 500 mg PO QAM 01/17/21 Dapagliflozin Propanediol [Farxiga] 10 mg PO DAILY 12/14/21 Insulin Aspart [NovoLOG Flexpen] 0 units SQ AC-TID 12/14/21 Insulin Degludec [Tresiba Flextouch U-100 Pen] 17 units SQ HS 12/14/21 Methyl Salicylate/Menth/Camph [Bengay Ultra Strength Cream] 1 applic TOPICAL DIRECTED PRN 12/14/21 Umeclidinium Brm/Vilanterol Tr [Anoro Ellipta 62.5-25 Mcg INH] 1 puff INHALATION DAILY 12/14/21 Diclofenac Sodium Gel [Voltaren Gel] 100 gm TOPICAL QID PRN 30 Days #100 g 10/04/22 Gabapentin [Neurontin] 300 mg PO TID 30 Days #90 cap 10/04/22 HYDROcodone/APAP 10-325MG [[place] 10-325] 1 tab PO Q8HR PRN 30 Days #90 tab 10/04/22 HYDROcodone/APAP 10-325MG [[place] 10-325] 1 tab PO TID PRN 30 Days #90 tab 10/04/22 Controlled Substance Measures - Controlled Substance Measures Is patient prescribed a controlled substance at discharge?: Yes When asked, does pt state using other controlled substances?: No If prescribed controlled substance>3 days was MAPS reviewed?: Yes If Rx opioid, was Start Talking consent form obtained?: Yes If opioid is for acute pain is fill amount 7 days or less?: No Was information provided regarding opioid addiction?: Yes
[2022-11-29 14:48] VITALS: BP 107/72; PULSE 62; RESP 18; TEMP 98.1
== END ==
LOC: PNWHC3 12:26
DX: M47.26 Other spondylosis with radiculopathy, lumbar region (principal); M96.1 Postlaminectomy syndrome, not elsewhere classified; G89.4 Chronic pain syndrome; M79.10 Myalgia, unspecified site; Z88.5 Allergy status to narcotic agent; Z87.891 Personal history of nicotine dependence
CPT/HCPCS: 99211

== ENCOUNTER → 2023-03-14 | Outpatient (CLI) | payer MEDICARE, BC ==
[2023-03-14 12:37] VITALS: BP 129/85; PULSE 70; RESP 18; TEMP 97.9
--- NOTE | 2023-03-14 14:47 | P.PAINPG ---
PQRS Measure Charge Sheet Comment: A 73 yr old male w at side with a history of severe and chronic LBP secondary to lumbar DDD and spondylosis with facet arthropathy without myelopathy presents today for medication refills. Pain level is provoked at 8/10 in intensity, constant, localized in the lumbar spine, achy in character w shooting towards the BL feet. Pain is provoked by standing/ walking for periods of 20 min or more. Pain is alleviated with PT integrated w massage x 4 wks in Oct 2022, use of a cane for ambulatory assitance, heat, ice, meds, topical, sitting and rest. Patient is currently on [place] 10/325 #90, Neurontin 300mg #90, Voltaren gel Patient denies any side effects of the medication(s), denies excessive drowsin ess or sleepiness, denies suicidal ideation and reports that the current pain medication is helping to control the pain and improve activities of daily living. Patient denies any motor or sensory deficits. Patient denies any fever or night sweats, denies any change in the bowel movements or urination. Physical Examination: -Constitutional: Cooperative. Not in acute distress . - Neurologic: Cranial nerve II to XII intact. No focal neurological deficits. - Psychatric: Alert & oriented x 3. Matching mood & appropriate affect. Judgment and insight intact. - Musculoskeletal: Cervical spine: Muscle bulk/ tone/ strength in the bilateral upper extremities normal Vertebral body tenderness to palpation over Spurling test positive Distraction test positive Facet loading test positive TTP Thoracic spine Muscle bulk / tone/ strength in the bilateral paraspinal muscles normal Vertebral body tender to palpation over Facet loading test positive TTP Lumbar spine: Motor bulk/ tone/ strength lower extremities , thigh and legs : 5/5 Deep tendon reflexes : Normal Knee Jerk. Normal Ankle Jerk . Vertebral body tenderness to palpation over Lumbar Facet Loading Test positive Straight Leg Raise: positive at 30 degrees right side/ left side Gaenslen's Test positive Sacral spine : Severe tenderness over the Sacroiliac joint: right side / left side Range of motion: Flexion of the lumbar spine <60 degrees Range of motion: Extension of the lumbar spine <20 degrees Gaenslen's Test positive right side / left side Sidney test: positive right side / left side Thigh Thrust Test positive right side / left side Sacral Thrust Test positive right side / left side Assessment and plan: Chronic LBP secondary to lumbar DDD, spondylosis with facet arthropathy without myelopathy Chronic and current use of high-risk medication (Opioids). The patient was counseled about risk of opioid use, psychological risk associated with opioids and was orally counseled to not overuse , divert or sell medications. Pt is to store medication in a safe location. The patient is counseled against driving while using narcotic medications and also not to use alcohol or any illicit recreational drugs. Patient verbalized understanding that the lack of compliance will result in failure to renew narcotic prescription(s) as well as possible discharge from the clinic Diagnoses, prognosis and treatment options including but not limited to physical therapy, surgical interventions, interventional therapies and medication management including narcotics and adjuvant medication were discussed. All patient questions answered MAPS reviewed and it was appropriate. UDS 01/17/23 reviewed and consistent. Prescription refill for [place], Neurontin, Voltaren gel w 1 RF. Add Lidoderm 5%, Use as directed. PT x 6 wks re: M51.36 I have spent less than 30 minutes on patient care today. Dr Houser was available by phone for the evaluation of this patient. The time was used to review the medical records including relevant urine studies and Prescription history (MAPs), review of the available imaging, evaluation and examination of the patient, coordination of care with the medical staff and if applicable referring physicians, as well as creation of the medical record PQRS Narrative: Smoking Status Former smoker Narcotic Agreement Date Signed 08/09/22 Hx Alcohol Use (MH) Yes: OCC. Home Medications: Ambulatory Orders Cholecalciferol [Vitamin D3 (25 Mcg = 1000 Iu)] 1,000 unit PO BID@1200,2100 05/24/15 Spironolactone-Hctz 25-25Mg [Aldactazide 25-25 MG] 1 tab PO QAM 05/24/15 Tamsulosin [Flomax] 0.4 mg PO BID@0700,1200 05/24/15 Montelukast [Singulair] 10 mg PO HS 02/26/19 Atorvastatin [Lipitor] 20 mg PO QAM 03/11/19 Ferrous Sulfate [Iron (65 MG Elemental)] 325 mg PO DAILY@1200 03/11/19 Warfarin [Coumadin] 5 mg PO HS 10/05/19 Albuterol Sulfate [Ventolin HFA] 2 puff INHALATION RT-Q6H PRN 12/22/19 Furosemide [Lasix] 40 mg PO QAM #30 tab 12/26/19 Metoprolol Succinate (ER) [Toprol XL] 100 mg PO BID #60 tab.er.24h 12/26/19 Sennosides-Docusate Sodium [Senokot-S] 1 each PO BID PRN #8 tab 12/26/19 polyethylene glycoL 3350 [Miralax] 17 gm PO DAILY PRN #2 powd.pack 12/26/19 Omeprazole [PriLOSEC] 20 mg PO 1200 06/01/20 metFORMIN HCL [Glucophage] 500 mg PO QAM 01/17/21 Dapagliflozin Propanediol [Farxiga] 10 mg PO DAILY 12/14/21 Insulin Aspart [NovoLOG Flexpen] 0 units SQ AC-TID 12/14/21 Insulin Degludec [Tresiba Flextouch U-100 Pen] 17 units SQ HS 12/14/21 Methyl Salicylate/Menth/Camph [Bengay Ultra Strength Cream] 1 applic TOPICAL DIRECTED PRN 12/14/21 Umeclidinium Brm/Vilanterol Tr [Anoro Ellipta 62.5-25 Mcg INH] 1 puff INHALATION DAILY 12/14/21 Diclofenac Sodium Gel [Voltaren Gel] 100 gm TOPICAL QID PRN 30 Days #100 g 03/14/23 Gabapentin [Neurontin] 300 mg PO TID 30 Days #90 cap 03/14/23 HYDROcodone/APAP 10-325MG [[place] 10-325] 1 tab PO Q8HR PRN 30 Days #90 tab 03/14/23 HYDROcodone/APAP 10-325MG [[place] 10-325] 1 tab PO TID PRN 30 Days #90 tab 03/14/23 Lidocaine 5% Patch [Lidoderm] 1 patch TOPICAL DAILY 30 Days #30 patch 03/14/23 Controlled Substance Measures - Controlled Substance Measures Is patient prescribed a controlled substance at discharge?: Yes
== END ==
LOC: PNWHC3 11:50
PROVIDERS: ATTEND Specialist
DX: M51.36 Other intervertebral disc degeneration, lumbar region (principal); M47.816 Spondylosis without myelopathy or radiculopathy, lumbar region; G89.29 Other chronic pain; Z79.891 Long term (current) use of opiate analgesic; Z87.891 Personal history of nicotine dependence; Z88.5 Allergy status to narcotic agent
CPT/HCPCS: 99211

== ENCOUNTER → 2023-05-09 | Outpatient (CLI) | payer MEDICARE, BC ==
[2023-05-09 13:05] VITALS: BP 114/64; PULSE 82; RESP 18
--- NOTE | 2023-05-09 14:40 | P.PAINPG ---
PQRS Measure Charge Sheet Comment: A 73 yr old male w at side with a history of severe and chronic LBP secondary to lumbar DDD and spondylosis with facet arthropathy without myelopathy presents today for medication refills. Pain level is provoked at 8/10 in intensity, constant, localized in the lumbar spine, achy in character w shooting towards the BL feet. Pain is provoked by standing/ walking for periods of 20 min or more. Pain is alleviated with PT integrated w massage x 5 wks which he is currently in, use of a cane for ambulatory assistance, reclining, heat, ice, meds, topical, sitting and rest. Patient is currently on [place] 10/325 #90, Neurontin 300mg #90, Voltaren gel Patient denies any side effects of the medication(s), denies excessive drowsiness or sleepiness, denies suicidal ideation and reports that the current pain medication is helping to control the pain and improve activities of daily living. Patient denies any motor or sensory deficits. Patient denies any fever or night sweats, denies any change in the bowel movements or urination. Physical Examination: -Constitutional: Cooperative. Not in acute distress . - Neurologic: Cranial nerve II to XII intact. No focal neurological deficits. - Psychatric: Alert & oriented x 3. Matching mood & appropriate affect. Judgment and insight intact. - Musculoskeletal: Cervical spine: Muscle bulk/ tone/ strength in the bilateral upper extremities normal Vertebral body tenderness to palpation over Spurling test positive Distraction test positive Facet loading test positive TTP Thoracic spine Muscle bulk / tone/ strength in the bilateral paraspinal muscles normal Vertebral body tender to palpation over Facet loading test positive TTP Lumbar spine: Motor bulk/ tone/ strength lower extremities , thigh and legs : 5/5 Deep tendon reflexes : Normal Knee Jerk. Normal Ankle Jerk . Vertebral body tenderness to palpation over Lumbar Facet Loading Test positive Straight Leg Raise: positive at 30 degrees right side/ left side Gaenslen's Test positive Sacral spine : Severe tenderness over the Sacroiliac joint: right side / left side Range of motion: Flexion of the lumbar spine <60 degrees Range of motion: Extension of the lumbar spine <20 degrees Gaenslen's Test positive right side / left side Sidney test: positive right side / left side Thigh Thrust Test positive right side / left side Sacral Thrust Test positive right side / left side Assessment and plan: Chronic LBP secondary to lumbar DDD, spondylosis with facet arthropathy without myelopathy Chronic and current use of high-risk medication (Opioids). The patient was counseled about risk of opioid use, psychological risk associated with opioids and was orally counseled to not overuse , divert or sell medications. Pt is to store medication in a safe location. The patient is counseled against driving while using narcotic medications and also not to use alcohol or any illicit recreational drugs. Patient verbalized understanding that the lack of compliance will result in failure to renew narcotic prescription(s) as well as possible discharge from the clinic Diagnoses, prognosis and treatment options including but not limited to physical therapy, surgical interventions, interventional therapies and medication management including narcotics and adjuvant medication were discussed. All patient questions answered MAPS reviewed and it was appropriate. UDS 01/17/23 reviewed and consistent. Prescription refill for [place], Neurontin, Voltaren gel, Lidoderm 5% w 1 RF. I have spent less than 30 minutes on patient care today. Dr Houser was available by phone for the evaluation of this patient. The time was used to rev iew the medical records including relevant urine studies and Prescription history (MAPs), review of the available imaging, evaluation and examination of the patient, coordination of care with the medical staff and if applicable referring physicians, as well as creation of the medical record PQRS Narrative: Smoking Status Former smoker Narcotic Agreement Date Signed 08/09/22 Hx Alcohol Use (MH) Yes: OCC. Home Medications: Ambulatory Orders Cholecalciferol [Vitamin D3 (25 Mcg = 1000 Iu)] 1,000 unit PO BID@1200,2100 05/24/15 Spironolactone-Hctz 25-25Mg [Aldactazide 25-25 MG] 1 tab PO QAM 05/24/15 Tamsulosin [Flomax] 0.4 mg PO BID@0700,1200 05/24/15 Montelukast [Singulair] 10 mg PO HS 02/26/19 Atorvastatin [Lipitor] 20 mg PO QAM 03/11/19 Ferrous Sulfate [Iron (65 MG Elemental)] 325 mg PO DAILY@1200 03/11/19 Warfarin [Coumadin] 5 mg PO HS 10/05/19 Albuterol Sulfate [Ventolin HFA] 2 puff INHALATION RT-Q6H PRN 12/22/19 Furosemide [Lasix] 40 mg PO QAM #30 tab 01/25/20 Metoprolol Succinate (ER) [Toprol XL] 100 mg PO BID #60 tab.er.24h 12/26/19 Sennosides-Docusate Sodium [Senokot-S] 1 each PO BID PRN #8 tab 12/26/19 polyethylene glycoL 3350 [Miralax] 17 gm PO DAILY PRN #2 powd.pack 12/26/19 Omeprazole [PriLOSEC] 20 mg PO 1200 06/01/20 metFORMIN HCL [Glucophage] 500 mg PO QAM 01/17/21 Dapagliflozin Propanediol [Farxiga] 10 mg PO DAILY 12/14/21 Insulin Aspart [NovoLOG Flexpen] 0 units SQ AC-TID 12/14/21 Insulin Degludec [Tresiba Flextouch U-100 Pen] 17 units SQ HS 12/14/21 Methyl Salicylate/Menth/Camph [Bengay Ultra Strength Cream] 1 applic TOPICAL DIRECTED PRN 12/14/21 Umeclidinium Brm/Vilanterol Tr [Anoro Ellipta 62.5-25 Mcg INH] 1 puff INHALATION DAILY 12/14/21 Diclofenac Sodium Gel [Voltaren Gel] 100 gm TOPICAL QID PRN 30 Days #100 g 05/09/23 Gabapentin [Neurontin] 300 mg PO TID 30 Days #90 cap 05/09/23 HYDROcodone/APAP 10-325MG [[place] 10-325] 1 tab PO Q8HR PRN 30 Days #90 tab 05/09/23 HYDROcodone/APAP 10-325MG [[place] 10-325] 1 tab PO TID PRN 30 Days #90 tab 07/24 Lidocaine 5% Patch [Lidoderm 5% Patch] 1 patch TOPICAL DAILY 30 Days #30 patch 05/09/23 Controlled Substance Measures - Controlled Substance Measures Is patient prescribed a controlled substance at discharge?: Yes When asked, does pt state using other controlled substances?: No If prescribed controlled substance>3 days was MAPS reviewed?: Yes
== END ==
LOC: PNWHC3 12:11
PROVIDERS: ATTEND Specialist
DX: M51.36 Other intervertebral disc degeneration, lumbar region (principal); M47.816 Spondylosis without myelopathy or radiculopathy, lumbar region; G89.29 Other chronic pain; Z79.899 Other long term (current) drug therapy; Z87.891 Personal history of nicotine dependence; Z88.5 Allergy status to narcotic agent; Z79.891 Long term (current) use of opiate analgesic
CPT/HCPCS: 99211

== ENCOUNTER → 2023-05-14 | Outpatient (CLI) | payer MEDICARE, BC ==
--- NOTE | 2023-05-14 15:33 | US ---
EXAMINATION TYPE: US thyroid st tissue head/neck DATE OF EXAM: 05/14/2023 COMPARISON: CT soft tissue neck 05/24/2015 CLINICAL INDICATION: Male, 73 years old with history of L04.9 ACUTE LYMPHADENITIS; TECHNIQUE: Multiple grayscale and color Doppler ultrasound images of the right parotid region the pa tient's region of palpable abnormality were obtained. FINDINGS/IMPRESSION: Scanning was performed directly over palpable as pointed out by patient, under right ear. This corresponds to the region of the right parotid gland. No focal lesion identified. No lymphadenopathy demonstrated. If there is continued clinical concern, consider further evaluation wit h CT neck with IV contrast.
== END | disposition home or self-care (01) ==
LOC: RADUSWWP 14:56
PROVIDERS: ATTEND Internal Medicine
DX: L04.9 Acute lymphadenitis, unspecified (principal)
CPT/HCPCS: 76536

== ENCOUNTER → 2023-05-30 | Outpatient (CLI) | payer MEDICARE, BC ==
--- NOTE | 2023-05-30 15:14 | CT ---
EXAMINATION TYPE: CT iac wo con CT DLP: 468 mGycm, Automated exposure control for dose reduction was used. DATE OF EXAM: 05/30/2023 3:01 PM INDICATION: Patient age:Male; 73 years old; Reason for study: H61.899; COMPARISON: None. TECHNIQUE: Multiple thin axial images were obtained through the temporal bones and internal auditory canals. Additional coronal reformatted images were obtained. No IV contrast was utilized. CT Contrast: Contrast used: none. FINDINGS: Right Temporal Bone: External Ear: Opacification of the right external auditory canal with soft tissue. There is erosion/c ommunication into the temporal mandibular joint. Middle Ear: There is fluid within the middle ear and the hypotympanum and mesotympanum. The ossicles demonstrate a normal appearance given motion. Prussak's space has trace amount of suspected fluid. There is no evidence of osseous erosion and the tegmen tympani is intact. Inner Ear: Cochlea, vestibule and semi circular canals are unremarkable. No evidence of carotid nghia l dehiscence. Two and a half turns of the cochlea are identified. The vestibular aqueduct is not enl arged. Mastoid Air Cells: The mastoid air cells are clear. The tegmen mastoideum is intact. The aditus ad an trum is clear. Internal Auditory Canal: The internal auditory canal is unremarkable. Left Temporal Bone: External Ear: The external auditory canal is unremarkable, The tympanic membrane is present and unrem arkable. Middle Ear: The ossicles demonstrate a normal appearance. Prussak's space is clear and the scutum i s intact. There is no evidence of osseous erosion and the tegmen tympani is intact. Inner Ear: Cochlea, vestibule and semi circular canals are unremarkable. No evidence of carotid nghia l dehiscence. Two and a half turns of the cochlea are identified. The vestibular aqueduct is not enl arged. Mastoid Air Cells: The mastoid air cells are clear. The tegmen mastoideum is intact. The aditus ad an trum is clear. Internal Auditory Canal: The internal auditory canal is unremarkable. Postsurgical change the left globe. Intracranial atherosclerosis of the arterial vasculature. Suspect ed possible calcified meningioma near the internal auditory canal on the left measuring 7 mm. IMPRESSION: Motion limited exam. 1. Opacification of the right external auditory canal with soft tissue correlate for otitis externa. There is erosion/communication into the temporal mandibular joint. 2. Right middle ear fluid in the hypotympanum and mesotympanum. 3. Suspected possible calcified meningioma near the internal auditory canal on the left measuring 7 mm.
== END | disposition home or self-care (01) ==
LOC: RADCTMAIN 14:23
PROVIDERS: ATTEND Otolaryngology
DX: H92.01 Otalgia, right ear (principal); H61.891 Other specified disorders of right external ear
CPT/HCPCS: 70480

== ENCOUNTER → 2023-07-04 | Outpatient (CLI) | payer MEDICARE, BC ==
[2023-07-04 13:07] VITALS: BP 128/64; PULSE 68; RESP 14; TEMP 97.8
--- NOTE | 2023-07-04 14:50 | P.PAINPG ---
PQRS Measure Charge Sheet Comment: A 73 yr old wheelchair bound male w at side with a history of severe and chronic LBP secondary to lumbar DDD and spondylosis with facet arthropathy without myelopathy presents today for medication refills. Pain level is provoked at 7/10 in intensity, constant, localized in the lumbar spine, achy in ch aracter w shooting towards the BL feet. Pain is provoked by standing/ walking for periods of 20 min or more. Pain is alleviated with PT integrated w massage x 6 wks in Jun 2023, use of a cane & wheelchair for ambulatory assistance, reclining, heat, ice, meds, topical, sitting and rest. Patient is currently on [place] 10/325 #90, Neurontin 300mg #90, Voltaren gel Patient denies any side effects of the medication(s), denies excessive drowsiness or sleepiness, denies suicidal ideation and reports that the current pain medication is helping to control the pain and improve activities of daily living. Patient denies any motor or sensory deficits. Patient denies any fever or night sweats, denies any change in the bowel movements or urination. Physical Examination: -Constitutional: Cooperative. Not in acute distress . - Neurologic: Cranial nerve II to XII intact. No focal neurological deficits. - Psychatric: Alert & oriented x 3. Matching mood & appropriate affect. Judgment and insight intact. - Musculoskeletal: Cervical spine: Muscle bulk/ tone/ strength in the bilateral upper extremities normal Vertebral body tenderness to palpation over Spurling test positive Distraction test positive Facet loading test positive TTP Thoracic spine Muscle bulk / tone/ strength in the bilateral paraspinal muscles normal Vertebral body tender to palpation over Facet loading test positive TTP Lumbar spine: Motor bulk/ tone/ strength lower extremities , thigh and legs : 5/5 Deep tendon reflexes : Normal Knee Jerk. Normal Ankle Jerk . Vertebral body tenderness to palpation over Lumbar Facet Loading Test positive Straight Leg Raise: positive at 30 degrees right side/ left side Gaenslen's Test positive Sacral spine : Severe tenderness over the Sacroiliac joint: right side / left side Range of motion: Flexion of the lumbar spine <60 degrees Range of motion: Extension of the lumbar spine <20 degrees Gaenslen's Test positive right side / left side Sidney test: positive right side / left side Thigh Thrust Test positive right side / left side Sacral Thrust Test positive right side / left side Assessment and plan: Chronic LBP secondary to lumbar DDD, spondylosis with facet arthropathy without myelopathy Chronic and current use of high-risk medication (Opioids). The patient was counseled about risk of opioid use, psychological risk associated with opioids and was orally counseled to not overuse , divert or sell medications. Pt is to store medication in a safe location. The patient is counseled against driving while using narcotic medications and also not to use alcohol or any illicit recreational drugs. Patient verbalized understanding that the lack of compliance will result in failure to renew narcotic prescription(s) as well as possible discharge from the clinic Diagnoses, prognosis and treatment options including but not limited to physical therapy, surgical interventions, interventional therapies and medication management including narcotics and adjuvant medication were discussed. All patient questions answered MAPS reviewed and it was appropriate. UDS 01/17/23 reviewed and consistent. Prescription refill for [place], Neurontin, Voltaren gel, Lidoderm 5% w 1 RF. I have spent less than 30 minutes on patient care today. Dr Houser was available by phone for the evaluation of this patient. The time was used to review the medical records including relevant urine studies and Prescription history (MAPs), review of the available imaging, evaluation and examination of the patient, coordination of care with the medical staff and if applicable referring physicians, as well as creation of the medical record PQRS Narrative: Smoking Status Former smoker Narcotic Agreement Date Signed 08/09/22 Hx Alcohol Use (MH) Yes: OCC. Home Medications: Ambulatory Orders Cholecalciferol [Vitamin D3 (25 Mcg = 1000 Iu)] 1,000 unit PO BID@1200,2100 05/24/15 Spironolactone-Hctz 25-25Mg [Aldactazide 25-25 MG] 1 tab PO QAM 05/24/15 Tamsulosin [Flomax] 0.4 mg PO BID@0700,1200 05/24/15 Montelukast [Singulair] 10 mg PO HS 02/26/19 Atorvastatin [Lipitor] 20 mg PO QAM 03/11/19 Ferrous Sulfate [Iron (65 MG Elemental)] 325 mg PO DAILY@1200 03/11/19 Warfarin [Coumadin] 5 mg PO HS 10/05/19 Albuterol Sulfate [Ventolin HFA] 2 puff INHALATION RT-Q6H PRN 12/22/19 Furosemide [Lasix] 40 mg PO QAM #30 tab 12/26/19 Metoprolol Succinate (ER) [Toprol XL] 100 mg PO BID #60 tab.er.24h 12/26/19 Sennosides-Docusate Sodium [Senokot-S] 1 each PO BID PRN #8 tab 12/26/19 polyethylene glycoL 3350 [Miralax] 17 gm PO DAILY PRN #2 powd.pack 12/26/19 Omeprazole [PriLOSEC] 20 mg PO 1200 06/01/20 metFORMIN HCL [Glucophage] 500 mg PO QAM 01/17/21 Dapagliflozin Propanediol [Farxiga] 10 mg PO DAILY 12/14/21 Insulin Degludec [Tresiba Flextouch U-100 Pen] 17 units SQ HS 12/14/21 Methyl Salicylate/Menth/Camph [Bengay Ultra Strength Cream] 1 applic TOPICAL DIRECTED PRN 12/14/21 Umeclidinium Brm/Vilanterol Tr [Anoro Ellipta 62.5-25 Mcg INH] 1 puff INHALATION DAILY 12/14/21 Diclofenac Sodium Gel [Voltaren Gel] 100 gm TOPICAL QID PRN 30 Days #100 g 07/04/23 Gabapentin [Neurontin] 300 mg PO TID 30 Days #90 cap 07/04/23 HYDROcodone/APAP 10-325MG [[place] 10-325] 1 tab PO Q8HR PRN 30 Days #90 tab 07/04/23 HYDROcodone/APAP 10-325MG [[place] 10-325] 1 tab PO TID PRN 30 Days #90 tab 07/04/23 Lidocaine 5% Patch [Lidoderm 5% Patch] 1 patch TOPICAL DAILY 30 Days #30 patch 07/04/23 Controlled Substance Measures - Controlled Substance Measures Is patient prescribed a controlled substance at discharge?: Yes When asked, does pt state using other controlled substances?: Yes If prescribed controlled substance>3 days was MAPS reviewed?: Yes
== END ==
LOC: PNWHC3 11:51
PROVIDERS: ATTEND Specialist
DX: M51.36 Other intervertebral disc degeneration, lumbar region (principal); M47.816 Spondylosis without myelopathy or radiculopathy, lumbar region; G89.29 Other chronic pain; Z79.891 Long term (current) use of opiate analgesic; Z88.5 Allergy status to narcotic agent; Z87.891 Personal history of nicotine dependence
CPT/HCPCS: 99211

== ENCOUNTER → 2023-10-23 | Outpatient (CLI) | payer MEDICARE, BC ==
[2023-10-23 13:16] VITALS: BP 115/75; PULSE 57; RESP 15; TEMP 98.2
--- NOTE | 2023-10-23 15:05 | P.PAINPG ---
PQRS Measure Charge Sheet Comment: A 73 yr old male w at side with a history of severe and chronic LBP secondary to lumbar DDD and spondylosis with facet arthropathy without myelopathy presents today for medication refills. Pain level is provoked at 8/10 in intensity, constant, localized in the lumbar spine, predominantly axial, stabbing, burning in character w occasional shooting towards the BL hips and feet. Pain is provoked by standing/ walking for periods of 20 min or more. Pain is alleviated with PT integrated w massage x 6 wks in May 2023, use of a cane for ambulatory assistance, reclining, heat, ice, meds, topical, sitting and rest. Pt has difficulty traveling in the winter and would like a 3 mo supply this time. Patient is currently on [place] 10/325 #90, Neurontin 300mg #90, Lidoderm %, Voltaren gel Patient denies any side effects of the medication(s), denies excessive drowsiness or sleepiness, denies suicidal ideation and reports that the current pain medication is helping to control the pain and improve activities of daily living. Patient denies any motor or sensory deficits. Patient denies any fever or night sweats, denies any change in the bowel movements or urination. Physical Examination: -Constitutional: Cooperative. Not in acute distress . - Neurologic: Cranial nerve II to XII intact. No focal neurological deficits. - Psychatric: Alert & oriented x 3. Matching mood & appropriate affect. Judgment and insight intact. - Musculoskeletal: Cervical spine: Muscle bulk/ tone/ strength in the bilateral upper extremities normal Vertebral body tenderness to palpation over Spurling test positive Distraction test positive Facet loading test positive TTP Thoracic spine Muscle bulk / tone/ strength in the bilateral paraspinal muscles normal Vertebral body tender to palpation over Facet loading test positive TTP Lumbar spine: Motor bulk/ tone/ strength lower extremities , thigh and legs : 5/5 Deep tendon reflexes : Normal Knee Jerk. Normal Ankle Jerk . Vertebral body tenderness to palpation over Lumbar Facet Loading Test positive Straight Leg Raise: positive at 30 degrees right side/ left side Gaenslen's Test positive Sacral spine : Severe tenderness over the Sacroiliac joint: right side / left side Range of motion: Flexion of the lumbar spine <60 degrees Range of motion: Extension of the lumbar spine <20 degrees Gaenslen's Test positive right side / left side Sidney test: positive right side / left side Thigh Thrust Test positive right side / left side Sacral Thrust Test positive right side / left side Assessment and plan: Chronic LBP secondary to lumbar DDD, spondylosis with facet arthropathy without myelopathy Chronic and current use of high-risk medication (Opioids). The patient was counseled about risk of opioid use, psychological risk associated with opioids and was orally counseled to not overuse , divert or sell medications. Pt is to store medication in a safe location. The patient is counseled against driving while using narcotic medications and also not to use alcohol or any illicit recreational drugs. Patient verbalized understanding that the lack of compliance will result in failure to renew narcotic prescription(s) as well as possible discharge from the clinic Diagnoses, prognosis and treatment options including but not limited to physical therapy, surgical interventions, interventional therapies and medication management including narcotics and adjuvant medication were discussed. All patient questions answered. Narcotic/ opiate agreement renewed 08/29/23. MAPS reviewed and it was appropriate. UDS from 08/29/23 reviewed and consistent. Prescription refill for [place] 10/325mg #90, incr to Neurontin 400mg #90, Voltaren gel, Lidoderm 5% w 1 RF. I have spent less than 30 minutes on patient care today. Dr Houser was available by phone for the evaluation of this patient. The time was used to review the medical records including relevant urine studies and Prescription history (MAPs), review of the available imaging, evaluation and examination of the patient, coordination of care with the medical staff and if applicable referring physicians, as well as creation of the medical record PQRS Narrative: Smoking Status Former smoker Narcotic Agreement Date Signed 08/29/23 Hx Alcohol Use (MH) Yes: OCC. Home Medications: Ambulatory Orders Cholecalciferol [Vitamin D3 (25 Mcg = 1000 Iu)] 1,000 unit PO BID@1200,2100 05/24/15 Spironolactone-Hctz 25-25Mg [Aldactazide 25-25 MG] 1 tab PO QAM 05/24/15 Tamsulosin [Flomax] 0.4 mg PO BID@0700,1200 05/24/15 Montelukast [Singulair] 10 mg PO HS 02/26/19 Atorvastatin [Lipitor] 20 mg PO QAM 03/11/19 Ferrous Sulfate [Iron (65 MG Elemental)] 325 mg PO DAILY@1200 03/11/19 Warfarin [Coumadin] 5 mg PO HS 10/05/19 Albuterol Sulfate [Ventolin HFA] 2 puff INHALATION RT-Q6H PRN 12/22/19 Furosemide [Lasix] 40 mg PO QAM #30 tab 12/26/19 Metoprolol Succinate (ER) [Toprol XL] 100 mg PO BID #60 tab.er.24h 12/26/19 Sennosides-Docusate Sodium [Senokot-S] 1 each PO BID PRN #8 tab 12/26/19 polyethylene glycoL 3350 [Miralax] 17 gm PO DAILY PRN #2 powd.pack 12/26/19 Omeprazole [PriLOSEC] 20 mg PO 1200 06/01/20 metFORMIN HCL [Glucophage] 500 mg PO QAM 01/17/21 Dapagliflozin Propanediol [Farxiga] 10 mg PO DAILY 12/14/21 Insulin Degludec [Tresiba Flextouch U-100 Pen] 17 units SQ HS 12/14/21 Methyl Salicylate/Menth/Camph [Bengay Ultra Strength Cream] 1 applic TOPICAL DIRECTED PRN 12/14/21 Umeclidinium Brm/Vilanterol Tr [Anoro Ellipta 62.5-25 Mcg INH] 1 puff INHALATION DAILY 12/14/21 Lidocaine 5% Patch [Lidoderm 5% Patch] 1 patch TOPICAL DAILY 30 Days #30 patch 08/29/23 Diclofenac Sodium Gel [Voltaren 1% Gel] 100 gm TOPICAL QID PRN 30 Days #100 g 10/23/23 Gabapentin [Neurontin] 400 mg PO TID 30 Days #90 cap 10/23/23 HYDROcodone/APAP 10-325MG [[place] 10-325] 1 tab PO TID PRN 30 Days #90 tab 10/23/23 HYDROcodone/APAP 10-325MG [[place] 10-325] 1 tab PO TID PRN 30 Days #90 tab 10/23/23 HYDROcodone/APAP 10-325MG [[place] 10-325] 1 tab PO TID PRN 30 Days #90 tab 10/23/23 Controlled Substance Measures - Controlled Substance Measures Is patient prescribed a controlled substance at discharge?: Yes When asked, does pt state using other controlled substances?: No If prescribed controlled substance>3 days was MAPS reviewed?: Yes
== END ==
LOC: PNWHC3 11:52
PROVIDERS: ATTEND Specialist
DX: M51.36 Other intervertebral disc degeneration, lumbar region (principal); M47.816 Spondylosis without myelopathy or radiculopathy, lumbar region; Z88.5 Allergy status to narcotic agent; Z79.84 Long term (current) use of oral hypoglycemic drugs; Z79.899 Other long term (current) drug therapy; Z79.4 Long term (current) use of insulin; Z87.891 Personal history of nicotine dependence; Z79.891 Long term (current) use of opiate analgesic
CPT/HCPCS: 99211

== ENCOUNTER → 2023-11-19 | Outpatient (CLI) | payer MEDICARE, BC ==
--- NOTE | 2023-11-19 13:36 | US ---
EXAMINATION TYPE: US kidneys/renal and bladder DATE OF EXAM: 11/19/2023 COMPARISON: NONE CLINICAL INDICATION: Male, 73 years old with history of N28.9 DISORDER OF KIDNEY AND URETER, UNSPECIF IED; Abnormal labs; patient denies any symptoms; Hx HTN and DM EXAM MEASUREMENTS: Right Kidney: 11.0 x 6.3 x 5.8 cm Left Kidney: 11.7 x 6.1 x 5.7 cm Right Kidney: 2.1 cm upper pole cortical cyst. No hydronephrosis. Left Kidney: No hydronephrosis or masses seen Bladder: wnl Bilateral Jets seen: Yes Incidental: Round solid isoechoic splenic mass at the lower pole measuring 7.4 x 6.6 x 7.5 cm IMPRESSION: 1. No hydronephrosis. 2. Incidental round solid mass at the lower pole of the spleen measuring 7.5 cm. This may represent a large hamartoma or hemangioma of the spleen. Other neoplastic etiology not excluded at this time. Re commend dual phase contrast enhanced CT of the abdomen/pelvis to further characterize and also to marlen vey the remainder of the abdomen.
== END | disposition home or self-care (01) ==
LOC: RADUSWWP 12:44
PROVIDERS: ATTEND Internal Medicine
DX: N28.9 Disorder of kidney and ureter, unspecified (principal); I10 Essential (primary) hypertension; E11.9 Type 2 diabetes mellitus without complications
CPT/HCPCS: 76770

== ENCOUNTER → 2023-11-26 | Outpatient (CLI) | payer MEDICARE, BC ==
[2023-11-26 13:10] LABS: African American GFR (CKD) 59 (>60 ml/min/1.73 sqM); Blood Urea Nitrogen 30 mg/dL (9-20); Non-African American GFR(CKD) 51 (>60 ml/min/1.73 sqM)
--- NOTE | 2023-11-26 15:17 | CT ---
EXAMINATION TYPE: CT abdomen pelvis wo/w con DATE OF EXAM: 11/26/2023 COMPARISON: None HISTORY: SPLENOMEGALY. ABNORMAL US. MULTIPLE PHASE CT SCAN REQUESTED FROM DR. CARTER. CT DLP: 4720.50 mGycm Automated exposure control for dose reduction was used. TECHNIQUE: Helical acquisition of images was performed from the lung bases through the pelvis. CONTRAST: Performed with Oral Contrast and without and with IV Contrast, patient injected with 80ml mL of Isovu e 370. FINDINGS: Lung bases are clear. There are surgical absence of gallbladder. There is no focal mass or organomegaly involving the liver, pancreas or spleen. There is a 2.5 cm hypodense mass in the left adrenal gland most likely representing a small benign ad enoma. Right adrenal gland is normal. 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 There is no solid zulma al mass or hydronephrosis. There is no retroperitoneal adenopathy or hemorrhage in the caliber the abdominal aorta is normal. The bowel loops are normal in caliber and there is no dilatation or obstruction. There is no inflamma tory change in the bowel wall or mesentery and there is no free intraperitoneal air or fluid. There is no pelvic mass, free fluid, abscess or adenopathy. The soft tissues abdominal wall and pelvis are normal. No focal osseous lesions are seen. IMPRESSION: 1. 2.5 cm well-circumscribed hypodense mass in the left ureter gland most likely representing a benig n adenoma. 2. no other significant abnormality seen. Specifically there is no splenomegaly or splenic mass. 3. Cholecystectomy.
== END | disposition home or self-care (01) ==
LOC: RADCTMAIN 12:26
PROVIDERS: ATTEND Internal Medicine
DX: R16.1 Splenomegaly, not elsewhere classified (principal); N28.89 Other specified disorders of kidney and ureter; Z90.49 Acquired absence of other specified parts of digestive tract
CPT/HCPCS: 82565; 84520; 74178; 36415; Q9967

== ENCOUNTER → 2024-01-13 | Outpatient (CLI) | payer MEDICARE, BC ==
--- NOTE | 2024-01-13 22:04 | XR ---
EXAMINATION TYPE: XR shoulder complete 3 views RT DATE OF EXAM: 01/13/2024 Comparison: None Clinical History: 74-year-old male [id number] RT SHLD PAIN Findings: Mild degenerative joint space narrowing at the AC joint. Subacromial space is preserved. Mild scleros is of the greater tuberosity. No acute fracture, subluxation, dislocation. Impression: Mild AC joint OA. No acute osseous abnormality seen.
== END | disposition home or self-care (01) ==
LOC: RADXRYALE 14:07
PROVIDERS: ATTEND Internal Medicine
DX: M19.011 Primary osteoarthritis, right shoulder (principal)

== ENCOUNTER → 2024-01-15 | Outpatient (CLI) | payer MEDICARE, BC ==
[2024-01-15 12:47] VITALS: BP 118/82; PULSE 64; RESP 16; TEMP 97.3
--- NOTE | 2024-01-15 14:30 | P.PAINPG ---
Objective - Vital Signs Vital signs: Intake & Output 01/14/24 01/15/24 01/15/24 18:59 06:59 18:59 Weight 131.542 kg PQRS Measure Charge Sheet Comment: A 74 yr old male w at side with a history of severe and chronic LBP secondary to lumbar DDD and spondylosis with facet arthropathy without myelopathy presents today for medication refills. Pain level is provoked at 9/10 in intensity, constant, localized in the lumbar spine, predominantly axial, stabbing, burning in character w occasional shooting towards the BLEs and feet. Pain is provoked by standing/ walking for periods of 20 min or more. Pain is alleviated with PT integrated w massage x 6 wks in May 2023, use of a cane for ambulatory assistance, reclining, heat, ice, meds, topical, sitting and rest. Pt has difficulty traveling in the winter and would like a 3 mo supply this time. Patient is currently on [place] 10/325 #90, Neurontin 300mg #90, Lidoderm 5%, Voltaren gel Patient denies any side effects of the medication(s), denies excessive drowsiness or sleepiness, denies suicidal ideation and reports that the current pain medication is helping to control the pain and improve activities of daily living. Patient denies any motor or sensory deficits. Patient denies any fever or night sweats, denies any change in the bowel movements or urination. Physical Examination: -Constitutional: Cooperative. Not in acute distress . - Neurologic: Cranial nerve II to XII intact. No focal neurological deficits. - Psychatric: Alert & oriented x 3. Matching mood & appropriate affect. Judgment and insight intact. - Musculoskeletal: Cervical spine: Muscle bulk/ tone/ strength in the bilateral upper extremities normal Vertebral body tenderness to palpation over Spurling test positive Distraction test positive Facet loading test positive TTP Thoracic spine Muscle bulk / tone/ strength in the bilateral paraspinal muscles normal Vertebral body tender to palpation over Facet loading test positive TTP Lumbar spine: Motor bulk/ tone/ strength lower extremities , thigh and legs : 5/5 Deep tendon reflexes : Normal Knee Jerk. Normal Ankle Jerk . Vertebral body tenderness to palpation over Lumbar Facet Loading Test positive Straight Leg Raise: positive at 30 degrees right side/ left side Gaenslen's Test positive Sacral spine : Severe tenderness over the Sacroiliac joint: right side / left side Range of motion: Flexion of the lumbar spine <60 degrees Range of motion: Extension of the lumbar spine <20 degrees Gaenslen's Test positive right side / left side Sidney test: positive right side / left side Thigh Thrust Test positive right side / left side Sacral Thrust Test positive right side / left side Assessment and plan: Chronic LBP secondary to lumbar DDD, spondylosis with facet arthropathy without myelopathy Chronic and current use of high-risk medication (Opioids). The patient was counseled about risk of opioid use, psychological risk associated with opioids and was orally counseled to not overuse , divert or sell medications. Pt is to store medication in a safe location. The patient is counseled against driving while using narcotic medications and also not to use alcohol or any illicit recreational drugs. Patient verbalized understanding that the lack of compliance will result in failure to renew narcotic prescription(s) as well as possible discharge from the clinic Diagnoses, prognosis and treatment options including but not limited to physical therapy, surgical interventions, interventional therapies and medication management including narcotics and adjuvant medication were discussed. All patient questions answered. Narcotic/ opiate agreement renewed 08/29/23. MAPS reviewed and it was appropriate. UDS from 08/29/23 reviewed and consistent. Prescription refill for Incr quantity [place] 10/325mg #120, Neurontin 400mg #90, Voltaren gel, Lidoderm 5% w 1 RF. I have spent less than 30 minutes on patient care today. Dr Houser was available by phone for the evaluation of this patient. The time was used to review the medical records including relevant urine studies and Prescription history (MAPs), review of the available imaging, evaluation and examination of the patient, coordination of care with the medical staff and if applicable referring physicians, as well as creation of the medical record PQRS Narrative: Smoking Status Former smoker Narcotic Agreement Date Signed 08/29/23 Hx Alcohol Use (MH) Yes: OCC. Home Medications: Ambulatory Orders Cholecalciferol [Vitamin D3 (25 Mcg = 1000 Iu)] 1,000 unit PO BID@1200,2100 05/24/15 Spironolactone-Hctz 25-25Mg [Aldactazide 25-25 MG] 1 tab PO QAM 05/24/15 Tamsulosin [Flomax] 0.4 mg PO BID@0700,1200 05/24/15 Montelukast [Singulair] 10 mg PO HS 02/26/19 Atorvastatin [Lipitor] 20 mg PO QAM 03/11/19 Ferrous Sulfate [Iron (65 MG Elemental)] 325 mg PO DAILY@1200 03/11/19 Warfarin [Coumadin] 5 mg PO HS 10/05/19 Albuterol Sulfate [Ventolin HFA] 2 puff INHALATION RT-Q6H PRN 12/22/19 Furosemide [Lasix] 40 mg PO QAM #30 tab 12/26/19 Metoprolol Succinate (ER) [Toprol XL] 100 mg PO BID #60 tab.er.24h 12/26/19 Sennosides-Docusate Sodium [Senokot-S] 1 each PO BID PRN #8 tab 12/26/19 polyethylene glycoL 3350 [Miralax] 17 gm PO DAILY PRN #2 powd.pack 12/26/19 Omeprazole [PriLOSEC] 20 mg PO 1200 06/01/20 metFORMIN HCL [Glucophage] 500 mg PO QAM 01/17/21 Dapagliflozin Propanediol [Farxiga] 10 mg PO DAILY 12/14/21 Insulin Degludec [Tresiba Flextouch U-100 Pen] 17 units SQ HS 12/14/21 Methyl Salicylate/Menth/Camph [Bengay Ultra Strength Cream] 1 applic TOPICAL DIRECTED PRN 12/14/21 Umeclidinium Brm/Vilanterol Tr [Anoro Ellipta 62.5-25 Mcg INH] 1 puff INHALATION DAILY 12/14/21 Diclofenac Sodium Gel [Voltaren 1% Gel] 100 gm TOPICAL QID PRN 30 Days #100 g 01/15/24 Gabapentin [Neurontin] 400 mg PO TID 30 Days #90 cap 01/15/24 HYDROcodone/APAP 10-325MG [[place] 10-325] 1 tab PO QID PRN 30 Days #120 tab 01/15/24 HYDROcodone/APAP 10-325MG [[place] 10-325] 1 tab PO QID PRN 30 Days #120 tab 01/15/24 HYDROcodone/APAP 10-325MG [[place] 10-325] 1 tab PO QID PRN 30 Days #120 tab 01/15/24 Lidocaine 5% Patch [Lidoderm 5% Patch] 1 patch TOPICAL DAILY 30 Days #30 patch 01/15/24 Controlled Substance Measures - Controlled Substance Measures Is patient prescribed a controlled substance at discharge?: Yes When asked, does pt state using other controlled substances?: Yes If prescribed controlled substance>3 days was MAPS reviewed?: Yes
== END ==
LOC: PNWHC3 12:02
PROVIDERS: ATTEND Specialist
DX: M51.36 Other intervertebral disc degeneration, lumbar region (principal); M47.816 Spondylosis without myelopathy or radiculopathy, lumbar region; G89.29 Other chronic pain; Z79.891 Long term (current) use of opiate analgesic; Z87.891 Personal history of nicotine dependence; Z88.5 Allergy status to narcotic agent
CPT/HCPCS: 99211

== ENCOUNTER → 2024-04-08 | Outpatient (CLI) | payer MEDICARE, BC ==
[2024-04-08 12:11] VITALS: BP 128/85; PULSE 79; RESP 16; TEMP 98.2
--- NOTE | 2024-04-09 11:02 | P.PAINPG ---
Objective - Vital Signs Vital signs: Intake & Output 04/07/24 04/08/24 04/08/24 18:59 06:59 18:59 Weight 136.078 kg PQRS Measure Charge Sheet Comment: A 74 yr old male w at side with a history of severe and chronic LBP secondary to lumbar DDD and spondylosis with facet arthropathy without myelopathy presents today for medication refills. Pain level is provoked at 9 /10 in intensity, constant, localized in the lumbar spine, predominantly axial, sharp, burning in character w occasional shooting towards the BLEs and feet. Pain is provoked by standing/ walking for periods of 20 min or more. Pain is alleviated with PT integrated w massage x 6 wks in May 2023, use of a cane for ambulatory assistance, reclining, heat, ice, meds, topical, sitting and rest. Pt has difficulty traveling in the winter and would like a 3 mo supply this time. Patient is currently on [place] 10/325 #90, Neurontin 300mg #90, Lidoderm 5%, Voltaren gel Patient denies any side effects of the medication(s), denies excessive drowsiness or sleepiness, denies suicidal ideation and reports that the current pain medication is helping to control the pain and improve activities of daily living. Patient denies any motor or sensory deficits. Patient denies any fever or night sweats, denies any change in the bowel movements or urination. Physical Examination: -Constitutional: Cooperative. Not in acute distress . - Neurologic: Cranial nerve II to XII intact. No focal neurological d eficits. - Psychatric: Alert & oriented x 3. Matching mood & appropriate affect. Judgment and insight intact. - Musculoskeletal: Cervical spine: Muscle bulk/ tone/ strength in the bilateral upper extremities normal Vertebral body tenderness to palpation over Spurling test positive Distraction test positive Facet loading test positive TTP Thoracic spine Muscle bulk / tone/ strength in the bilateral paraspinal muscles normal Vertebral body tender to palpation over Facet loading test positive TTP Lumbar spine: Motor bulk/ tone/ strength lower extremities , thigh and legs : 5/5 Deep tendon reflexes : Normal Knee Jerk. Normal Ankle Jerk . Vertebral body tenderness to palpation over Lumbar Facet Loading Test positive Straight Leg Raise: positive at 30 degrees right side/ left side Gaenslen's Test positive Sacral spine : Severe tenderness over the Sacroiliac joint: right side / left side Range of motion: Flexion of the lumbar spine <60 degrees Range of motion: Extension of the lumbar spine <20 degrees Gaenslen's Test positive right side / left side Sidney test: positive right side / left side Thigh Thrust Test positive right side / left side Sacral Thrust Test positive right side / left side Assessment and plan: Chronic LBP secondary to lumbar DDD, spondylosis with facet arthropathy without myelopathy Chronic and current use of high-risk medication (Opioids). The patient was counseled about risk of opioid use, psychological risk associated with opioids and was orally counseled to not overuse , divert or sell medications. Pt is to store medication in a safe location. The patient is counseled against driving while using narcotic medications and also not to use alcohol or any illicit recreational drugs. Patient verbalized understanding that the lack of compliance will result in failure to renew narcotic prescription(s) as well as possible discharge from the clinic Diagnoses, prognosis and treatment options including but not limited to physical therapy, surgical interventions, interventional therapies and medication management including narcotics and adjuvant medication were discussed. All patient questions answered. Narcotic/ opiate agreement renewed 08/29/23. MAPS reviewed and it was appropriate. UDS collected 04/08/24. Prescription refill for Incr quantity [place] 10/325mg #120, Neurontin 400m g #90, Voltaren gel, Lidoderm 5% w 1 RF. I have spent less than 30 minutes on patient care today. Dr Houser was available by phone for the evaluation of this patient. The time was used to review the medical records including relevant urine studies and Prescription history (MAPs), review of the available imaging, evaluation and examination of the patient, coordination of care with the medical staff and if applicable referring physicians, as well as creation of the medical record PQRS Narrative: Smoking Status Former smoker Narcotic Agreement Date Signed 08/29/23 Hx Alcohol Use (MH) Yes: OCC. Home Medications: Ambulatory Orders Cholecalciferol [Vitamin D3 (25 Mcg = 1000 Iu)] 1,000 unit PO BID@1200,2100 05/24/15 Spironolactone-Hctz 25-25Mg [Aldactazide 25-25 MG] 1 tab PO QAM 05/24/15 Tamsulosin [Flomax] 0.4 mg PO BID@0700,1200 05/24/15 Montelukast [Singulair] 10 mg PO HS 03/28/19 Atorvastatin [Lipitor] 20 mg PO QAM 03/11/19 Ferrous Sulfate [Iron (65 MG Elemental)] 325 mg PO DAILY@1200 03/11/19 Warfarin [Coumadin] 5 mg PO HS 10/05/19 Albuterol Sulfate [Ventolin HFA] 2 puff INHALATION RT-Q6H PRN 12/22/19 Furosemide [Lasix] 40 mg PO QAM #30 tab 12/26/19 Metoprolol Succinate (ER) [Toprol XL] 100 mg PO BID #60 tab.er.24h 12/26/19 Sennosides-Docusate Sodium [Senokot-S] 1 each PO BID PRN #8 tab 12/26/19 polyethylene glycoL 3350 [Miralax] 17 gm PO DAILY PRN #2 powd.pack 12/26/19 Omeprazole [PriLOSEC] 20 mg PO 1200 06/01/20 metFORMIN HCL [Glucophage] 500 mg PO QAM 01/17/21 Dapagliflozin Propanediol [Farxiga] 10 mg PO DAILY 12/14/21 Insulin Degludec [Tresiba Flextouch U-100 Pen] 17 units SQ HS 12/14/21 Methyl Salicylate/Menth/Camph [Bengay Ultra Strength Cream] 1 applic TOPICAL DIRECTED PRN 12/14/21 Umeclidinium Brm/Vilanterol Tr [Anoro Ellipta 62.5-25 Mcg INH] 1 puff INHALATION DAILY 12/14/21 Diclofenac Sodium Gel [Voltaren 1% Gel] 100 gm TOPICAL QID PRN 30 Days #100 g 01/15/24 Gabapentin [Neurontin] 400 mg PO TID 30 Days #90 cap 01/15/24 HYDROcodone/APAP 10-325MG [[place] 10-325] 1 tab PO QID PRN 30 Days #120 tab 01/15/24 HYDROcodone/APAP 10-325MG [[place] 10-325] 1 tab PO QID PRN 30 Days #120 tab 01/15/24 HYDROcodone/APAP 10-325MG [[place] 10-325] 1 tab PO QID PRN 30 Days #120 tab 01/15/24 Lidocaine 5% Patch [Lidoderm 5% Patch] 1 patch TOPICAL DAILY 30 Days #30 patch 01/15/24 Controlled Substance Measures - Controlled Substance Measures Is patient prescribed a controlled substance at discharge?: Yes When asked, does pt state using other controlled substances?: No If prescribed controlled substance>3 days was MAPS reviewed?: Yes
== END ==
LOC: PNWHC3 10:35
PROVIDERS: ATTEND Specialist
DX: M51.36 Other intervertebral disc degeneration, lumbar region (principal); M47.816 Spondylosis without myelopathy or radiculopathy, lumbar region; G89.29 Other chronic pain; Z79.891 Long term (current) use of opiate analgesic; Z87.891 Personal history of nicotine dependence; Z88.5 Allergy status to narcotic agent
CPT/HCPCS: 80307; G0463; 99212

== ENCOUNTER → 2024-06-12 | Outpatient (CLI) | payer MEDICARE, BC ==
--- NOTE | 2024-06-13 11:18 | MR ---
EXAMINATION TYPE: MR abdomen wo/w con DATE OF EXAM: 06/12/2024 3:22 PM CLINICAL INDICATION:Male, 74 years old with history of D35.01 BENIGN NEOPLASM R ADRENAL GLAND; PHH, A bnormal CT, benign neoplasm of adrenal gland. COMPARISON: CT scan abdomen from 11/26/2023. TECHNIQUE: Multiplanar multi-sequence imaging was performed without contrast. Post contrast imaging was performed. Post IV contrast subtraction images were also submitted for review. IV Contrast: 13 cc Gadavist FINDINGS: Poor [id number] ratio limits evaluation. LOWER CHEST: The heart is enlarged for size. ABDOMEN Liver: No evidence for hepatic steatosis or cirrhosis. Gallbladder and Bile ducts: No evidence for ductal dilation, or biliary stricture or evidence of chol edocholithiasis. The gallbladder is surgically absent. Pancreas: No ductal dilation. No evidence for solid mass. Spleen: Normal for size. Adrenal glands: There are 2 nodules in the left adrenal gland measuring 18 medially and more laterall y 20 mm. These demonstrate mild dropout of signal on coronal suture phase imaging. Kidneys: There is a right renal 18 mm lesion in the inferior pole posteriorly which appears to enhanc e to a lesser extent than surrounding cortex confirmed on subtraction imaging. This renal lesion on p rior CT on 11/26/2023 appears to also enhance and measures approximately 17 mm at that time which is similar given differences in technique. No left renal masses no hydronephrosis. Right renal calculus not well appreciated. Subcentimeter high T2 low T1 nonenhancing renal cysts are seen bilaterally. Stomach and Bowel: No evidence for bowel wall thickening or evidence for obstruction. Retroperitoneum/Peritoneum: No evidence of pneumoperitoneum or free fluid. Vasculature: No aortic aneurysm. Musculoskeletal: The osseous structures appear intact. Lymph Nodes: No gross evidence for lymphadenopathy. Abdominal wall: Unremarkable. IMPRESSION: Poor ywgueg-[id number] ratio limits evaluation. 1. Left adrenal nodules are most compatible of adrenal adenomas. 2. 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 Urologic consultation for management recommended. 3. Cardiomegaly. A Yellow level critical message alert has been initiated for La Adame MD via the [employer] Critical Results System on 06/13/2024 11:14 AM. This message alert has been sent to La Adame MD via the preferences provided by the clinician for the receipt of Radiology Critical Findings. Caprice hernandez ID [id number].
== END | disposition home or self-care (01) ==
LOC: RADMRIMAIN 14:09
PROVIDERS: ATTEND Internal Medicine
DX: D35.01 Benign neoplasm of right adrenal gland (principal); I51.7 Cardiomegaly; N28.89 Other specified disorders of kidney and ureter; D35.02 Benign neoplasm of left adrenal gland; C64.1 Malignant neoplasm of right kidney, except renal pelvis
CPT/HCPCS: 74183; A9585

== ENCOUNTER → 2024-06-22 | Outpatient (CLI) | payer MEDICARE, BC ==
--- NOTE | 2024-06-22 16:18 | XR ---
EXAMINATION TYPE: XR cervical spine comp DATE OF EXAM: 06/22/2024 3:15 PM CLINICAL INDICATION:Male, 74 years old with history of M542 CERVICALGIA; COMPARISON: None TECHNIQUE: The cervical spine was imaged in frontal, lateral, odontoid and bilateral oblique. FINDINGS: The osseous structures show normal alignment without evidence of an acute fracture. There are osteoph ytes noted throughout the cervical spine on the anterior and lateral aspects of the vertebral bodies. The intervertebral disk spaces are narrowed at multiple levels. Pedicles are intact. Soft tissues a re within normal limits. The odontoid appears intact. IMPRESSION: 1. No fracture or dislocation. 2. Mild degenerative disc disease changes of the cervical spine.
== END | disposition home or self-care (01) ==
LOC: RADXRYALE 15:02
PROVIDERS: ATTEND Internal Medicine
DX: M50.30 Other cervical disc degeneration, unspecified cervical region (principal)
CPT/HCPCS: 72050

== ENCOUNTER → 2024-07-01 | Outpatient (CLI) | payer MEDICARE, BC ==
[2024-07-01 10:51] VITALS: BP 108/72; PULSE 86; RESP 16
--- NOTE | 2024-07-01 14:47 | P.PAINPG ---
PQRS Measure Charge Sheet Comment: A 74 yr old male w at side with a history of severe and chronic LBP secondary to lumbar DDD and spondylosis with facet arthropathy without myelopathy presents today for medication refills. Pain level is provoked at 8 /10 in intensity, constant, localized in the lumbar spine, predominantly axial, sharp, burning in character w occasional shooting towards the BLEs and feet. Pain is provoked by standing/ walking for periods of 20 min or more. Pain is alleviated with PT integrated w massage x 6 wks in May 2023, use of a cane for ambulatory assistance, reclining, heat, ice, meds, topical, sitting and rest. Pt has difficulty traveling in the winter and would like a 3 mo supply this time. Patient is currently on [place] 10/325 #120, Neurontin 400mg #90, Lidoderm 5%, Voltaren gel Patient denies any side effects of the medication(s), denies excessive drowsiness or sleepiness, denies suicidal ideation and reports that the current pain medication is helping to control the pain and improve activities of daily living. Patient denies any motor or sensory deficits. Patient denies any fever or night sweats, denies any change in the bowel movements or urination. Physical Examination: -Constitutional: Cooperative. Not in acute distress . - Neurologic: Cranial nerve II to XII intact. No focal neurological deficits. - Psychatric: Alert & oriented x 3. Matching mood & appropriate affect. Judgment and insight intact. - Musculoskeletal: Cervical spine: Muscle bulk/ tone/ strength in the bilateral upper extremities normal Vertebral body tenderness to palpation over Spurling test positive Distraction test positive Facet loading test positive TTP Thoracic spine Muscle bulk / tone/ strength in the bilateral paraspinal muscles normal Vertebral body tender to palpation over Facet loading test positive TTP Lumbar spine: Motor bulk/ tone/ strength lower extremities , thigh and legs : 5/5 Deep tendon reflexes : Normal Knee Jerk. Normal Ankle Jerk . Vertebral body tenderness to palpation over Lumbar Facet Loading Test positive Straight Leg Raise: positive at 30 degrees right side/ left side Gaenslen's Test positive Sacral spine : Severe tenderness over the Sacroiliac joint: right side / left side Range of motion: Flexion of the lumbar spine <60 degrees Range of motion: Extension of the lumbar spine <20 degrees Gaenslen's Test positive right side / left side Sidney test: positive right side / left side Thigh Thrust Test positive right side / left side Sacral Thrust Test positive right side / left side Assessment and plan: Chronic LBP secondary to lumbar DDD, spondylosis with facet arthropathy without myelopathy Chronic and current use of high-risk medication (Opioids). The patient was counseled about risk of opioid use, psychological risk associated with opioids and was orally counseled to not overuse , divert or sell medications. Pt is to store medication in a safe location. The patient is counseled against driving while using narcotic medications and also not to use alcohol or any illicit recreational drugs. Patient verbalized understanding that the lack of compliance will result in failure to renew narcotic prescription(s) as well as possible discharge from the clinic Diagnoses, prognosis and treatment options including but not limited to physical therapy, surgical interventions, interventional therapies and medication management including narcotics and adjuvant medication were discussed. All patient questions answered. Narcotic/ opiate agreement renewed 08/29/23. MAPS reviewed and it was appropriate. UDS fr 04/08/24 reviewed and consistent. Prescription refill for [place] 10/325mg #120, Neurontin 400mg #90, Voltaren gel, Lidoderm 5% w 1 RF. I have spent less than 30 minutes on patient care today. Dr Houser was available by phone for the evaluation of this patient. The time was used to re view the medical records including relevant urine studies and Prescription history (MAPs), review of the available imaging, evaluation and examination of the patient, coordination of care with the medical staff and if applicable referring physicians, as well as creation of the medical record PQRS Narrative: Smoking Status Former smoker Narcotic Agreement Date Signed 08/29/23 Hx Alcohol Use (MH) Yes: OCC. Home Medications: Ambulatory Orders Cholecalciferol [Vitamin D3 (25 Mcg = 1000 Iu)] 1,000 unit PO BID@1200,2100 05/24/15 Spironolactone-Hctz 25-25Mg [Aldactazide 25-25 MG] 1 tab PO QAM 05/24/15 Tamsulosin [Flomax] 0.4 mg PO BID@0700,1200 05/24/15 Montelukast [Singulair] 10 mg PO HS 02/26/19 Atorvastatin [Lipitor] 20 mg PO QAM 03/11/19 Ferrous Sulfate [Iron (65 MG Elemental)] 325 mg PO DAILY@1200 03/11/19 Warfarin [Coumadin] 5 mg PO HS 10/05/19 Albuterol Sulfate [Ventolin HFA] 2 puff INHALATION RT-Q6H PRN 12/22/19 Furosemide [Lasix] 40 mg PO QAM #30 tab 12/26/19 Metoprolol Succinate (ER) [Toprol XL] 100 mg PO BID #60 tab.er.24h 12/26/19 Sennosides-Docusate Sodium [Senokot-S] 1 each PO BID PRN #8 tab 12/26/19 polyethylene glycoL 3350 [Miralax] 17 gm PO DAILY PRN #2 powd.pack 12/26/19 Omeprazole [PriLOSEC] 20 mg PO 1200 06/01/20 metFORMIN HCL [Glucophage] 500 mg PO QAM 01/17/21 Dapagliflozin Propanediol [Farxiga] 10 mg PO DAILY 12/14/21 Insulin Degludec [Tresiba Flextouch U-100 Pen] 17 units SQ HS 12/14/21 Methyl Salicylate/Menth/Camph [Beng[place] Ultra Strength Cream] 1 applic TOPICAL DIRECTED PRN 12/14/21 Umeclidinium Brm/Vilanterol Tr [Anoro Ellipta 62.5-25 Mcg INH] 1 puff INHALATION DAILY 12/14/21 Diclofenac Sodium Gel [Voltaren 1% Gel] 100 gm TOPICAL QID PRN 30 Days #100 g 07/01/24 Gabapentin [Neurontin] 400 mg PO TID 30 Days #90 cap 07/01/24 HYDROcodone/APAP 10-325MG [[place] 10-325] 1 tab PO QID PRN 30 Days #120 tab 07/01/24 HYDROcodone/APAP 10-325MG [[place] 10-325] 1 tab PO QID PRN 30 Days #120 tab 07/01/24 HYDROcodone/APAP 10-325MG [[place] 10-325] 1 tab PO QID PRN 30 Days #120 tab 07/01/24 Lidocaine 5% Patch [Lidoderm 5% Patch] 1 patch TOPICAL DAILY 30 Days #30 patch 07/01/24 Controlled Substance Measures - Controlled Substance Measures Is patient prescribed a controlled substance at discharge?: Yes When asked, does pt state using other controlled substances?: No If prescribed controlled substance>3 days was MAPS reviewed?: Yes
== END ==
LOC: PNWHC3 10:04
PROVIDERS: ATTEND Specialist
DX: M51.36 Other intervertebral disc degeneration, lumbar region (principal); M47.816 Spondylosis without myelopathy or radiculopathy, lumbar region; Z79.891 Long term (current) use of opiate analgesic; Z87.891 Personal history of nicotine dependence; Z88.5 Allergy status to narcotic agent
CPT/HCPCS: 99211

== ENCOUNTER → 2024-09-23 | Outpatient (CLI) | payer MEDICARE, BC ==
[2024-09-23 10:03] VITALS: BP 101/66; PULSE 99; RESP 16
--- NOTE | 2024-09-23 14:37 | P.PAINPG ---
PQRS Measure Charge Sheet Comment: A 74 yr old male w at side with a history of severe and chronic LBP < 1 yr secondary to radiculoapthy, spondylosis with facet arthropathy without myelopathy presents today for medication refills. Pain level is provoked at 9 /10 in intensity, constant, localized in the lumbar spine, predominantly axial, sharp, burning in character w occasional shooting towards the BLEs and feet. Pain is provoked by standing/ walking for periods of 20 min or more. Pain is alleviated with PT integrated w massage x 6 wks in May 2023, use of a cane for ambulatory assistance, reclining, heat, ice, meds, topical, sitting and rest. Pt has difficulty traveling in the winter and would like a 3 mo supply this time. Patient is currently on [place] 10/325 #120, Neurontin 400mg #90, Lidoderm 5%, Voltaren gel Patient denies any side effects of the medication(s), denies excessive drowsiness or sleepiness, denies suicidal ideation and reports that the current pain medication is helping to control the pain and improve activities of daily living. Patient denies any motor or sensory deficits. Patient denies any fever or night sweats, denies any change in the bowel movements or urination. Physical Examination: -Constitutional: Cooperative. Not in acute distress . - Neurologic: Cranial nerve II to XII intact. No focal neurological deficits. - Psychatric: Alert & oriented x 3. Matching mood & appropriate affect. Judgment and insight intact. - Musculoskeletal: Cervical spine: Muscle bulk/ tone/ strength in the bilateral upper extremities normal Vertebral body tenderness to palpation over Spurling test positive Distraction test positive Facet loading test positive TTP Thoracic spine Muscle bulk / tone/ strength in the bilateral paraspinal muscles normal Vertebral body tender to palpation over Facet loading test positive TTP Lumbar spine: Motor bulk/ tone/ strength lower extremities , thigh and legs : 5/5 Deep tendon reflexes : Normal Knee Jerk. Normal Ankle Jerk . Vertebral body tenderness to palpation over Lumbar Facet Loading Test positive Straight Leg Raise: positive at 30 degrees right side/ left side Gaenslen's Test positive Sacral spine : Severe tenderness over the Sacroiliac joint: right side / left side Range of motion: Flexion of the lumbar spine <60 degrees Range of motion: Extension of the lumbar spine <20 degrees Gaenslen's Test positive right side / left side Sidney test: positive right side / left side Thigh Thrust Test positive right side / left side Sacral Thrust Test positive right side / left side Assessment and plan: Chronic LBP secondary to radiculopathy, spondylosis with facet arthropathy without myelopathy Chronic and current use of high-risk medication (Opioids). The patient was counseled about risk of opioid use, psychological risk associated with opioids and was orally counseled to not overuse , divert or sell medications. Pt is to store medication in a safe location. The patient is counseled against driving while using narcotic medications and also not to use alcohol or any illicit recreational drugs. Patient verbalized understanding that the lack of compliance will result in failure to renew narcotic prescription(s) as well as possible discharge from the clinic Diagnoses, prognosis and treatment options including but not limited to physical therapy, surgical interventions, interventional therapies and medication management including narcotics and adjuvant medication were discussed. All patient questions answered. Narcotic/ opiate agreement renewed 09/23/24. MAPS reviewed and it was appropriate. UDS fr 04/08/24 reviewed and consistent. Prescription refill for [place] 10/325mg #120, Neurontin 400mg #90, Voltaren gel, Lidoderm 5% w 2 RF. I have spent less than 30 minutes on patient care today. Dr Houser was available by phone for the evaluation of this patient. The time was used to review the medical records including relevant urine studies and Prescription history (MAPs), review of the available imaging, evaluation and examination of the patient, coordination of care with the medical staff and if applicable referring physicians, as well as creation of the medical record PQRS Narrative: Smoking Status Former smoker Narcotic Agreement Date Signed 08/29/23 Hx Alcohol Use (MH) Yes: OCC. Home Medications: Ambulatory Orders Cholecalciferol [Vitamin D3 (25 Mcg = 1000 Iu)] 1,000 unit PO BID@1200,2100 05/24/15 Spironolactone-Hctz 25-25Mg [Aldactazide 25-25 MG] 1 tab PO QAM 05/24/15 Tamsulosin [Flomax] 0.4 mg PO BID@0700,1200 05/24/15 Montelukast [Singulair] 10 mg PO HS 02/26/19 Atorvastatin [Lipitor] 20 mg PO QAM 03/11/19 Ferrous Sulfate [Iron (65 MG Elemental)] 325 mg PO DAILY@1200 03/11/19 Warfarin [Coumadin] 5 mg PO HS 10/05/19 Albuterol Sulfate [Ventolin HFA] 2 puff INHALATION RT-Q6H PRN 12/22/19 Furosemide [Lasix] 40 mg PO QAM #30 tab 12/26/19 Metoprolol Succinate (ER) [Toprol XL] 100 mg PO BID #60 tab.er.24h 12/26/19 Sennosides-Docusate Sodium [Senokot-S] 1 each PO BID PRN #8 tab 12/26/19 polyethylene glycoL 3350 [Miralax] 17 gm PO DAILY PRN #2 powd.pack 12/26/19 Omeprazole [PriLOSEC] 20 mg PO 1200 06/01/20 metFORMIN HCL [Glucophage] 500 mg PO QAM 01/17/21 Dapagliflozin Propanediol [Farxiga] 10 mg PO DAILY 12/14/21 Insulin Degludec [Tresiba Flextouch U-100 Pen] 17 units SQ HS 12/14/21 Methyl Salicylate/Menth/Camph [[place] Ultra Strength Cream] 1 applic TOPICAL DIRECTED PRN 12/14/21 Umeclidinium Brm/Vilanterol Tr [Anoro Ellipta 62.5-25 Mcg INH] 1 puff INHALATION DAILY 12/14/21 Diclofenac Sodium Gel [Voltaren 1% Gel] 100 gm TOPICAL QID PRN 30 Days #100 g 07/01/24 Gabapentin [Neurontin] 400 mg PO TID 30 Days #90 cap 07/01/24 HYDROcodone/APAP 10-325MG [[place] 10-325] 1 tab PO QID PRN 30 Days #120 tab 07/01/24 HYDROcodone/APAP 10-325MG [[place] 10-325] 1 tab PO QID PRN 30 Days #120 tab 07/01/24 HYDROcodone/APAP 10-325MG [[place] 10-325] 1 tab PO QID PRN 30 Days #120 tab 07/01/24 Lidocaine 5% Patch [Lidoderm 5% Patch] 1 patch TOPICAL DAILY 30 Days #30 patch 07/01/24 Controlled Substance Measures - Controlled Substance Measures Is patient prescribed a controlled substance at discharge?: Yes When asked, does pt state using other controlled substances?: No If prescribed controlled substance>3 days was MAPS reviewed?: Yes If Rx opioid, was Start Talking consent form obtained?: Yes Was information provided regarding opioid addiction?: Yes
== END ==
LOC: PNWHC3 09:21
PROVIDERS: ATTEND Specialist
DX: G89.4 Chronic pain syndrome
CPT/HCPCS: 99211

== ENCOUNTER → 2024-12-23 | Outpatient (CLI) | payer MEDICARE, BC ==
[2024-12-23 09:32] VITALS: BP 107/74; PULSE 60; RESP 19; TEMP 97.5
--- NOTE | 2024-12-23 16:36 | P.PAINPG ---
Objective - Vital Signs Vital signs: Intake & Output 12/22/24 12/23/24 12/23/24 18:59 06:59 18:59 Weight 131.542 kg PQRS Measure Charge Sheet Comment: A 74 yr old male w at side with a history of severe and chronic LBP < 1 yr secondary to radiculoapthy, spondylosis with facet arthropathy without myelopathy presents today for medication refills. Pain level is provoked at 8 /10 in intensity, constant, localized in the lumbar spine, predominantly axial, sharp, burning in character w occasional shooting towards the BLEs and feet. Pain is provoked by standing/ walking for periods of 20 min or more. Pain is alleviated with PT integrated w massage x 6 wks in May 2023, use of a cane for ambulatory assistance, reclining, heat, ice, meds, topical, sitting and rest. Pt has difficulty traveling in the winter and would like a 3 mo supply this time. Patient is currently on [place] 10/325 #120, Neurontin 400mg #90, Lidoderm 5%, Voltaren gel Patient denies any side effects of the medication(s), denies excessive drowsiness or sleepiness, denies suicidal ideation and reports that the current pain medication is helping to control the pain and improve activities of daily living. Patient denies any motor or sensory deficits. Patient denies any fever or night sweats, denies any change in the bowel movements or urination. Physical Examination: -Constitutional: Cooperative. Not in acute distress . - Neurologic: Cranial nerve II to XII intact. No focal neurological deficits. - Psychatric: Alert & oriented x 3. Matching mood & appropriate affect. Judgment and insight intact. - Musculoskeletal: Cervical spine: Muscle bulk/ tone/ strength in the bilateral upper extremities normal Vertebral body tenderness to palpation over Spurling test positive Distraction test positive Facet loading test positive TTP Thoracic spine Muscle bulk / tone/ strength in the bilateral paraspinal muscles normal Vertebral body tender to palpation over Facet loading test positive TTP Lumbar spine: Motor bulk/ tone/ strength lower extremities , thigh and legs : 5/5 Deep tendon reflexes : Normal Knee Jerk. Normal Ankle Jerk . Vertebral body tenderness to palpation over Lumbar Facet Loading Test positive Straight Leg Raise: positive at 30 degrees right side/ left side Gaenslen's Test positive Sacral spine : Severe tenderness over the Sacroiliac joint: right side / left side Range of motion: Flexion of the lumbar spine <60 degrees Range of motion: Extension of the lumbar spine <20 degrees Gaenslen's Test positive right side / left side Sidney test: positive right side / left side Thigh Thrust Test positive right side / left side Sacral Thrust Test positive right side / left side Assessment and plan: Chronic LBP secondary to radiculopathy, spondylosis with facet arthropathy without myelopathy Chronic and current use of high-risk medication (Opioids). The patient was counseled about risk of opioid use, psychological risk associated with opioids and was orally counseled to not overuse , divert or sell medications. Pt is to store medication in a safe location. The patient is counseled against driving while using narcotic medications and also not to use alcohol or any illicit recreational drugs. Patient verbalized understanding that the lack of compliance will result in failure to renew narcotic prescription(s) as well as possible discharge from the clinic Diagnoses, prognosis and treatment options including but not limited to physical therapy, surgical interventions, interventional therapies and medication management including narcotics and adjuvant medication were discussed. All patient questions answered. Narcotic/ opiate agreement renewed 09/23/24. MAPS reviewed and it was appropriate. UDS collected 12/23/24. Prescription refill for [place] 10/325mg #120, Neurontin 400mg #90, Voltaren gel, Lidoderm 5% w 2 RF. I have spent less than 30 minutes on patient care today. Dr Houser was available by phone for the evaluation of this patient. The time was used to review the medical records including relevant urine studies and Prescription history (MAPs), review of the available imaging, evaluation and examination of the patient, coordination of care with the medical staff and if applicable referring physicians, as well as creation of the medical record PQRS Narrative: Smoking Status Former smoker Narcotic Agreement Date Signed 09/23/24 Hx Alcohol Use (MH) Yes: OCC. Home Medications: Ambulatory Orders Cholecalciferol [Vitamin D3 (25 Mcg = 1000 Iu)] 1,000 unit PO BID@1200,2100 05/24/15 Spironolactone-Hctz 25-25Mg [Aldactazide 25-25 MG] 1 tab PO QAM 05/24/15 Tamsulosin [Flomax] 0.4 mg PO BID@0700,1200 05/24/15 Montelukast [Singulair] 10 mg PO HS 02/26/19 Atorvastatin [Lipitor] 20 mg PO QAM 03/11/19 Ferrous Sulfate [Iron (65 MG Elemental)] 325 mg PO DAILY@1200 03/11/19 Warfarin [Coumadin] 5 mg PO HS 10/05/19 Albuterol Sulfate [Ventolin HFA] 2 puff INHALATION RT-Q6H PRN 12/22/19 Furosemide [Lasix] 40 mg PO QAM #30 tab 12/26/19 Metoprolol Succinate (ER) [Toprol XL] 100 mg PO BID #60 tab.er.24h 12/26/19 Sennosides-Docusate Sodium [Senokot-S] 1 each PO BID PRN #8 tab 12/26/19 polyethylene glycoL 3350 [Miralax] 17 gm PO DAILY PRN #2 powd.pack 12/26/19 Omeprazole [PriLOSEC] 20 mg PO 1200 06/01/20 metFORMIN HCL [Glucophage] 500 mg PO QAM 01/17/21 Dapagliflozin Propanediol [Farxiga] 10 mg PO DAILY 12/14/21 Insulin Degludec [Tresiba Flextouch U-100 Pen] 17 units SQ HS 12/14/21 Methyl Salicylate/Menth/Camph [Bengay Ultra Strength Cream] 1 applic TOPICAL DIRECTED PRN 12/14/21 Umeclidinium Brm/Vilanterol Tr [Anoro Ellipta 62.5-25 Mcg INH] 1 puff INHALATION DAILY 12/14/21 Diclofenac Sodium Gel [Voltaren 1% Gel] 100 gm TOPICAL QID PRN 30 Days #100 g 09/23/24 Gabapentin [Neurontin] 400 mg PO TID 30 Days #90 cap 09/23/24 HYDROcodone/APAP 10-325MG [[place] 10-325] 1 tab PO QID PRN 30 Days #120 tab 09/23/24 HYDROcodone/APAP 10-325MG [[place] 10-325] 1 tab PO QID PRN 30 Days #120 tab 09/23/24 HYDROcodone/APAP 10-325MG [[place] 10-325] 1 tab PO QID PRN 30 Days #120 tab 09/23/24 Lidocaine 5% Patch [Lidoderm 5% Patch] 1 patch TOPICAL DAILY 30 Days #30 patch 09/23/24 Controlled Substance Measures - Controlled Substance Measures Is patient prescribed a controlled substance at discharge?: Yes When asked, does pt state using other controlled substances?: No If prescribed controlled substance>3 days was MAPS reviewed?: Yes
== END ==
LOC: PNWHC3 09:07
PROVIDERS: ATTEND Specialist
DX: M54.50 Low back pain, unspecified (principal); M47.816 Spondylosis without myelopathy or radiculopathy, lumbar region; Z87.891 Personal history of nicotine dependence; Z79.899 Other long term (current) drug therapy; Z88.5 Allergy status to narcotic agent
CPT/HCPCS: 80307; G0463; 99211

== ENCOUNTER → 2025-03-17 | Outpatient (CLI) | payer MEDICARE, BC ==
[2025-03-17 10:28] VITALS: BP 91/59; PULSE 61; RESP 18; TEMP 96.9
--- NOTE | 2025-03-17 19:07 | P.PAINPG ---
PQRS Measure Charge Sheet Comment: A 75 yr old wheelchair bound male w at side with a history of severe and chronic LBP < 1 yr secondary to radiculopathy, spondylosis with facet arthropathy without myelopathy presents today for medication refills. Pain level is provoked at 8 /10 in intensity, constant, localized in the lumbar spine, pre dominantly axial, sharp, burning in character w occasional shooting towards the BLEs and feet. Pain is provoked by standing/ walking for periods of 20 min or more. Pain is alleviated with PT integrated w massage x 6 wks in May 2023, use of a wheelchair/ cane for ambulatory assistance, reclining, heat, ice, meds, topical, sitting and rest. Pt has difficulty traveling in the winter and would like a 3 mo supply this time. Patient is currently on [place] 10/325 #120, Neurontin 400mg #90, Lidoderm 5%, Voltaren gel Patient denies any side effects of the medication(s), denies excessive drowsiness or sleepiness, denies suicidal ideation and reports that the current pain medication is helping to control the pain and improve activities of daily living. Patient denies any motor or sensory deficits. Patient denies any fever or night sweats, denies any change in the bowel movements or urination. Physical Examination: -Constitutional: Cooperative. Not in acute distress . - Neurologic: Cranial nerve II to XII intact. No focal neurological deficits. - Psychatric: Alert & oriented x 3. Matching mood & appropriate affect. Judgment and insight intact. - Musculoskeletal: Cervical spine: Muscle bulk/ tone/ strength in the bilateral upper extremities normal Vertebral body tenderness to palpation over Spurling test positive Distraction test positive Facet loading test positive TTP Thoracic spine Muscle bulk / tone/ strength in the bilateral paraspinal muscles normal Vertebral body tender to palpation over Facet loading test positive TTP Lumbar spine: Motor bulk/ tone/ strength lower extremities , thigh and legs : 5/5 Deep tendon reflexes : Normal Knee Jerk. Normal Ankle Jerk . Vertebral body tenderness to palpation over Lumbar Facet Loading Test positive Straight Leg Raise: positive at 30 degrees right side/ left side Gaenslen's Test positive Sacral spine : Severe tenderness over the Sacroiliac joint: right side / left side Range of motion: Flexion of the lumbar spine <60 degrees Range of motion: Extension of the lumbar spine <20 degrees Gaenslen's Test positive right side / left side Sidney test: positive right side / left side Thigh Thrust Test positive right side / left side Sacral Thrust Test positive right side / left side Assessment and plan: Chronic LBP secondary to radiculopathy, spondylosis with facet arthropathy without myelopathy Chronic and current use of high-risk medication (Opioids). The patient was counseled about risk of opioid use, psychological risk associated with opioids and was orally counseled to not overuse , divert or sell medications. Pt is to store medication in a safe location. The patient is counseled against driving while using narcotic medications and also not to use alcohol or any illicit recreational drugs. Patient verbalized understanding that the lack of compliance will result in failure to renew narcotic prescription(s) as well as possible discharge from the clinic Diagnoses, prognosis and treatment options including but not limited to physical therapy, surgical interventions, interventional therapies and medication management including narcotics and adjuvant medication were discussed. All patient questions answered. Narcotic/ opiate agreement renewed 09/23/24. MAPS reviewed and it was appropriate. UDS from 12/23/24 reviewed and consistent. Prescription refill for [place] 10/325mg #120, Neurontin 400mg #90, Voltaren gel, Lidoderm 5% w 2 RF. I have spent less than 30 minutes on patient care today. Dr Houser was available by phone for the evaluation of this patient. The time was used to review the medical records including relevant urine studies and Prescription history (MAPs), review of the available imaging, evaluation and examination of the patient, coordination of care with the medical staff and if applicable referring physicians, as well as creation of the medical record PQRS Narrative: Smoking Status Former smoker Narcotic Agreement Date Signed 12/23/24 Hx Alcohol Use (MH) Yes: OCC. Home Medications: Ambulatory Orders Cholecalciferol [Vitamin D3 (25 Mcg = 1000 Iu)] 1,000 unit PO BID@1200,2100 05/24/15 Spironolactone-Hctz 25-25Mg [Aldactazide 25-25 MG] 1 tab PO QAM 05/24/15 Tamsulosin [Flomax] 0.4 mg PO BID@0700,1200 05/24/15 Montelukast [Singulair] 10 mg PO HS 02/26/19 Atorvastatin [Lipitor] 20 mg PO QAM 03/11/19 Ferrous Sulfate [Iron (65 MG Elemental)] 325 mg PO DAILY@1200 03/11/19 Warfarin [Coumadin] 5 mg PO HS 10/05/19 Albuterol Sulfate [Ventolin HFA] 2 puff INHALATION RT-Q6H PRN 12/22/19 Furosemide [Lasix] 40 mg PO QAM #30 tab 12/26/19 Metoprolol Succinate (ER) [Toprol XL] 100 mg PO BID #60 tab.er.24h 12/26/19 Sennosides-Docusate Sodium [Senokot-S] 1 each PO BID PRN #8 tab 12/26/19 polyethylene glycoL 3350 [Miralax] 17 gm PO DAILY PRN #2 powd.pack 12/26/19 Omeprazole [PriLOSEC] 20 mg PO 1200 06/01/20 metFORMIN HCL [Glucophage] 500 mg PO QAM 01/17/21 Dapagliflozin Propanediol [Farxiga] 10 mg PO DAILY 12/14/21 Insulin Degludec [Tresiba Flextouch U-100 Pen] 17 units SQ HS 12/14/21 Methyl Salicylate/Menth/Camph [Bengay Ultra Strength Cream] 1 applic TOPICAL DIRECTED PRN 12/14/21 Umeclidinium Brm/Vilanterol Tr [Anoro Ellipta 62.5-25 Mcg INH] 1 puff INHALATION DAILY 12/14/21 Diclofenac Sodium Gel [Voltaren 1% Gel] 100 gm TOPICAL QID PRN 30 Days #100 g 03/17/25 Gabapentin [Neurontin] 400 mg PO TID 30 Days #90 cap 03/17/25 HYDROcodone/APAP 10-325MG [[place] 10-325] 1 tab PO QID PRN 30 Days #120 tab 03/17/25 HYDROcodone/APAP 10-325MG [[place] 10-325] 1 tab PO QID PRN 30 Days #120 tab 03/17/25 HYDROcodone/APAP 10-325MG [[place] 10-325] 1 tab PO QID PRN 30 Days #120 tab 03/17/25 Lidocaine 5% Patch [Lidoderm 5% Patch] 1 patch TOPICAL DAILY 30 Days #30 patch 03/17/25 Controlled Substance Measures - Controlled Substance Measures Is patient prescribed a controlled substance at discharge?: Yes When asked, does pt state using other controlled substances?: No If prescribed controlled substance>3 days was MAPS reviewed?: Yes
== END ==
LOC: PNWHC3 09:24
PROVIDERS: ATTEND Specialist
DX: M47.26 Other spondylosis with radiculopathy, lumbar region (principal); G89.29 Other chronic pain; Z88.5 Allergy status to narcotic agent; Z87.891 Personal history of nicotine dependence
CPT/HCPCS: 99211

== ENCOUNTER → 2025-06-10 | Outpatient (CLI) | payer MEDICARE, BC ==
[2025-06-10 09:44] VITALS: BP 107/62; PULSE 56; RESP 18; TEMP 97.6
--- NOTE | 2025-06-10 12:31 | P.PAINPG ---
PQRS Measure Charge Sheet Comment: A 75 yr old wheelchair bound male w at side with a history of severe and chronic LBP < 1 yr secondary to radiculopathy, spondylosis with facet arthropathy without myelopathy presents today for medication refills. Pain level is provoked at 8 /10 in intensity, constant, localized in the lumbar spine, pre dominantly axial, sharp, burning in character w occasional shooting towards the BLEs and feet. Pain is provoked by standing/ walking for periods of 20 min or more. Pain is alleviated with PT integrated w massage x 6 wks in May 2023, use of a wheelchair/ cane for ambulatory assistance, reclining, heat, ice, meds, topical, sitting and rest. Pt has difficulty traveling in the winter and would like a 3 mo supply this time. Patient is currently on [place] 10/325 #120, Neurontin 400mg #90, Lidoderm 5%, Voltaren gel Patient denies any side effects of the medication(s), denies excessive drowsiness or sleepiness, denies suicidal ideation and reports that the current pain medication is helping to control the pain and improve activities of daily living. Patient denies any motor or sensory deficits. Patient denies any fever or night sweats, denies any change in the bowel movements or urination. Physical Examination: -Constitutional: Cooperative. Not in acute distress . - Neurologic: Cranial nerve II to XII intact. No focal neurological deficits. - Psychatric: Alert & oriented x 3. Matching mood & appropriate affect. Judgment and insight intact. - Musculoskeletal: Cervical spine: Muscle bulk/ tone/ strength in the bilateral upper extremities normal Vertebral body tenderness to palpation over Spurling test positive Distraction test positive Facet loading test positive TTP Thoracic spine Muscle bulk / tone/ strength in the bilateral paraspinal muscles normal Vertebral body tender to palpation over Facet loading test positive TTP Lumbar spine: Motor bulk/ tone/ strength lower extremities , thigh and legs : 5/5 Deep tendon reflexes : Normal Knee Jerk. Normal Ankle Jerk . Vertebral body tenderness to palpation over Lumbar Facet Loading Test positive Straight Leg Raise: positive at 30 degrees right side/ left side Gaenslen's Test positive Sacral spine : Severe tenderness over the Sacroiliac joint: right side / left side Range of motion: Flexion of the lumbar spine <60 degrees Range of motion: Extension of the lumbar spine <20 degrees Gaenslen's Test positive right side / left side Sidney test: positive right side / left side Thigh Thrust Test positive right side / left side Sacral Thrust Test positive right side / left side Assessment and plan: Chronic LBP secondary to radiculopathy, spondylosis with facet arthropathy without myelopathy Chronic and current use of high-risk medication (Opioids). The patient was counseled about risk of opioid use, psychological risk associated with opioids and was orally counseled to not overuse , divert or sell medications. Pt is to store medication in a safe location. The patient is counseled against driving while using narcotic medications and also not to use alcohol or any illicit recreational drugs. Patient verbalized understanding that the lack of compliance will result in failure to renew narcotic prescription(s) as well as possible discharge from the clinic Diagnoses, prognosis and treatment options including but not limited to physical therapy, surgical interventions, interventional therapies and medication management including narcotics and adjuvant medication were discussed. All patient questions answered. Narcotic/ opiate agreement renewed 09/23/24. MAPS reviewed and it was appropriate. Check UDS at next visit. Prescription refill for [place] 10/325mg #120, Neurontin 400mg #90, Voltaren gel, Lidoderm 5% w 2 RF. I have spent less than 30 minutes on patient care today. Dr Houser was available by phone for the evaluation of this patient. The time was used to review the medical records including relevant urine studies and Prescription history (MAPs), review of the available imaging, evaluation and examination of the patient, coordination of care with the medical staff and if applicable referring physicians, as well as creation of the medical record - Pain Location Lower Back Pharmacological Interventions: PRN Medication PQRS Narrative: Smoking Status Former smoker Narcotic Agreement Date Signed 12/23/24 Hx Alcohol Use (MH) Yes: OCC. Home Medications: Ambulatory Orders Cholecalciferol [Vitamin D3 (25 Mcg = 1000 Iu)] 1,000 unit PO BID@1200,2100 05/24/15 Spironolactone-Hctz 25-25Mg [Aldactazide 25-25 MG] 1 tab PO QAM 05/24/15 Tamsulosin [Flomax] 0.4 mg PO BID@0700,1200 05/24/15 Montelukast [Singulair] 10 mg PO HS 02/26/19 Atorvastatin [Lipitor] 20 mg PO QAM 03/11/19 Ferrous Sulfate [Iron (65 MG Elemental)] 325 mg PO DAILY@1200 03/11/19 Warfarin [Coumadin] 5 mg PO HS 10/05/19 Albuterol Sulfate [Ventolin HFA] 2 puff INHALATION RT-Q6H PRN 12/22/19 Furosemide [Lasix] 40 mg PO QAM #30 tab 12/26/19 Metoprolol Succinate (ER) [Toprol XL] 100 mg PO BID #60 tab.er.24h 12/26/19 Sennosides-Docusate Sodium [Senokot-S] 1 each PO BID PRN #8 tab 12/26/19 Omeprazole [PriLOSEC] 20 mg PO 1200 06/01/20 metFORMIN HCL [Glucophage] 500 mg PO QAM 01/17/21 Dapagliflozin Propanediol [Farxiga] 10 mg PO DAILY 12/14/21 Insulin Degludec [Tresiba Flextouch U-100 Pen] 17 units SQ HS 12/14/21 Methyl Salicylate/Menth/Camph [Bengay Ultra Strength Cream] 1 applic TOPICAL DIRECTED PRN 12/14/21 Umeclidinium Brm/Vilanterol Tr [Anoro Ellipta 62.5-25 Mcg INH] 1 puff INHALATION DAILY 12/14/21 Diclofenac Sodium Gel [Voltaren 1% Gel] 100 gm TOPICAL QID PRN 30 Days #100 g 06/10/25 Gabapentin [Neurontin] 400 mg PO TID 30 Days #90 cap 06/10/25 HYDROcodone/APAP 10-325MG [[place] 10-325] 1 tab PO QID PRN 30 Days #120 tab 06/10/25 HYDROcodone/APAP 10-325MG [[place] 10-325] 1 tab PO QID PRN 30 Days #120 tab 06/10/25 HYDROcodone/APAP 10-325MG [[place] 10-325] 1 tab PO QID PRN 30 Days #120 tab 06/10/25 Lidocaine 5% Patch [Lidoderm 5% Patch] 1 patch TOPICAL DAILY 30 Days #30 patch 06/10/25 polyethylene glycoL 3350 [Miralax] 17 gm PO DAILY PRN #2 packet 06/10/25 Controlled Substance Measures - Controlled Substance Measures Is patient prescribed a controlled substance at discharge?: Yes When asked, does pt state using other controlled substances?: Yes If prescribed controlled substance>3 days was MAPS reviewed?: Yes
== END ==
LOC: PNWHC3 09:05
PROVIDERS: ATTEND Specialist
DX: M47.26 Other spondylosis with radiculopathy, lumbar region (principal); Z88.5 Allergy status to narcotic agent; Z87.891 Personal history of nicotine dependence
CPT/HCPCS: 99211